=== PATIENT | female | born 1965 | race Caucasian/White ===

== ENCOUNTER 2016-10-14 16:13 | Observation (INO) | payer MEDICAID ==
--- NOTE | 2016-10-14 16:52 | ERPHSYRPT ---
- History of Present Illness Source: patient Exam Limitations: no limitations Patient Subjective Stated Complaint: PT STATES THAT SHE HAS BEEN HAVING THOUGHTS OF HARMING HERSELF-STATES "EVERYONE THINKS THAT WAY SOMETIMES"-PT STATES THAT "I WOULDN'T BECAUSE THE BIBLE SAYS NOT TO KILL ANYTHING"-STATES THAT HER BROTHER IN [place] ET SHE THINKS ABOUT HIM CONSTANTLY-DENIES ANY RECENT STRESSES-REPORTS STARTED ON [place] LAST FRIDAY-DENIES ANY ATTEMPTS OF HARMING HERSELF Triage Nursing Assessment: PT PINK WARM ET DRY-COOPERATIVE WITH STAFF-FLAT AFFECT NOTED-RESP NONLABORED-PT TALKATIVE ET ANXIOUS DURING TRIAGE-STATES THAT SHE HAS A BONE DISEASE THAT CAUSES PAIN EVERY DAY ET THAT DEPRESSES HER TOO Timing/Duration: other (patient havingdepression since feeling like harming herself this last week.) Modifying Factors: Improves With: other (recently started Cymbalta) Associated Symptoms: No nausea, No vomiting, No abdominal pain, No shortness of breath, No heartburn, No diaphoresis, No cough, No chills, No chest pain, No fever, No headaches, No loss of appetite, No malaise, No syncope, No seizure, No weakness Hx Tetanus, Diphtheria Vaccination/Date Given: Yes Hx Influenza Vaccination/Date Given: Yes Hx Pneumococcal Vaccination/Date Given: Yes Immunizations Up to Date: Yes <MAGDALENO LINK - Last Filed: 10/14/16 20:26> <ALEXANDRIA GARCIA - Last Filed: 10/15/16 00:34> - History of Present Illness Time Seen by Provider: 10/14/16 16:40 Physician History: This is a 51-year-old white female with history of seizures, strokes, adrenal insufficiency, hypothyroidism, liver disease, high blood pressure, GERD, renal disease, degenerative disc disease, anxiety, depression has had a liver transplant in the past And who was recently placed on Cymbalta by her family doctor. She arrives with complaints that she had a brother that over [place] she had another brother that within the last couple of years as well. She states she has been having suicidal thoughts. She states she has no obvious plan she states that she probably wouldn't kill herself because she is a [employer]. She does not want to hurt anybody else. She states she's been thinking about harming herself since Meet but this has been worse in the last week. Patient recently started Cymbalta. Past medical history includes seizure, strokes, adrenal insufficiency, hypothyroidism, liver disease, high blood pressure, GERD, renal disease, degenerative disc disease, anxiety, depression patient apparently has to straight catheter herself. Past surgical history includes cholecystectomy, liver transplant, hysterectomy, tubal ligation, orthopedic surgery, back kyphoplasty, bile duct surgeries, stage III kidney disease. (MAGDALENO LINK) Allergies/Adverse Reactions: levofloxacin [From Levaquin] Allergy (Severe, Verified 10/14/16 16:33) swelling of throat ampicillin Allergy (Verified 10/14/16 16:33) azithromycin [From Zithromax Z-Pawan] Allergy (Verified 10/14/16 16:33) cefixime [From Suprax] Allergy (Verified 10/14/16 16:33) cephalexin monohydrate [From Keflex] Allergy (Verified 10/14/16 16:33) ciprofloxacin [From Cipro] Allergy (Verified 10/14/16 16:33) ciprofloxacin HCl [From Cipro] Allergy (Verified 10/14/16 16:33) erythromycin base [Erythromycin Base] Allergy (Verified 10/14/16 16:33) nitrofurantoin [From Macrobid] Allergy (Verified 10/14/16 16:33) nitrofurantoin macrocrystalline [From Macrobid] Allergy (Verified 10/14/16 16:33 ) Penicillins Allergy (Verified 10/14/16 16:33) Sulfa (Sulfonamide Antibiotics) Allergy (Verified 10/14/16 16:33) tetracycline [Tetracycline] Allergy (Verified 10/14/16 16:33) Home Medications: Famotidine 20 mg PO HS 10/27/13 [History] Levothyroxine Sodium [Synthroid] 200 mcg PO DAILY 10/27/13 [History] Metoprolol Succinate 50 mg [Toprol Xl 50 MG] 50 mg PO BID 10/27/13 [ History] Omeprazole 20 MG [Prilosec 20 mg] 40 mg PO BID 10/27/13 [History] Clonazepam [Klonopin] 1 mg PO BID 12/29/13 [History] Ranitidine HCl 150 mg PO BID 06/11/14 [History] Tacrolimus [Prograf] 2 mg PO BID 11/08/14 [History] Cyclobenzaprine HCl 10 mg [Flexeril 10 MG] 10 mg PO BID PRN 10/20/15 [ History] Venlafaxine HCl [Venlafaxine HCl ER] 150 mg PO HS 10/20/15 [History] Hydrocodone Bit/Acetaminophen [[place]way 5-325 Tablet] 1 each PO Q4HPRN PRN [History] Duloxetine HCl 30 mg [Cymbalta 30 MG Capsule] 60 mg PO DAILY 10/14/16 [ History] - Review of Systems Constitutional: No Fever, No Chills Eyes: No Symptoms Ears, Nose, & Throat: No Symptoms Respiratory: No Cough, No Dyspnea Cardiac: No Chest Pain, No Edema, No Syncope Abdominal/Gastrointestinal: No Abdominal Pain, No Nausea, No Vomiting, No Diarrhea Genitourinary Symptoms: No Dysuria Musculoskeletal: No Back Pain, No Neck Pain Skin: No Rash Neurological: No Dizziness, No Focal Weakness, No Sensory Changes Psychological: Suicidal Ideations, No Alcohol Abuse, No Drug Abuse, No Homicidal Ideations Endocrine: No Symptoms All Other Systems: Reviewed and Negative <MAGDALENO LINK - Last Filed: 10/14/16 20:26> - Past Medical History Pertinent Past Medical History: Yes Neurological History: Seizures, Stroke ENT History: No Pertinent History Cardiac History: Hypertension Respiratory History: No Pertinent History Endocrine Medical History: Adrenal Insufficiency, Hypothyroidism, Liver Disease Musculoskeletal History: Degenerative Disk Disease GI Medical History: GERD History: Renal Disease, Other Psycho-Social History: Anxiety, Depression Female Reproductive Disorders: No Pertinent History Other Medical History: spoke with mother, she states she doesn't think it was a stroke, thinks it was a seizure. pt has to strait cath. - Past Surgical History Past Surgical History: Yes Neuro Surgical History: No Pertinent History Cardiac: No Pertinent History Respiratory: Other Gastrointestinal: Cholecystectomy, Liver Transplant Genitourinary: Other Musculoskeletal: Orthopedic Surgery Female Surgical History: Hysterectomy, Tubal Ligation Other Surgical History: bile duct surgery to remove stones five times, Back kyphoplasty x 5, CVL port placed, mother states she has stage III kidney failure. back procedure per dr ross - Social History Smoking Status: Current every day smoker How long have you smoked: 35 Exposure to second hand smoke: Yes Drug Use: none Patient Lives Alone: Yes - Female History Hx Now: No <MAGDALENO LINK - Last Filed: 10/14/16 20:26> - Physical Exam General Appearance: mild distress Eye Exam: PERRL/EOMI, eyes nml inspection Ears, Nose, Throat Exam: normal ENT inspection, TMs normal, pharynx normal, moist mucous membranes Neck Exam: normal inspection, non-tender, supple, full range of motion Respiratory Exam: normal breath sounds, lungs clear, No respiratory distress Cardiovascular Exam: regular rate/rhythm, normal heart sounds, normal peripheral pulses Gastrointestinal/Abdomen Exam: soft, normal bowel sounds, No tenderness, No mass Back Exam: normal inspection, normal range of motion, No CVA tenderness, No vertebral tenderness Extremity Exam: normal inspection, normal range of motion, pelvis stable Neurologic Exam: alert, oriented x 3, cooperative, normal mood/affect, nml cerebellar function, nml station & gait, sensation nml, other (suicidal thoughts ), No motor deficits Skin Exam: normal color, warm, dry, No rash Lymphatic Exam: No adenopathy SpO2 Interpretation: normal (96%) SpO2: 96 Oxygen Delivery: Room Air <MAGDALENO LINK - Last Filed: 10/14/16 20:26> - Course Nursing assessment & vital signs reviewed: Yes EKG Interpreted by Me: RATE (62 bpm), Sinus Rhythm, NORMAL AXIS, Other (EKG, normal sinus rhythm, 62 bpm, normal axis, no acute ST OR T wave changes noted. Essentially normal EKG) <MAGDALENO LINK - Last Filed: 10/14/16 20:26> - Progress Progress: improved <MAGDALENO ILNK - Last Filed: 10/14/16 20:26> - Progress Discussed with : Sharad ([id number] - OBS) <ALEXANDRIA GARCIA - Last Filed: 10/15/16 00:34> - Progress Progress Note: 10/14/16 20:24 Patient is stable at this time. Patient is undergoing telle-psyche Unfortunately it is shift change. Dr. Garcia will assume care of this patient. (MAGDALENO LINK) 10/14/16 22:[address] GARCIA [id number]: PERRL, EOMI, TM'S NOT INJECTED, PHARYNX PINK, LUNGS CLEAR, NO CARDIAC RUB, ABDOMINAL B.S. NORMAL, NO ANKLE EDEMA, ALERT & COOPERATIVE WITH NORMAL AFFECT. (ALEXANDRIA GARCIA) <MAGDALENO LINK - Last Filed: 10/14/16 20:26> - Departure Time of Disposition: 00:34 Departure Disposition: Observation Critical Care Time: No <ALEXANDRIA GARCIA - Last Filed: 10/15/16 00:34> - Departure Clinical Impression: SUICIDAL IDEATION Condition: Stable
[2016-10-14 17:07] LABS: Collection Type CATH; Ph 5.5 (5-6)
[2016-10-14 17:08] LABS: COMPLETE URINE MICROSCOPIC? NO
[2016-10-14 17:09] LABS: BASOPHIL % 0.5 % (0.0-0.4); Eosinophil % 2.7 % (0.00-5.0); Lymphocytes % 42.4 % (24.0-44.0); Mean Cell Volume 87.1 fl (78-100); Mean Corpuscular Hemoglobin 29.7 pg (26-32); Mean Platelet Volume 10.8 fl (6-9.5); Monocytes % 5.4 % (0.0-12.0); Platelet Count 216 K/mm3 (150-450); Red Blood Count 4.95 M/mm3 (4.1-5.4); Red Cell Distribution Width 12.8 % (11.5-14.0); White Blood Count 9.6 K/mm3 (4.0-10.5)
[2016-10-14 17:33] LABS: ACETAMINOPHEN < 2.0 ug/ml (10-30); ALBUMIN 4.1 g/dL (3.4-5.0); ALKALINE PHOSPHATASE 113 U/L (46-116); ANION GAP 15.7 MEQ/L (5-15); BILIRUBIN,TOTAL 0.5 mg/dL (0.2-1.0); BLOOD UREA NITROGEN 28 mg/dL (9-20); CHLORIDE 103 mEq/L (98-107); Carbon Dioxide 24.9 mEq/L (21-32); Glucose 95 MG/DL (70-110); Potassium 4.2 mEq/L (3.5-5.1); SGOT/AST 13 U/L (15-37); SGPT/ALT 7 U/L (12-78); SODIUM 139 mEq/L (136-145); Total Protein 7.9 gm/dL (6.4-8.2)
[2016-10-15] MEDS ORDERED: TYLENOL 325 MG PO PRN (01:44)
[2016-10-15 05:32] LABS: BASOPHIL % 0.5 % (0.0-0.4); Eosinophil % 3.4 % (0.00-5.0); Granulocytes % 35.4 % (36.0-66.0); Lymphocytes % 54.5 % (24.0-44.0); Mean Cell Volume 87.5 fl (78-100); Mean Corpuscular Hemoglobin 29.5 pg (26-32); Monocytes % 6.2 % (0.0-12.0); Platelet Count 182 K/mm3 (150-450); Red Cell Distribution Width 12.6 % (11.5-14.0); White Blood Count 7.5 K/mm3 (4.0-10.5)
[2016-10-15 06:10] LABS: ALBUMIN 3.5 g/dL (3.4-5.0); ANION GAP 14.2 MEQ/L (5-15); BILIRUBIN,TOTAL 0.4 mg/dL (0.2-1.0); Carbon Dioxide 26.3 mEq/L (21-32); Total Protein 6.7 gm/dL (6.4-8.2)
--- NOTE | 2016-10-15 08:06 | PCM.SSS ---
History of Present Illness - Chief Complaint Chief Complaint: Suicidal Ideations History of Present Illness: is a 51 year old female brought to the ER by her mother yesterday because "my thinking wasn't right." Pt had been started on cymbalta several days ago by Dr. Lam. She told the [facility] staff she didn't wouldn't to kill herself, but she wished God would take her. This morning she still thinks she is not "thinking right," she is oriented to place and time but she seems to be slow processing speech. C/o low back pain and hip pain through the night and would like medicine for that. - Review of Systems Musculoskeletal: Arthralgias, Back Pain Psychological: Anxiety, Depression, Suicidal Ideations Medications & Allergies Home Medications: Home Medication List Famotidine 20 mg PO HS 10/27/13 [History Confirmed 10/14/16] Levothyroxine Sodium [Synthroid] 200 mcg PO DAILY 10/27/13 [History Confirmed ] Metoprolol Succinate 50 mg [Toprol Xl 50 MG] 50 mg PO BID 10/27/13 [ History Confirmed 10/14/16] Omeprazole 20 MG [Prilosec 20 mg] 40 mg PO BID 10/27/13 [History Confirmed 10/14] Clonazepam [Klonopin] 1 mg PO BID 12/29/13 [History Confirmed 10/14/16] Ranitidine HCl 150 mg PO BID 06/11/14 [History Confirmed 10/14/16] Tacrolimus [Prograf] 2 mg PO BID 11/08/14 [History Confirmed 10/14/16] Hydrocodone Bit/Acetaminophen [Norman 10-325 Tablet] 1 each PO Q4H PRN PRN [History Confirmed 10/15/16] Allergies/Adverse Reactions: Allergies Allergy/AdvReac Type Severity Reaction Status Date / Time levofloxacin [From Levaquin] Allergy Severe swelling Verified 10/14/16 16:33 of throat ampicillin Allergy Verified 10/14/16 16:33 azithromycin Allergy Verified 10/14/16 16:33 [From Zithromax Z-Pawan] cefixime [From Suprax] Allergy Verified 10/14/16 16:33 cephalexin monohydrate Allergy Verified 10/14/16 16:33 [From Keflex] ciprofloxacin [From Cipro] Allergy Verified 10/14/16 16:33 ciprofloxacin HCl Allergy Verified 10/14/16 16:33 [From Cipro] erythromycin base Allergy Verified 10/14/16 16:33 [Erythromycin Base] nitrofurantoin Allergy Verified 10/14/16 16:33 [From Macrobid] nitrofurantoin Allergy Verified 10/14/16 16:33 macrocrystalline [From Macrobid] Penicillins Allergy Verified 10/14/16 16:33 Sulfa (Sulfonamide Allergy Verified 10/14/16 16:33 Antibiotics) tetracycline [Tetracycline] Allergy Verified 10/14/16 16:33 - Past Medical History Past Medical History: Yes Neurological History: Seizures, Stroke ENT History: No Pertinent History Cardiac History: Hypertension Respiratory History: No Pertinent History Endocrine Medical History: Adrenal Insufficiency, Hypothyroidism, Liver Disease Musculoskelatal History: Degenerative Disk Disease GI Medical History: GERD History: Renal Disease, Other Pyscho-Social History: Anxiety, Depression Reproductive Disorders: No Pertinent History Comment: spoke with mother, she states she doesn't think it was a stroke, thinks it was a seizure. pt has to strait cath. - Female History Are you now?: No - Past Surgical History Past Surgical History: Yes Neuro Surgical History: No Pertinent History Cardiac History: No Pertinent History Respiratory Surgery: Other GI Surgical History: Cholecystectomy, Liver Transplant Genitourinary Surgical Hx: Other Musculskeletal Surgical Hx: Orthopedic Surgery Female Surgical History: Hysterectomy, Tubal Ligation Other Surgical History: bile duct surgery to remove stones five times, Back kyphoplasty x 5, CVL port placed, mother states she has stage III kidney failure. back procedure per dr ross - Social History Smoking Status: Current every day smoker How long have you smoked: 25 Exposure to second hand smoke: Yes Alcohol: None Drug Use: none - Physical Exam Vital Signs: Vital Signs - 24 hr Temp Pulse Resp BP Pulse Ox 10/15/16 04:00 97.5 F 57 L 16 88/61 94 L 10/15/16 02:04 97.5 F 57 L 18 135/83 97 10/14/16 20:26 96 10/14/16 18:40 70 16 96 10/14/16 17:50 97.8 F 71 16 103/68 96 10/14/16 17:20 71 20 120/70 97 10/14/16 16:27 98.4 F 69 20 117/83 96 General Appearance: no apparent distress, alert, other (wakes to voice. somnolent initially during the interview. Appears slow to process the conversation and sometimes loses her place during her answer.) Neurologic Exam: oriented x 3, cooperative Eye Exam: PERRL/EOMI, eyes nml inspection Neck Exam: normal inspection, non-tender, No lymphadenopathy Respiratory Exam: normal breath sounds, lungs clear, No crackles/rales, No rhonchi, No wheezing Cardiovascular Exam: regular rate/rhythm, normal heart sounds Gastrointestinal/Abdomen Exam: soft, No tenderness, No distention, No guarding Back Exam: normal inspection, CVA tenderness (on R), other (low back nttp) Extremity Exam: No pedal edema, No swelling Skin Exam: normal color, warm, dry Results - Labs Lab/Micro Results: Lab Results-Last 24 Hours 10/15/16 10/15/16 Range/Units 05:08 05:08 WBC 7.5 (4.0-10.5) K/mm3 RBC 4.40 (4.1-5.4) M/mm3 Hgb 13.0 (12.0-16.0) gm/dl Hct 38.5 (35-47) % MCV 87.5 (78-100) fl MCH 29.5 (26-32) pg MCHC 33.8 (32-36) g/dl RDW 12.6 (11.5-14.0) % Plt Count 182 (150-450) K/mm3 MPV 11.0 H (6-9.5) fl Gran % 35.4 L (36.0-66.0) % Lymphocytes % 54.5 H (24.0-44.0) % Monocytes % 6.2 (0.0-12.0) % Eosinophils % 3.4 (0.00-5.0) % Basophils % 0.5 (0.0-0.4) % Basophils # 0.04 (0-0.4) Sodium 141 (136-145) mEq/L Potassium 4.0 (3.5-5.1) mEq/L Chloride 104 (98-107) mEq/L Carbon Dioxide 26.3 (21-32) mEq/L Anion Gap 14.2 (5-15) MEQ/L BUN 25 H (9-20) mg/dL Creatinine 1.34 H (0.55-1.30) mg/dl Estimated GFR 44 ML/MIN Glucose 101 (70-110) MG/DL Calcium 8.7 (8.5-10.1) mg/dL Total Bilirubin 0.4 (0.2-1.0) mg/dL AST 10 L (15-37) U/L ALT 9 L (12-78) U/L Alkaline Phosphatase 101 (46-116) U/L Serum Total Protein 6.7 (6.4-8.2) gm/dL Albumin 3.5 (3.4-5.0) g/dL Assessment/Plan (1) Suicidal ideation Current Visit: Yes Status: Acute Assessment & Plan: she will admitted to [facility] mental health unit when a bed is available. Code(s): R45.851 - SUICIDAL IDEATIONS (2) Depressed Current Visit: Yes Status: Acute Qualifiers: Depression Type: major depressive disorder Assessment & Plan: Pt is asking for med for depression, will defer to psych, recently bad reaction to cymbalta. Code(s): F32.9 - MAJOR DEPRESSIVE DISORDER, SINGLE EPISODE, UNSPECIFIED (3) Renal insufficiency Current Visit: Yes Status: Chronic Assessment & Plan: chronic issue for pt (4) Polysubstance (excluding opioids) dependence Current Visit: Yes Status: Acute Assessment & Plan: + THC in ER on UDS. Code(s): F19.20 - OTHER PSYCHOACTIVE SUBSTANCE DEPENDENCE, UNCOMPLICATED (5) Chronic back pain Current Visit: No Status: Chronic Assessment & Plan: will resume her home norco. Code(s): M54.9 - DORSALGIA, UNSPECIFIED; G89.29 - OTHER CHRONIC PAIN (6) Liver transplant disorder Current Visit: Yes Status: Chronic Code(s): T86.40 - UNSPECIFIED COMPLICATION OF LIVER TRANSPLANT Hospital Summary - Hospital Course Hospital Course: Pt admitted with acute exacerbation of depression with suicidal ideation. To be admitted to [facility] mental health unit. - Vitals & Intake/Output Vital Signs: Vital Signs Temperature 97.5 F 10/15/16 04:00 Pulse Rate 57 L 10/15/16 04:00 Respiratory Rate 16 10/15/16 04:00 Blood Pressure 88/61 10/15/16 04:00 O2 Sat by Pulse Oximetry 94 L 10/15/16 04:00 Intake & Output: Intake & Output 10/12/16 10/13/16 10/14/16 10/15/16 11:59 11:59 11:59 11:59 Intake Total 200 Balance 200 Weight 50.893 kg - Lab Result Diagrams: 10/15/16 05:08 10/15/16 05:08 Lab Results-Last 24 Hrs: Lab Results-Last 24 Hours 10/15/16 10/15/16 Range/Units 05:08 05:08 WBC 7.5 (4.0-10.5) K/mm3 RBC 4.40 (4.1-5.4) M/mm3 Hgb 13.0 (12.0-16.0) gm/dl Hct 38.5 (35-47) % MCV 87.5 (78-100) fl MCH 29.5 (26-32) pg MCHC 33.8 (32-36) g/dl RDW 12.6 (11.5-14.0) % Plt Count 182 (150-450) K/mm3 MPV 11.0 H (6-9.5) fl Gran % 35.4 L (36.0-66.0) % Lymphocytes % 54.5 H (24.0-44.0) % Monocytes % 6.2 (0.0-12.0) % Eosinophils % 3.4 (0.00-5.0) % Basophils % 0.5 (0.0-0.4) % Basophils # 0.04 (0-0.4) Sodium 141 (136-145) mEq/L Potassium 4.0 (3.5-5.1) mEq/L Chloride 104 (98-107) mEq/L Carbon Dioxide 26.3 (21-32) mEq/L Anion Gap 14.2 (5-15) MEQ/L BUN 25 H (9-20) mg/dL Creatinine 1.34 H (0.55-1.30) mg/dl Estimated GFR 44 ML/MIN Glucose 101 (70-110) MG/DL Calcium 8.7 (8.5-10.1) mg/dL Total Bilirubin 0.4 (0.2-1.0) mg/dL AST 10 L (15-37) U/L ALT 9 L (12-78) U/L Alkaline Phosphatase 101 (46-116) U/L Serum Total Protein 6.7 (6.4-8.2) gm/dL Albumin 3.5 (3.4-5.0) g/dL - Procedures and Test Procedures and Tests throughout Hospitalization: Therapy Orders & Screens 10/15/16 02:41 Smoking Cessation Education ONCE Comment: Diagnosis: Suicidal Ideations Smoking Status: Current every day smoker How long have you smoked: 25 Have you smoked in the past 12 months: Yes Approximately how many cigarettes per day: 15 Do you dip or chew tobacco: No If,Former Smoker,when did you quit: 1 MONTH - [facility]charge [facility]position[facility] Condition: Stable Prescriptions: No Action Levothyroxine Sodium [Synthroid] 200 mcg PO DAILY Omeprazole 20 MG [Prilosec 20 mg] 40 mg PO BID Metoprolol Succinate 50 mg [Toprol Xl 50 MG] 50 mg PO BID Famotidine 20 mg PO HS Clonazepam [Klonopin] 1 mg PO BID Ranitidine HCl 150 mg PO BID Tacrolimus [Prograf] 2 mg PO BID Hydrocodone Bit/Acetaminophen [Norman 10-325 Tablet] 1 each PO Q4H PRN PRN PRN Reason: Pain Follow up with: CLEMENTINA LAM MD [Primary Care Provider] -
[2016-10-15] MEDS ORDERED: NON-FORMULARY ITEM (Clonazepam [Klonopin] 1 MG) PO PRN (09:06)
[2016-10-15] MEDS ORDERED: Klonopin 0.5 MG PO PRN (09:09)
[2016-10-15] MEDS ORDERED: NON-FORMULARY ITEM (Levothyroxine Sodium [Synthroid] 200 MCG) PO SCH (10:00)
[2016-10-15] MEDS ORDERED: NON-FORMULARY ITEM (Ranitidine Hcl [Ranitidine Hcl] 150 MG) PO SCH (10:00)
[2016-10-15] MEDS ORDERED: Toprol Xl 50 MG PO SCH (10:00)
[2016-10-15] MEDS ORDERED: Protonix 40MG Tablet PO SCH (10:00)
[2016-10-15] MEDS ORDERED: MEDICATION INTERVENTION MC SCH (10:00)
[2016-10-15] MEDS ORDERED: TACROLIMUS 2 MG PO SCH (10:00)
[2016-10-15] MEDS ORDERED: SYNTHROID 100 MCG PO SCH (10:00)
[2016-10-15] MEDS ORDERED: NON-FORMULARY ITEM (Omeprazole 20 Mg [Prilosec 20 Mg] 40 MG) PO SCH (10:00)
[2016-10-15] MEDS ORDERED: PNEUMOVAX 23 IM ONE (10:00)
[2016-10-15] MEDS ORDERED: FLUZONE QUAD 2016-2017 SYRINGE 36MO-64YO IM ONE (10:00)
[2016-10-15] MEDS: Norco 10/325 MG Tablet PO PRN ×3 (10:10→19:34)
[2016-10-15 16:19] VITALS: PULSE 80; O2SAT 93
[2016-10-15 20:18] VITALS: BP 106/79
[2016-10-15] MEDS ORDERED: Pepcid 20 MG PO SCH (22:00)
== END 2016-10-15 20:30 | disposition short-term general hospital (02) ==
LOC: ED 16:13 → ICU 10-15 01:39
PROVIDERS: ADMIT Family Medicine; ATTEND Family Medicine
DX: R45.851 Suicidal ideations (principal); F32.9 Major depressive disorder, single episode, unspecified; N28.9 Disorder of kidney and ureter, unspecified; F19.20 Other psychoactive substance dependence, uncomplicated; M54.9 Dorsalgia, unspecified; G89.29 Other chronic pain; T86.40 Unspecified complication of liver transplant
CPT/HCPCS: 36415; 80053; 80307; 80320; 81002; 83986; 85025; 90686; 90732; 90791; 93005; 99284; G0378; G0479; G0481; P9612; Q3014

== ENCOUNTER 2017-02-11 07:41 | Inpatient (IN) | payer MEDICAID ==
[~2017-02-11 07:41] MED LIST: CLINDAMYCIN-D5W 600 MG/50 ML*** 600 MG/50 ML BAG IV STA; Lactated Ringers 1,000 ML IV ONE
[2017-02-11] MEDS ORDERED: Lactated Ringers 1,000 ML IV ONE (07:45)
[2017-02-11] MEDS ORDERED: CLINDAMYCIN-D5W 600 MG/50 ML*** 600 MG/50 ML BAG IV ONE (07:45)
[2017-02-11] MEDS ORDERED: Zemuron 100 MG/10 ML IV ONE (08:00)
[2017-02-11] MEDS ORDERED: ROBINUL IV ONE (08:00)
[2017-02-11] MEDS ORDERED: SUBLIMAZE 250 MCG/5 ML IV ONE (08:00)
[2017-02-11] MEDS ORDERED: Zofran 4 MG/2 ML VIAL IV ONE (08:00)
[2017-02-11] MEDS ORDERED: DILAUDID 2 MG INJECTION IV ONE (08:00)
[2017-02-11] MEDS ORDERED: BLOXIVERZ IV ONE (08:00)
[2017-02-11] MEDS ORDERED: TORAdol 30 mg Injection IV ONE (08:00)
[2017-02-11] MEDS ORDERED: DIPRIVAN 200 MG/20 ML IV ONE (08:00)
[2017-02-11] MEDS ORDERED: PHENYLEPHRINE HCL IV ONE (08:00)
[2017-02-11] MEDS ORDERED: Versed 2 MG/2 ML Injection IV ONE (08:00)
[2017-02-11] MEDS ORDERED: Lactated Ringers 1,000 ML IV SCH (08:00)
[2017-02-11] MEDS ORDERED: GENTAMICIN 80 MG/50 ML PREMIX*** 80 MG/50 ML ML IV ONE (08:30)
[2017-02-11] MEDS ORDERED: GENTAMICIN 80 MG/50 ML PREMIX*** 50 ML IV ONE (08:46)
[2017-02-11 08:54] LABS: INR 0.92 (0.8-3.0); PROTIME 10.3 SECONDS (9.95-12.35)
[2017-02-11 08:57] LABS: PTT 30.9 SECONDS (25.3-37.0)
[2017-02-11] MEDS ORDERED: Pepcid 20 MG VIAL IV SCH (09:00)
[2017-02-11] MEDS ORDERED: ON-Q PUMP 1 in Marcaine Mpf 0.5% Vial 30 Ml*** 270 ML IV SCH (10:00)
[2017-02-11 10:08] LABS: BASOPHIL % 0.5 % (0.0-0.4); Eosinophil % 2.2 % (0.00-5.0); Granulocytes % 45.1 % (36.0-66.0); Lymphocytes % 45.6 % (24.0-44.0); Mean Cell Volume 85.5 fl (78-100); Mean Corpuscular Hemoglobin 29.2 pg (26-32); Mean Platelet Volume 12.1 fl (6-9.5); Monocytes % 6.6 % (0.0-12.0); Platelet Count 193 K/mm3 (150-450); Red Blood Count 4.96 M/mm3 (4.1-5.4); Red Cell Distribution Width 13.3 % (11.5-14.0)
[2017-02-11 10:15] LABS: ALBUMIN 4.1 g/dL (3.4-5.0); ANION GAP 16.4 MEQ/L (5-15); BILIRUBIN,TOTAL 0.4 mg/dL (0.2-1.0); Carbon Dioxide 24.3 mEq/L (21-32); Potassium 4.2 mEq/L (3.5-5.1); Total Protein 7.8 gm/dL (6.4-8.2)
[2017-02-11 10:38] LABS: Direct Bilirubin 0.08 MG/DL (0.0-0.2)
[2017-02-11] MEDS ORDERED: DILAUDID 2 MG INJECTION ONE (11:37)
[2017-02-11] MEDS ORDERED: Nubain 10 MG/ML ONE (11:41)
--- NOTE | 2017-02-11 12:18 | XRAY ---
Indication: Postop right hip. Comparison: December 31, 2016. 2 views of the right hip obtained using portable technique demonstrates interval total hip arthroplasty with intact bipolar prosthesis/3 acetabular screws. Screw tips all appear to project into the pelvis. Soft tissue changes including drainage tubing and cutaneous mina attest to recent surgery.
[2017-02-11] MEDS ORDERED: MORPHINE SULFATE 4 MG INJ IV PRN (13:00)
[2017-02-11] MEDS ORDERED: Zofran 4 MG/2 ML VIAL IV PRN (13:01)
[2017-02-11] MEDS ORDERED: DILAUDID 1 MG/1ML PCA IV PRN (13:02)
[2017-02-11] MEDS: DILAUDID 1 MG/1ML PCA IV PRN (13:13)
[2017-02-11] MEDS: Lactated Ringers 1,000 ML IV SCH (13:15)
[2017-02-11] MEDS ORDERED: MEDICATION INTERVENTION MC PRN (13:22)
[2017-02-11] MEDS ORDERED: Pepcid 20 MG PO SCH (14:00)
--- NOTE | 2017-02-11 14:03 | OP ---
SURGERY DATE/TIME: 02/11/2017 0851 PREOPERATIVE DIAGNOSIS: Degenerative joint disease of the right hip. POSTOPERATIVE DIAGNOSIS: Degenerative joint disease of the right hip. PROCEDURES: 1) Right total hip arthroplasty. 2) X-ray per surgeon. 3) Long leg splint. 4) On-Q pump catheter postoperative pain. 5) Admit status. SURGEON: Luis Miguel Carrero D.O. FORMAT PROOFREADER: None. ANESTHESIA: General. ESTIMATED BLOOD LOSS: 100. DESCRIPTION OF PROCEDURE: The patient is taken to the operative suite and placed in supine position, given a general anesthetic, turned left side down and right side up on a wood bag and kidney post. Sterile prep and drape done. Sterile air filtration suits were used. Incision made across the lateral aspect of the skin, fascia, deep fascia in anterior-lateral approach to the right hip. The abductor musculature reflected and three Charnley retractors applied. 5-0 retractors applied. The capsulotomy was done and the hip was entered. Resultant Pulvinar removed and clear fluid drained from the hip joint. Femoral neck and head were then cut away and sized up to 44 mm in diameter and then reaming was begun. Abduction of 45 degrees and 5 to 10 degrees of anteversion and the cup was seated after drilling the wound from 45 to 46, 47, 48, 40 and 50. A 50 mm titanium cup was delivered into position was impacted and then secured with three separate screws and the screws were placed 20, 20 and 25 mm length and all five were positioned about the cup. A 10 mm nonlip liner was then placed in the cup and seated in its lateral hip function and then we out to do preparation of proximal femur. The patient's femur was then adducted, forward flexed and externally rotated over captured hip bag and then trochanteric reaming beginning with a box chisel, tapered reamers and broaches. Once the 8 broach was seated then the actual permanent prosthesis was chosen delivered into position and a 0 neck length head was chosen, a 22 mm head. A 7 to 8 mm outer ball and then reduced into into the joint satisfactorily. The wounds were irrigated with saline, closed with interrupted Ethibond in the abductor musculature, back in the subcutaneous layer interrupted Ethibond in the fascial area as well over a suction drain and then Xeroform, 4X4, and sterile dressings and long leg splint applied. The patient sent on to the recovery room in satisfactory condition. We chose to review the x-rays both preoperatively and postoperatively for the femoral cortical width. It was found to be midline and was able to choose the medial compartment based on this. Lastly at the end of procedure the femoral area explored the superior portion of the incision as a field block and a modified area of fascia blocks, secured with Steri-Strips. The independent catheter run postoperative morphine at 1:2 cc/hour rate. Long leg splint applied, modified abductor splint and the patient sent on to the recovery room in satisfactory condition.
[2017-02-11] MEDS: NEURONTIN 300 MG PO SCH (14:07)
[2017-02-11] MEDS: Protonix 40MG Tablet PO SCH (14:07)
[2017-02-11] MEDS: CLINDAMYCIN-D5W 600 MG/50 ML*** 600 MG/50 ML BAG IV SCH ×2 (14:07→22:12)
[2017-02-11] MEDS: SYNTHROID 100 MCG PO SCH (14:07)
[2017-02-11] MEDS: xanAX 0.5 MG PO SCH ×2 (14:07→22:13)
[2017-02-11] MEDS ORDERED: TACROLIMUS 3 MG PO SCH (22:00)
[2017-02-11] MEDS ORDERED: NON-FORMULARY ITEM (Ranitidine Hcl [Ranitidine Hcl] 150 MG) PO SCH (22:00)
[2017-02-11] MEDS ORDERED: NON-FORMULARY ITEM (Mirtazapine [Remeron] 15 MG) PO SCH (22:00)
[2017-02-11] MEDS: REMERON 30 MG PO SCH (22:12)
[2017-02-11] MEDS: Pepcid 20 MG PO SCH (22:12)
[2017-02-12] MEDS: CLINDAMYCIN-D5W 600 MG/50 ML*** 600 MG/50 ML BAG IV SCH (05:31)
[2017-02-12 06:52] LABS: Mean Cell Volume 89.1 fl (78-100); Mean Corpuscular Hemoglobin 29.3 pg (26-32); Platelet Count 136 K/mm3 (150-450); Red Blood Count 3.58 M/mm3 (4.1-5.4); Red Cell Distribution Width 13.1 % (11.5-14.0); White Blood Count 7.1 K/mm3 (4.0-10.5)
[2017-02-12] MEDS: Lactated Ringers 1,000 ML IV SCH (07:58)
[2017-02-12] MEDS: xanAX 0.5 MG PO SCH ×3 (08:17→21:16)
[2017-02-12] MEDS: SYNTHROID 100 MCG PO SCH (08:17)
[2017-02-12] MEDS: NEURONTIN 300 MG PO SCH (08:18)
[2017-02-12] MEDS: Protonix 40MG Tablet PO SCH (08:18)
[2017-02-12] MEDS: ENOXAPARIN SODIUM SQ SCH (09:34)
[2017-02-12] MEDS ORDERED: NON-FORMULARY ITEM (Omeprazole 20 Mg [Prilosec 20 Mg] 20 MG) PO SCH (10:00)
[2017-02-12] MEDS ORDERED: NON-FORMULARY ITEM (Levothyroxine Sodium [Synthroid] 200 MCG) PO SCH (10:00)
[2017-02-12] MEDS: PATIENT OWN MEDICATION PO SCH ×2 (11:56→21:16)
[2017-02-12] MEDS: DILAUDID 1 MG/1ML PCA IV PRN (12:16)
[2017-02-12] MEDS ORDERED: TYLENOL 325 MG PO PRN (18:58)
[2017-02-12] MEDS: REMERON 30 MG PO SCH (21:15)
[2017-02-12] MEDS: Pepcid 20 MG PO SCH (21:15)
[2017-02-13] MEDS: Lactated Ringers 1,000 ML IV SCH (00:36)
[2017-02-13] MEDS: Norco 10/325 MG Tablet PO PRN ×5 (04:35→20:35)
[2017-02-13] MEDS ORDERED: Sodium Chloride 0.9% 10 ML FLUSH Syringe IV PRN (07:41)
[2017-02-13] MEDS: ENOXAPARIN SODIUM SQ SCH (08:39)
[2017-02-13] MEDS: PATIENT OWN MEDICATION PO SCH ×2 (08:39→22:46)
[2017-02-13] MEDS: SYNTHROID 100 MCG PO SCH (08:39)
[2017-02-13] MEDS: xanAX 0.5 MG PO SCH ×3 (08:39→22:40)
[2017-02-13] MEDS: NEURONTIN 300 MG PO SCH (08:39)
[2017-02-13] MEDS: DILAUDID 1 MG/1ML PCA IV PRN (08:51)
[2017-02-13] MEDS: Protonix 40MG Tablet PO SCH (09:42)
[2017-02-13] MEDS: Sodium Chloride 0.9% 10 ML FLUSH Syringe IV SCH ×2 (12:58→22:55)
[2017-02-13] MEDS ORDERED: NICODERM CQ 14 MG TOP SCH (22:00)
[2017-02-13] MEDS: Pepcid 20 MG PO SCH (22:38)
[2017-02-13] MEDS: REMERON 30 MG PO SCH (22:41)
[2017-02-14] MEDS: Norco 10/325 MG Tablet PO PRN ×3 (00:39→09:55)
[2017-02-14] MEDS: Sodium Chloride 0.9% 10 ML FLUSH Syringe IV SCH (06:09)
[2017-02-14 07:49] VITALS: BP 144/75; PULSE 96; O2SAT 92
[2017-02-14] MEDS: xanAX 0.5 MG PO SCH (09:56)
[2017-02-14] MEDS: NEURONTIN 300 MG PO SCH (09:56)
[2017-02-14] MEDS: SYNTHROID 100 MCG PO SCH (09:56)
[2017-02-14] MEDS: Protonix 40MG Tablet PO SCH (09:56)
[2017-02-14] MEDS: ENOXAPARIN SODIUM SQ SCH (09:57)
[2017-02-14] MEDS: PATIENT OWN MEDICATION PO SCH (09:58)
== END 2017-02-14 11:35 | disposition home health service (06) | DRG 470 ==
LOC: MED SURG 07:41 → EDSTATUS 07:42
PROVIDERS: ADMIT Orthopaedic Surgery; ATTEND Orthopaedic Surgery
PROC: 0SR90JZ Replacement of Right Hip Joint with Synthetic Substitute, Open Approach (ICD-10-PCS; principal; 2017-02-11)
PROC: 2W3LX1Z Immobilization of Right Lower Extremity using Splint (ICD-10-PCS; 2017-02-11)
DX: M16.11 Unilateral primary osteoarthritis, right hip (principal); M25.551 Pain in right hip
CPT/HCPCS: 01214; 36415; 73502; 80053; 82248; 85025; 85027; 85610; 85730; 86850; 86900; 86901; 87040; 87086; 94760; J1170; J1580; J1642; J1650; J1885; J2250; J2300; J2370; J2405; J2704; J2710; J3010; 97110-GP; A9270-GY

== ENCOUNTER 2017-08-17 10:30 | Emergency (ER) | payer MEDICAID ==
[2017-08-17] MEDS ORDERED: DUONEB 0.5-3 MG/3 ml Neb IH ONE ×2 (10:58→11:13)
[2017-08-17] MEDS ORDERED: DELTASONE 20 MG PO ONE (10:58)
--- NOTE | 2017-08-17 11:04 | ERPHSYRPT ---
- History of Present Illness Time Seen by Provider: 08/17/17 11:01 Source: patient Exam Limitations: no limitations Patient Subjective Stated Complaint: PT STATES BEEN COUGHING SINCE 08/13/17, SEEN AT [facility] 08/15/17, DX WITH CHEST COLD AND GIVEN INHALER AND COUGH SYRUP, STATES S/S ARE WORSE AND SHE IS STILL COUGHING AND SHORT OF BREATH WITH MINIMAL EXERTION. STATES SHE IS "SORE ALL OVER" FROM COUGHING. PT ALSO REPORTS BEING SICK TO HER STOMACH STARTING TODAY WITH DRY HEAVES. Triage Nursing Assessment: PT IS AOX3, PUPILS PERRL, PT IS SHORT OF BREATH UPON ARRIVAL TO THE ROOM AFTER DISROBING, WHEEZES HEARD UPON AUSCULTATION POSTERIORLY BILAT AND THROUGHOUT ALL RAMIREZ, INSPIRATORY AND EXPIRATORY. RADIAL PULSE IS STRONG AT A RATE OF 110. ABD SOFT AND NON TENDER, BOWEL SOUNDS PRESENT THROUGHOUT ALL RAMIREZ. NON PRODUCTIVE DRY COUGH HEARD. PT REPORTS PAIN IS WORSE WHEN COUGHING. SKIN IS PALE WARM AND DRY. Physician History: mild to mod off and on cough and short of breath since Friday, pleuritic chest discomfort, no fever, no smoking Activities at Onset: none Severity of Dyspnea-Current: mild Associated Symptoms: cough, No fever Allergies/Adverse Reactions: ampicillin Allergy (Severe, Verified 02/11/17 08:11) Swelling azithromycin [From Zithromax Z-Pawan] Allergy (Severe, Verified 02/11/17 08:11) Swelling cefixime [From Suprax] Allergy (Severe, Verified 02/11/17 08:11) Swelling cephalexin monohydrate [From Keflex] Allergy (Severe, Verified 02/11/17 08:11) Swelling ciprofloxacin [From Cipro] Allergy (Severe, Verified 02/11/17 08:11) Rash ciprofloxacin HCl [From Cipro] Allergy (Severe, Verified 02/11/17 08:11) Swelling erythromycin base [Erythromycin Base] Allergy (Severe, Verified 02/11/17 08:11) Swelling levofloxacin [From Levaquin] Allergy (Severe, Verified 02/11/17 08:11) swelling of throat nitrofurantoin [From Macrobid] Allergy (Severe, Verified 02/11/17 08:11) Swelling nitrofurantoin macrocrystalline [From Macrobid] Allergy (Severe, Verified 08:11) Rash Penicillins Allergy (Severe, Verified 02/11/17 08:11) Difficulty Breathing Sulfa (Sulfonamide Antibiotics) Allergy (Verified 02/11/17 08:11) tetracycline [Tetracycline] Allergy (Verified 02/11/17 08:11) Home Medications: Famotidine 20 mg PO HS 10/27/13 [History] Levothyroxine Sodium [Synthroid] 200 mcg PO DAILY 10/27/13 [History] Ranitidine HCl 150 mg PO BID 06/11/14 [History] Tacrolimus [Prograf] 3 mg PO BID 11/08/14 [History] Hydrocodone Bit/Acetaminophen [[place] 10-325 Tablet] 1 each PO Q4H PRN PRN [History] Alprazolam [Xanax] 0.5 mg PO TID 02/10/17 [History] Gabapentin 300 mg PO DAILY 02/10/17 [History] Mirtazapine [Remeron] 15 mg PO HS 02/10/17 [History] Omeprazole 20 MG [Prilosec 20 mg] 20 mg PO DAILY 02/10/17 [History] Hx Tetanus, Diphtheria Vaccination/Date Given: Yes Hx Influenza Vaccination/Date Given: Yes Hx Pneumococcal Vaccination/Date Given: Yes - Review of Systems Constitutional: No Fever Eyes: No Symptoms Ears, Nose, & Throat: No Symptoms Respiratory: Cough, Dyspnea Cardiac: Chest Pain Abdominal/Gastrointestinal: No Symptoms Musculoskeletal: No Symptoms Skin: No Symptoms Neurological: No Symptoms Psychological: No Symptoms - Past Medical History Pertinent Past Medical History: Yes Neurological History: Seizures, Stroke ENT History: No Pertinent History Cardiac History: No Pertinent History Respiratory History: No Pertinent History Endocrine Medical History: Hypothyroidism, Liver Disease Musculoskeletal History: Degenerative Disk Disease, Other GI Medical History: GERD History: Renal Disease, Other Psycho-Social History: Anxiety, Depression Female Reproductive Disorders: No Pertinent History Other Medical History: spoke with mother, she states she doesn't think it was a stroke, thinks it was a seizure. pt has to strait cath. - Past Surgical History Past Surgical History: Yes Neuro Surgical History: No Pertinent History Cardiac: No Pertinent History Respiratory: Other Gastrointestinal: Appendectomy, Cholecystectomy, Liver Transplant Genitourinary: Other Musculoskeletal: Orthopedic Surgery Female Surgical History: Hysterectomy, Tubal Ligation Other Surgical History: bile duct surgery to remove stones five times, Back kyphoplasty x 5, CVL port placed, mother states she has stage III kidney failure. back procedure per dr kruse, TOTAL HIP 2017 - Social History Smoking Status: Current every day smoker How long have you smoked: 40 Exposure to second hand smoke: Yes Drug Use: none Patient Lives Alone: Yes - Nursing Vital Signs Nursing Vital Signs: Initial Vital Signs Temperature 98.0 F 08/17/17 10:45 Pulse Rate 110 H 08/17/17 10:45 Respiratory Rate 24 08/17/17 10:45 Blood Pressure 153/105 08/17/17 10:45 O2 Sat by Pulse Oximetry 96 08/17/17 10:45 Pain Scale Pain Intensity 7 - Physical Exam General Appearance: no apparent distress Eye Exam: PERRL/EOMI Ears, Nose, Throat Exam: normal pharynx Neck Exam: normal inspection Respiratory Exam: wheezing Cardiovascular/Chest Exam: regular rate/rhythm Abdominal/Gastrointestinal Exam: soft, No tenderness Extremity Exam: non-tender Neurologic Exam: alert, oriented x 3, cooperative Skin Exam: normal color, warm, dry SpO2 Interpretation: normal SpO2: 96 Oxygen Delivery: Room Air - Course Nursing assessment & vital signs reviewed: Yes EKG Interpreted by Me: Other (nsr 93 no stemi) - Radiology Exams Chest X-ray Interpretation: Interpreted by me, No Pneumonia Ordered Tests: Active Orders 24 hr Category Date Time Status EKG-ER Only STAT Care 08/17/17 10:58 Active CHEST 1 VIEW (PORTABLE) Stat Exams 08/17/17 10:58 Taken CBC W DIFF Stat Lab 08/17/17 11:18 Completed CMP Routine Lab 08/17/17 11:18 Completed D-DIMER QUANTITATION Stat Lab 08/17/17 11:18 Completed Lactic Acid Stat Lab 08/17/17 11:35 Completed NT PRO BNP Routine Lab 08/17/17 11:18 Completed TROPONIN Q3H Lab 08/17/17 11:18 Completed TROPONIN Q3H Lab 08/17/17 14:00 Ordered TROPONIN Q3H Lab 08/17/17 17:00 Ordered TROPONIN Q3H Lab 08/17/17 20:00 Ordered TROPONIN Q3H Lab 08/17/17 23:00 Ordered Respiratory Nebulizer STAT RT 08/17/17 11:00 Completed Medication Summary Generic Name Dose Route Start Last Admin Trade Name Freq PRN Reason Stop Dose Admin Acetaminophen 1,000 mg 08/17/17 13:05 08/17/17 13:46 Tylenol Extra Strength 500 Mg PO 09/16/17 13:04 1,000 mg Q4H PRN PRN Administration HEADACHE Discontinued Medications Generic Name Dose Route Start Last Admin Trade Name Mary PRN Reason Stop Dose Admin Albuterol/Ipratropium 3 ml 08/17/17 10:58 08/17/17 11:16 Duoneb 0.5-3 Mg/3 Ml Neb IH 08/17/17 10:59 3 ml STAT ONE Administration Albuterol/Ipratropium Confirm 08/17/17 11:13 Duoneb 0.5-3 Mg/3 Ml Neb Administered 08/17/17 11:14 Dose 3 ml IH .STK-MED ONE Ondansetron HCl 4 mg 08/17/17 11:37 08/17/17 11:41 Zofran 4 Mg/2 Ml Vial IV 08/17/17 11:38 4 mg STAT ONE Administration Ondansetron HCl Confirm 08/17/17 11:40 Zofran 4 Mg/2 Ml Vial Administered 08/17/17 11:41 Dose 4 mg .ROUTE .STK-MED ONE Prednisone 60 mg 08/17/17 10:58 08/17/17 11:15 Deltasone 20 Mg PO 08/17/17 10:59 60 mg STAT ONE Administration Prednisone Confirm 08/17/17 11:12 Deltasone 20 Mg Administered 08/17/17 11:13 Dose 60 mg .ROUTE .STK-MED ONE Lab/Rad Data: Laboratory Result Diagrams 08/17/17 11:18 08/17/17 11:18 Laboratory Results 08/17/17 08/17/17 08/17/17 Range/Units 11:35 11:18 11:18 WBC (4.0-10.5) K/mm3 RBC (4.1-5.4) M/mm3 Hgb (12.0-16.0) gm/dl Hct (35-47) % MCV (78-100) fl MCH (26-32) pg MCHC (32-36) g/dl RDW (11.5-14.0) % Plt Count (150-450) K/mm3 MPV (6-9.5) fl Gran % (36.0-66.0) % Lymphocytes % (24.0-44.0) % Monocytes % (0.0-12.0) % Eosinophils % (0.00-5.0) % Basophils % (0.0-0.4) % Basophils # (0-0.4) D-Dimer 451 (0-500) ng/mL Sodium 144 (136-145) mEq/L Potassium 4.1 (3.5-5.1) mEq/L Chloride 107 (98-107) mEq/L Carbon Dioxide 26.3 (21-32) mEq/L Anion Gap 15.1 H (5-15) MEQ/L BUN 16 (9-20) mg/dL Creatinine 1.34 H (0.55-1.30) mg/dl Estimated GFR 44 ML/MIN Glucose 106 (70-110) MG/DL Lactic Acid 0.8 (0.4-2.0) Calcium 9.0 (8.5-10.1) mg/dL Total Bilirubin 0.40 (0.2-1.0) mg/dL AST 12 L (15-37) U/L ALT 10 L (12-78) U/L Alkaline Phosphatase 103 (46-116) U/L Troponin I < 0.017 (0.000-0.056) ng/ml NT-Pro-B Natriuret Pep 55 (0-125) pg/ml Serum Total Protein 7.9 (6.4-8.2) gm/dL Albumin 4.0 (3.4-5.0) g/dL 08/17/ Range/Units 11:18 WBC 9.3 (4.0-10.5) K/mm3 RBC 4.38 (4.1-5.4) M/mm3 Hgb 12.9 (12.0-16.0) gm/dl Hct 38.7 (35-47) % MCV 88.4 (78-100) fl MCH 29.5 (26-32) pg MCHC 33.3 (32-36) g/dl RDW 14.6 H (11.5-14.0) % Plt Count 205 (150-450) K/mm3 MPV 11.0 H (6-9.5) fl Gran % 75.8 H (36.0-66.0) % Lymphocytes % 16.7 L (24.0-44.0) % Monocytes % 4.6 (0.0-12.0) % Eosinophils % 2.5 (0.00-5.0) % Basophils % 0.4 (0.0-0.4) % Basophils # 0.04 (0-0.4) D-Dimer (0-500) ng/mL Sodium (136-145) mEq/L Potassium (3.5-5.1) mEq/L Chloride (98-107) mEq/L Carbon Dioxide (21-32) mEq/L Anion Gap (5-15) MEQ/L BUN (9-20) mg/dL Creatinine (0.55-1.30) mg/dl Estimated GFR ML/MIN Glucose (70-110) MG/DL Lactic Acid (0.4-2.0) Calcium (8.5-10.1) mg/dL Total Bilirubin (0.2-1.0) mg/dL AST (15-37) U/L ALT (12-78) U/L Alkaline Phosphatase (46-116) U/L Troponin I (0.000-0.056) ng/ml NT-Pro-B Natriuret Pep (0-125) pg/ml Serum Total Protein (6.4-8.2) gm/dL Albumin (3.4-5.0) g/dL - Progress Progress: improved Air Movement: good Discussed with : Sharad Will see patient in: office Counseled pt/family regarding: lab results, diagnosis, need for follow-up, rad results - Departure Time of Disposition: 14:09 Departure Disposition: Home Clinical Impression: Bronchitis Condition: Stable Critical Care Time: No Referrals: NICOLLE KRUSE [Primary Care Provider] - Instructions: Cough -- Adult Additional Instructions: see your doctor proventil inhaler, medrol return if worse
[2017-08-17] MEDS ORDERED: DELTASONE 20 MG ONE (11:12)
[2017-08-17 11:27] LABS: BASOPHIL % 0.4 % (0.0-0.4); Eosinophil % 2.5 % (0.00-5.0); Granulocytes % 75.8 % (36.0-66.0); Lymphocytes % 16.7 % (24.0-44.0); Mean Cell Volume 88.4 fl (78-100); Mean Corpuscular Hemoglobin 29.5 pg (26-32); Monocytes % 4.6 % (0.0-12.0); Platelet Count 205 K/mm3 (150-450); Red Blood Count 4.38 M/mm3 (4.1-5.4); Red Cell Distribution Width 14.6 % (11.5-14.0); White Blood Count 9.3 K/mm3 (4.0-10.5)
[2017-08-17] MEDS ORDERED: Zofran 4 MG/2 ML VIAL IV ONE (11:37)
[2017-08-17] MEDS ORDERED: Zofran 4 MG/2 ML VIAL ONE (11:40)
[2017-08-17 11:52] LABS: ALKALINE PHOSPHATASE 103 U/L (46-116); ANION GAP 15.1 MEQ/L (5-15); BLOOD UREA NITROGEN 16 mg/dL (9-20); CHLORIDE 107 mEq/L (98-107); Carbon Dioxide 26.3 mEq/L (21-32); Glucose 106 MG/DL (70-110); Potassium 4.1 mEq/L (3.5-5.1); SGOT/AST 12 U/L (15-37); SGPT/ALT 10 U/L (12-78); SODIUM 144 mEq/L (136-145); Total Protein 7.9 gm/dL (6.4-8.2)
[2017-08-17 11:55] LABS: TROPONIN < 0.017 ng/ml (0.000-0.056)
[2017-08-17] MEDS ORDERED: TYLENOL EXTRA STRENGTH 500 MG PO PRN (13:05)
[2017-08-17] MEDS ORDERED: TYLENOL EXTRA STRENGTH 500 MG ONE (13:46)
[2017-08-17 14:24] VITALS: BP 91/63; PULSE 94; O2SAT 95
--- NOTE | 2017-08-17 22:01 | XRAY ---
Indication: Cough. Comparison: November 08, 2014. Portable chest again demonstrates normal heart and lungs with new left-sided Port-A-Cath. Bony thorax grossly intact again demonstrating T5-T10 kyphoplasty and new T11-L2 kyphoplasty.
== END 2017-08-17 14:23 | disposition home or self-care (01) ==
LOC: ED 10:30
DX: J40 Bronchitis, not specified as acute or chronic (principal); R05 Cough; R06.02 Shortness of breath; R07.89 Other chest pain; Z79.899 Other long term (current) drug therapy; R06.00 Dyspnea, unspecified; E03.9 Hypothyroidism, unspecified
CPT/HCPCS: 36415; 71010; 80053; 83605; 83880; 84484; 85025; 85379; 93005; 94640; 99284; J1642; J2405; A9270-GY; J7506

== ENCOUNTER 2017-08-21 11:09 | Emergency (ER) | payer MEDICAID ==
[2017-08-21] MEDS ORDERED: PROVENTIL 2.5 MG/3 ML NEB IH ONE ×2 (11:20→11:23)
[2017-08-21] MEDS ORDERED: solu-MEDROL 125 MG IV ONE (11:21)
[2017-08-21] MEDS ORDERED: solu-MEDROL 125 MG ONE (11:22)
[2017-08-21 11:36] LABS: Mean Cell Volume 87.6 fl (78-100); Mean Corpuscular Hemoglobin 29.1 pg (26-32); Mean Platelet Volume 11.2 fl (6-9.5); Platelet Count 253 K/mm3 (150-450); Red Blood Count 4.92 M/mm3 (4.1-5.4); Red Cell Distribution Width 14.5 % (11.5-14.0); White Blood Count 8.4 K/mm3 (4.0-10.5)
--- NOTE | 2017-08-21 11:39 | ERPHSYRPT ---
- History of Present Illness Time Seen by Provider: 08/21/17 11:34 Exam Limitations: no limitations Patient Subjective Stated Complaint: PT STATES SHE WAS SEEN IN [facility] ON 08/[facility]/17 AND DX'DWITH BRONCHITIS AND SENT HOME WITH STEROIDS AND ANTIBIOTICS. PT STATES SHE IS NOT FEELING ANY BETTER AND IS MORE SOB. Triage Nursing Assessment: PT PINK, WARM, DRY. LUNG SOUNDS CRACKLES AND WHEEZING THROUGHOUT. PT UNABLE TO SPEAK IN FULL SENTENCES. Physician History: Patient states that she's been having of congestive cough for the past 6-7 days. Patient with increasing shortness of breath, weakness despite using her nebs at home. Patient was seen by her primary care provider yesterday and was told to go to the hospital for further care. Patient states that she cannot take any antibiotics due to allergic reaction. Patient also has history of liver transplant 7 years ago. Patient also admits to using one pack per day of tobacco use. Patient does have some anterior chest discomfort, that is intermittent and worse with cough. Patient denies any diaphoresis, palpitation , nausea, vomiting, diarrhea, abdominal pain or urinary symptoms. Timing/Duration: week(s) (1) Cough Quality/Degree: moderate, dry cough Possible Cause: occasional episodes Modifying Factors: Improves With: albuterol inhaler (improves), albuterol nebulizer (improves), deep breath (worsens), exertion (worsens) Associated Symptoms: fever (questionable), chest pain/soreness, cough, nasal congestion, nasal drainage, shortness of breath, No dizziness, No headache, No lightheadedness Allergies/Adverse Reactions: ampicillin Allergy (Severe, Verified 08/21/17 11:16) Swelling azithromycin [From Zithromax Z-Pawan] Allergy (Severe, Verified 08/21/17 11:16) Swelling cefixime [From Suprax] Allergy (Severe, Verified 08/21/17 11:16) Swelling cephalexin monohydrate [From Keflex] Allergy (Severe, Verified 08/21/17 11:16) Swelling ciprofloxacin [From Cipro] Allergy (Severe, Verified 08/21/17 11:16) Rash ciprofloxacin HCl [From Cipro] Allergy (Severe, Verified 08/21/17 11:16) Swelling erythromycin base [Erythromycin Base] Allergy (Severe, Verified 08/21/17 11:16) Swelling levofloxacin [From Levaquin] Allergy (Severe, Verified 08/21/17 11:16) swelling of throat nitrofurantoin [From Macrobid] Allergy (Severe, Verified 08/21/17 11:16) Swelling nitrofurantoin macrocrystalline [From Macrobid] Allergy (Severe, Verified 11:16) Rash Penicillins Allergy (Severe, Verified 02/11/17 08:11) Difficulty Breathing doxycycline Allergy (Verified 08/21/17 11:17) Sulfa (Sulfonamide Antibiotics) Allergy (Verified 02/11/17 08:11) tetracycline [Tetracycline] Allergy (Verified 02/11/17 08:11) Home Medications: Famotidine 20 mg PO HS 10/27/13 [History] Levothyroxine Sodium [Synthroid] 200 mcg PO DAILY 10/27/13 [History] Ranitidine HCl 150 mg PO BID 06/11/14 [History] Tacrolimus [Prograf] 3 mg PO BID 11/08/14 [History] Alprazolam [Xanax] 0.5 mg PO TID 02/10/17 [History] Gabapentin 300 mg PO DAILY 02/10/17 [History] Mirtazapine [Remeron] 15 mg PO HS 02/10/17 [History] Omeprazole 20 MG [Prilosec 20 mg] 20 mg PO DAILY 02/10/17 [History] Hx Tetanus, Diphtheria Vaccination/Date Given: Yes (UP TO DATE) Hx Influenza Vaccination/Date Given: Yes Hx Pneumococcal Vaccination/Date Given: No Immunizations Up to Date: Yes - Review of Systems Constitutional: Fatigue, Malaise, No Fever, No Chills Eyes: No Symptoms Ears, Nose, & Throat: No Symptoms, Nose Congestion, Nose Discharge, No Throat Pain, No Throat Swelling Respiratory: Cough, Dyspnea, Dyspnea on Exertion (MOSES), Wheezing Cardiac: No Chest Pain, No Edema, No Syncope Abdominal/Gastrointestinal: No Abdominal Pain, No Nausea, No Vomiting, No Diarrhea Genitourinary Symptoms: No Dysuria Musculoskeletal: No Symptoms, No Back Pain, No Neck Pain Skin: No Symptoms, No Rash Neurological: No Dizziness, No Focal Weakness, No Sensory Changes Psychological: No Symptoms Endocrine: No Symptoms All Other Systems: Reviewed and Negative - Past Medical History Pertinent Past Medical History: Yes Neurological History: Seizures, Stroke ENT History: No Pertinent History Cardiac History: No Pertinent History Respiratory History: No Pertinent History, COPD Endocrine Medical History: Hypothyroidism, Liver Disease Musculoskeletal History: Degenerative Disk Disease, Other GI Medical History: GERD History: Renal Disease, Other Psycho-Social History: Anxiety, Depression Female Reproductive Disorders: No Pertinent History Other Medical History: spoke with mother, she states she doesn't think it was a stroke, thinks it was a seizure. pt has to strait cath. - Past Surgical History Past Surgical History: Yes Neuro Surgical History: No Pertinent History Cardiac: No Pertinent History Respiratory: Other Gastrointestinal: Appendectomy, Cholecystectomy, Liver Transplant Genitourinary: Other Musculoskeletal: Orthopedic Surgery Female Surgical History: Hysterectomy, Tubal Ligation Other Surgical History: bile duct surgery to remove stones five times, Back kyphoplasty x 5, CVL port placed, mother states she has stage III kidney failure. back procedure per dr ross, TOTAL HIP 2017 - Social History Smoking Status: Current every day smoker How long have you smoked: 40 Exposure to second hand smoke: No Drug Use: none Patient Lives Alone: No - Female History Hx Now: No - Nursing Vital Signs Nursing Vital Signs: Initial Vital Signs Temperature 98.9 F 08/21/17 11:10 Pulse Rate 84 08/21/17 11:10 Respiratory Rate 36 H 08/21/17 11:10 Blood Pressure 118/64 08/21/17 11:10 O2 Sat by Pulse Oximetry 98 08/21/17 11:10 Pain Scale Pain Intensity 0 - Physical Exam General Appearance: mild distress, alert, other (mildly tachypneic) Eye Exam: PERRL/EOMI, eyes nml inspection Ears, Nose, Throat Exam: normal ENT inspection, TMs normal, pharynx normal, moist mucous membranes Neck Exam: normal inspection, non-tender, supple, full range of motion Respiratory Exam: diminished breath sounds, prolonged expirations, rhonchi, No respiratory distress Cardiovascular Exam: regular rate/rhythm, normal heart sounds Gastrointestinal/Abdomen Exam: soft, No tenderness Back Exam: normal inspection, No CVA tenderness, No vertebral tenderness Extremity Exam: normal inspection, normal range of motion Neurologic Exam: alert, oriented x 3, cooperative, normal mood/affect, sensation nml, No motor deficits Skin Exam: normal color, warm, dry, No rash Lymphatic Exam: No adenopathy SpO2: 97 Oxygen Delivery: Non-rebreather - Course Nursing assessment & vital signs reviewed: Yes Ordered Tests: Active Orders 24 hr Category Date Time Status Brick Handler STAT Care 08/21/17 11:18 Active EKG-ER Only STAT Care 08/21/17 11:24 Active IV Insertion STAT Care 08/21/17 11:18 Active Pulse Oximetry (ED) STAT Care 08/21/17 11:18 Active CHEST 1 VIEW (PORTABLE) Stat Exams 08/21/17 11:19 Completed BLOOD CULTURE Stat Lab 08/21/17 11:35 Received CBC W DIFF Stat Lab 08/21/17 11:25 Completed CK-Creatinine Phosphokinase Stat Lab 08/21/17 11:40 Completed CMP Stat Lab 08/21/17 11:25 Completed Lactic Acid Stat Lab 08/21/17 11:35 Completed Manual Differential NC Stat Lab 08/21/17 11:25 Completed NT PRO BNP Stat Lab 08/21/17 11:40 Completed TROPONIN Q3H Lab 08/21/17 11:45 Completed TROPONIN Q3H Lab 08/21/17 14:45 Ordered TROPONIN Q3H Lab 08/21/17 17:45 Ordered TROPONIN Q3H Lab 08/21/17 20:45 Ordered TROPONIN Q3H Lab 08/21/17 23:45 Ordered Respiratory Nebulizer STAT RT 08/21/17 11:21 Completed Medication Summary Discontinued Medications Generic Name Dose Route Start Last Admin Trade Name Freq PRN Reason Stop Dose Admin Albuterol Sulfate 2.5 mg 08/21/17 11:20 08/21/17 11:29 Proventil 2.5 Mg/3 Ml Neb IH 08/21/17 11:21 2.5 mg STAT ONE Administration Albuterol Sulfate Confirm 08/21/17 11:23 Proventil 2.5 Mg/3 Ml Neb Administered 08/21/17 11:24 Dose 2.5 mg IH .STK-MED ONE Methylprednisolone Sodium Succinate 125 mg 08/21/17 11:21 08/21/17 11:33 Solu-Medrol 125 Mg IV 08/21/17 11:22 125 mg STAT ONE Administration Methylprednisolone Sodium Succinate Confirm 08/21/17 11:22 Solu-Medrol 125 Mg Administered 08/21/17 11:23 Dose 125 mg .ROUTE .STK-MED ONE Lab/Rad Data: Laboratory Result Diagrams 08/21/17 11:25 08/21/17 11:25 Laboratory Results 08/21/17 08/21/1717 Range/Units 11:45 11:40 11:35 WBC (4.0-10.5) K/mm3 RBC (4.1-5.4) M/mm3 Hgb (12.0-16.0) gm/dl Hct (35-47) % MCV (78-100) fl MCH (26-32) pg MCHC (32-36) g/dl RDW (11.5-14.0) % Plt Count (150-450) K/mm3 MPV (6-9.5) fl Segmented Neutrophils (36.0-66.0) % Band Neutrophils (0.0-2.0) % Lymphocytes (Manual) (24-44) % Monocytes (Manual) (0.0-12.0) % Eosinophils (Manual) (0.00-3.0) % Differential Comment Platelet Estimate (NORMAL) Sodium (136-145) mEq/L Potassium (3.5-5.1) mEq/L Chloride (98-107) mEq/L Carbon Dioxide (21-32) mEq/L Anion Gap (5-15) MEQ/L BUN (9-20) mg/dL Creatinine (0.55-1.30) mg/dl Estimated GFR ML/MIN Glucose (70-110) MG/DL Lactic Acid 1.2 (0.4-2.0) Calcium (8.5-10.1) mg/dL Total Bilirubin (0.2-1.0) mg/dL AST (15-37) U/L ALT (12-78) U/L Alkaline Phosphatase (46-116) U/L Creatine Kinase 55 (26-192) U/L Troponin I < 0.017 (0.000-0.056) ng/ml NT-Pro-B Natriuret Pep 36 (0-125) pg/ml Serum Total Protein (6.4-8.2) gm/dL Albumin (3.4-5.0) g/dL 08/21/17 08/21/17 Range/Units 11:25 11:25 WBC 8.4 (4.0-10.5) K/mm3 RBC 4.92 (4.1-5.4) M/mm3 Hgb 14.3 (12.0-16.0) gm/dl Hct 43.1 (35-47) % MCV 87.6 (78-100) fl MCH 29.1 (26-32) pg MCHC 33.2 (32-36) g/dl RDW 14.5 H (11.5-14.0) % Plt Count 253 (150-450) K/mm3 MPV 11.2 H (6-9.5) fl Segmented Neutrophils 39 (36.0-66.0) % Band Neutrophils 1 (0.0-2.0) % Lymphocytes (Manual) 54 H (24-44) % Monocytes (Manual) 3 (0.0-12.0) % Eosinophils (Manual) 3 (0.00-3.0) % Differential Comment NORMAL Platelet Estimate NORMAL (NORMAL) Sodium 144 (136-145) mEq/L Potassium 3.7 (3.5-5.1) mEq/L Chloride 106 (98-107) mEq/L Carbon Dioxide 23.4 (21-32) mEq/L Anion Gap 17.8 H (5-15) MEQ/L BUN 33 H (9-20) mg/dL Creatinine 2.02 H (0.55-1.30) mg/dl Estimated GFR 27 ML/MIN Glucose 114 H (70-110) MG/DL Lactic Acid (0.4-2.0) Calcium 9.2 (8.5-10.1) mg/dL Total Bilirubin 0.40 (0.2-1.0) mg/dL AST 14 L (15-37) U/L ALT 39 (12-78) U/L Alkaline Phosphatase 108 (46-116) U/L Creatine Kinase (26-192) U/L Troponin I (0.000-0.056) ng/ml NT-Pro-B Natriuret Pep (0-125) pg/ml Serum Total Protein 8.4 H (6.4-8.2) gm/dL Albumin 4.4 (3.4-5.0) g/dL - Progress Progress: improved Air Movement: fair Progress Note: 08/21/17 11:41 patient was given DuoNeb, Solu-Medrol along with O2 for her respiratory symptoms. 08/21/17 13:05 patient with normal labs,chest x-ray and O2 sats greater than 94-96%. Patient wants to go home. We will discharge with inhaler along with steroids. Patient adamantly states that she is allergic to antibiotic. We'll hold off on antibiotics for now Blood Culture(s) Obtained: Yes Counseled pt/family regarding: lab results, diagnosis, rad results - Departure Time of Disposition: 13:07 Departure Disposition: Home Clinical Impression: Bronchitis, COPD exacerbation Condition: Stable Critical Care Time: No Referrals: CLEMENTINA LAM MD [Primary Care Provider] - Instructions: Chronic Obstructive Pulmonary Disease, Bronchitis Additional Instructions: Rx: Prednisone tapering dose/albuterol inhaler. May use Tylenol for fever. Return for worse cough, shortness of breath, fever, dizziness, weakness or any problems. Prescriptions: Albuterol 8 gm Mdi Hfa [Ventolin Hfa MDI] 8 gm IH Q4-6HPRN PRN #1 [email or web address] PRN Reason: Shortness Of Breath/Wheezing
[2017-08-21 11:52] LABS: BAND 1 % (0.0-2.0); Eosinophil 3 % (0.00-3.0); Platelet Estimate NORMAL (NORMAL); Total Cells Counted 100
[2017-08-21 12:08] VITALS: BP 123/86; PULSE 91
[2017-08-21 12:08] LABS: ALBUMIN 4.4 g/dL (3.4-5.0); ANION GAP 17.8 MEQ/L (5-15); BILIRUBIN,TOTAL 0.4 mg/dL (0.2-1.0); Carbon Dioxide 23.4 mEq/L (21-32); Potassium 3.7 mEq/L (3.5-5.1); Total Protein 8.4 gm/dL (6.4-8.2)
--- NOTE | 2017-08-21 12:12 | XRAY ---
Indication: Short of breath. Comparison: August 17, 2017. Portable chest is unchanged again demonstrating normal heart and lungs with left-sided Port-A-Cath. No new/acute findings.
[2017-08-21 13:05] VITALS: O2SAT 97
== END 2017-08-21 14:02 | disposition home or self-care (01) ==
LOC: ED 11:09
DX: J40 Bronchitis, not specified as acute or chronic (principal); J44.1 Chronic obstructive pulmonary disease with (acute) exacerbation; R05 Cough; Z79.899 Other long term (current) drug therapy
CPT/HCPCS: 36000; 36415; 71010; 80053; 82550; 83605; 83880; 84484; 85025; 87040; 93005; 93041; 94640; 99284; J2930; A9270-GY

== ENCOUNTER 2019-01-14 15:04 | Emergency (ER) | payer MEDICAID, OTHER ==
[2019-01-14] MEDS ORDERED: Hydromorphone 1 mg/ml Ampule IM ONE (15:45)
[2019-01-14] MEDS ORDERED: Hydromorphone 1 mg/ml Ampule ONE (15:49)
--- NOTE | 2019-01-14 15:52 | ERPHSYRPT ---
- History of Present Illness Time Seen by Provider: 01/14/19 15:41 Source: patient Exam Limitations: no limitations Patient Subjective Stated Complaint: pt fell yesterday.slipped and feff mushroom hunting and fell.she states she went down [employer], and states she did the splits Triage Nursing Assessment: pt alert, arrived per wc, resp easy, skin w/d/p[, pain to right hip and thigh, she aslo states her right knee is bohtering her Physician History: 53-year-old white female with history of seizures, strokes, hypothyroidism, liver disease with transplant, COPD, GERD, degenerative disc disease, anxiety, depression, neurogenic bladder Patient arrives with complaint of pain in her right hip, right pelvis, right thigh, right knee. Symptoms since yesterday. Patient states she fell down a hill yesterday she is having pain in her right hip right side right knee also pain in her pelvis. 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 Method of Injury: fell (fell downhill mushroom hunting yesterday) Occurred: yesterday Quality: constant Severity of Pain-Max: moderate Severity of Pain-Current: moderate Lower Extremities Pain: hip: right, knee: right, thigh: right Modifying Factors: Improves With: movement Associated Symptoms: none Allergies/Adverse Reactions: ampicillin Allergy (Severe, Verified 01/14/19 15:31) Swelling azithromycin [From Zithromax Z-Pawan] Allergy (Severe, Verified 01/14/19 15:31) Swelling cefixime [From Suprax] Allergy (Severe, Verified 01/14/19 15:31) Swelling cephalexin monohydrate [From Keflex] Allergy (Severe, Verified 01/14/19 15:31) Swelling ciprofloxacin [From Cipro] Allergy (Severe, Verified 01/14/19 15:31) Rash ciprofloxacin HCl [From Cipro] Allergy (Severe, Verified 01/14/19 15:31) Swelling erythromycin base [Erythromycin Base] Allergy (Severe, Verified 01/14/19 15:31) Swelling levofloxacin [From Levaquin] Allergy (Severe, Verified 01/14/19 15:31) swelling of throat nitrofurantoin [From Macrobid] Allergy (Severe, Verified 01/14/19 15:31) Swelling nitrofurantoin macrocrystalline [From Macrobid] Allergy (Severe, Verified 15:31) Rash Penicillins Allergy (Severe, Verified 01/14/19 15:31) Difficulty Breathing doxycycline Allergy (Verified 01/14/19 15:31) Sulfa (Sulfonamide Antibiotics) Allergy (Verified 01/14/19 15:31) tetracycline [Tetracycline] Allergy (Verified 01/14/19 15:31) Home Medications: Famotidine 20 mg PO HS 10/27/13 [History] Levothyroxine Sodium [Synthroid] 200 mcg PO DAILY 10/27/13 [History] raNITIdine HCl [Ranitidine HCl] 150 mg PO BID 06/11/14 [History] Tacrolimus [Prograf] 3 mg PO BID 11/08/14 [History] Alprazolam [Xanax] 0.5 mg PO TID 02/10/17 [History] Gabapentin 300 mg PO DAILY 02/10/17 [History] Mirtazapine [Remeron] 15 mg PO HS 02/10/17 [History] Omeprazole 20 MG [Prilosec 20 mg] 20 mg PO DAILY 02/10/17 [History] Hx Tetanus, Diphtheria Vaccination/Date Given: Yes (UP TO DATE) Hx Influenza Vaccination/Date Given: Yes Hx Pneumococcal Vaccination/Date Given: Yes Immunizations Up to Date: Yes - Review of Systems Constitutional: No Fever, No Chills Eyes: No Symptoms Ears, Nose, & Throat: No Symptoms Respiratory: No Cough, No Dyspnea Cardiac: No Chest Pain, No Edema, No Syncope Abdominal/Gastrointestinal: No Abdominal Pain, No Nausea, No Vomiting, No Diarrhea Genitourinary Symptoms: No Dysuria Musculoskeletal: Other (right hip, pelvis, knee, thigh pain), No Back Pain Skin: No Rash Neurological: No Dizziness, No Focal Weakness, No Sensory Changes Psychological: No Symptoms Endocrine: No Symptoms All Other Systems: Reviewed and Negative - Past Medical History Pertinent Past Medical History: Yes Neurological History: Seizures, Stroke ENT History: No Pertinent History Cardiac History: No Pertinent History Respiratory History: No Pertinent History, COPD Endocrine Medical History: Hypothyroidism, Liver Disease Musculoskeletal History: Degenerative Disk Disease, Other GI Medical History: GERD History: Renal Disease, Other Psycho-Social History: Anxiety, Depression Female Reproductive Disorders: No Pertinent History Other Medical History: spoke with mother, she states she doesn't think it was a stroke, thinks it was a seizure. 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 back procedure per dr carrero, TOTAL HIP 2016 - Social History Smoking Status: Current every day smoker How long have you smoked: 40 Exposure to second hand smoke: Yes Drug Use: none Patient Lives Alone: No - Female History Hx Last Menstrual Period: post Hx Now: No - Nursing Vital Signs Nursing Vital Signs: Initial Vital Signs Temperature 97 F 01/14/19 15:24 Pulse Rate 101 H 01/14/19 15:24 Respiratory Rate 18 01/14/19 15:24 Blood Pressure 141/104 01/14/19 15:24 O2 Sat by Pulse Oximetry 95 01/14/19 15:24 Pain Scale Pain Intensity 7 - Physical Exam General Appearance: moderate distress, alert Eyes, Ears, Nose, Throat Exam: moist mucous membranes Neck Exam: non-tender, supple Cardiovascular/Respiratory Exam: chest non-tender, normal breath sounds, regular rate/rhythm, no respiratory distress Gastrointestinal/Abdominal Exam: non-tender, guarding Hips Exam: right: other (pain right hip with palpation decreased range of motion right hip secondary pain), left: non-tender, normal inspection, normal range of motion Legs Exam: right leg: other (pain right thigh with palpation), left leg: non- tender, normal inspection, normal range of motion Knees Exam: right knee: other (pain right knee with movement and palpation), left knee: non-tender, normal inspection, normal range of motion Ankle Exam: bilateral ankle: non-tender, normal inspection, normal range of motion, no evidence of injury Foot Exam: bilateral foot: non-tender, normal inspection, normal range of motion , no evidence of injury DTR - Lower Extremities Exam: ankle (R): 2+, ankle (L): 2+ Neuro/Tendon Exam: normal sensation Mental Status Exam: alert, oriented x 3, cooperative Skin Exam: normal color, warm, dry SpO2 Interpretation: normal (95%) SpO2: 95 - Course Nursing assessment & vital signs reviewed: Yes - Radiology Exams Right Hip X-ray Interpretation: Discussed w/ radiologist (x-ray right hip: Osteopenia, total right hip arthroplasty with intact bipolar prosthesis and lower lumbar vertebral plasty. To 3 acetabular screw tips projected into the pelvis. No new /acute findings) Right Femur X-ray Interpretation: Discussed w/ radiologist (x-ray right femur: Osteopenia and total hip arthroplasty with intact bipolar prosthesis/acetabular screws. No other bony, articular, or soft tissue abnormalities.) Right Knee X-ray Interpretation: Discussed w/ radiologist (X-ray right knee: Osteopenia and small nonspecific effusion. No other bony, articular, or soft tissue abnormality) Ordered Tests: Active Orders 24 hr Category Date Time Status FEMUR Stat Exams 01/14/19 16:12 Completed HIP UNI (2V) INCL PEL IF DONE Stat Exams 01/14/19 15:46 Completed KNEE (1 OR 2 VIEW) Stat Exams 01/14/19 15:46 Completed Medication Summary Discontinued Medications Generic Name Dose Route Start Last Admin Trade Name Freq PRN Reason Stop Dose Admin Hydromorphone HCl 1 mg 01/14/19 15:45 01/14/19 15:51 Hydromorphone 1 Mg/Ml Ampule IM 01/14/19 15:46 1 mg STAT ONE Administration Hydromorphone HCl Confirm 01/14/19 15:49 Hydromorphone 1 Mg/Ml Ampule Administered 01/14/19 15:50 Dose 1 mg .ROUTE .STK-MED ONE - Progress Progress: improved Progress Note: 01/14/19 16:44 53-year-old white female arrives with complaint of pain in her right hip femur and knee after falling hunting mushrooms. Patient was x-ray of the right knee that shows osteopenia and a small nonspecific effusion. No other bony, articular, or soft tissue abnormalities x- ray of the patient's right femur remarkable for osteopenia and total right hip arthroplasty with intact bipolar prosthesis/acetabular screws. No other bony, articular or soft tissue abnormalities. X-ray patient's right hip remarkable for osteopenia, total hip arthroplasty with intact bipolar prosthesis and lower lumbar vertebral plasty the 3 acetabular screw tip again projected into the pelvis. No new or acute findings. Patient is on hydrocodone at home chronically for pain. Will go ahead have nurses apply Rodrigo wrap to the patient's right knee. Given the patient's crutches. Have her place cold packs on her knee and hip. Patient to follow-up with her family doctor and/or Dr. Carrero her orthopedist. - Departure Departure Disposition: Home Clinical Impression: Right hip pain, Right thigh pain, Right knee pain Accidental fall Qualifiers: Encounter type: initial encounter Qualified Code(s): W19.XXXA - Unspecified fall, initial encounter Condition: Fair Critical Care Time: No Referrals: CLEMENTINA LAM MD [Primary Care Provider] - Additional Instructions: Return home. Ice to right hip and right knee 24-48 hours. Hydrocodone as prescribed by your family doctor. Crutches weightbearing as tolerated. Follow-up with your family doctor and/or Dr. Carrero. Return for acute distress or for severe symptoms.
--- NOTE | 2019-01-14 16:32 | XRAY ---
Indication: Pain following fall. Comparison: April 03, 2018. 2 views of the right hip again demonstrates osteopenia, total hip arthroplasty with intact bipolar prosthesis, and lower lumbar vertebroplasty. Tthe 3 acetabular screw tips again projects into the pelvis. No new/acute findings.
--- NOTE | 2019-01-14 16:34 | XRAY ---
Indication: Pain following fall. Comparison: None 2 views of the right femur demonstrates osteopenia and total hip arthroplasty with intact bipolar prosthesis/acetabular screws. No other bony, articular, or soft tissue abnormalities.
--- NOTE | 2019-01-14 16:36 | XRAY ---
Indication: Pain following fall. Comparison: None AP/lateral right knee demonstrates osteopenia and small nonspecific effusion. No other bony, articular, or soft tissue abnormalities. Femur reported separately.
[2019-01-14 17:06] VITALS: BP 134/89; PULSE 78; O2SAT 97
== END 2019-01-14 17:06 | disposition home or self-care (01) ==
LOC: ED 15:04
DX: M25.551 Pain in right hip (principal); M79.651 Pain in right thigh; M25.561 Pain in right knee; M85.80 Other specified disorders of bone density and structure, unspecified site; Z96.641 Presence of right artificial hip joint; W01.0XXA Fall on same level from slipping, tripping and stumbling without subsequent striking against object, initial encounter; Y93.89 Activity, other specified; Y92.821 Forest as the place of occurrence of the external cause; Y99.9 Unspecified external cause status; E03.9 Hypothyroidism, unspecified; J44.9 Chronic obstructive pulmonary disease, unspecified; K21.9 Gastro-esophageal reflux disease without esophagitis; N31.9 Neuromuscular dysfunction of bladder, unspecified; F41.9 Anxiety disorder, unspecified; F32.9 Major depressive disorder, single episode, unspecified; G40.909 Epilepsy, unspecified, not intractable, without status epilepticus; K76.9 Liver disease, unspecified
CPT/HCPCS: 73502; 73552; 73560; 96372; 99284; J1170

== ENCOUNTER 2021-06-18 08:10 | Day surgery (SDC) | payer OTHER ==
[2021-06-18] MEDS ORDERED: Lactated Ringers 1,000 ML IV SCH (08:30)
[2021-06-18] MEDS ORDERED: Lactated Ringers 1,000 ML IV ONE (08:45)
--- NOTE | 2021-06-18 11:08 | HP ---
THIS REPORT WAS AMENDED ON 06/21/2021. PROCEDURE DATE: 06/18/2021 HISTORY OF PRESENT ILLNESS: The patient is a 55 y/o with history of reflux and had some dysphagia upper esophagus in need of upper endoscopy, possible biopsy, possible dilatation. PAST MEDICAL HISTORY: She has had a liver transplant, back pain, depression, anxiety, smoker, history of seizure and cerebrovascular accidents. CURRENT MEDICATIONS: Allopurinol, alprazolam, aspirin, Boost Plus, clotrimazole, pantoprazole, Gabapentin, Hydrocodone, ipratropium, levothyroxine, metoprolol, mirtazapine, omeprazole, tacrolimus, albuterol sulfate, budesonide-formoterol, vitamin D2, polyethylene glycol, promethazine. ALLERGIES: Z-JOSSIE, SULFA, PENICILLIN, SENSITIVE TO MORPHINE. SHE DOES HAVE ALLERGY TO CIPRO, CYMBALTA, DOXYCYCLINE, LEVOFLOXACIN, MACROBID, NITROFURANTOIN, AND TETRACYCLINE. PAST SURGICAL HISTORY: Has had 14 back surgeries. Had some knee surgery. Had a total hysterectomy in the past and liver replaced. Had some endoscopies in the past. Has also had an appendectomy in addition to endoscopies as mentioned above. FAMILY HISTORY: Thyroid disease and cancer. SOCIAL HISTORY: Smoking. No alcohol abuse. REVIEW OF SYSTEMS: 14 systems reviewed pertinent for multiple medical problems as above, negative or noncontributory other the problems as above. PHYSICAL EXAMINATION: GENERAL: No acute distress. HEENT: Sclerae nonicteric. NECK: No JVD. CHEST: Equal excursion. Nonlabored breathing. CVS: Regular rate and rhythm. ABDOMEN: Soft. No peritoneal signs. EXTREMITIES: No significant edema. NEURO: Alert, moving extremities symmetrically. PSYCH: Appropriate mood and affect. IMPRESSION: DYSPHAGIA. NEEDS UPPER ENDOSCOPY, POSSIBLE BIOPSY, POSSIBLE DILATATION. Risks and benefits explained in detail, but not limited to, bleeding; infection; risk of bowel injury or perforation possibly requiring other major procedure; risk of mortality particularly given multiple medical problems. She understood and agreed to the planned procedure. Will proceed with EGD, possible biopsy, possible dilatation as an outpatient. She had a liver transplant after complication from cholecystectomy and EGD in the past.
[2021-06-18] MEDS ORDERED: DIPRIVAN 200 MG/20 ML IV ONE (11:27)
[2021-06-18] MEDS ORDERED: Versed 2 MG/2 ML Injection ONE (11:27)
[2021-06-18 12:26] VITALS: O2SAT 96
[2021-06-18 12:34] VITALS: BP 120/66; PULSE 60
--- NOTE | 2021-06-19 12:02 | OP ---
SURGERY DATE: 06/18/2021 SURGERY TIME: 1130 PREOPERATIVE DIAGNOSIS: 1. HISTORY OF DYSPHAGIA UPPER ESOPHAGUS. POSTOPERATIVE DIAGNOSIS: 1. PROXIMAL ESOPHAGEAL NARROWING AND SPASM WITHOUT MASS LESION. 2. MINIMAL/MILD GASTRITIS. PROCEDURE: 1. Esophagogastroduodenoscopy with cold biopsy of the antrum for ISRAEL-test to evaluate for H-pylori. 2. Proximal esophageal balloon dilatation size 20 balloon dilator proximal esophagus, symptomatic narrowing. SURGEON: Dr. Dakotah Laird. ANESTHESIA: MAC. ESTIMATED BLOOD LOSS: Minimal. INDICATIONS: As noted above. Risks and benefits explained in detail, but not limited to. Consent obtained. DESCRIPTION OF PROCEDURE AND FINDINGS: The patient was taken to the OR. MAC anesthesia induced after official time-out for planned procedure. Bite block positioned. Video gastroscope easily passed down the oropharynx and proximal esophagus. The upper esophagus had a narrowed area and spasm. There was no evidence of any mass or lesion to biopsy in this area, but it was definitely narrowed. This is where she was having symptoms at. Although scope could just pass through here, give her symptoms, it was felt she warranted dilatation in this area at the end of the procedure. The scope passed through to the 3rd portion of the duodenum. The 3rd and 2nd portion of the duodenum grossly unremarkable. Back in the stomach, she had some mild gastric erythema. Cold biopsy was taken to evaluate for Helicobacter pylori. Good hemostasis noted. On retroflex, she had just a slight weakness at the hiatus. There was no evidence of any large hiatal hernia, just a slight weakness at the hiatus. The scope was straightened. Gastroesophageal junction was at 35 cm. Z line was crisp. No signs of Maddox's. No signs of any significant erosions. The remainder of the esophagus no gross mucosal lesions. On withdrawal up to the proximal esophageal narrowed area, there were no lesions here, but again as this was symptomatic narrowing, it was felt she would benefit from dilatation. The scope was then passed back down in the stomach. Balloon catheter carefully inserted. 20 balloon catheter was then pulled back up to the esophagus. It was then carefully advanced first stage 45 seconds, second stage 45 seconds, final stage the balloon was left inflated 2 minutes and then released. The balloon catheter was then decompressed and withdrawn. The scope then much more easily passed through this proximal esophagus area and back into the stomach. Slowly, carefully withdrawn. There was no evidence of any full thickness issues secondary to dilatation. She forgot to stop her aspirin, but she did not seem to have any major bleeding issues at this point. Scope was withdrawn. There were no immediate complications. Will see if she has any friend or family to discuss any findings out in the waiting area.
== END 2021-06-18 12:40 | disposition home or self-care (01) ==
LOC: SDC 08:10
PROVIDERS: ATTEND Surgery
DX: K22.2 Esophageal obstruction (principal); K22.4 Dyskinesia of esophagus; K29.70 Gastritis, unspecified, without bleeding; Z79.899 Other long term (current) drug therapy
CPT/HCPCS: 87081; C1726; J2250; J2704

== ENCOUNTER 2022-01-21 08:14 | Day surgery (SDC) | payer OTHER ==
[~2022-01-21 08:14] MED LIST changes: -CLINDAMYCIN-D5W 600 MG/50 ML*** 600 MG/50 ML BAG IV STA; -Lactated Ringers 1,000 ML IV ONE; +Lactated Ringers 1,000 ML IV SCH
[2022-01-21] MEDS ORDERED: VERSED 5 MG/5 ML IV ONE (08:15)
[2022-01-21] MEDS ORDERED: SUBLIMAZE 100 MCG/2 ML IV ONE (08:15)
--- NOTE | 2022-01-21 08:18 | HP ---
DATE OF SURGERY: 01/21/2022 HISTORY OF PRESENT ILLNESS: The patient is a 56-year-old with a port she said that has been dysfunctional for two or three years. She desires removal. She has occasional drainage from small spot on her incision. If this is coming from when she had liver transplant. PAST MEDICAL HISTORY: Back pain, depression, anxiety, history of seizure and cerebrovascular accidents, hypothyroidism, chronic obstructive pulmonary disease, hypertension. PAST SURGICAL HISTORY: Liver transplant, hysterectomy, cholecystectomy. MEDICATIONS: Omeprazole, levothyroxine, morphine, tizanidine, cefdinir, morphine, Ergocalciferol, metoprolol, famotidine, triamcinolone, alprazolam, cyclobenzaprine, furosemide, tacrolimus, Budesomide-Formoterol. ALLERGIES: AMPICILLIN. AZITHROMYCIN. CEFIXIME. CIPROFLOXACIN. CYMBALTA. DOXYCYCLINE. NITROFURANTOIN. SULFA ANTIBIOTICS. LEVOFLOXACIN. TETRACYCLINE. PENICILLIN. FAMILY HISTORY: Negative in regards to this problem. SOCIAL HISTORY: One pack per day smoker. Denies alcohol abuse. REVIEW OF SYSTEMS: Fourteen systems reviewed. No chest pain or palpitations. Other systems negative or noncontributory as above and per preadmission questionnaire. PHYSICAL EXAMINATION: GENERAL: No acute distress. HEENT: Sclerae nonicteric. NECK: No JVD. CHEST: Equal excursion, nonlabored breathing. CVS: Regular rate and rhythm. ABDOMEN: Soft. No peritoneal signs. EXTREMITIES: No significant edema. NEURO: Alert, oriented, moving extremities symmetrically. PSYCH: Appropriate mood and affect. IMPRESSION: Dysfunctional port that she is not using. Sutures currently poking out skin causing drainage intermittently. I feel she would benefit from removal under IV sedation. Risks and benefits explained in detail including but not limited to bleeding or infection, risk of hematoma or seroma formation, possibility may just have to tie off the catheter and remove the port itself. Risk of wound infection. General risk of anesthesia or sedation but not limited to. General risk of pain particularly given her chronic narcotic use. She understands and agrees to the planned procedure, will proceed with tunnel Port-A-Cath removal as an outpatient.
[2022-01-21] MEDS ORDERED: Lactated Ringers 1,000 ML IV ONE (09:27)
[2022-01-21 12:14] VITALS: O2SAT 97
[2022-01-21 12:23] VITALS: BP 127/85; PULSE 68
--- NOTE | 2022-01-22 11:10 | OP ---
SURGERY DATE/TIME: 01/21/2022 1035 PREOPERATIVE DIAGNOSIS: History of undesired Port-A-Cath. Port dysfunction, no longer using and desires removal. POSTOPERATIVE DIAGNOSES: 1) History of undesired Port-A-Cath. Port dysfunction, no longer using and desires removal. 2) Distal 3 or 4 cm catheter scarred down, unable to completely to be removed so catheter tied off at about 4 cm. The remainder of the catheter another 75 to 80% of the catheter removed as well as the port removed. PROCEDURE: 1) Surgery with monitored IV conscious sedation 15 minutes of IV Fentanyl and IV Versed. 2) Removal of tunnel Port-A-Cath as well as removal of 75 to 80% of this safely removable portion of the catheter (portion was scarred in and could not be safely be removed and was tied off with silk suture). SURGEON: Dr. Dakotah Laird. ANESTHESIA: IV conscious sedation. ESTIMATED BLOOD LOSS: Minimal. INDICATIONS: As noted above. Risks and benefits explained in detail and not limited to and consent obtained. DESCRIPTION OF PROCEDURE AND FINDINGS: The patient is taken to the operating room. Continuous pulse oximetry and blood pressure monitoring. She was incrementally sedated with IV Fentanyl and Versed initially and sedated given a couple of rounds. She was conscious and comfortable. She was prepped and draped in usual sterile fashion after official time out and no disagreement with planned procedure. 0.25% Marcaine local injected along the skin incision and port area. Transverse incision made. Dissection carried down. Two Prolene sutures carefully removed. The port was pulled upward and removed. It did pop off the catheter itself so it was passed off separately. The catheter itself was carefully pulled. The first 10 or 12 cm came easily. The last 2 cm had a little traction but was able to remove up to about 3 to 4 cm. This area was too scarred in. There was concern whether this catheter was unsnapped. It was felt it was safe as it had been explained to the patient in the office in rare cases we just tie this off and remove the remainder of the catheter. Therefore it was tied off at about 3 to 4 cm at the port pocket wound area with tunnel track area with silk suture. Removal of a portion of the catheter was passed off. Good hemostasis noted. The fibrous pocket was closed with 3-0 Vicryl. Subcu closed with 3-0 Vicryl. Skin closed with 4-0 Vicryl. Steri-Strips and sterile dressing applied. The patient tolerated the procedure well. There were no immediate complications. I will see her back in the office next week.
== END 2022-01-21 12:00 | disposition home or self-care (01) ==
LOC: SDC 08:14
PROVIDERS: ATTEND Surgery
DX: Z45.2 Encounter for adjustment and management of vascular access device (principal)
CPT/HCPCS: J2250; J3010

== ENCOUNTER 2022-11-16 17:15 | Emergency (ER) | payer OTHER ==
[2022-11-16 17:29] VITALS: PULSE 83
--- NOTE | 2022-11-16 17:29 | ERPHSYRPT ---
- History of Present Illness Time Seen by Provider: 11/16/22 17:29 Source: patient Exam Limitations: no limitations Physician History: This is a 57-year-old white female patient of Dr. Orourke who has a history of migraine headaches who presents with a headache x4 days. She feels it is in the base of her skull posteriorly and behind her eyes. Patient does see a nephrol ogist Dr. Conway. She was diagnosed with COVID-19 infection 2 weeks ago. She has not suffered any head trauma. Patient is a daily smoker of cigarettes. Patient states she has only 1 kidney. Patient has a history of hypothyroidism, hypertension, gastroesophageal reflux disease and anxiety. In addition she has a history of asthma and COPD. She states that she does not have chest pain. She also states that she has not had any fevers. She denies nausea vomiting or diarrhea. Patient has an appointment to see Dr. Orourke on 11/18/2022. Timing/Duration: day(s) (4) Head Pain Location: frontal (Behind her eyes), occipital Severity of Pain-Max: moderate Severity of Pain-Current: moderate Recent Head Trauma: no recent headache/trauma, occasional headaches Modifying Factors: Worsens With: exposure to light, noise Associated Symptoms: No confusion, No dizziness, No facial pain, No fever/chills, No loss of consciousness, No nausea/vomiting, No numbness in legs/feet, No sensitive to light, No stiff neck, No trouble walking, No vision changes Previous symptoms: same symptoms as today Allergies/Adverse Reactions: ampicillin Allergy (Severe, Verified 11/16/22 17:29) Swelling azithromycin [From Zithromax Z-Pawan] Allergy (Severe, Verified 11/16/22 17:29) Swelling cefixime [From Suprax] Allergy (Severe, Verified 11/16/22 17:29) Swelling cephalexin monohydrate [From Keflex] Allergy (Severe, Verified 11/16/22 17:29) Swelling ciprofloxacin [From Cipro] Allergy (Severe, Verified 11/16/22 17:29) Rash ciprofloxacin HCl [From Cipro] Allergy (Severe, Verified 11/16/22 17:29) Swelling erythromycin base [Erythromycin Base] Allergy (Severe, Verified 11/16/22 17:29) Swelling levofloxacin [From Levaquin] Allergy (Severe, Verified 11/16/22 17:29) swelling of throat nitrofurantoin [From Macrobid] Allergy (Severe, Verified 11/16/22 17:29) Swelling nitrofurantoin macrocrystalline [From Macrobid] Allergy (Severe, Verified 11/16/22 17:29) Rash Penicillins Allergy (Severe, Verified 11/16/22 17:29) Difficulty Breathing doxycycline Allergy (Verified 11/16/22 17:29) duloxetine [From Cymbalta] Allergy (Verified 11/16/22 17:29) Sulfa (Sulfonamide Antibiotics) Allergy (Verified 11/16/22 17:29) tetracycline [Tetracycline] Allergy (Verified 11/16/22 17:29) Home Medications: Levothyroxine Sodium [Synthroid] 100 mcg PO DAILY 10/27/13 [History] Tacrolimus [Prograf] 1 mg PO UD 11/08/14 [History] ALPRAZolam [Xanax] 0.5 mg PO BID PRN 02/10/17 [History] Metoprolol Tartrate 50 mg [Lopressor 50 MG] 50 mg PO BID 06/13/21 [Histo ry] Budesonide/Formoterol Fumarate [Budesonide-Formoterol 160-4.5] 2 puff IH BID 01/14/22 [History] Ergocalciferol (Vitamin D2) [Drisdol] 1 cap PO WEEKLY 01/14/22 [History] Hydrocodone/APAP 10/325 mg [[place] 10/325 MG TableT] 1 tab PO QID 01/14/22 [History] Ipratropium [place] 0.5 mg [Atrovent 0.5MG NEBULE] 1 vial IH QID 01/14/22 [History] Omeprazole 40 mg PO BID 01/14/22 [History] Hx Tetanus, Diphtheria Vaccination/Date Given: Yes (UP TO DATE) Hx Influenza Vaccination/Date Given: Yes Hx Pneumococcal Vaccination/Date Given: Yes Travel Risk - International Travel Have you traveled outside of the country in past 3 weeks: No - Coronavirus Screening Are you exhibiting any of the following symptoms?: No Close contact with a COVID-19 positive Pt in past 14-21 Days: No - Review of Systems Constitutional: No Symptoms Eyes: No Symptoms Ears, Nose, & Throat: No Symptoms Respiratory: No Symptoms Cardiac: No Symptoms Abdominal/Gastrointestinal: No Symptoms Genitourinary Symptoms: No Symptoms Musculoskeletal: No Symptoms Skin: No Symptoms Neurological: No Symptoms Psychological: No Symptoms Endocrine: No Symptoms Hematologic/Lymphatic: No Symptoms Immunological/Allergic: No Symptoms All Other Systems: Reviewed and Negative - Past Medical History Pertinent Past Medical History: Yes Neurological History: Migraines ENT History: No Pertinent History Cardiac History: Myocardial Infarction ([place]) Respiratory History: Asthma, COPD Endocrine Medical History: Hypothyroidism, Liver Disease, Other Musculoskeletal History: Osteoarthritis, Other GI Medical History: GERD History: Other Psycho-Social History: Eating Disorders Female Reproductive Disorders: Fibroids, Menstrual Problems Other Medical History: Bone density disease. Liver transplant. Has only 1 kidney, at the age of 14 one of her kidneys " dried up" Right hip and right knee replacement.. - Past Surgical History Past Surgical History: Yes Neuro Surgical History: No Pertinent History Cardiac: No Pertinent History Respiratory: No Pertinent History Gastrointestinal: Appendectomy, Liver Transplant Genitourinary: No Pertinent History Musculoskeletal: Other Female Surgical History: Hysterectomy Other Surgical History: Back surgery. - Social History Smoking Status: Current every day smoker How long have you smoked: 40 years Exposure to second hand smoke: Yes Drug Use: none Patient Lives Alone: No - Nursing Vital Signs Nursing Vital Signs: Initial Vital Signs Temperature 98.7 F 11/16/22 17:19 Pulse Rate 83 11/16/22 17:19 Respiratory Rate 19 11/16/22 17:19 Blood Pressure 132/82 11/16/22 17:19 O2 Sat by Pulse Oximetry 98 11/16/22 17:19 Pain Scale Pain Intensity 8 - Physical Exam General Appearance: no apparent distress, alert, anxiety, thin Eye Exam: PERRL/EOMI, post op pupil defect (L), other Ears, Nose, Throat Exam: normal ENT inspection, moist mucous membranes Neck Exam: normal inspection (Patient actually has a headache more than neck pain. 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 Exam: normal hearing, normal speech, PERRL Coordination/Gait Exam: normal finger to nose, normal gait, normal cerebellar function Motor/Sensory Exam: no motor deficit, no sensory deficit, no pronator drift Skin Exam: normal color, warm, dry Lymphatic Exam: No adenopathy SpO2 Interpretation: normal O2 Delivery: Room Air Ordered Tests: Active Orders 24 hr Category Date Time Status IV Insertion STAT Care 11/16/22 17:35 Active HEAD WITHOUT CONTRAST [CT] Stat Exams 11/16/22 17:36 Taken BLOOD CULTURE Stat Lab 11/16/22 18:20 Received CBC W DIFF Stat Lab 11/16/22 18:10 Completed CMP Stat Lab 11/16/22 18:10 Completed Falls Screen Stat Lab 11/16/22 18:10 Completed UA W/RFX UR CULTURE Stat Lab 11/16/22 18:20 Completed Lab/Rad Data: Laboratory Result Diagrams 11/16/22 18:10 11/16/22 18:10 Laboratory Results 11/16/22 11/16/22 11/16/22 Range/Units 18:20 18:10 18:10 WBC (4.0-10.5) x10^3/uL RBC (4.1-5.4) x10^6/uL Hgb (12.0-16.0) g/dL Hct (35-47) % MCV (78-100) fL MCH (26-32) pg MCHC (32-36) g/dL RDW (11.5-14.0) % Plt Count (150-450) x10^3/uL MPV (7.5-11.0) fL Gran % (36.0-66.0) % Immature Gran % (Auto) (0.00-0.4) % Nucleat RBC Rel Count (0.00-0.1) % Eos # (Auto) (0-0.5) x10^3/uL Immature Gran # (Auto) (0.00-0.03) x10^3u/L Absolute Lymphs (auto) (1.0-4.6) x10^3/uL Absolute Monos (auto) (0.0-1.3) x10^3/uL Absolute Nucleated RBC (0.00-0.01) x10^3u/L Lymphocytes % (24.0-44.0) % Monocytes % (0.0-12.0) % Eosinophils % (0.00-5.0) % Basophils % (0.0-0.4) % Absolute Granulocytes (1.4-6.9) x10^3/uL Basophils # (0-0.4) x10^3/uL Sodium 148 H (137-145) mmol/L Potassium 4.8 (3.5-5.1) mmol/L Chloride 113 H (98-107) mmol/L Carbon Dioxide 21 L (22-30) mmol/L Anion Gap 19.0 H (5-15) MEQ/L BUN 36 H (7-17) mg/dL Creatinine 2.33 H (0.52-1.04) mg/dL Estimated GFR 22.9 ML/MIN Glucose 91 (74-106) mg/dL Calcium 9.4 (8.4-10.2) mg/dL Total Bilirubin 0.40 (0.2-1.3) mg/dL AST 50 H (14-36) U/L ALT 41 H (0-35) U/L Alkaline Phosphatase 83 (38-126) U/L Serum Total Protein 7.8 (6.3-8.2) g/dL Albumin 4.6 (3.5-5.0) g/dL Urine Color Yellow (Yellow) Urine Appearance Clear (Clear) Urine pH 5.0 (4.6-8.0) Ur Specific [place] 1.025 (1.005-1.030) Urine Protein 30 (Negative) Urine Glucose (UA) Negative (Negative) mg/dL Urine Ketones Negative (Negative) Urine Blood Negative (Negative) Urine Nitrite Negative (Negative) Urine Bilirubin Negative (Negative) Urine Urobilinogen 0.2 (0.2) mg/dL Ur Leukocyte Esterase Negative (Negative) U Hyaline Cast (Auto) 0-2 (0-2) /LPF Urine Microscopic RBC 0-2 (0-5) /HPF Urine Microscopic WBC 0-2 (0-5) /HPF Ur Epithelial Cells Rare (None Seen) /HPF Urine Bacteria None Seen (None Seen) /HPF Urine Culture Reflexed NO (NO) Monoscreen NEGATIVE (Negative) 02/25/23 Range/Units 18:10 WBC 8.1 (4.0-10.5) x10^3/uL RBC 4.25 (4.1-5.4) x10^6/uL Hgb 12.9 (12.0-16.0) g/dL Hct 40.4 (35-47) % MCV 95.1 (78-100) fL MCH 30.4 (26-32) pg MCHC 31.9 L (32-36) g/dL RDW 13.9 (11.5-14.0) % Plt Count 288 (150-450) x10^3/uL MPV 10.5 (7.5-11.0) fL Gran % 47.6 (36.0-66.0) % Immature Gran % (Auto) 0.2 (0.00-0.4) % Nucleat RBC Rel Count 0.0 (0.00-0.1) % Eos # (Auto) 0.27 (0-0.5) x10^3/uL Immature Gran # (Auto) 0.02 (0.00-0.03) x10^3u/L Absolute Lymphs (auto) 3.20 (1.0-4.6) x10^3/uL Absolute Monos (auto) 0.60 (0.0-1.3) x10^3/uL Absolute Nucleated RBC 0.00 (0.00-0.01) x10^3u/L Lymphocytes % 39.8 (24.0-44.0) % Monocytes % 7.5 (0.0-12.0) % Eosinophils % 3.4 (0.00-5.0) % Basophils % 1.5 (0.0-0.4) % Absolute Granulocytes 3.84 (1.4-6.9) x10^3/uL Basophils # 0.12 (0-0.4) x10^3/uL Sodium (137-145) mmol/L Potassium (3.5-5.1) mmol/L Chloride (98-107) mmol/L Carbon Dioxide (22-30) mmol/L Anion Gap (5-15) MEQ/L BUN (7-17) mg/dL Creatinine (0.52-1.04) mg/dL Estimated GFR ML/MIN Glucose (74-106) mg/dL Calcium (8.4-10.2) mg/dL Total Bilirubin (0.2-1.3) mg/dL AST (14-36) U/L ALT (0-35) U/L Alkaline Phosphatase (38-126) U/L Serum Total Protein (6.3-8.2) g/dL Albumin (3.5-5.0) g/dL Urine Color (Yellow) Urine Appearance (Clear) Urine pH (4.6-8.0) Ur Specific [place] (1.005-1.030) Urine Protein (Negative) Urine Glucose (UA) (Negative) mg/dL Urine Ketones (Negative) Urine Blood (Negative) Urine Nitrite (Negative) Urine Bilirubin (Negative) Urine Urobilinogen (0.2) mg/dL Ur Leukocyte Esterase (Negative) U Hyaline Cast (Auto) (0-2) /LPF Urine Microscopic RBC (0-5) /HPF Urine Microscopic WBC (0-5) /HPF Ur Epithelial Cells (None Seen) /HPF Urine Bacteria (None Seen) /HPF Urine Culture Reflexed (NO) Monoscreen (Negative) - Progress Progress: improved, re-examined Air Movement: good Progress Note: 11/16/22 18:50 CAT scan of the head without contrast shows no acute intracranial abnormality. This patient's medical issue is 1 of moderate complexity. Patient does not have meningeal irritation symptoms. She has a history of chronic migraine headaches. She also has a history of hypertension but her blood pressure is in an appropriate range. The work-up was based on the patient's complaint, history of present illness, review of the patient's medical history, review of the patient's medication allergy list and findings on physical examination. The patient also has a follow-up appointment already scheduled with Dr. Orourke on 11/18/2022. Patient is afebrile. The work-up consist of placement of intrave nous line, obtaining blood work and urinalysis. We also ordered a CAT scan of the head. Patient work-up does not show any acute findings. Although we did find slightly worsening renal function and this should be addressed with Dr. 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 This was discussed in detail with the patient. The discharge plan is to keep her appoint with Dr. Orourke on 11/18/2027 and to follow-up with her networking technician. She is to drink plenty of fluids and to be on a low-sodium diet. Blood Culture(s) Obtained: No Antibiotics given: No Counseled pt/family regarding: lab results, diagnosis, need for follow-up, rad results Medical Desision Making - Discussion of managment Reviewed:: Test results Agreed on:: Treatment plan, need for follow-up - Diagnostic Testing Radiological Interpretation: Reviewed by me, Teleradiologist Report - Risk of complications Low Risk: Low risk of morbidity from additional dx testing or treatment - Departure Departure Disposition: Home Clinical Impression: Headache, Chronic renal insufficiency Condition: Stable Critical Care Time: No Referrals: CLEMENTINA OROURKE MD [Primary Care Provider] - Follow up/PCP as directed Additional Instructions: Drink plenty of clear liquids including water. Avoid salt intake. Take your medications as prescribed. Keep your appointment with Dr. Orourke on 11/18/2022. Follow-up with your networking technician. Call your networking technician office on 11/18/2022 to make a follow-up appointment.
[2022-11-16 18:30] LABS: Absolute Neutrophil Ct (ANC) 3.84 x10^3/uL (1.4-6.9); BASOPHIL % 1.5 % (0.0-0.4); Basophil (Absolute #) 0.12 x10^3/uL (0-0.4); Eosinophil % 3.4 % (0.00-5.0); Eosinophil (Absolute #) 0.27 x10^3/uL (0-0.5); Hematocrit 40.4 % (35-47); Hemoglobin 12.9 g/dL (12.0-16.0); IMMATURE GRAN # 0.02 x10^3u/L (0.00-0.03); IMMATURE GRAN % 0.2 % (0.00-0.4); Lymphocytes % 39.8 % (24.0-44.0); Mean Cell Volume 95.1 fL (78-100); Mean Corpuscular Hemoglobin 30.4 pg (26-32); Mean Corpuscular Hgb Concent. 31.9 g/dL (32-36); Mean Platelet Volume 10.5 fL (7.5-11.0); Monocytes % 7.5 % (0.0-12.0); Neutrophil % 47.6 % (36.0-66.0); Platelet Count 288 x10^3/uL (150-450); Red Blood Count 4.25 x10^6/uL (4.1-5.4); Red Cell Distribution Width 13.9 % (11.5-14.0); White Blood Count 8.1 x10^3/uL (4.0-10.5)
[2022-11-16 18:42] LABS: ALBUMIN 4.6 g/dL (3.5-5.0); BILIRUBIN,TOTAL 0.4 mg/dL (0.2-1.3); Calcium 9.4 mg/dL (8.4-10.2); Creatinine 1 2.33 mg/dL (0.52-1.04); EST GLOMERULAR FILTRATION RATE 22.9 ML/MIN; Potassium 4.8 mmol/L (3.5-5.1); Total Protein 7.8 g/dL (6.3-8.2)
[2022-11-16 18:43] LABS: Appearance Clear (Clear); Bacteria None Seen /HPF (None Seen); Bilirubin Negative (Negative); Blood Negative (Negative); Epithelial Cells Rare /HPF (None Seen); Glucose, Urine Negative (Negative); Hyaline Casts 0-2 /LPF (0-2); Ketones Negative (Negative); Leukocyte Esterase Negative (Negative); Nitrite Negative (Negative); Protein,Urine Dip 30 (Negative); RBC 0-2 /HPF (0-5); Specific Gravity 1.025 (1.005-1.030); Urobilinogen 0.2 mg/dL (0.2); WBC 0-2 /HPF (0-5)
[2022-11-16 18:44] LABS: ADD URINE CULTURE? NO (NO)
[2022-11-16] MEDS ORDERED: Hydromorphone 1 mg/ml Injection IV ONE (19:11)
[2022-11-16] MEDS ORDERED: Zofran 4 MG/2 ML VIAL IV ONE (19:11)
[2022-11-16] MEDS ORDERED: BENADRYL 50 MG/ML IV ONE (19:11)
[2022-11-16] MEDS ORDERED: BENADRYL 50 MG/ML ONE (19:18)
[2022-11-16] MEDS ORDERED: Zofran 4 MG/2 ML VIAL ONE (19:18)
[2022-11-16] MEDS ORDERED: Hydromorphone 1 mg/ml Injection ONE (19:18)
[2022-11-16 19:35] VITALS: BP 125/93; O2SAT 96
--- NOTE | 2022-11-16 20:25 | XRAY ---
Indication: Frontal headache. Multiple contiguous axial images obtained through the head without contrast. Comparison: None Normal appearing brain parenchyma, ventricles, and bony calvarium for patient's age. Visualized paranasal sinuses and mastoid air cells are clear. Impression: Normal CT head without contrast exam. Comment: Preliminary interpretation made by [facility]. No critical discrepancy.
== END 2022-11-16 19:47 | disposition home or self-care (01) ==
LOC: ED 17:15
DX: R51.9 Headache, unspecified (principal); N18.9 Chronic kidney disease, unspecified; Z79.899 Other long term (current) drug therapy; Z72.0 Tobacco use
CPT/HCPCS: 36000; 36415; 70450; 80053; 81001; 85025; 86308; 87040; 96374; 99284; J1170; J1200; J2405

== ENCOUNTER 2023-02-21 08:40 | Emergency (ER) | payer OTHER ==
[2023-02-21] MEDS ORDERED: Hydromorphone 1 mg/ml Injection IV ONE ×2 (08:50→11:12)
[2023-02-21] MEDS ORDERED: Sodium Chloride 0.9% 1000 ML 1,000 ML IV STA (08:50)
[2023-02-21] MEDS ORDERED: Sodium Chloride 0.9% 1000 ML 1,000 ML ONE (09:06)
[2023-02-21] MEDS ORDERED: Hydromorphone 1 mg/ml Injection ONE ×2 (09:06→10:44)
[2023-02-21 09:15] LABS: BASOPHIL % 1.5 % (0.0-0.4); Basophil (Absolute #) 0.13 x10^3/uL (0-0.4); Eosinophil % 0.3 % (0.00-5.0); Eosinophil (Absolute #) 0.03 x10^3/uL (0-0.5); Hematocrit 41.7 % (35-47); Hemoglobin 13.8 g/dL (12.0-16.0); IMMATURE GRAN # 0.04 x10^3u/L (0.00-0.03); IMMATURE GRAN % 0.4 % (0.00-0.4); Lymphocyte (Absolute #) 1.89 x10^3/uL (1.0-4.6); Lymphocytes % 21.1 % (24.0-44.0); Mean Cell Volume 91.2 fL (78-100); Mean Corpuscular Hemoglobin 30.2 pg (26-32); Mean Corpuscular Hgb Concent. 33.1 g/dL (32-36); Mean Platelet Volume 10.4 fL (7.5-11.0); Monocyte (Absolute #) 0.57 x10^3/uL (0.0-1.3); Monocytes % 6.4 % (0.0-12.0); Neutrophil % 70.3 % (36.0-66.0); Platelet Count 240 x10^3/uL (150-450); Red Blood Count 4.57 x10^6/uL (4.1-5.4); Red Cell Distribution Width 13.9 % (11.5-14.0)
--- NOTE | 2023-02-21 09:29 | ERPHSYRPT ---
- History of Present Illness Time Seen by Provider: 02/21/23 09:00 Source: patient Exam Limitations: no limitations Patient Subjective Stated Complaint: Pt reports she was in bed all night and morning and at approx 11pm last night she realized she had a skin tear on right forearm and last digit on right hand. Her lower back had started hurting as well. This morning she was unable to walk or get out of bed, uses a motorized wheelchair around the house. Denies numbness/tingling in lower extremities. Triage Nursing Assessment: Pt alert and oriented x3. Accompanied by friend who wheeled pt to ED cot and picked pt up from the wheelchair and placed on the ED cot. Skin w/p/d. Pt anxious/started to hyperventilate when arriving to room. No obvious deformities/discoloration/swelling to back or hip. Back and hip are both tender with palpation. Physician History: Patient is a 57-year-old white female who at 11:00 last night noticed abrasions to the right forearm and hand. She then developed back pain exacerbation of her chronic back pain at 11 PM. The pain radiates into the left hip and down the left leg. She has multiple medical problems including a liver transplant 8 years ago hypertension hypothyroidism COPD migraines and chronic kidney disease. Method of Injury: unknown Occurred: yesterday Quality: sharpness, stabbing Severity of Pain-Max: moderate Severity of Pain-Current: moderate Lower Extremities Pain: hip: left, knee: left, thigh: left Modifying Factors: Improves With: movement Associated Symptoms: unable to bear weight Allergies/Adverse Reactions: ampicillin Allergy (Severe, Verified 11/16/22 17:29) Swelling azithromycin [From Zithromax Z-Pawan] Allergy (Severe, Verified 11/16/22 17:29) Swelling cefixime [From Suprax] Allergy (Severe, Verified 11/16/22 17:29) Swelling cephalexin monohydrate [From Keflex] Allergy (Severe, Verified 11/16/22 17:29) Swelling ciprofloxacin [From Cipro] Allergy (Severe, Verified 11/16/22 17:29) Rash ciprofloxacin HCl [From Cipro] Allergy (Severe, Verified 11/16/22 17:29) Swelling erythromycin base [Erythromycin Base] Allergy (Severe, Verified 11/16/22 17:29) Swelling levofloxacin [From Levaquin] Allergy (Severe, Verified 11/16/22 17:29) swelling of throat nitrofurantoin [From Macrobid] Allergy (Severe, Verified 11/16/22 17:29) Swelling nitrofurantoin macrocrystalline [From Macrobid] Allergy (Severe, Verified 11/16/22 17:29) Rash Penicillins Allergy (Severe, Verified 11/16/22 17:29) Difficulty Breathing doxycycline Allergy (Verified 11/16/22 17:29) duloxetine [From Cymbalta] Allergy (Verified 11/16/22 17:29) Sulfa (Sulfonamide Antibiotics) Allergy (Verified 11/16/22 17:29) tetracycline [Tetracycline] Allergy (Verified 11/16/22 17:29) Home Medications: Levothyroxine Sodium [Synthroid] 75 mcg PO DAILY 10/27/13 [History] Tacrolimus [Prograf] 1 mg PO UD 11/08/14 [History] ALPRAZolam [Xanax] 0.5 mg PO BID PRN 02/10/17 [History] Metoprolol Tartrate 50 mg [Lopressor 50 MG] 50 mg PO BID 06/13/21 [History] Budesonide/Formoterol Fumarate [Budesonide-Formoterol 160-4.5] 2 puff IH BID 01/14/22 [History] Ergocalciferol (Vitamin D2) [Drisdol] 1 cap PO WEEKLY 01/14/22 [History] Hydrocodone/APAP 10/325 mg [Mclean 10/325 MG TableT] 1 tab PO QID PRN 01/14/22 [History] Ipratropium Hurley 0.5 mg [Atrovent 0.5MG NEBULE] 1 vial IH QID 01/14/22 [History] Omeprazole 40 mg PO BID 01/14/22 [History] Hx Tetanus, Diphtheria Vaccination/Date Given: No Hx Influenza Vaccination/Date Given: Yes Hx Pneumococcal Vaccination/Date Given: No Travel Risk - International Travel Have you traveled outside of the country in past 3 weeks: No - Coronavirus Screening Are you exhibiting any of the following symptoms?: No Close contact with a COVID-19 positive Pt in past 14-21 Days: No - Vaccine Status Have you recieved a Covid-19 vaccination: Yes [employer]: Pfizer - Vaccination Dates Date of 2cond Vaccination (if applicable): unknown - Review of Systems Constitutional: No Fever, No Chills Eyes: No Symptoms Ears, Nose, & Throat: No Symptoms Respiratory: No Cough, No Dyspnea Cardiac: No Chest Pain, No Edema, No Syncope Abdominal/Gastrointestinal: No Abdominal Pain, No Nausea, No Vomiting, No Diarrhea Genitourinary Symptoms: Other (Left CVA tenderness), No Dysuria Musculoskeletal: No Back Pain, No Neck Pain Skin: No Symptoms, No Rash Neurological: No Dizziness, No Focal Weakness, No Sensory Changes Psychological: No Symptoms Endocrine: No Symptoms All Other Systems: Reviewed and Negative - Past Medical History Pertinent Past Medical History: Yes Neurological History: Migraines ENT History: No Pertinent History Cardiac History: Myocardial Infarction ([place]) Respiratory History: Asthma, COPD Endocrine Medical History: Hyperthyroidism Musculoskeletal History: Arthritis, Degenerative Disk Disease, Osteoarthritis, Osteoporosis GI Medical History: Cirrhosis, GERD History: Other Psycho-Social History: Eating Disorders Female Reproductive Disorders: Fibroids, Menstrual Problems Other Medical History: 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 SHE ALSO HAS DIFFICULTY WITH BENDING OVER AT WAIST D/T HAVING 15-16 KYPHOPLASTY PROCEDURES TO HER THORACIC AND LUMBAR SPINE. SHE REPORTS MUCH DIFFICULTY WITH PERFORMING ANY HOMEMAKING SHE CAN'T STAND FOR MORE THAN A FEW SECONDS AT A TIME D/T INCREASE IN BACK PAIN., unknown kind bone disease - Past Surgical History Past Surgical History: Yes Neuro Surgical History: No Pertinent History Cardiac: No Pertinent History Respiratory: No Pertinent History Gastrointestinal: Appendectomy, Cholecystectomy, Liver Transplant Genitourinary: No Pertinent History Musculoskeletal: Other Female Surgical History: Hysterectomy Other Surgical History: Back surgery. - Social History Smoking Status: Current every day smoker How long have you smoked: 40 years Exposure to second hand smoke: Yes Drug Use: marijuana Patient Lives Alone: Yes - Nursing Vital Signs Nursing Vital Signs: Initial Vital Signs Temperature 98.9 F 02/21/23 08:48 Pulse Rate 92 H 02/21/23 08:48 Respiratory Rate 15 02/21/23 08:48 Blood Pressure 130/92 02/21/23 08:48 O2 Sat by Pulse Oximetry 97 02/21/23 08:48 Pain Scale Pain Intensity 8 - Physical Exam General Appearance: moderate distress Eyes, Ears, Nose, Throat Exam: moist mucous membranes Neck Exam: non-tender, supple Cardiovascular/Respiratory Exam: chest non-tender, normal breath sounds, regular rate/rhythm, no respiratory distress Gastrointestinal/Abdominal Exam: non-tender, soft Back Exam: CVA tenderness (On the left), decreased range of motion Hips Exam: left: bone tenderness, limited range of motion, pain, soft tissue tenderness Legs Exam: left leg: bone tenderness, limited range of motion, pain, soft tissue tenderness Knees Exam: left knee: bone tenderness, pain, soft tissue tenderness Ankle Exam: left ankle: non-tender, normal inspection, normal range of motion Foot Exam: left foot: non-tender, normal inspection, normal range of motion Neuro/Tendon Exam: normal sensation, normal motor functions, normal tendon functions Mental Status Exam: alert, oriented x 3, agitated Skin Exam: normal color, warm, dry SpO2 Interpretation: normal SpO2: 97 O2 Delivery: Room Air - Course Nursing assessment & vital signs reviewed: Yes - Radiology Exams Right Hand X-ray Interpretation: Negative Right Forearm X-ray Interpretation: Negative - CT Exams Lumbar Spine CT Interpretation: Other (No acute changes identified) Left Lower Extremity CT Interpretation: Other (Narrowing of the joint space and degenerative changes.) Ordered Tests: Active Orders 24 hr Category Date Time Status IV Insertion STAT Care 02/21/23 08:50 Active FOREARM Stat Exams 02/21/23 08:56 Completed HAND (MINIMUM 3 VIEWS) Stat Exams 02/21/23 08:57 Completed LOWER EXTREMITY WO CONTRAST [CT] Stat Exams 02/21/23 08:54 Completed LUMBAR SPINE W/O [CT] Stat Exams 02/21/23 08:51 Completed CBC W DIFF Stat Lab 02/21/23 09:14 Completed CMP Stat Lab 02/21/23 09:14 Completed CULTURE,URINE Stat Lab 02/21/23 08:51 Received Lactic Acid Stat Lab 02/21/23 09:08 Completed UA W/RFX UR CULTURE Stat Lab 02/21/23 08:51 Completed Urine Triage Profile Stat Lab 02/21/23 08:51 Completed Medication Summary Discontinued Medications Generic Name Dose Route Start Last Admin Trade Name Freq PRN Reason Stop Dose Admin Hydromorphone HCl 1 mg 02/21/23 08:50 02/21/23 09:09 Hydromorphone 1 Mg/1ml Inj IV 02/21/23 08:51 1 mg STAT ONE Administration Hydromorphone HCl Confirm 02/21/23 09:06 Hydromorphone 1 Mg/1ml Inj Administered 02/21/23 09:07 Dose 1 mg .ROUTE .STK-MED ONE Hydromorphone HCl Confirm 02/21/23 10:44 Hydromorphone 1 Mg/1ml Inj Administered 02/21/23 10:45 Dose 1 mg .ROUTE .STK-MED ONE Sodium Chloride 1,000 mls @ 999 mls/hr 02/21/23 08:50 02/21/23 10:17 Sodium Chloride 0.9% 1000 Ml IV 02/21/23 09:50 Infused .Q1H1M STA Infusion Sodium Chloride Confirm 02/21/23 09:06 Sodium Chloride 0.9% 1000 Ml Administered 02/21/23 09:07 Dose 1,000 mls @ ud .ROUTE .STK-MED ONE Ondansetron HCl 4 mg 02/21/23 10:09 02/21/23 10:16 Ondansetron Hcl 4 Mg/2 Ml Vial IV 02/21/23 10:10 4 mg STAT ONE Administration Ondansetron HCl Confirm 02/21/23 10:10 Ondansetron Hcl 4 Mg/2 Ml Vial Administered 02/21/23 10:11 Dose 4 mg .ROUTE .STK-MED ONE Lab/Rad Data: Laboratory Result Diagrams 02/21/23 09:14 02/21/23 09:14 Laboratory Results 02/21/23 02/21/23 02/21/23 Range/Units 09:18 09:14 09:14 WBC 9.0 (4.0-10.5) x10^3/uL RBC 4.57 (4.1-5.4) x10^6/uL Hgb 13.8 (12.0-16.0) g/dL Hct 41.7 (35-47) % MCV 91.2 (78-100) fL MCH 30.2 (26-32) pg MCHC 33.1 (32-36) g/dL RDW 13.9 (11.5-14.0) % Plt Count 240 (150-450) x10^3/uL MPV 10.4 (7.5-11.0) fL Gran % 70.3 H (36.0-66.0) % Immature Gran % (Auto) 0.4 (0.00-0.4) % Nucleat RBC Rel Count 0.0 (0.00-0.1) % Eos # (Auto) 0.03 (0-0.5) x10^3/uL Immature Gran # (Auto) 0.04 H (0.00-0.03) x10^3u/L Absolute Lymphs (auto) 1.89 (1.0-4.6) x10^3/uL Absolute Monos (auto) 0.57 (0.0-1.3) x10^3/uL Absolute Nucleated RBC 0.00 (0.00-0.01) x10^3u/L Lymphocytes % 21.1 L (24.0-44.0) % Monocytes % 6.4 (0.0-12.0) % Eosinophils % 0.3 (0.00-5.0) % Basophils % 1.5 (0.0-0.4) % Absolute Granulocytes 6.30 (1.4-6.9) x10^3/uL Basophils # 0.13 (0-0.4) x10^3/uL Sodium 146 H (137-145) mmol/L Potassium 4.2 (3.5-5.1) mmol/L Chloride 112 H (98-107) mmol/L Carbon Dioxide 14 L* (22-30) mmol/L Anion Gap 23.9 H (5-15) MEQ/L BUN 38 H (7-17) mg/dL Creatinine 2.38 H (0.52-1.04) mg/dL Estimated GFR 22.3 ML/MIN Glucose 120 H (74-106) mg/dL Lactic Acid (0.4-2.0) Calcium 9.4 (8.4-10.2) mg/dL Total Bilirubin 0.50 (0.2-1.3) mg/dL AST 52 H (14-36) U/L ALT 27 (0-35) U/L Alkaline Phosphatase 92 (38-126) U/L Ammonia < 9 L (9-30) umol/L Serum Total Protein 7.9 (6.3-8.2) g/dL Albumin 4.6 (3.5-5.0) g/dL Urine Color (Yellow) Urine Appearance (Clear) Urine pH (4.6-8.0) Ur Specific [place] (1.005-1.030) Urine Protein (Negative) Urine Glucose (UA) (Negative) mg/dL Urine Ketones (Negative) Urine Blood (Negative) Urine Nitrite (Negative) Urine Bilirubin (Negative) Urine Urobilinogen (0.2) mg/dL Ur Leukocyte Esterase (Negative) U Hyaline Cast (Auto) (0-2) /LPF Urine Microscopic RBC (0-5) /HPF Urine Microscopic WBC (0-5) /HPF Ur Epithelial Cells (None Seen) /HPF Urine Bacteria (None Seen) /HPF Urine Culture Reflexed (NO) Urine Opiates Level (NEGATIVE) Ur Methadone (NEGATIVE) Urine Barbiturates (NEGATIVE) Ur Phencyclidine (PCP) (NEGATIVE) Urine Amphetamine (NEGATIVE) U Benzodiazepine Level (NEGATIVE) Urine Cocaine (NEGATIVE) Urine Marijuana (THC) (NEGATIVE) 02/21/23 02/21/23 02/21/23 Range/Units 09:08 08:51 08:51 WBC (4.0-10.5) x10^3/uL RBC (4.1-5.4) x10^6/uL Hgb (12.0-16.0) g/dL Hct (35-47) % MCV (78-100) fL MCH (26-32) pg MCHC (32-36) g/dL RDW (11.5-14.0) % Plt Count (150-450) x10^3/uL MPV (7.5-11.0) fL Gran % (36.0-66.0) % Immature Gran % (Auto) (0.00-0.4) % Nucleat RBC Rel Count (0.00-0.1) % Eos # (Auto) (0-0.5) x10^3/uL Immature Gran # (Auto) (0.00-0.03) x10^3u/L Absolute Lymphs (auto) (1.0-4.6) x10^3/uL Absolute Monos (auto) (0.0-1.3) x10^3/uL Absolute Nucleated RBC (0.00-0.01) x10^3u/L Lymphocytes % (24.0-44.0) % Monocytes % (0.0-12.0) % Eosinophils % (0.00-5.0) % Basophils % (0.0-0.4) % Absolute Granulocytes (1.4-6.9) x10^3/uL Basophils # (0-0.4) x10^3/uL Sodium (137-145) mmol/L Potassium (3.5-5.1) mmol/L Chloride (98-107) mmol/L Carbon Dioxide (22-30) mmol/L Anion Gap (5-15) MEQ/L BUN (7-17) mg/dL Creatinine (0.52-1.04) mg/dL Estimated GFR ML/MIN Glucose (74-106) mg/dL Lactic Acid 1.1 (0.4-2.0) Calcium (8.4-10.2) mg/dL Total Bilirubin (0.2-1.3) mg/dL AST (14-36) U/L ALT (0-35) U/L Alkaline Phosphatase (38-126) U/L Ammonia (9-30) umol/L Serum Total Protein (6.3-8.2) g/dL Albumin (3.5-5.0) g/dL Urine Color Yellow (Yellow) Urine Appearance Clear (Clear) Urine pH 5.0 (4.6-8.0) Ur Specific [place] 1.020 (1.005-1.030) Urine Protein 30 (Negative) Urine Glucose (UA) Negative (Negative) mg/dL Urine Ketones Negative (Negative) Urine Blood Trace (Negative) Urine Nitrite Negative (Negative) Urine Bilirubin Negative (Negative) Urine Urobilinogen 0.2 (0.2) mg/dL Ur Leukocyte Esterase Negative (Negative) U Hyaline Cast (Auto) 11-20 (0-2) /LPF Urine Microscopic RBC 0-2 (0-5) /HPF Urine Microscopic WBC 0-2 (0-5) /HPF Ur Epithelial Cells None Seen (None Seen) /HPF Urine Bacteria None Seen (None Seen) /HPF Urine Culture Reflexed ORDERED SEPARATELY (NO) Urine Opiates Level POSITIVE (NEGATIVE) Ur Methadone NEGATIVE (NEGATIVE) Urine Barbiturates NEGATIVE (NEGATIVE) Ur Phencyclidine (PCP) NEGATIVE (NEGATIVE) Urine Amphetamine NEGATIVE (NEGATIVE) U Benzodiazepine Level POSITIVE (NEGATIVE) Urine Cocaine NEGATIVE (NEGATIVE) Urine Marijuana (THC) POSITIVE (NEGATIVE) - Progress Progress: improved Progress Note: 02/21/23 11:03 Discussed with the patient seeing her back doctor or Dr. Lam if the pain persists. She is treated with 10 Mclean tens at home. She should have adequate supply. Counseled pt/family regarding: lab results, diagnosis, need for follow-up, rad results Medical Desision Making - External Record(s) Reviewed Records reviewed as a part of evaluation & management: Discharge Summary - Diagnostic Testing Diagnostic test were ordered, analyzed, and reviewed by me: Yes Radiological Interpretation: Reviewed by me - Departure Departure Disposition: Home Clinical Impression: Sciatica Condition: Stable Critical Care Time: No Referrals: CLEMENTINA LAM MD [Primary Care Provider] - Follow up/PCP as directed Prescriptions: Methylprednisolone Packet [Medrol Dosepack] 4 mg PO UD 5 Days #1 packet
[2023-02-21 09:30] LABS: ALBUMIN 4.6 g/dL (3.5-5.0); ANION GAP 23.9 MEQ/L (5-15); BILIRUBIN,TOTAL 0.5 mg/dL (0.2-1.3); Calcium 9.4 mg/dL (8.4-10.2); Creatinine 1 2.38 mg/dL (0.52-1.04); EST GLOMERULAR FILTRATION RATE 22.3 ML/MIN; Potassium 4.2 mmol/L (3.5-5.1); Total Protein 7.9 g/dL (6.3-8.2)
--- NOTE | 2023-02-21 10:05 | XRAY ---
Indication: Low back and left hip pain. Multiple contiguous axial images obtained through the lumbar spine. Sagittal and coronal reformatted images obtained. Comparison: CT abdomen/pelvis November 15, 2021 Axial images demonstrate stable osteopenia and multilevel thoracolumbar kyphoplasty. No acute fracture, suspicious bony lesions, or spinal canal stenosis. Facets are symmetric. Sagittal and coronal reformatted images again demonstrates normal alignment with vertebral body heights/disc spaces maintained. Visualized noncontrasted soft tissues again demonstrate mild scattered aortoiliac calcifications and mid abdomen aneurysm coils. Impression: Stable CT lumbar spine again demonstrating osteopenia, multilevel thoracolumbar kyphoplasty, arteriosclerotic calcifications, and aneurysm coils. No new/acute findings.
--- NOTE | 2023-02-21 10:07 | XRAY ---
Indication: Low back and left hip pain. Multiple contiguous axial images obtained through the left hip. Sagittal and coronal reformatted images obtained. Comparison: CT abdomen/pelvis November 15, 2021 Partial beam artifact from right total hip arthroplasty. Stable osteopenia. No acute fracture or suspicious bony lesions. Left hip articulation intact again with minimal joint space narrowing. No large effusion. Again minimal arteriosclerotic calcifications and multiple pelvic phleboliths calcifications. Remaining visualized noncontrasted soft tissues unremarkable. Impression: Stable osteopenia, degenerative joint space narrowing, and minimal arteriosclerotic calcifications. No new/acute findings.
[2023-02-21] MEDS ORDERED: Zofran 4 MG/2 ML VIAL IV ONE (10:09)
--- NOTE | 2023-02-21 10:09 | XRAY ---
Indication: Pain. Comparison: None 2 view right forearm demonstrates osteopenia. No other bony, articular, or soft tissue abnormalities.
[2023-02-21] MEDS ORDERED: Zofran 4 MG/2 ML VIAL ONE (10:10)
--- NOTE | 2023-02-21 10:11 | XRAY ---
Indication: Pain. Comparison: None 3 view right hand demonstrates osteopenia. No other bony, articular, or soft tissue abnormalities.
[2023-02-21 10:22] LABS: Amphetamine,Urine NEGATIVE (NEGATIVE); Barbiturate,Urine NEGATIVE (NEGATIVE); Benzodiazepine,Urine POSITIVE (NEGATIVE); Cocaine,Urine NEGATIVE (NEGATIVE); Methadone,Urine NEGATIVE (NEGATIVE); Opiate,Urine POSITIVE (NEGATIVE); PCP,Urine NEGATIVE (NEGATIVE); THC,Urine POSITIVE (NEGATIVE)
[2023-02-21 10:41] LABS: ADD URINE CULTURE? ORDERED SEPARATELY (NO); Appearance Clear (Clear); Bacteria None Seen /HPF (None Seen); Bilirubin Negative (Negative); Blood Trace (Negative); Epithelial Cells None Seen /HPF (None Seen); Glucose, Urine Negative (Negative); Ketones Negative (Negative); Leukocyte Esterase Negative (Negative); Nitrite Negative (Negative); Protein,Urine Dip 30 (Negative); RBC 0-2 /HPF (0-5); Urobilinogen 0.2 mg/dL (0.2); WBC 0-2 /HPF (0-5)
[2023-02-21] MEDS ORDERED: TORAdol 30 mg Injection IV ONE (11:05)
[2023-02-21 11:06] VITALS: O2SAT 97
[2023-02-21] MEDS ORDERED: TORAdol 30 mg Injection ONE (11:06)
[2023-02-21 11:27] VITALS: BP 109/55; PULSE 89
== END 2023-02-21 11:32 | disposition home or self-care (01) ==
LOC: ED 08:40
DX: M54.32 Sciatica, left side (principal); S50.811A Abrasion of right forearm, initial encounter; S60.511A Abrasion of right hand, initial encounter; I12.9 Hypertensive chronic kidney disease with stage 1 through stage 4 chronic kidney disease, or unspecified chronic kidney disease; N18.9 Chronic kidney disease, unspecified; Z94.4 Liver transplant status; Z79.891 Long term (current) use of opiate analgesic; Z79.52 Long term (current) use of systemic steroids; Z79.899 Other long term (current) drug therapy; Z72.0 Tobacco use
CPT/HCPCS: 36000; 36415; 72131; 73090; 73130; 73700; 80053; 80307; 81001; 82140; 83605; 85025; 87077; 87086; 87186; 96374; 96375; 96376; 99284; J1170; J1885; J2405

== ENCOUNTER 2023-10-08 09:08 | Emergency (ER) | payer MEDICAID ==
--- NOTE | 2023-10-08 09:26 | ERPHSYRPT ---
- History of Present Illness Time Seen by Provider: 10/08/23 09:24 Source: patient Exam Limitations: no limitations Physician History: Patient 58-year-old female presents to our ED via EMS for evaluation of lower thoracic back pain. Patient states the pain started approximately 1 week ago. The pain travels horizontally across her back. No trauma no fever. No chest p ain. No nausea vomiting or diaphoresis. Symptoms are intermittent. Symptoms are moderate in intensity. No specific worsening or improving factors. Patient advised that she is a liver transplant patient. Transplantation occurred in 2018 at [facility] in [place]. She voices no other complaints or concerns at this time. Portions of this note were created with voice recognition technology. There may be grammatical, spelling, punctuation or sound alike errors Timing/Duration: week(s) Severity: moderate Modifying Factors: Improves With: nothing Associated Symptoms: denies symptoms Allergies/Adverse Reactions: ampicillin Allergy (Severe, Verified 10/08/23 09:16) Swelling azithromycin [From Zithromax Z-Pawan] Allergy (Severe, Verified 10/08/23 09:16) Swelling cefixime [From Suprax] Allergy (Severe, Verified 10/08/23 09:16) Swelling cephalexin monohydrate [From Keflex] Allergy (Severe, Verified 10/08/23 09:16) Swelling ciprofloxacin [From Cipro] Allergy (Severe, Verified 10/08/23 09:16) Rash ciprofloxacin HCl [From Cipro] Allergy (Severe, Verified 10/08/23 09:16) Swelling erythromycin base [Erythromycin Base] Allergy (Severe, Verified 10/08/23 09:16) Swelling levofloxacin [From Levaquin] Allergy (Severe, Verified 10/08/23 09:16) swelling of throat nitrofurantoin [From Macrobid] Allergy (Severe, Verified 10/08/23 09:16) Swelling nitrofurantoin macrocrystalline [From Macrobid] Allergy (Severe, Verified 10/08/23 09:16) Rash Penicillins Allergy (Severe, Verified 10/08/23 09:16) Difficulty Breathing doxycycline Allergy (Verified 10/08/23 09:16) duloxetine [From Cymbalta] Allergy (Verified 10/08/23 09:16) Sulfa (Sulfonamide Antibiotics) Allergy (Verified 10/08/23 09:16) tetracycline [Tetracycline] Allergy (Verified 10/08/23 09:16) Home Medications: Tacrolimus [Prograf] 1 mg PO UD 11/08/14 [History] ALPRAZolam [Xanax] 0.5 mg PO BID PRN 02/10/17 [History] Metoprolol Tartrate 50 mg [Lopressor 50 MG] 50 mg PO BID 06/13/21 [History] Hydrocodone/APAP 10/325 mg [[place] 10/325 MG TableT] 1 tab PO QID PRN 01/14/22 [History] Omeprazole 40 mg PO BID 01/14/22 [History] Albuterol Sulfate [Albuterol Sulfate Hfa] 2 puff PO Q4H PRN PRN 10/08/23 [History] Aspirin EC 325 mg [Ecotrin 325 MG] 1 tab PO DAILY 10/08/23 [History] Levothyroxine Sodium 100 Mcg [Synthroid 100 Mcg] 1 tab PO DAILY 10/08/23 [History] Ondansetron [Ondansetron Odt ] 1 tab PO Q8H PRN PRN 10/08/23 [History] Sirolimus 1 tab PO DAILY 10/08/23 [History] Hx Tetanus, Diphtheria Vaccination/Date Given: No Hx Influenza Vaccination/Date Given: Yes Hx Pneumococcal Vaccination/Date Given: No Travel Risk - Vaccine Status Have you recieved a Covid-19 vaccination: Yes [employer]: [employer] - Vaccination Dates Date of 2cond Vaccination (if applicable): unknown - Review of Systems Constitutional: No Symptoms, No Fever, No Chills Eyes: No Symptoms Ears, Nose, & Throat: No Symptoms Respiratory: No Symptoms, No Cough, No Dyspnea Cardiac: No Symptoms, No Chest Pain, No Edema, No Syncope Abdominal/Gastrointestinal: No Symptoms, No Abdominal Pain, No Nausea, No Vomiting, No Diarrhea Genitourinary Symptoms: No Symptoms, No Dysuria Musculoskeletal: No Symptoms, No Back Pain, No Neck Pain Skin: No Symptoms, No Rash Neurological: No Symptoms, No Dizziness, No Focal Weakness, No Sensory Changes Psychological: No Symptoms Endocrine: No Symptoms Hematologic/Lymphatic: No Symptoms Immunological/Allergic: No Symptoms All Other Systems: Reviewed and Negative - Past Medical History Pertinent Past Medical History: Yes Neurological History: Migraines ENT History: No Pertinent History Cardiac History: Myocardial Infarction ([place]) Respiratory History: Asthma, COPD Endocrine Medical History: Hyperthyroidism Musculoskeletal History: Arthritis, Degenerative Disk Disease, Osteoarthritis, Osteoporosis GI Medical History: Cirrhosis, GERD History: Other Psycho-Social History: Eating Disorders Female Reproductive Disorders: Fibroids, Menstrual Problems Other Medical History: 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 SHE ALSO HAS DIFFICULTY WITH BENDING OVER AT WAIST D/T HAVING 15-16 KYPHOPLASTY PROCEDURES TO HER THORACIC AND LUMBAR SPINE. SHE REPORTS MUCH DIFFICULTY WITH PERFORMING ANY HOMEMAKING SHE CAN'T STAND FOR MORE THAN A FEW SECONDS AT A TIME D/T INCREASE IN BACK PAIN., unknown kind bone disease - Past Surgical History Past Surgical History: Yes Neuro Surgical History: No Pertinent History Cardiac: No Pertinent History Respiratory: No Pertinent History Gastrointestinal: Appendectomy, Cholecystectomy, Liver Transplant Genitourinary: No Pertinent History Musculoskeletal: Other Female Surgical History: Hysterectomy Other Surgical History: Back surgery. - Social History Smoking Status: Current every day smoker How long have you smoked: 40 years Exposure to second hand smoke: Yes Drug Use: marijuana Patient Lives Alone: Yes - Nursing Vital Signs Nursing Vital Signs: Initial Vital Signs Temperature 99 F 10/08/23 09:09 Pulse Rate 85 10/08/23 09:09 Respiratory Rate 18 10/08/23 09:09 Blood Pressure 167/96 10/08/23 09:09 O2 Sat by Pulse Oximetry 98 10/08/23 09:09 Pain Scale Pain Intensity 7 - Physical Exam General Appearance: no apparent distress, alert Eye Exam: PERRL/EOMI, eyes nml inspection Ears, Nose, Throat Exam: normal ENT inspection, TMs normal, pharynx normal, moist mucous membranes Neck Exam: normal inspection, non-tender, supple, full range of motion Respiratory Exam: normal breath sounds, lungs clear, airway intact, No respiratory distress Cardiovascular Exam: regular rate/rhythm, normal heart sounds, normal peripheral pulses Gastrointestinal/Abdomen Exam: soft, normal bowel sounds, No tenderness, No mass Back Exam: normal inspection, normal range of motion, No CVA tenderness, No vertebral tenderness Extremity Exam: normal inspection, normal range of motion, pelvis stable Neurologic Exam: alert, oriented x 3, cooperative, normal mood/affect, nml cerebellar function, nml station & gait, sensation nml, No motor deficits Skin Exam: normal color, warm, dry, No rash Lymphatic Exam: No adenopathy SpO2 Interpretation: normal SpO2: 98 O2 Delivery: Room Air - Course Nursing assessment & vital signs reviewed: Yes EKG Interpreted by Me: RATE (82), Sinus Rhythm, NORMAL AXIS, NORMAL INTERVALS - Radiology Exams T-Spine X-ray Interpretation: Teleradiologist Report (Osteopenia levoscoliosis remote T9 compression fracture. Otherwise no new acute findings) Ordered Tests: Active Orders 24 hr Category Date Time Status Analysis Intern STAT Care 10/08/23 09:23 Active EKG-ER Only STAT Care 10/08/23 09:22 Active IV Insertion STAT Care 10/08/23 09:22 Active Pulse Oximetry (ED) STAT Care 10/08/23 09:22 Active THORACIC SPINE (AP,LAT,SWIMM) Stat Exams 10/08/23 11:11 Completed CBC W DIFF Stat Lab 10/08/23 10:19 Completed CMP Stat Lab 10/08/23 10:19 Completed CULTURE,URINE Stat Lab 10/08/23 11:26 Received TROPONIN Q4H Lab 10/08/23 10:19 Completed TROPONIN Q4H Lab 10/08/23 12:20 Received TROPONIN Q4H Lab 10/08/23 17:30 Ordered UA W/RFX UR CULTURE Stat Lab 10/08/23 11:26 Completed Lab/Rad Data: Laboratory Result Diagrams 10/08/23 10:19 10/08/23 10:19 Laboratory Results 10/08/23 10/08/23 10/08/23 Range/Units 11:26 10:19 10:19 WBC (4.0-10.5) x10^3/uL RBC (4.1-5.4) x10^6/uL Hgb (12.0-16.0) g/dL Hct (35-47) % MCV (78-100) fL MCH (26-32) pg MCHC (32-36) g/dL RDW (11.5-14.0) % Plt Count (150-450) x10^3/uL MPV (7.5-11.0) fL Gran % (36.0-66.0) % Immature Gran % (Auto) (0.00-0.4) % Nucleat RBC Rel Count (0.00-0.1) % Eos # (Auto) (0-0.5) x10^3/uL Immature Gran # (Auto) (0.00-0.03) x10^3u/L Absolute Lymphs (auto) (1.0-4.6) x10^3/uL Absolute Monos (auto) (0.0-1.3) x10^3/uL Absolute Nucleated RBC (0.00-0.01) x10^3u/L Lymphocytes % (24.0-44.0) % Monocytes % (0.0-12.0) % Eosinophils % (0.00-5.0) % Basophils % (0.0-0.4) % Absolute Granulocytes (1.4-6.9) x10^3/uL Basophils # (0-0.4) x10^3/uL Sodium 136 L (137-145) mmol/L Potassium 4.0 (3.5-5.1) mmol/L Chloride 103 (98-107) mmol/L Carbon Dioxide 26 (22-30) mmol/L Anion Gap 11.5 (5-15) MEQ/L BUN 18 H (7-17) mg/dL Creatinine 1.02 (0.52-1.04) mg/dL Estimated GFR 63.8 ML/MIN Glucose 118 H (74-106) mg/dL Calcium 9.3 (8.4-10.2) mg/dL Total Bilirubin 0.40 (0.2-1.3) mg/dL AST 20 (14-36) U/L ALT 8 (0-35) U/L Alkaline Phosphatase 112 (38-126) U/L Troponin I < 0.012 (0.000-0.034) ng/mL Serum Total Protein 8.2 (6.3-8.2) g/dL Albumin 4.3 (3.5-5.0) g/dL Urine Color Yellow (Yellow) Urine Appearance Clear (Clear) Urine pH 5.5 (4.6-8.0) Ur Specific [place] 1.020 (1.005-1.030) Urine Protein 100 A (Negative) Urine Glucose (UA) Negative (Negative) mg/dL Urine Ketones Negative (Negative) Urine Blood Small A (Negative) Urine Nitrite Positive A (Negative) Urine Bilirubin Negative (Negative) Urine Urobilinogen 0.2 (0.2) mg/dL Ur Leukocyte Esterase Negative (Negative) U Hyaline Cast (Auto) NONE SEEN (0-2) /LPF Urine Microscopic RBC 0-2 (0-5) /HPF Urine Microscopic WBC 0-2 (0-5) /HPF Ur Epithelial Cells None Seen (None Seen) /HPF Urine Bacteria Many A (None Seen) /HPF Urine Culture Reflexed YES (NO) 10/08/23 Range/Units 10:19 WBC 6.6 (4.0-10.5) x10^3/uL RBC 3.94 L (4.1-5.4) x10^6/uL Hgb 11.6 L (12.0-16.0) g/dL Hct 37.0 (35-47) % MCV 93.9 (78-100) fL MCH 29.4 (26-32) pg MCHC 31.4 L (32-36) g/dL RDW 11.9 (11.5-14.0) % Plt Count 298 (150-450) x10^3/uL MPV 9.6 (7.5-11.0) fL Gran % 73.0 H (36.0-66.0) % Immature Gran % (Auto) 0.3 (0.00-0.4) % Nucleat RBC Rel Count 0.0 (0.00-0.1) % Eos # (Auto) 0.08 (0-0.5) x10^3/uL Immature Gran # (Auto) 0.02 (0.00-0.03) x10^3u/L Absolute Lymphs (auto) 1.29 (1.0-4.6) x10^3/uL Absolute Monos (auto) 0.36 (0.0-1.3) x10^3/uL Absolute Nucleated RBC 0.00 (0.00-0.01) x10^3u/L Lymphocytes % 19.5 L (24.0-44.0) % Monocytes % 5.4 (0.0-12.0) % Eosinophils % 1.2 (0.00-5.0) % Basophils % 0.6 (0.0-0.4) % Absolute Granulocytes 4.82 (1.4-6.9) x10^3/uL Basophils # 0.04 (0-0.4) x10^3/uL Sodium (137-145) mmol/L Potassium (3.5-5.1) mmol/L Chloride (98-107) mmol/L Carbon Dioxide (22-30) mmol/L Anion Gap (5-15) MEQ/L BUN (7-17) mg/dL Creatinine (0.52-1.04) mg/dL Estimated GFR ML/MIN Glucose (74-106) mg/dL Calcium (8.4-10.2) mg/dL Total Bilirubin (0.2-1.3) mg/dL AST (14-36) U/L ALT (0-35) U/L Alkaline Phosphatase (38-126) U/L Troponin I (0.000-0.034) ng/mL Serum Total Protein (6.3-8.2) g/dL Albumin (3.5-5.0) g/dL Urine Color (Yellow) Urine Appearance (Clear) Urine pH (4.6-8.0) Ur Specific [place] (1.005-1.030) Urine Protein (Negative) Urine Glucose (UA) (Negative) mg/dL Urine Ketones (Negative) Urine Blood (Negative) Urine Nitrite (Negative) Urine Bilirubin (Negative) Urine Urobilinogen (0.2) mg/dL Ur Leukocyte Esterase (Negative) U Hyaline Cast (Auto) (0-2) /LPF Urine Microscopic RBC (0-5) /HPF Urine Microscopic WBC (0-5) /HPF Ur Epithelial Cells (None Seen) /HPF Urine Bacteria (None Seen) /HPF Urine Culture Reflexed (NO) - Progress Progress: improved Progress Note: Case discussed with Dr. Lam approximately 10 PM. Patient has an extensive allergy profile. He advised to treat the urinary tract infection in light of her allergies with cefdinir or Vantin. A prescription for cefdinir was forwarded to patient's pharmacy. 50-year-old female presents to our ED via EMS for back pain. Physical exam reveals some pain across her lower thoracic spine. No trauma no fever. No nausea vomiting or diaphoresis. No systemic manifestations. UA reveals urinary tract infection. X-ray thoracic spine shows no acute findings. Laboratory workup essentially nonremarkable. No leukocytosis. Vitals within normal limits. Patient reassessed. Patient requested a [place] pill prior to discharge. [place] administered. Portions of this note were created with voice recognition technology. There may be grammatical, spelling, punctuation or sound alike errors Complexity problem addressed is moderate acute complicated No critical care time Complexity of data reviewed and analyzed is extensive. Test ordered test reviewed. Results analyzed and correlated clinically with history and physical examination. Management discussed with Dr. Lam, patient's primary care doctor Risk of complication and or risk morbidity/mortality of patient management is moderate. A prescription/antibiotic forwarded to patient's pharmacy to treat UTI. Vital stable. Time spent to discharge patient is approximately 30 minutes. Plan of care established for shared decision making. No social determinants of health present impede follow-up. Portions of this note were created with voice recognition technology. There may be grammatical, spelling, punctuation or sound alike errors 10/08/23 12:32 Counseled pt/family regarding: lab results, diagnosis, need for follow-up, rad results - Departure Departure Disposition: Home Clinical Impression: UTI (urinary tract infection), Back pain Condition: Stable Critical Care Time: No Referrals: CLEMENTINA LAM MD [Primary Care Provider] - Follow up/PCP as directed Instructions: Low Back Pain ED, Urinary Tract Infection, Adult ED Additional Instructions: Discharge/Care Plan MAYRA YBARRA was seen on 10/08/23 in the Emergency Room. The patient was counseled regarding Diagnosis,Lab results, Imaging studies, need for follow up and when to return to the Emergency Room. Prescriptions given: Discharge Note I have spoken with the patient and/or caregivers. I have explained the patient's condition, diagnosis and treatment plan based on the information available to me at this time. I have answered the patient's and/or caregiver's questions and addressed any concerns. The patient and/or caregivers have as good understanding of the patient's diagnosis, condition and treatment plan as can be expected at this point. The vital signs have been stable. The patient's condition is stable and appropriate for discharge from the emergency department. The patient will pursue further outpatient evaluation with the primary care physician or other designated or consulting physician as outlined in the discharge instructions. The patient and/or caregivers are agreeable to this plan of care and follow-up instructions have been explained in detail. The patient and/or caregivers have received these instruction. The patient/and or caregivers are aware that any significant change in condition or worsening of symptoms should prompt an immediate return to this or the closest emergency department or call 911. Prescriptions: Cefdinir 300 mg PO BID 7 Days #14 cap
[2023-10-08 09:35] VITALS: TEMP 99
[2023-10-08 10:20] LABS: Absolute Neutrophil Ct (ANC) 4.82 x10^3/uL (1.4-6.9); BASOPHIL % 0.6 % (0.0-0.4); Basophil (Absolute #) 0.04 x10^3/uL (0-0.4); Eosinophil % 1.2 % (0.00-5.0); Eosinophil (Absolute #) 0.08 x10^3/uL (0-0.5); Hemoglobin 11.6 g/dL (12.0-16.0); IMMATURE GRAN # 0.02 x10^3u/L (0.00-0.03); IMMATURE GRAN % 0.3 % (0.00-0.4); Lymphocyte (Absolute #) 1.29 x10^3/uL (1.0-4.6); Lymphocytes % 19.5 % (24.0-44.0); Mean Cell Volume 93.9 fL (78-100); Mean Corpuscular Hemoglobin 29.4 pg (26-32); Mean Corpuscular Hgb Concent. 31.4 g/dL (32-36); Mean Platelet Volume 9.6 fL (7.5-11.0); Monocyte (Absolute #) 0.36 x10^3/uL (0.0-1.3); Monocytes % 5.4 % (0.0-12.0); Platelet Count 298 x10^3/uL (150-450); Red Blood Count 3.94 x10^6/uL (4.1-5.4); Red Cell Distribution Width 11.9 % (11.5-14.0); White Blood Count 6.6 x10^3/uL (4.0-10.5)
[2023-10-08 10:34] LABS: ALBUMIN 4.3 g/dL (3.5-5.0); ANION GAP 11.5 MEQ/L (5-15); BILIRUBIN,TOTAL 0.4 mg/dL (0.2-1.3); Calcium 9.3 mg/dL (8.4-10.2); Creatinine 1 1.02 mg/dL (0.52-1.04); EST GLOMERULAR FILTRATION RATE 63.8 ML/MIN; Total Protein 8.2 g/dL (6.3-8.2)
[2023-10-08 11:39] LABS: Appearance Clear (Clear); Bacteria Many /HPF (None Seen); Bilirubin Negative (Negative); Blood Small (Negative); Epithelial Cells None Seen /HPF (None Seen); Glucose, Urine Negative (Negative); Hyaline Casts NONE SEEN /LPF (0-2); Ketones Negative (Negative); Leukocyte Esterase Negative (Negative); Nitrite Positive (Negative); Ph 5.5 (4.6-8.0); Protein,Urine Dip 100 (Negative); RBC 0-2 /HPF (0-5); Urobilinogen 0.2 mg/dL (0.2); WBC 0-2 /HPF (0-5)
[2023-10-08 11:52] LABS: ADD URINE CULTURE? YES (NO)
--- NOTE | 2023-10-08 11:54 | XRAY ---
Indication: Pain. Comparison: CT chest November 15, 2021 AP/lateral thoracic spine again demonstrates 12 rib bearing segments with osteopenia, mild levoscoliosis, T4-L3 kyphoplasty, remote T9 compression fracture, left Port-A-Cath, and aneurysm coils anterior to L2-L3. No new/acute abnormalities.
[2023-10-08 12:06] VITALS: RESP 17
[2023-10-08] MEDS ORDERED: NORCO 5/325 MG PO ONE (12:44)
[2023-10-08 12:46] VITALS: O2SAT 98
[2023-10-08] MEDS ORDERED: NORCO 5/325 MG ONE (12:49)
[2023-10-08 13:03] VITALS: BP 122/79; PULSE 80
== END 2023-10-08 13:17 | disposition home or self-care (01) ==
LOC: ED 09:08
DX: N39.0 Urinary tract infection, site not specified (principal); M54.6 Pain in thoracic spine; Z79.891 Long term (current) use of opiate analgesic; Z79.899 Other long term (current) drug therapy; Z72.0 Tobacco use
CPT/HCPCS: 36000; 36415; 72072; 80053; 81001; 84484; 85025; 87077; 87086; 87186; 93005; 93041; 94760; 99284; A9270-GY

== ENCOUNTER 2024-11-25 10:58 | Inpatient (IN) | payer MEDICAID ==
[2024-11-25] MEDS ORDERED: Sodium Chloride 0.9% 1000 ML 1,000 ML ONE ×3 (12:09→19:22)
[2024-11-25] MEDS: Sodium Chloride 0.9% 1000 ML 1,000 ML IV SCH ×2 (12:10→19:29)
[2024-11-25 12:36] LABS: Absolute Neutrophil Ct (ANC) 5.16 x10^3/uL (1.56-6.13); BASOPHIL % 0.4 % (0.1-1.2); Basophil (Absolute #) 0.03 x10^3/uL (0.01-0.08); Eosinophil % 2.7 % (0.7-5.8); IMMATURE GRAN # 0.03 x10^3u/L (0.001-0.031); IMMATURE GRAN % 0.4 % (0.001-0.429); Lymphocyte (Absolute #) 1.69 x10^3/uL (1.18-3.74); Lymphocytes % 22.5 % (19.3-51.7); Mean Cell Volume 86.4 fL (79.4-94.8); Mean Corpuscular Hemoglobin 27.3 pg (25.6-32.2); Mean Corpuscular Hgb Concent. 31.6 g/dL (32.2-35.5); Mean Platelet Volume 10.8 fL (9.4-12.3); Monocyte (Absolute #) 0.39 x10^3/uL (0.24-0.86); Monocytes % 5.2 % (4.7-12.5); Neutrophil % 68.8 % (34.0-71.1); Platelet Count 328 x10^3/uL (182-369); Red Cell Distribution Width 15.1 % (11.7-14.4); White Blood Count 7.5 x10^3/uL (3.98-10.04)
[2024-11-25 13:23] LABS: ALBUMIN 4.6 g/dL (3.5-5.0); ANION GAP 20.6 MEQ/L (5-15); BILIRUBIN,TOTAL 0.8 mg/dL (0.2-1.3); Calcium 9.8 mg/dL (8.4-10.2); Creatinine 1 1.94 mg/dL (0.52-1.04); EST GLOMERULAR FILTRATION RATE 29.3 ML/MIN; Potassium 4.3 mmol/L (3.5-5.1); TSH, 3RD Generation 14.188 mIU/L (0.470-4.680); Total Protein 7.8 g/dL (6.3-8.2)
--- NOTE | 2024-11-25 13:23 | ERPHSYRPT ---
- History of Present Illness Time Seen by Provider: 11/25/24 11:43 Source: patient, family Exam Limitations: clinical condition Patient Subjective Stated Complaint: C/O Multiple falls at home. None today. Indicates "many for a long time." States back hurts. Triage Nursing Assessment: Patient ambulated back to ER with stand by assist. She is alert and oriented but forgetful at times and patient's mother answers some of the triage questions for her. Patient has many/multiple bruising to BLE and BUE; various stages of healing. Areas of reported pain to back examined. This nurse noted unstageable pressure injuries to these area. Unstageable pre ssure injury noted to mid upper back (spine) meausring 2cm X 2cm. Area is covered in necrosis/eschar. No drainage. Surrounding skin is red and non- blanchable. 2cm X 3.3cm unstageable pressure injury present to sacrum. Area is covered in necrosis/eschar. Surrounding skin is red and non-blanchable. NO draiange. Physician History: 59-year-old female with history of liver transplant noncompliant with her medications and sent in ER from primary care after patient was taken over there by her mother because of her repeated falls and not acting herself. Patient is hallucinating at PCP office and in our ER. Patient has repeated falls with injuries to the back bruising all over. Per mom she is still able to ambulate without assistance. No difficulty breathing reported no vomiting or diarrhea reported. Mom reports patient having similar symptoms sometime ago and was at [facility] where she was diagnosed with encephalopathy. Questionable history of substance abuse. Allergies/Adverse Reactions: ampicillin Allergy (Severe, Verified 11/25/24 11:09) Swelling azithromycin [From Zithromax Z-Pawan] Allergy (Severe, Verified 11/25/24 11:09) Swelling cefixime [From Suprax] Allergy (Severe, Verified 11/25/24 11:09) Swelling cephalexin monohydrate [From Keflex] Allergy (Severe, Verified 11/25/24 11:09) Swelling ciprofloxacin [From Cipro] Allergy (Severe, Verified 11/25/24 11:09) Rash ciprofloxacin HCl [From Cipro] Allergy (Severe, Verified 11/25/24 11:09) Swelling erythromycin base [Erythromycin Base] Allergy (Severe, Verified 11/25/24 11:09) Swelling levofloxacin [From Levaquin] Allergy (Severe, Verified 11/25/24 11:09) swelling of throat nitrofurantoin [From Macrobid] Allergy (Severe, Verified 11/25/24 11:09) Swelling nitrofurantoin macrocrystalline [From Macrobid] Allergy (Severe, Verified 11/25/24 17:17) Rash Penicillins Allergy (Severe, Verified 11/25/24 11:09) Difficulty Breathing doxycycline Allergy (Verified 11/25/24 11:09) duloxetine [From Cymbalta] Allergy (Verified 11/25/24 11:09) Sulfa (Sulfonamide Antibiotics) Allergy (Verified 11/25/24 11:09) tetracycline [Tetracycline] Allergy (Verified 11/25/24 11:09) Home Medications: ALPRAZolam [Xanax] 0.5 mg PO BID PRN 02/10/17 [History] Metoprolol Tartrate 50 mg [Lopressor 50 MG] 50 mg PO BID 06/13/21 [History] Omeprazole 40 mg PO BID 01/14/22 [History] Levothyroxine Sodium 100 Mcg [Synthroid 100 Mcg] 1 tab PO DAILY 10/08/23 [History] Sirolimus 1 tab PO DAILY 10/08/23 [History] Amitriptyline HCl 25 mg [Amitriptyline 25 mg Tablet] 25 mg PO HS 11/25/24 [History] Sumatriptan Succinate 25 mg [Imitrex 25 MG] 50 mg PO DAILY PRN 11/25/24 [History] Hx Tetanus, Diphtheria Vaccination/Date Given: Yes Hx Influenza Vaccination/Date Given: No Hx Pneumococcal Vaccination/Date Given: No Immunizations Up to Date: Yes Travel Risk - International Travel Have you traveled outside of the country in past 3 weeks: No - Emerging Infectious Disease Are you exhibiting symptoms associated with any current EIDs: No - Review of Systems All Other Systems: Unable due to condition - Past Medical History Pertinent Past Medical History: Yes Neurological History: Migraines ENT History: No Pertinent History Cardiac History: Hypertension, Myocardial Infarction ([place]) Respiratory History: Asthma, COPD Endocrine Medical History: Hypothyroidism Musculoskeletal History: Arthritis, Degenerative Disk Disease, Osteoarthritis, Osteoporosis GI Medical History: Cirrhosis, GERD History: Other Psycho-Social History: Eating Disorders Female Reproductive Disorders: Fibroids, Menstrual Problems Other Medical History: 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 Carrero), Liver transplant 2008 - Social History Smoking Status: Current every day smoker How long have you smoked: 15 y.o. Exposure to second hand smoke: Yes Drug Use: marijuana - Social Determinants of Health Will the patient participate in the screening: Declined to provide - Nursing Vital Signs Nursing Vital Signs: Initial Vital Signs Temperature 98 F 11/25/24 11:05 Pain Scale Pain Intensity 6 - Physical Exam General Appearance: no apparent distress, alert Eye Exam: PERRL/EOMI Ears, Nose, Throat Exam: normal ENT inspection, TMs normal, pharynx normal, moist mucous membranes Neck Exam: normal inspection, supple, full range of motion Respiratory Exam: normal breath sounds, lungs clear Cardiovascular Exam: regular rate/rhythm, normal heart sounds Gastrointestinal/Abdomen Exam: soft, normal bowel sounds, No tenderness Back Exam: vertebral tenderness (Thoracic and coccyx area erythema with scabbing. No step-off deformity), point tenderness Extremity Exam: normal range of motion, tenderness (Left hip), other (Bruising both upper extremities with no tenderness) Neurologic Exam: alert, sensation nml, No normal mood/affect, No motor deficits Skin Exam: normal color SpO2 Interpretation: normal SpO2: 100 O2 Delivery: Room Air - Course EKG Interpreted by Me: RATE (91), Sinus Rhythm, NORMAL AXIS, NORMAL INTERVALS, Q-wave Ordered Tests: Active Orders 24 hr Category Date Time Status Cath for Specimen-Straight STAT Care 11/25/24 13:14 Completed EKG-ER Only STAT Care 11/25/24 11:46 Completed IV Insertion STAT Care 11/25/24 11:46 Completed NPO (ED) STAT Care 11/25/24 11:46 Completed ABDOMEN AND PELVIS W/0 CONTRAS [CT] Stat Exams 11/25/24 11:46 Completed CERVICAL SPINE WO CONTRAST [CT] Stat Exams 11/25/24 11:46 Completed CHEST WITHOUT CONTRAST [CT] Stat Exams 11/25/24 11:46 Completed HEAD WITHOUT CONTRAST [CT] Stat Exams 11/25/24 11:46 Completed BLOOD CULTURE Stat Lab 11/25/24 15:05 Received CBC W DIFF Stat Lab 11/25/24 12:25 Completed CK (IN-HOUSE) [CK-Creatinine Phosphokinase] Stat Lab 11/25/24 12:37 Completed CMP Stat Lab 11/25/24 12:25 Completed CULTURE,URINE Stat Lab 11/25/24 13:21 Received ETHYL ALCOHOL Stat Lab 11/25/24 15:05 Completed LIPASE Stat Lab 11/25/24 12:25 Completed Lactic Acid Stat Lab 11/25/24 11:46 Completed Lactic Acid Stat Lab 11/25/24 14:35 Completed PROTIME WITH INR Stat Lab 11/25/24 14:40 Completed TSH, 3RD Generation Stat Lab 11/25/24 12:25 Completed UA W/RFX UR CULTURE Stat Lab 11/25/24 13:21 Completed Urine Triage Profile Stat Lab 11/25/24 13:15 Completed Transfer Order Routine Transfer 11/25/24 Completed Medication Summary Generic Name Dose Route Start Last Admin Trade Name Freq PRN Reason Stop Dose Admin Albuterol/Ipratropium 3 ml 11/25/24 17:54 Ipratropium/Albuterol Sulfate 3 Ml Ampul.Neb IH 12/25/24 18:59 Q6HRT PRN SHORTNESS OF BREATH/WHEEZING Sodium Chloride 1,000 mls @ 100 mls/hr 11/25/24 18:00 11/25/24 19:29 Sodium Chloride 0.9% 1000 Ml IV 12/25/24 17:59 100 mls/hr .Q10H JAYNE Administration Levothyroxine Sodium mcg 11/26/24 10:00 Levothyroxine Sodium 100 Mcg Tablet PO 12/26/24 09:59 DAILY JAYNE Lorazepam 1 mg 11/25/24 20:42 11/25/24 20:53 Lorazepam 2 Mg/1 Ml 2 Mg Vial IV 11/25/24 20:43 1 mg STAT ONE Administration Metoprolol Tartrate 50 mg 11/25/24 22:00 11/25/24 22:45 Metoprolol Tartrate 50 Mg Tablet PO 12/25/24 21:59 Not Given BID JAYNE Non-Formulary Medication 40 mg 11/25/24 22:00 11/25/24 22:45 Omeprazole [Omeprazole] PO 12/25/24 21:59 Not Given BID JAYNE Non-Formulary Medication 1 tab 11/26/24 10:00 Sirolimus [Sirolimus] PO 12/26/24 09:59 DAILY JAYNE Pantoprazole Sodium 40 mg 11/26/24 10:00 Protonix (Pantoprazole) 40 Mg Tablet PO 12/26/24 09:59 DAILY JAYNE Discontinued Medications Generic Name Dose Route Start Last Admin Trade Name Adalbertoq PRN Reason Stop Dose Admin Sodium Chloride 1,000 mls @ 100 mls/hr 11/25/24 12:00 11/25/24 16:13 Sodium Chloride 0.9% 1000 Ml IV 12/25/24 11:59 Infused .Q10H JAYNE Infusion Sodium Chloride 1,000 mls @ 999 mls/hr 11/25/24 15:19 11/25/24 16:19 Sodium Chloride 0.9% 1000 Ml IV 11/25/24 16:19 500 mls/hr .Q1H1M STA Administration Sodium Chloride Confirm 11/25/24 12:09 Sodium Chloride 0.9% 1000 Ml Administered 11/25/24 12:10 Dose 1,000 mls @ ud .ROUTE .STK-MED ONE Sodium Chloride Confirm 11/25/24 16:18 Sodium Chloride 0.9% 1000 Ml Administered 11/25/24 16:19 Dose 1,000 mls @ ud .ROUTE .STK-MED ONE Lab/Rad Data: Laboratory Result Diagrams 11/25/24 12:25 11/25/24 12:25 Laboratory Results 11/25/24 11/25/24 11/25/24 Range/Units 15:05 14:40 14:35 WBC (3.98-10.04) x10^3/uL RBC (3.93-5.22) x10^6/uL Hgb (11.2-15.7) g/dL Hct (34.1-44.9) % MCV (79.4-94.8) fL MCH (25.6-32.2) pg MCHC (32.2-35.5) g/dL RDW (11.7-14.4) % Plt Count (182-369) x10^3/uL MPV (9.4-12.3) fL Gran % (34.0-71.1) % Immature Gran % (Auto) (0.001-0.429) % Nucleat RBC Rel Count (0.00-0.2) % Eos # (Auto) (0.04-0.36) x10^3/uL Immature Gran # (Auto) (0.001-0.031) x10^3u/L Absolute Lymphs (auto) (1.18-3.74) x10^3/uL Absolute Monos (auto) (0.24-0.86) x10^3/uL Absolute Nucleated RBC (0.00-0.012) x10^3u/L Lymphocytes % (19.3-51.7) % Monocytes % (4.7-12.5) % Eosinophils % (0.7-5.8) % Basophils % (0.1-1.2) % Absolute Granulocytes (1.56-6.13) x10^3/uL Basophils # (0.01-0.08) x10^3/uL PT 9.5 (9.4-12.5) SECONDS INR 0.86 (0.8-3.0) Sodium (135-145) mmol/L Potassium (3.5-5.1) mmol/L Chloride (98-107) mmol/L Carbon Dioxide (22-30) mmol/L Anion Gap (5-15) MEQ/L BUN (7-17) mg/dL Creatinine (0.52-1.04) mg/dL Estimated GFR ML/MIN Glucose (74-106) mg/dL Lactic Acid 1.1 (0.4-2.0) Calcium (8.4-10.2) mg/dL Total Bilirubin (0.2-1.3) mg/dL AST (14-36) U/L ALT (0-35) U/L Alkaline Phosphatase (38-126) U/L Ammonia (9-30) umol/L Creatine Kinase (30-135) U/L Serum Total Protein (6.3-8.2) g/dL Albumin (3.5-5.0) g/dL Lipase (23-300) U/L TSH 3rd Generation (0.470-4.680) mIU/L Urine Color (Yellow) Urine Appearance (Clear) Urine pH (4.6-8.0) Ur Specific [place] (1.005-1.030) Urine Protein (Negative) Urine Glucose (UA) (Negative) mg/dL Urine Ketones (Negative) Urine Blood (Negative) Urine Nitrite (Negative) Urine Bilirubin (Negative) Urine Urobilinogen (0.2) mg/dL Ur Leukocyte Esterase (Negative) U Hyaline Cast (Auto) (0-2) /LPF Urine Microscopic RBC (0-5) /HPF Urine Microscopic WBC (0-5) /HPF Ur Epithelial Cells (None Seen) /HPF Urine Bacteria (None Seen) /HPF Urine Culture Reflexed (NO) Urine Opiates Level (NEGATIVE) Ur Methadone (NEGATIVE) Urine Barbiturates (NEGATIVE) Ur Phencyclidine (PCP) (NEGATIVE) Urine Amphetamine (NEGATIVE) U Benzodiazepine Level (NEGATIVE) Urine Cocaine (NEGATIVE) Urine Marijuana (THC) (NEGATIVE) Ethyl Alcohol < 10 (0-10) mg/dL 11/25/24 11/25/24 11/25/24 Range/Units 13:21 13:15 12:37 WBC (3.98-10.04) x10^3/uL RBC (3.93-5.22) x10^6/uL Hgb (11.2-15.7) g/dL Hct (34.1-44.9) % MCV (79.4-94.8) fL MCH (25.6-32.2) pg MCHC (32.2-35.5) g/dL RDW (11.7-14.4) % Plt Count (182-369) x10^3/uL MPV (9.4-12.3) fL Gran % (34.0-71.1) % Immature Gran % (Auto) (0.001-0.429) % Nucleat RBC Rel Count (0.00-0.2) % Eos # (Auto) (0.04-0.36) x10^3/uL Immature Gran # (Auto) (0.001-0.031) x10^3u/L Absolute Lymphs (auto) (1.18-3.74) x10^3/uL Absolute Monos (auto) (0.24-0.86) x10^3/uL Absolute Nucleated RBC (0.00-0.012) x10^3u/L Lymphocytes % (19.3-51.7) % Monocytes % (4.7-12.5) % Eosinophils % (0.7-5.8) % Basophils % (0.1-1.2) % Absolute Granulocytes (1.56-6.13) x10^3/uL Basophils # (0.01-0.08) x10^3/uL PT (9.4-12.5) SECONDS INR (0.8-3.0) Sodium (135-145) mmol/L Potassium (3.5-5.1) mmol/L Chloride (98-107) mmol/L Carbon Dioxide (22-30) mmol/L Anion Gap (5-15) MEQ/L BUN (7-17) mg/dL Creatinine (0.52-1.04) mg/dL Estimated GFR ML/MIN Glucose (74-106) mg/dL Lactic Acid (0.4-2.0) Calcium (8.4-10.2) mg/dL Total Bilirubin (0.2-1.3) mg/dL AST (14-36) U/L ALT (0-35) U/L Alkaline Phosphatase (38-126) U/L Ammonia (9-30) umol/L Creatine Kinase > 1600 H (30-135) U/L Serum Total Protein (6.3-8.2) g/dL Albumin (3.5-5.0) g/dL Lipase (23-300) U/L TSH 3rd Generation (0.470-4.680) mIU/L Urine Color Yellow (Yellow) Urine Appearance Clear (Clear) Urine pH 5.5 (4.6-8.0) Ur Specific [place] 1.020 (1.005-1.030) Urine Protein 100 A (Negative) Urine Glucose (UA) Negative (Negative) mg/dL Urine Ketones Negative (Negative) Urine Blood Moderate A (Negative) Urine Nitrite Negative (Negative) Urine Bilirubin Negative (Negative) Urine Urobilinogen 0.2 (0.2) mg/dL Ur Leukocyte Esterase Negative (Negative) U Hyaline Cast (Auto) 6-10 A (0-2) /LPF Urine Microscopic RBC 0-2 (0-5) /HPF Urine Microscopic WBC 0-2 (0-5) /HPF Ur Epithelial Cells None Seen (None Seen) /HPF Urine Bacteria None Seen (None Seen) /HPF Urine Culture Reflexed ORDERED SEPARATELY (NO) Urine Opiates Level NEGATIVE (NEGATIVE) Ur Methadone NEGATIVE (NEGATIVE) Urine Barbiturates NEGATIVE (NEGATIVE) Ur Phencyclidine (PCP) NEGATIVE (NEGATIVE) Urine Amphetamine NEGATIVE (NEGATIVE) U Benzodiazepine Level NEGATIVE (NEGATIVE) Urine Cocaine NEGATIVE (NEGATIVE) Urine Marijuana (THC) NEGATIVE (NEGATIVE) Ethyl Alcohol (0-10) mg/dL 11/25/24 11/25/24 11/25/24 Range/Units 12:25 12:25 12:25 WBC 7.5 (3.98-10.04) x10^3/uL RBC 4.40 (3.93-5.22) x10^6/uL Hgb 12.0 (11.2-15.7) g/dL Hct 38.0 (34.1-44.9) % MCV 86.4 (79.4-94.8) fL MCH 27.3 (25.6-32.2) pg MCHC 31.6 L (32.2-35.5) g/dL RDW 15.1 H (11.7-14.4) % Plt Count 328 (182-369) x10^3/uL MPV 10.8 (9.4-12.3) fL Gran % 68.8 (34.0-71.1) % Immature Gran % (Auto) 0.4 (0.001-0.429) % Nucleat RBC Rel Count 0.0 (0.00-0.2) % Eos # (Auto) 0.20 (0.04-0.36) x10^3/uL Immature Gran # (Auto) 0.03 (0.001-0.031) x10^3u/L Absolute Lymphs (auto) 1.69 (1.18-3.74) x10^3/uL Absolute Monos (auto) 0.39 (0.24-0.86) x10^3/uL Absolute Nucleated RBC 0.00 (0.00-0.012) x10^3u/L Lymphocytes % 22.5 (19.3-51.7) % Monocytes % 5.2 (4.7-12.5) % Eosinophils % 2.7 (0.7-5.8) % Basophils % 0.4 (0.1-1.2) % Absolute Granulocytes 5.16 (1.56-6.13) x10^3/uL Basophils # 0.03 (0.01-0.08) x10^3/uL PT (9.4-12.5) SECONDS INR (0.8-3.0) Sodium 149 H (135-145) mmol/L Potassium 4.3 (3.5-5.1) mmol/L Chloride 112 H (98-107) mmol/L Carbon Dioxide 21 L (22-30) mmol/L Anion Gap 20.6 H (5-15) MEQ/L BUN 90 H (7-17) mg/dL Creatinine 1.94 H (0.52-1.04) mg/dL Estimated GFR 29.3 ML/MIN Glucose 108 H (74-106) mg/dL Lactic Acid (0.4-2.0) Calcium 9.8 (8.4-10.2) mg/dL Total Bilirubin 0.80 (0.2-1.3) mg/dL AST 576 H (14-36) U/L ALT 120 H (0-35) U/L Alkaline Phosphatase 106 (38-126) U/L Ammonia < 9 L (9-30) umol/L Creatine Kinase (30-135) U/L Serum Total Protein 7.8 (6.3-8.2) g/dL Albumin 4.6 (3.5-5.0) g/dL Lipase 518 H (23-300) U/L TSH 3rd Generation 14.188 H (0.470-4.680) mIU/L Urine Color (Yellow) Urine Appearance (Clear) Urine pH (4.6-8.0) Ur Specific [place] (1.005-1.030) Urine Protein (Negative) Urine Glucose (UA) (Negative) mg/dL Urine Ketones (Negative) Urine Blood (Negative) Urine Nitrite (Negative) Urine Bilirubin (Negative) Urine Urobilinogen (0.2) mg/dL Ur Leukocyte Esterase (Negative) U Hyaline Cast (Auto) (0-2) /LPF Urine Microscopic RBC (0-5) /HPF Urine Microscopic WBC (0-5) /HPF Ur Epithelial Cells (None Seen) /HPF Urine Bacteria (None Seen) /HPF Urine Culture Reflexed (NO) Urine Opiates Level (NEGATIVE) Ur Methadone (NEGATIVE) Urine Barbiturates (NEGATIVE) Ur Phencyclidine (PCP) (NEGATIVE) Urine Amphetamine (NEGATIVE) U Benzodiazepine Level (NEGATIVE) Urine Cocaine (NEGATIVE) Urine Marijuana (THC) (NEGATIVE) Ethyl Alcohol (0-10) mg/dL 11/25/24 Range/Units 11:46 WBC (3.98-10.04) x10^3/uL RBC (3.93-5.22) x10^6/uL Hgb (11.2-15.7) g/dL Hct (34.1-44.9) % MCV (79.4-94.8) fL MCH (25.6-32.2) pg MCHC (32.2-35.5) g/dL RDW (11.7-14.4) % Plt Count (182-369) x10^3/uL MPV (9.4-12.3) fL Gran % (34.0-71.1) % Immature Gran % (Auto) (0.001-0.429) % Nucleat RBC Rel Count (0.00-0.2) % Eos # (Auto) (0.04-0.36) x10^3/uL Immature Gran # (Auto) (0.001-0.031) x10^3u/L Absolute Lymphs (auto) (1.18-3.74) x10^3/uL Absolute Monos (auto) (0.24-0.86) x10^3/uL Absolute Nucleated RBC (0.00-0.012) x10^3u/L Lymphocytes % (19.3-51.7) % Monocytes % (4.7-12.5) % Eosinophils % (0.7-5.8) % Basophils % (0.1-1.2) % Absolute Granulocytes (1.56-6.13) x10^3/uL Basophils # (0.01-0.08) x10^3/uL PT (9.4-12.5) SECONDS INR (0.8-3.0) Sodium (135-145) mmol/L Potassium (3.5-5.1) mmol/L Chloride (98-107) mmol/L Carbon Dioxide (22-30) mmol/L Anion Gap (5-15) MEQ/L BUN (7-17) mg/dL Creatinine (0.52-1.04) mg/dL Estimated GFR ML/MIN Glucose (74-106) mg/dL Lactic Acid 2.7 H (0.4-2.0) Calcium (8.4-10.2) mg/dL Total Bilirubin (0.2-1.3) mg/dL AST (14-36) U/L ALT (0-35) U/L Alkaline Phosphatase (38-126) U/L Ammonia (9-30) umol/L Creatine Kinase (30-135) U/L Serum Total Protein (6.3-8.2) g/dL Albumin (3.5-5.0) g/dL Lipase (23-300) U/L TSH 3rd Generation (0.470-4.680) mIU/L Urine Color (Yellow) Urine Appearance (Clear) Urine pH (4.6-8.0) Ur Specific [place] (1.005-1.030) Urine Protein (Negative) Urine Glucose (UA) (Negative) mg/dL Urine Ketones (Negative) Urine Blood (Negative) Urine Nitrite (Negative) Urine Bilirubin (Negative) Urine Urobilinogen (0.2) mg/dL Ur Leukocyte Esterase (Negative) U Hyaline Cast (Auto) (0-2) /LPF Urine Microscopic RBC (0-5) /HPF Urine Microscopic WBC (0-5) /HPF Ur Epithelial Cells (None Seen) /HPF Urine Bacteria (None Seen) /HPF Urine Culture Reflexed (NO) Urine Opiates Level (NEGATIVE) Ur Methadone (NEGATIVE) Urine Barbiturates (NEGATIVE) Ur Phencyclidine (PCP) (NEGATIVE) Urine Amphetamine (NEGATIVE) U Benzodiazepine Level (NEGATIVE) Urine Cocaine (NEGATIVE) Urine Marijuana (THC) (NEGATIVE) Ethyl Alcohol (0-10) mg/dL - Progress Progress: improved, re-examined Progress Note: 11/25/24 15:04 59-year-old with history of liver transplant almost 15 years ago is evaluated in the ER for repeated falls, confusion and hallucinations. Patient is awake alert but not fully oriented. Answering few questions. She is not in any distress. She does have visual hallucinations. She is given fluid bolus, EKG is sinus rhythm with no ST elevations. I have obtained braxton scan because of her repeated falls and injuries to the back and the coccyx, thoracic spine and hip but is negative for any acute findings in the head, cervical spine, chest/abdomen/pelvis. Has normal white count, stable H&H, chemistries consistent with dehydration with a sodium of 149, chloride 112, BUN 90/creatinine of 1.96 and a baseline of 1.6. Has elevated transaminase with AST in 570s and ALT in 120s and a normal bilirubin. Normal INR Patient has a gap of 20 with normal glucose. Has ammonia level less than 9 and TSH of 14 which patient is noncompliant with h er levothyroxine. Initial lactate was 2.7 which improved to 1.1 on reevaluation after fluids. Has a CK level greater than 1600s but no myoglobin in the urine. Discussed with Dr. Vance hepatology [facility] with transplant, reviewed history workup, do not think patient needs to come to hepatology unit and can be manage anywhere with nephrology and possible neurology services. [facility] has a weight list of 4 to 5 days before bed availability. No beds are available in [facility] 11/25/24 15:37 I have discussed with Dr. Morel, reviewed history, workup, hepatology r ecommendations, agreed with admission here. Plan discussed with patient and family and they agree with that. Discussed with Dr.: Other (Dr. Morel hospitalist) Counseled pt/family regarding: lab results, diagnosis, rad results Medical Desision Making - Independent Historian Additional History obtained from: Mother, PCP - External Record(s) Reviewed Records reviewed as a part of evaluation & management: Clinic - Discussion of managment Care discussed with:: specialist (Dr. Vance meter calibrator [facility], Dr. Braun [facility], Dr. Morel hospitalist at [place]) Reviewed:: Test results Agreed on:: Treatment plan Will see patient: in hospital - Diagnostic Testing Diagnostic test were ordered, analyzed, and reviewed by me: Yes Radiological Interpretation: Reviewed by me - Risk of complications The pt has a mod risk of morbidity or mortality based on: Need for prescription drug management The pt has a high risk of morbidity or mortality based on: Drug therapy requiring intensive monitoring for toxicity, Decision regarding hospitilization or escalation of hosp level of care - Departure Departure Disposition: In-patient Admission Clinical Impression: Rhabdomyolysis, Acute renal failure (ARF), Uremic encephalopathy, Recurrent falls, Elevated transaminase level Condition: Stable Critical Care Time: Yes Critical Care Time(excluding separately billable procedures): Critical 30-74 mins
[2024-11-25 13:44] LABS: Appearance Clear (Clear); Bacteria None Seen /HPF (None Seen); Bilirubin Negative (Negative); Blood Moderate (Negative); Epithelial Cells None Seen /HPF (None Seen); Glucose, Urine Negative (Negative); Ketones Negative (Negative); Leukocyte Esterase Negative (Negative); Nitrite Negative (Negative); Ph 5.5 (4.6-8.0); Protein,Urine Dip 100 (Negative); RBC 0-2 /HPF (0-5); Urobilinogen 0.2 mg/dL (0.2); WBC 0-2 /HPF (0-5)
[2024-11-25 14:11] LABS: Amphetamine,Urine NEGATIVE (NEGATIVE); Barbiturate,Urine NEGATIVE (NEGATIVE); Benzodiazepine,Urine NEGATIVE (NEGATIVE); Cocaine,Urine NEGATIVE (NEGATIVE); Methadone,Urine NEGATIVE (NEGATIVE); Opiate,Urine NEGATIVE (NEGATIVE); PCP,Urine NEGATIVE (NEGATIVE); THC,Urine NEGATIVE (NEGATIVE)
--- NOTE | 2024-11-25 14:22 | XRAY ---
Indication: Status post fall. Altered mental status. Contiguous axial images obtained through the head without contrast. Comparison: November 16, 2022 New small focus remote infarct high right parietal lobe. Elsewhere age-appropriate global atrophy. No acute intracranial hemorrhage, hydrocephalus, or mass effect. Fourth ventricle is midline. Shepard-white matter differentiation preserved. Bony calvarium intact. Visualized paranasal sinuses and mastoid air cells are clear. Impression: Small focus remote infarct right parietal lobe. No acute intracranial abnormalities.
--- NOTE | 2024-11-25 14:26 | XRAY ---
Indication: Status post fall. Altered mental status. Multiple contiguous axial images obtained through the cervical spine. Sagittal and coronal reformatted images obtained. Comparison: None Osseous structures demineralized. Incidental congenital fusion C2-C3 segments and 4 mm inferior C6 vertebral hemangioma. Axial images negative for acute fracture, suspicious bony lesions, or spinal canal stenosis. Facets are symmetric. Sagittal and coronal reformatted images demonstrates normal alignment. Vertebral body heights/disc spaces maintained. No acute compression fracture, subluxation, or jumped facet. Normal appearing craniocervical junction. Visualized noncontrasted soft tissues demonstrates moderate bilateral carotid calcifications. Patient edentulous. CT head and CT chest reported separately. Impression: Incidental osteopenia, congenital fusion C2-C3, C6 vertebral hemangioma, and bilateral carotid calcifications. Remaining CT cervical spine normal.
--- NOTE | 2024-11-25 14:30 | XRAY ---
Indication: Status post fall. Altered mental status. Multiple contiguous axial images obtained through the chest without contrast. Comparison: November 15, 2021 Lungs again hyperinflated and clear with incidental tiny lingula calcified granuloma. Heart not enlarged again with left Port-A-Cath. Aorta is normal in course and caliber again with minimal arch calcifications. No pathologic mediastinal lymphadenopathy. Bony thorax intact again with osteopenia, T4-L3 vertebroplasty, and minimal remote T1-T3 endplate fractures. CT abdomen/pelvis reported separately. Impression: Again chronic findings including osteopenia, arteriosclerotic disease, old granulomatous disease, and chronic bony findings. No new/acute findings on this noncontrast exam.
--- NOTE | 2024-11-25 14:36 | XRAY ---
Indication: Status post fall. Altered mental status. Multiple contiguous axial images obtained through the abdomen and pelvis without contrast. Comparison: November 15, 2021 CT chest reported separately. Again beam artifact from epigastric metallic coils and right total hip arthroplasty limits exam. Noncontrasted stomach and bowel loops appear nonobstructed. Cholecystectomy, appendectomy, and hysterectomy reported. Stable 8 mm left mid renal cyst. No gross free fluid/air. Remaining liver, pancreas, spleen, adrenal glands, kidneys, ureters, and bladder are unremarkable for noncontrast exam. Again mild scattered aortoiliac calcifications without AAA. Osseous structures intact again with osteopenia and diffuse multilevel thoracolumbar vertebroplasty. New finding for healing right inferior pubic ramus fracture. Again incidental bilateral gluteal calcified injection granulomas. Impression: 1. Again beam artifact from epigastric metallic coils and right total hip arthroplasty. 2. New finding for healing right inferior pubic ramus fracture. 3. Again chronic findings including left renal cyst, arteriosclerotic disease, and chronic bony findings. 4. Remaining CT abdomen/pelvis without contrast continues to be negative.
[2024-11-25 14:58] LABS: INR 0.86 (0.8-3.0); PROTIME 9.5 SECONDS (9.4-12.5)
[2024-11-25] MEDS: Sodium Chloride 0.9% 1000 ML 1,000 ML IV STA (16:19)
--- NOTE | 2024-11-25 17:24 | PCM.HP ---
<SEVERINO CARBONE - Last Filed: 11/25/24 17:44> History of Present Illness - Chief Complaint Chief Complaint: confusion/recurrent falls Date: 11/25/24 History of Present Illness: Ms. Dwyer is a 59 year old female with a complex medical history including HTN, CA, COPD, hypothyroidism, DDD, cirrhosis, liver transplant 2009, CKD, medication non-compliance who presented to ED 11/25/24 for evaluation of repeated falls and hallucinations. Patient is A&O to self and place - very poor historian. Mother is currently not at bedside to provide history. ER documentation notes that patient was hallucinating at PCP office. Patient has repeated falls with injuries to the back bruising all over. Questionable history of substance abuse. Upon exam patient is noted with an unstageable sacral and mid back wound. Patient also reported to me that she was born with just one kidney - although CT scan did not report any abnormalities. RN reports that patient has been having hallucinations since arriving on floor and grabbing at things in the air. Vital signs stable upon arrival. CT Abdomen and Pelvis revealed a healing right inferior pubic ramus fracture. CT Cervical Spine showed incidental findings of osteopenia, congenital fusion of C2-C3, a C6 vertebral hemangioma, and bilateral carotid calcifications; otherwise unremarkable.CT Chest with no acute findings. CT Head identified a small focus of a remote infarct in the right parietal lobe without acute intracranial abnormalities. Lab findings notable for hypernatremia, acute kidney injury, elevated liver function tests, elevated thyroid-stimulating hormone,elevated cpk, elevated lipase, and metabolic acidosis. Urinalysis and urine drug screen were unremarkable. Treatment in ED consisted of a 1L fluid bolus. Admit for encephalopathy, rhabdomyolysis, SINTIA, and electrolyte imbalances. - Review of Systems Constitutional: No Symptoms Eyes: No Symptoms Ears, Nose, & Throat: No Symptoms Respiratory: No Symptoms Cardiac: No Symptoms Abdominal/Gastrointestinal: No Symptoms Genitourinary Symptoms: No Symptoms Musculoskeletal: Back Pain Skin: No Symptoms Neurological: Other (confusion) Psychological: Hallucinations, Memory Loss Endocrine: No Symptoms Hematologic/Lymphatic: No Symptoms Immunological/Allergic: No Symptoms Medications & Allergies Home Medications: Home Medication List ALPRAZolam [Xanax] 0.5 mg PO BID PRN 02/10/17 [History Confirmed 11/25/24] Metoprolol Tartrate 50 mg [Lopressor 50 MG] 50 mg PO BID 06/13/21 [History Confirmed 11/25/24] Omeprazole 40 mg PO BID 01/14/22 [History Confirmed 11/25/24] Levothyroxine Sodium 100 Mcg [Synthroid 100 Mcg] 1 tab PO DAILY 10/08/23 [History Confirmed 11/25/24] Sirolimus 1 tab PO DAILY 10/08/23 [History Confirmed 11/25/24] Amitriptyline HCl 25 mg [Amitriptyline 25 mg Tablet] 25 mg PO HS 11/25/24 [History Confirmed 11/25/24] Sumatriptan Succinate 25 mg [Imitrex 25 MG] 50 mg PO DAILY PRN 11/25/24 [History Confirmed 11/25/24] Allergies/Adverse Reactions: Allergies Allergy/AdvReac Type Severity Reaction Status Date / Time ampicillin Allergy Severe Swelling Verified 11/25/24 11:09 azithromycin Allergy Severe Swelling Verified 11/25/24 11:09 [From Zithromax Z-Pawan] cefixime [From Suprax] Allergy Severe Swelling Verified 11/25/24 11:09 cephalexin monohydrate Allergy Severe Swelling Verified 11/25/24 11:09 [From Keflex] ciprofloxacin [From Cipro] Allergy Severe Rash Verified 11/25/24 11:09 ciprofloxacin HCl Allergy Severe Swelling Verified 11/25/24 11:09 [From Cipro] erythromycin base Allergy Severe Swelling Verified 11/25/24 11:09 [Erythromycin Base] levofloxacin [From Levaquin] Allergy Severe swelling Verified 11/25/24 11:09 of throat nitrofurantoin Allergy Severe Swelling Verified 11/25/24 11:09 [From Macrobid] nitrofurantoin Allergy Severe Rash Verified 11/25/24 17:17 macrocrystalline [From Macrobid] Penicillins Allergy Severe Difficulty Verified 11/25/24 11:09 Breathing doxycycline Allergy Verified 11/25/24 11:09 duloxetine [From Cymbalta] Allergy Verified 11/25/24 11:09 Sulfa (Sulfonamide Allergy Verified 11/25/24 11:09 Antibiotics) tetracycline [Tetracycline] Allergy Verified 11/25/24 11:09 - Past Medical History Past Medical History: Yes Neurological History: Migraines ENT History: No Pertinent History Cardiac History: Hypertension, Myocardial Infarction (CA) Respiratory History: Asthma, COPD Endocrine Medical History: Hypothyroidism Musculoskelatal History: Arthritis, Degenerative Disk Disease, Osteoarthritis, Osteoporosis GI Medical History: Cirrhosis, GERD History: Other Pyscho-Social History: Eating Disorders Reproductive Disorders: Fibroids, Menstrual Problems Comment: KIDNEY FAILURE (HAS ONE KIDNEY), RIGHT OLENA, BONE SPURS TO BOTH KNEES, SCOLIOSIS, current pressure sores/injuries - Past Surgical History Past Surgical History: Yes Neuro Surgical History: No Pertinent History Cardiac History: No Pertinent History Respiratory Surgery: No Pertinent History GI Surgical History: Appendectomy, Cholecystectomy, Liver Transplant Genitourinary Surgical Hx: No Pertinent History Musculskeletal Surgical Hx: Other Female Surgical History: Hysterectomy Other Surgical History: Back surgery (15-16 KYPHOPLASTY PROCEDURES TO HER THORACIC AND LUMBAR SPINE with Dr. Carreor), Liver transplant 2008 - Social History Smoking Status: Current every day smoker How long have you smoked: 15 y.o. Exposure to second hand smoke: Yes Alcohol: None Drug Use: marijuana - Social Determinants of Health Will the patient participate in the screening: Declined to provide - Physical Exam Vital Signs: Vital Signs - 24 hr Temp Pulse Resp BP Pulse Ox 11/25/24 16:31 109/90 11/25/24 16:01 76 21 142/75 92 L 11/25/24 15:30 82 26 H 148/59 97 11/25/24 15:28 71 11 L 130/80 96 11/25/24 15:05 100 11/25/24 15:00 68 24 165/110 92 L 11/25/24 14:30 82 14 119/68 98 11/25/24 14:00 91 H 19 113/80 98 11/25/24 13:30 91 H 21 109/90 66 L 11/25/24 13:14 98 H 24 115/73 98 11/25/24 13:13 87 20 98 11/25/24 13:10 96 H 15 99 11/25/24 12:36 91 H 19 126/63 100 11/25/24 12:35 94 H 21 98 11/25/24 12:30 91 H 18 11/25/24 12:20 93 H 20 99 11/25/24 12:10 96 H 15 11/25/24 12:02 94 H 16 11/25/24 11:30 94 H 24 107/88 11/25/24 11:07 86 20 115/79 99 11/25/24 11:05 98 F General Appearance: thin Neurologic Exam: alert, cooperative, disoriented, confusion Eye Exam: PERRL/EOMI Ears, Nose, Throat Exam: normal ENT inspection Neck Exam: normal inspection Respiratory Exam: normal breath sounds, lungs clear Cardiovascular Exam: regular rate/rhythm, normal heart sounds Gastrointestinal/Abdomen Exam: soft Pelvic Exam: not done Rectal Exam: deferred Back Exam: other (see wound assessment) Extremity Exam: normal inspection Skin Exam: decubitus Results - Labs Lab/Micro Results: Lab Results-Last 24 Hours 11/25/24 11/25/24 11/25/24 Range/Units 11:46 12:25 12:25 WBC 7.5 (3.98-10.04) x10^3/uL RBC 4.40 (3.93-5.22) x10^6/uL Hgb 12.0 (11.2-15.7) g/dL Hct 38.0 (34.1-44.9) % MCV 86.4 (79.4-94.8) fL MCH 27.3 (25.6-32.2) pg MCHC 31.6 L (32.2-35.5) g/dL RDW 15.1 H (11.7-14.4) % Plt Count 328 (182-369) x10^3/uL MPV 10.8 (9.4-12.3) fL Gran % 68.8 (34.0-71.1) % Immature Gran % (Auto) 0.4 (0.001-0.429) % Nucleat RBC Rel Count 0.0 (0.00-0.2) % Eos # (Auto) 0.20 (0.04-0.36) x10^3/uL Immature Gran # (Auto) 0.03 (0.001-0.031) x10^3u/L Absolute Lymphs (auto) 1.69 (1.18-3.74) x10^3/uL Absolute Monos (auto) 0.39 (0.24-0.86) x10^3/uL Absolute Nucleated RBC 0.00 (0.00-0.012) x10^3u/L Lymphocytes % 22.5 (19.3-51.7) % Monocytes % 5.2 (4.7-12.5) % Eosinophils % 2.7 (0.7-5.8) % Basophils % 0.4 (0.1-1.2) % Absolute Granulocytes 5.16 (1.56-6.13) x10^3/uL Basophils # 0.03 (0.01-0.08) x10^3/uL PT (9.4-12.5) SECONDS INR (0.8-3.0) Sodium 149 H (135-145) mmol/L Potassium 4.3 (3.5-5.1) mmol/L Chloride 112 H (98-107) mmol/L Carbon Dioxide 21 L (22-30) mmol/L Anion Gap 20.6 H (5-15) MEQ/L BUN 90 H (7-17) mg/dL Creatinine 1.94 H (0.52-1.04) mg/dL Estimated GFR 29.3 ML/MIN Glucose 108 H (74-106) mg/dL Lactic Acid 2.7 H (0.4-2.0) Calcium 9.8 (8.4-10.2) mg/dL Total Bilirubin 0.80 (0.2-1.3) mg/dL AST 576 H (14-36) U/L ALT 120 H (0-35) U/L Alkaline Phosphatase 106 (38-126) U/L Ammonia (9-30) umol/L Creatine Kinase (30-135) U/L Serum Total Protein 7.8 (6.3-8.2) g/dL Albumin 4.6 (3.5-5.0) g/dL Lipase 518 H (23-300) U/L TSH 3rd Generation 14.188 H (0.470-4.680) mIU/L Urine Color (Yellow) Urine Appearance (Clear) Urine pH (4.6-8.0) Ur Specific Ladd (1.005-1.030) Urine Protein (Negative) Urine Glucose (UA) (Negative) mg/dL Urine Ketones (Negative) Urine Blood (Negative) Urine Nitrite (Negative) Urine Bilirubin (Negative) Urine Urobilinogen (0.2) mg/dL Ur Leukocyte Esterase (Negative) U Hyaline Cast (Auto) (0-2) /LPF Urine Microscopic RBC (0-5) /HPF Urine Microscopic WBC (0-5) /HPF Ur Epithelial Cells (None Seen) /HPF Urine Bacteria (None Seen) /HPF Urine Culture Reflexed (NO) Urine Opiates Level (NEGATIVE) Ur Methadone (NEGATIVE) Urine Barbiturates (NEGATIVE) Ur Phencyclidine (PCP) (NEGATIVE) Urine Amphetamine (NEGATIVE) U Benzodiazepine Level (NEGATIVE) Urine Cocaine (NEGATIVE) Urine Marijuana (THC) (NEGATIVE) Ethyl Alcohol (0-10) mg/dL 11/25/24 11/25/24 11/25/24 Range/Units 12:25 12:37 13:15 WBC (3.98-10.04) x10^3/uL RBC (3.93-5.22) x10^6/uL Hgb (11.2-15.7) g/dL Hct (34.1-44.9) % MCV (79.4-94.8) fL MCH (25.6-32.2) pg MCHC (32.2-35.5) g/dL RDW (11.7-14.4) % Plt Count (182-369) x10^3/uL MPV (9.4-12.3) fL Gran % (34.0-71.1) % Immature Gran % (Auto) (0.001-0.429) % Nucleat RBC Rel Count (0.00-0.2) % Eos # (Auto) (0.04-0.36) x10^3/uL Immature Gran # (Auto) (0.001-0.031) x10^3u/L Absolute Lymphs (auto) (1.18-3.74) x10^3/uL Absolute Monos (auto) (0.24-0.86) x10^3/uL Absolute Nucleated RBC (0.00-0.012) x10^3u/L Lymphocytes % (19.3-51.7) % Monocytes % (4.7-12.5) % Eosinophils % (0.7-5.8) % Basophils % (0.1-1.2) % Absolute Granulocytes (1.56-6.13) x10^3/uL Basophils # (0.01-0.08) x10^3/uL PT (9.4-12.5) SECONDS INR (0.8-3.0) Sodium (135-145) mmol/L Potassium (3.5-5.1) mmol/L Chloride (98-107) mmol/L Carbon Dioxide (22-30) mmol/L Anion Gap (5-15) MEQ/L BUN (7-17) mg/dL Creatinine (0.52-1.04) mg/dL Estimated GFR ML/MIN Glucose (74-106) mg/dL Lactic Acid (0.4-2.0) Calcium (8.4-10.2) mg/dL Total Bilirubin (0.2-1.3) mg/dL AST (14-36) U/L ALT (0-35) U/L Alkaline Phosphatase (38-126) U/L Ammonia < 9 L (9-30) umol/L Creatine Kinase > 1600 H (30-135) U/L Serum Total Protein (6.3-8.2) g/dL Albumin (3.5-5.0) g/dL Lipase (23-300) U/L TSH 3rd Generation (0.470-4.680) mIU/L Urine Color (Yellow) Urine Appearance (Clear) Urine pH (4.6-8.0) Ur Specific Ladd (1.005-1.030) Urine Protein (Negative) Urine Glucose (UA) (Negative) mg/dL Urine Ketones (Negative) Urine Blood (Negative) Urine Nitrite (Negative) Urine Bilirubin (Negative) Urine Urobilinogen (0.2) mg/dL Ur Leukocyte Esterase (Negative) U Hyaline Cast (Auto) (0-2) /LPF Urine Microscopic RBC (0-5) /HPF Urine Microscopic WBC (0-5) /HPF Ur Epithelial Cells (None Seen) /HPF Urine Bacteria (None Seen) /HPF Urine Culture Reflexed (NO) Urine Opiates Level NEGATIVE (NEGATIVE) Ur Methadone NEGATIVE (NEGATIVE) Urine Barbiturates NEGATIVE (NEGATIVE) Ur Phencyclidine (PCP) NEGATIVE (NEGATIVE) Urine Amphetamine NEGATIVE (NEGATIVE) U Benzodiazepine Level NEGATIVE (NEGATIVE) Urine Cocaine NEGATIVE (NEGATIVE) Urine Marijuana (THC) NEGATIVE (NEGATIVE) Ethyl Alcohol (0-10) mg/dL 11/25/24 11/25/24 11/25/24 Range/Units 13:21 14:35 14:40 WBC (3.98-10.04) x10^3/uL RBC (3.93-5.22) x10^6/uL Hgb (11.2-15.7) g/dL Hct (34.1-44.9) % MCV (79.4-94.8) fL MCH (25.6-32.2) pg MCHC (32.2-35.5) g/dL RDW (11.7-14.4) % Plt Count (182-369) x10^3/uL MPV (9.4-12.3) fL Gran % (34.0-71.1) % Immature Gran % (Auto) (0.001-0.429) % Nucleat RBC Rel Count (0.00-0.2) % Eos # (Auto) (0.04-0.36) x10^3/uL Immature Gran # (Auto) (0.001-0.031) x10^3u/L Absolute Lymphs (auto) (1.18-3.74) x10^3/uL Absolute Monos (auto) (0.24-0.86) x10^3/uL Absolute Nucleated RBC (0.00-0.012) x10^3u/L Lymphocytes % (19.3-51.7) % Monocytes % (4.7-12.5) % Eosinophils % (0.7-5.8) % Basophils % (0.1-1.2) % Absolute Granulocytes (1.56-6.13) x10^3/uL Basophils # (0.01-0.08) x10^3/uL PT 9.5 (9.4-12.5) SECONDS INR 0.86 (0.8-3.0) Sodium (135-145) mmol/L Potassium (3.5-5.1) mmol/L Chloride (98-107) mmol/L Carbon Dioxide (22-30) mmol/L Anion Gap (5-15) MEQ/L BUN (7-17) mg/dL Creatinine (0.52-1.04) mg/dL Estimated GFR ML/MIN Glucose (74-106) mg/dL Lactic Acid 1.1 (0.4-2.0) Calcium (8.4-10.2) mg/dL Total Bilirubin (0.2-1.3) mg/dL AST (14-36) U/L ALT (0-35) U/L Alkaline Phosphatase (38-126) U/L Ammonia (9-30) umol/L Creatine Kinase (30-135) U/L Serum Total Protein (6.3-8.2) g/dL Albumin (3.5-5.0) g/dL Lipase (23-300) U/L TSH 3rd Generation (0.470-4.680) mIU/L Urine Color Yellow (Yellow) Urine Appearance Clear (Clear) Urine pH 5.5 (4.6-8.0) Ur Specific Ladd 1.020 (1.005-1.030) Urine Protein 100 A (Negative) Urine Glucose (UA) Negative (Negative) mg/dL Urine Ketones Negative (Negative) Urine Blood Moderate A (Negative) Urine Nitrite Negative (Negative) Urine Bilirubin Negative (Negative) Urine Urobilinogen 0.2 (0.2) mg/dL Ur Leukocyte Esterase Negative (Negative) U Hyaline Cast (Auto) 6-10 A (0-2) /LPF Urine Microscopic RBC 0-2 (0-5) /HPF Urine Microscopic WBC 0-2 (0-5) /HPF Ur Epithelial Cells None Seen (None Seen) /HPF Urine Bacteria None Seen (None Seen) /HPF Urine Culture Reflexed ORDERED SEPARATELY (NO) Urine Opiates Level (NEGATIVE) Ur Methadone (NEGATIVE) Urine Barbiturates (NEGATIVE) Ur Phencyclidine (PCP) (NEGATIVE) Urine Amphetamine (NEGATIVE) U Benzodiazepine Level (NEGATIVE) Urine Cocaine (NEGATIVE) Urine Marijuana (THC) (NEGATIVE) Ethyl Alcohol (0-10) mg/dL 11/25/24 Range/Units 15:05 WBC (3.98-10.04) x10^3/uL RBC (3.93-5.22) x10^6/uL Hgb (11.2-15.7) g/dL Hct (34.1-44.9) % MCV (79.4-94.8) fL MCH (25.6-32.2) pg MCHC (32.2-35.5) g/dL RDW (11.7-14.4) % Plt Count (182-369) x10^3/uL MPV (9.4-12.3) fL Gran % (34.0-71.1) % Immature Gran % (Auto) (0.001-0.429) % Nucleat RBC Rel Count (0.00-0.2) % Eos # (Auto) (0.04-0.36) x10^3/uL Immature Gran # (Auto) (0.001-0.031) x10^3u/L Absolute Lymphs (auto) (1.18-3.74) x10^3/uL Absolute Monos (auto) (0.24-0.86) x10^3/uL Absolute Nucleated RBC (0.00-0.012) x10^3u/L Lymphocytes % (19.3-51.7) % Monocytes % (4.7-12.5) % Eosinophils % (0.7-5.8) % Basophils % (0.1-1.2) % Absolute Granulocytes (1.56-6.13) x10^3/uL Basophils # (0.01-0.08) x10^3/uL PT (9.4-12.5) SECONDS INR (0.8-3.0) Sodium (135-145) mmol/L Potassium (3.5-5.1) mmol/L Chloride (98-107) mmol/L Carbon Dioxide (22-30) mmol/L Anion Gap (5-15) MEQ/L BUN (7-17) mg/dL Creatinine (0.52-1.04) mg/dL Estimated GFR ML/MIN Glucose (74-106) mg/dL Lactic Acid (0.4-2.0) Calcium (8.4-10.2) mg/dL Total Bilirubin (0.2-1.3) mg/dL AST (14-36) U/L ALT (0-35) U/L Alkaline Phosphatase (38-126) U/L Ammonia (9-30) umol/L Creatine Kinase (30-135) U/L Serum Total Protein (6.3-8.2) g/dL Albumin (3.5-5.0) g/dL Lipase (23-300) U/L TSH 3rd Generation (0.470-4.680) mIU/L Urine Color (Yellow) Urine Appearance (Clear) Urine pH (4.6-8.0) Ur Specific Ladd (1.005-1.030) Urine Protein (Negative) Urine Glucose (UA) (Negative) mg/dL Urine Ketones (Negative) Urine Blood (Negative) Urine Nitrite (Negative) Urine Bilirubin (Negative) Urine Urobilinogen (0.2) mg/dL Ur Leukocyte Esterase (Negative) U Hyaline Cast (Auto) (0-2) /LPF Urine Microscopic RBC (0-5) /HPF Urine Microscopic WBC (0-5) /HPF Ur Epithelial Cells (None Seen) /HPF Urine Bacteria (None Seen) /HPF Urine Culture Reflexed (NO) Urine Opiates Level (NEGATIVE) Ur Methadone (NEGATIVE) Urine Barbiturates (NEGATIVE) Ur Phencyclidine (PCP) (NEGATIVE) Urine Amphetamine (NEGATIVE) U Benzodiazepine Level (NEGATIVE) Urine Cocaine (NEGATIVE) Urine Marijuana (THC) (NEGATIVE) Ethyl Alcohol < 10 (0-10) mg/dL - Radiology Impressions Radiology Exams & Impressions: Radiology Procedures Category Date Time Status ABDOMEN AND PELVIS W/0 CONTRAS [CT] Stat Exams 11/25/24 11:46 Completed CERVICAL SPINE WO CONTRAST [CT] Stat Exams 11/25/24 11:46 Completed CHEST WITHOUT CONTRAST [CT] Stat Exams 11/25/24 11:46 Completed HEAD WITHOUT CONTRAST [CT] Stat Exams 11/25/24 11:46 Completed - Other Procedures and Tests Respiratory Therapy 11/25/24 17:16 Respiratory Therapy Consult ONCE Assessment/Plan (1) Encephalopathy Current Visit: Yes Status: Acute Assessment & Plan: -multifactorial with metabolic acidosis, thyroid dysfunction, electrolyte imbalance, and uremia -CT head identified a small focus of a remote infarct in the right parietal lobe without acute intracranial abnormalities -CMP/CBC reviewed -TSH reviewed at 14.188 -CK reviewed > 71739 -CO2 reviewed at 21 -Plan MRI Brain w/o contrast and consider neurology consult -Start ASA at 81mg Code(s): G93.40 - ENCEPHALOPATHY, UNSPECIFIED (2) SINTIA (acute kidney injury) Current Visit: Yes Status: Acute Assessment & Plan: -Most likely secondary to rhabdomyolysis -Creat baseline around 1.4 -1L fluid bolus in ED - will continue NS at 100ml/hr -Monitor renal/lytes closely -Avoid nephrotoxic agents Code(s): N17.9 - ACUTE KIDNEY FAILURE, UNSPECIFIED (3) Rhabdomyolysis Current Visit: Yes Status: Acute Assessment & Plan: -CK reviewed > 26832 - trend -IVF Code(s): M62.82 - RHABDOMYOLYSIS (4) Hypernatremia Current Visit: Yes Status: Acute Assessment & Plan: -Mild with sodium at 149 -Continue IVF Code(s): E87.0 - HYPEROSMOLALITY AND HYPERNATREMIA (5) Metabolic acidosis Current Visit: Yes Status: Acute Assessment & Plan: -Co2 reviewed at 21- continue IVF Code(s): E87.20 - ACIDOSIS, UNSPECIFIED (6) Elevated LFTs Current Visit: Yes Status: Acute Assessment & Plan: - CT Abdomen and Pelvis revealed a healing right inferior pubic ramus fracture. Liver, pancreas, spleen, adrenal glands, kidneys, ureters, and bladder are unremarkable -2/2 to rhabdomyolosis -Tbili/Alk phos/ammonia levels unremarkable Code(s): R79.89 - OTHER SPECIFIED ABNORMAL FINDINGS OF BLOOD CHEMISTRY (7) Elevated lipase Current Visit: Yes Status: Acute Assessment & Plan: -CT abd/pelvis as stated above -IVF Code(s): R74.8 - ABNORMAL LEVELS OF OTHER SERUM ENZYMES (8) Recurrent falls Current Visit: Yes Status: Acute Assessment & Plan: -Multifactorial as stated above with underlying electrolyte imbalances, uremia, and metabolic and neurological factors -CT of abdomen as stated above with healing ramus fracture - patient with h/o OA will check vitamin D level -CT head as stated above - plan for MRI -PT evaluation Code(s): R29.6 - REPEATED FALLS (9) Hypothyroid Current Visit: Yes Status: Acute Assessment & Plan: -Patient non-compliant with home meds- TSH level at 14.188 - could be contributing to cognitive impairment, muscle weakness, and balance issues, contributing to falls.-resume levothyroxine Code(s): E03.9 - HYPOTHYROIDISM, UNSPECIFIED (10) HTN (hypertension) Current Visit: Yes Status: Acute Assessment & Plan: -BP stable - continue home meds Code(s): I10 - ESSENTIAL (PRIMARY) HYPERTENSION (11) History of liver transplant Current Visit: Yes Status: Acute Assessment & Plan: -2009- continue home meds -CT ab/pelvis as stated above (12) Non compliance w medication regimen Current Visit: Yes Status: Acute Assessment & Plan: -Discussed and reinforced importance of adherence to prescribed medications to control underlying health conditions Code(s): Z91.148 - PATIENT'S OTHER NONCOMPL WITH MEDS REGIMEN FOR OTHER REASON (13) Unstageable pressure ulcer of sacral region Current Visit: Yes Status: Acute Assessment & Plan: -PT for wound assessment -Surgery consult -off load- turn q2h Code(s): L89.150 - PRESSURE ULCER OF SACRAL REGION, UNSTAGEABLE (14) COPD (chronic obstructive pulmonary disease) Current Visit: Yes Status: Acute Assessment & Plan: -CT chest with no acute findings -RT eval -continue home meds VTE: SCD PPI: protonix Dispo: 1-3 days Code status: Full Telemedicine Encounter - Telemedicine Encounter Telemedicine Encounter: "The entirety of this encounter was performed via Telemedicine" This visit was performed using real-time audio and video connection between my location and thepatients locationwith the assistance of a surrogateat the patients location. Written or verbal consent was obtained from the patient/guardian to perform this visit usingHappy Kid[employer]telemedicine technology. Any patient questions regarding the telemedicine interaction were answered. <KARUNA FARRELL - Last Filed: 11/25/24 19:48> History of Present Illness - Chief Complaint History of Present Illness: is a 59 year old female. - Physical Exam Vital Signs: Vital Signs - 24 hr Temp Pulse Resp BP BP Pulse Ox 11/25/24 18:22 103 H 16 96 11/25/24 17:49 98.5 F 96 H 18 99/68 99 11/25/24 17:25 100 11/25/24 16:31 109/90 11/25/24 16:01 76 21 142/75 92 L 11/25/24 15:30 82 26 H 148/59 97 11/25/24 15:28 71 11 L 130/80 96 11/25/24 15:00 68 24 165/110 92 L 11/25/24 14:30 82 14 119/68 98 11/25/24 14:00 91 H 19 113/80 98 11/25/24 13:30 91 H 21 109/90 66 L 11/25/24 13:14 98 H 24 115/73 98 11/25/24 13:13 87 20 98 11/25/24 13:10 96 H 15 99 11/25/24 12:36 91 H 19 126/63 100 11/25/24 12:35 94 H 21 98 11/25/24 12:30 91 H 18 03/06/25 12:20 93 H 20 99 11/25/24 12:10 96 H 15 11/25/24 12:02 94 H 16 11/25/24 11:30 94 H 24 107/88 11/25/24 11:07 86 20 115/79 99 11/25/24 11:05 98 F Results - Labs Lab/Micro Results: Lab Results-Last 24 Hours 11/25/24 11/25/24 11/25/24 Range/Units 11:46 12:25 12:25 WBC 7.5 (3.98-10.04) x10^3/uL RBC 4.40 (3.93-5.22) x10^6/uL Hgb 12.0 (11.2-15.7) g/dL Hct 38.0 (34.1-44.9) % MCV 86.4 (79.4-94.8) fL MCH 27.3 (25.6-32.2) pg MCHC 31.6 L (32.2-35.5) g/dL RDW 15.1 H (11.7-14.4) % Plt Count 328 (182-369) x10^3/uL MPV 10.8 (9.4-12.3) fL Gran % 68.8 (34.0-71.1) % Immature Gran % (Auto) 0.4 (0.001-0.429) % Nucleat RBC Rel Count 0.0 (0.00-0.2) % Eos # (Auto) 0.20 (0.04-0.36) x10^3/uL Immature Gran # (Auto) 0.03 (0.001-0.031) x10^3u/L Absolute Lymphs (auto) 1.69 (1.18-3.74) x10^3/uL Absolute Monos (auto) 0.39 (0.24-0.86) x10^3/uL Absolute Nucleated RBC 0.00 (0.00-0.012) x10^3u/L Lymphocytes % 22.5 (19.3-51.7) % Monocytes % 5.2 (4.7-12.5) % Eosinophils % 2.7 (0.7-5.8) % Basophils % 0.4 (0.1-1.2) % Absolute Granulocytes 5.16 (1.56-6.13) x10^3/uL Basophils # 0.03 (0.01-0.08) x10^3/uL PT (9.4-12.5) SECONDS INR (0.8-3.0) Sodium 149 H (135-145) mmol/L Potassium 4.3 (3.5-5.1) mmol/L Chloride 112 H (98-107) mmol/L Carbon Dioxide 21 L (22-30) mmol/L Anion Gap 20.6 H (5-15) MEQ/L BUN 90 H (7-17) mg/dL Creatinine 1.94 H (0.52-1.04) mg/dL Estimated GFR 29.3 ML/MIN Glucose 108 H (74-106) mg/dL Lactic Acid 2.7 H (0.4-2.0) Calcium 9.8 (8.4-10.2) mg/dL Total Bilirubin 0.80 (0.2-1.3) mg/dL AST 576 H (14-36) U/L ALT 120 H (0-35) U/L Alkaline Phosphatase 106 (38-126) U/L Ammonia (9-30) umol/L Creatine Kinase (30-135) U/L Serum Total Protein 7.8 (6.3-8.2) g/dL Albumin 4.6 (3.5-5.0) g/dL Lipase 518 H (23-300) U/L TSH 3rd Generation 14.188 H (0.470-4.680) mIU/L Urine Color (Yellow) Urine Appearance (Clear) Urine pH (4.6-8.0) Ur Specific Ladd (1.005-1.030) Urine Protein (Negative) Urine Glucose (UA) (Negative) mg/dL Urine Ketones (Negative) Urine Blood (Negative) Urine Nitrite (Negative) Urine Bilirubin (Negative) Urine Urobilinogen (0.2) mg/dL Ur Leukocyte Esterase (Negative) U Hyaline Cast (Auto) (0-2) /LPF Urine Microscopic RBC (0-5) /HPF Urine Microscopic WBC (0-5) /HPF Ur Epithelial Cells (None Seen) /HPF Urine Bacteria (None Seen) /HPF Urine Culture Reflexed (NO) Urine Opiates Level (NEGATIVE) Ur Methadone (NEGATIVE) Urine Barbiturates (NEGATIVE) Ur Phencyclidine (PCP) (NEGATIVE) Urine Amphetamine (NEGATIVE) U Benzodiazepine Level (NEGATIVE) Urine Cocaine (NEGATIVE) Urine Marijuana (THC) (NEGATIVE) Ethyl Alcohol (0-10) mg/dL 11/25/24 11/25/24 11/25/24 Range/Units 12:25 12:37 13:15 WBC (3.98-10.04) x10^3/uL RBC (3.93-5.22) x10^6/uL Hgb (11.2-15.7) g/dL Hct (34.1-44.9) % MCV (79.4-94.8) fL MCH (25.6-32.2) pg MCHC (32.2-35.5) g/dL RDW (11.7-14.4) % Plt Count (182-369) x10^3/uL MPV (9.4-12.3) fL Gran % (34.0-71.1) % Immature Gran % (Auto) (0.001-0.429) % Nucleat RBC Rel Count (0.00-0.2) % Eos # (Auto) (0.04-0.36) x10^3/uL Immature Gran # (Auto) (0.001-0.031) x10^3u/L Absolute Lymphs (auto) (1.18-3.74) x10^3/uL Absolute Monos (auto) (0.24-0.86) x10^3/uL Absolute Nucleated RBC (0.00-0.012) x10^3u/L Lymphocytes % (19.3-51.7) % Monocytes % (4.7-12.5) % Eosinophils % (0.7-5.8) % Basophils % (0.1-1.2) % Absolute Granulocytes (1.56-6.13) x10^3/uL Basophils # (0.01-0.08) x10^3/uL PT (9.4-12.5) SECONDS INR (0.8-3.0) Sodium (135-145) mmol/L Potassium (3.5-5.1) mmol/L Chloride (98-107) mmol/L Carbon Dioxide (22-30) mmol/L Anion Gap (5-15) MEQ/L BUN (7-17) mg/dL Creatinine (0.52-1.04) mg/dL Estimated GFR ML/MIN Glucose (74-106) mg/dL Lactic Acid (0.4-2.0) Calcium (8.4-10.2) mg/dL Total Bilirubin (0.2-1.3) mg/dL AST (14-36) U/L ALT (0-35) U/L Alkaline Phosphatase (38-126) U/L Ammonia < 9 L (9-30) umol/L Creatine Kinase > 1600 H (30-135) U/L Serum Total Protein (6.3-8.2) g/dL Albumin (3.5-5.0) g/dL Lipase (23-300) U/L TSH 3rd Generation (0.470-4.680) mIU/L Urine Color (Yellow) Urine Appearance (Clear) Urine pH (4.6-8.0) Ur Specific Ladd (1.005-1.030) Urine Protein (Negative) Urine Glucose (UA) (Negative) mg/dL Urine Ketones (Negative) Urine Blood (Negative) Urine Nitrite (Negative) Urine Bilirubin (Negative) Urine Urobilinogen (0.2) mg/dL Ur Leukocyte Esterase (Negative) U Hyaline Cast (Auto) (0-2) /LPF Urine Microscopic RBC (0-5) /HPF Urine Microscopic WBC (0-5) /HPF Ur Epithelial Cells (None Seen) /HPF Urine Bacteria (None Seen) /HPF Urine Culture Reflexed (NO) Urine Opiates Level NEGATIVE (NEGATIVE) Ur Methadone NEGATIVE (NEGATIVE) Urine Barbiturates NEGATIVE (NEGATIVE) Ur Phencyclidine (PCP) NEGATIVE (NEGATIVE) Urine Amphetamine NEGATIVE (NEGATIVE) U Benzodiazepine Level NEGATIVE (NEGATIVE) Urine Cocaine NEGATIVE (NEGATIVE) Urine Marijuana (THC) NEGATIVE (NEGATIVE) Ethyl Alcohol (0-10) mg/dL 11/25/24 11/25/24 11/25/24 Range/Units 13:21 14:35 14:40 WBC (3.98-10.04) x10^3/uL RBC (3.93-5.22) x10^6/uL Hgb (11.2-15.7) g/dL Hct (34.1-44.9) % MCV (79.4-94.8) fL MCH (25.6-32.2) pg MCHC (32.2-35.5) g/dL RDW (11.7-14.4) % Plt Count (182-369) x10^3/uL MPV (9.4-12.3) fL Gran % (34.0-71.1) % Immature Gran % (Auto) (0.001-0.429) % Nucleat RBC Rel Count (0.00-0.2) % Eos # (Auto) (0.04-0.36) x10^3/uL Immature Gran # (Auto) (0.001-0.031) x10^3u/L Absolute Lymphs (auto) (1.18-3.74) x10^3/uL Absolute Monos (auto) (0.24-0.86) x10^3/uL Absolute Nucleated RBC (0.00-0.012) x10^3u/L Lymphocytes % (19.3-51.7) % Monocytes % (4.7-12.5) % Eosinophils % (0.7-5.8) % Basophils % (0.1-1.2) % Absolute Granulocytes (1.56-6.13) x10^3/uL Basophils # (0.01-0.08) x10^3/uL PT 9.5 (9.4-12.5) SECONDS INR 0.86 (0.8-3.0) Sodium (135-145) mmol/L Potassium (3.5-5.1) mmol/L Chloride (98-107) mmol/L Carbon Dioxide (22-30) mmol/L Anion Gap (5-15) MEQ/L BUN (7-17) mg/dL Creatinine (0.52-1.04) mg/dL Estimated GFR ML/MIN Glucose (74-106) mg/dL Lactic Acid 1.1 (0.4-2.0) Calcium (8.4-10.2) mg/dL Total Bilirubin (0.2-1.3) mg/dL AST (14-36) U/L ALT (0-35) U/L Alkaline Phosphatase (38-126) U/L Ammonia (9-30) umol/L Creatine Kinase (30-135) U/L Serum Total Protein (6.3-8.2) g/dL Albumin (3.5-5.0) g/dL Lipase (23-300) U/L TSH 3rd Generation (0.470-4.680) mIU/L Urine Color Yellow (Yellow) Urine Appearance Clear (Clear) Urine pH 5.5 (4.6-8.0) Ur Specific Ladd 1.020 (1.005-1.030) Urine Protein 100 A (Negative) Urine Glucose (UA) Negative (Negative) mg/dL Urine Ketones Negative (Negative) Urine Blood Moderate A (Negative) Urine Nitrite Negative (Negative) Urine Bilirubin Negative (Negative) Urine Urobilinogen 0.2 (0.2) mg/dL Ur Leukocyte Esterase Negative (Negative) U Hyaline Cast (Auto) 6-10 A (0-2) /LPF Urine Microscopic RBC 0-2 (0-5) /HPF Urine Microscopic WBC 0-2 (0-5) /HPF Ur Epithelial Cells None Seen (None Seen) /HPF Urine Bacteria None Seen (None Seen) /HPF Urine Culture Reflexed ORDERED SEPARATELY (NO) Urine Opiates Level (NEGATIVE) Ur Methadone (NEGATIVE) Urine Barbiturates (NEGATIVE) Ur Phencyclidine (PCP) (NEGATIVE) Urine Amphetamine (NEGATIVE) U Benzodiazepine Level (NEGATIVE) Urine Cocaine (NEGATIVE) Urine Marijuana (THC) (NEGATIVE) Ethyl Alcohol (0-10) mg/dL 11/25/24 11/25/24 Range/Units 15:05 18:30 WBC (3.98-10.04) x10^3/uL RBC (3.93-5.22) x10^6/uL Hgb (11.2-15.7) g/dL Hct (34.1-44.9) % MCV (79.4-94.8) fL MCH (25.6-32.2) pg MCHC (32.2-35.5) g/dL RDW (11.7-14.4) % Plt Count (182-369) x10^3/uL MPV (9.4-12.3) fL Gran % (34.0-71.1) % Immature Gran % (Auto) (0.001-0.429) % Nucleat RBC Rel Count (0.00-0.2) % Eos # (Auto) (0.04-0.36) x10^3/uL Immature Gran # (Auto) (0.001-0.031) x10^3u/L Absolute Lymphs (auto) (1.18-3.74) x10^3/uL Absolute Monos (auto) (0.24-0.86) x10^3/uL Absolute Nucleated RBC (0.00-0.012) x10^3u/L Lymphocytes % (19.3-51.7) % Monocytes % (4.7-12.5) % Eosinophils % (0.7-5.8) % Basophils % (0.1-1.2) % Absolute Granulocytes (1.56-6.13) x10^3/uL Basophils # (0.01-0.08) x10^3/uL PT (9.4-12.5) SECONDS INR (0.8-3.0) Sodium 148 H (135-145) mmol/L Potassium 3.5 (3.5-5.1) mmol/L Chloride 118 H (98-107) mmol/L Carbon Dioxide 18 L (22-30) mmol/L Anion Gap 15.4 H (5-15) MEQ/L BUN 67 H (7-17) mg/dL Creatinine 1.36 H (0.52-1.04) mg/dL Estimated GFR 44.9 ML/MIN Glucose 121 H (74-106) mg/dL Lactic Acid (0.4-2.0) Calcium 8.4 (8.4-10.2) mg/dL Total Bilirubin 0.60 (0.2-1.3) mg/dL AST 419 H (14-36) U/L ALT 94 H (0-35) U/L Alkaline Phosphatase 84 (38-126) U/L Ammonia (9-30) umol/L Creatine Kinase (30-135) U/L Serum Total Protein 6.8 (6.3-8.2) g/dL Albumin 3.8 (3.5-5.0) g/dL Lipase (23-300) U/L TSH 3rd Generation (0.470-4.680) mIU/L Urine Color (Yellow) Urine Appearance (Clear) Urine pH (4.6-8.0) Ur Specific Ladd (1.005-1.030) Urine Protein (Negative) Urine Glucose (UA) (Negative) mg/dL Urine Ketones (Negative) Urine Blood (Negative) Urine Nitrite (Negative) Urine Bilirubin (Negative) Urine Urobilinogen (0.2) mg/dL Ur Leukocyte Esterase (Negative) U Hyaline Cast (Auto) (0-2) /LPF Urine Microscopic RBC (0-5) /HPF Urine Microscopic WBC (0-5) /HPF Ur Epithelial Cells (None Seen) /HPF Urine Bacteria (None Seen) /HPF Urine Culture Reflexed (NO) Urine Opiates Level (NEGATIVE) Ur Methadone (NEGATIVE) Urine Barbiturates (NEGATIVE) Ur Phencyclidine (PCP) (NEGATIVE) Urine Amphetamine (NEGATIVE) U Benzodiazepine Level (NEGATIVE) Urine Cocaine (NEGATIVE) Urine Marijuana (THC) (NEGATIVE) Ethyl Alcohol < 10 (0-10) mg/dL - Radiology Impressions Radiology Exams & Impressions: Radiology Procedures Category Date Time Status ABDOMEN AND PELVIS W/0 CONTRAS [CT] Stat Exams 11/25/24 11:46 Completed CERVICAL SPINE WO CONTRAST [CT] Stat Exams 11/25/24 11:46 Completed CHEST WITHOUT CONTRAST [CT] Stat Exams 11/25/24 11:46 Completed HEAD WITHOUT CONTRAST [CT] Stat Exams 11/25/24 11:46 Completed MRI BRAIN W/O CONTRAST [MRI] Routine Exams 11/26/24 08:00 Ordered - Other Procedures and Tests Respiratory Therapy 11/25/24 18:06 Respiratory Therapy Assessment DAILY Telemedicine Encounter - Telemedicine Encounter Telemedicine Encounter: "The entirety of this encounter was performed via Telemedicine" This visit was performed using real-time audio and video connection between my location and thepatients locationwith the assistance of a surrogateat the patients location. Written or verbal consent was obtained from the patient/guardian to perform this visit using[employer] technology. Any patient questions regarding the telemedicine interaction were answered. DIEGO Encounter - DIEGO Encounter Attestation DIEGO Encounter Attestation: "IhavepersonallyseenandexMAYRA Wbeb andhavediscussed pertinent aspects of their care with Severino Quick agree with the history, physical exam (any modifications based on my personal exam will be noted below), assessment, and plan as outlined in original note. Please see immediately below for my summary of findings and additional assessment and plan along with any meaningful corrections/explanations to the Subjective/Objective portions of the DIEGO note will be noted." My portion of the encounter took place via telemedicine. -Patient with history of liver transplant presenting with repeated falls, encephalopathy and found to be hypernatremic with uremia, elevated creatinine and elevated CK. 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 Mother was not available at the bedside to provide history but reportedly patient has not been taking her medications other than sirolimus. 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 No evidence of liver failure (normal INR, ammonia). Will admit for IV fluids, MRI, and expect that her encephalopathy will improve as her renal function improves. If any abnormalities on MRI, will consult neuro.
[2024-11-25] MEDS ORDERED: DUONEB 0.5-3 MG/3 ml Neb IH PRN (17:54)
[2024-11-25 18:45] LABS: ALBUMIN 3.8 g/dL (3.5-5.0); ANION GAP 15.4 MEQ/L (5-15); BILIRUBIN,TOTAL 0.6 mg/dL (0.2-1.3); Calcium 8.4 mg/dL (8.4-10.2); Creatinine 1 1.36 mg/dL (0.52-1.04); EST GLOMERULAR FILTRATION RATE 44.9 ML/MIN; Potassium 3.5 mmol/L (3.5-5.1); Total Protein 6.8 g/dL (6.3-8.2)
[2024-11-25] MEDS: Ativan 2 MG/1 ML VIAL IV ONE (20:53)
[2024-11-25] MEDS: Lopressor 50 MG PO SCH (22:43)
[2024-11-25] MEDS: NON-FORMULARY ITEM (Omeprazole [Omeprazole] 40 MG Capsule.Dr) PO SCH (22:45)
[2024-11-26 05:07] LABS: Absolute Neutrophil Ct (ANC) 3.16 x10^3/uL (1.56-6.13); BASOPHIL % 0.4 % (0.1-1.2); Basophil (Absolute #) 0.02 x10^3/uL (0.01-0.08); Eosinophil % 4.2 % (0.7-5.8); Eosinophil (Absolute #) 0.21 x10^3/uL (0.04-0.36); Hemoglobin 9.5 g/dL (11.2-15.7); IMMATURE GRAN # 0.02 x10^3u/L (0.001-0.031); IMMATURE GRAN % 0.4 % (0.001-0.429); Lymphocyte (Absolute #) 1.29 x10^3/uL (1.18-3.74); Mean Cell Volume 86.2 fL (79.4-94.8); Mean Corpuscular Hemoglobin 27.3 pg (25.6-32.2); Mean Corpuscular Hgb Concent. 31.7 g/dL (32.2-35.5); Mean Platelet Volume 10.5 fL (9.4-12.3); Monocyte (Absolute #) 0.26 x10^3/uL (0.24-0.86); Monocytes % 5.2 % (4.7-12.5); Neutrophil % 63.8 % (34.0-71.1); Platelet Count 255 x10^3/uL (182-369); Red Blood Count 3.48 x10^6/uL (3.93-5.22); Red Cell Distribution Width 15.4 % (11.7-14.4)
[2024-11-26] MEDS ORDERED: Sodium Chloride 0.9% 1000 ML 1,000 ML ONE (05:19)
[2024-11-26 05:29] LABS: ALBUMIN 3.2 g/dL (3.5-5.0); ANION GAP 11.2 MEQ/L (5-15); BILIRUBIN,TOTAL 0.4 mg/dL (0.2-1.3); Calcium 8.5 mg/dL (8.4-10.2); Creatinine 1 1.18 mg/dL (0.52-1.04); EST GLOMERULAR FILTRATION RATE 53.2 ML/MIN; Potassium 3.7 mmol/L (3.5-5.1)
--- NOTE | 2024-11-26 05:31 | PCM.NOTE ---
Date and Time: 11/26/24 0530 Subjective Assessment: Ms. Dwyer is a 59 year old female with a complex medical history including HTN, HI, COPD, hypothyroidism, DDD, cirrhosis, liver transplant 2009, CKD, medication non-compliance who presented to ED 11/25/24 for evaluation of repeated falls and hallucinations. Patient is A&O to self and place - very poor historian. Mother is currently not at bedside to provide history. ER documentation notes that patient was hallucinating at PCP office. Patient has repeated falls with injuries to the back bruising all over. Questionable history of substance abuse. Upon exam patient is noted with an unstageable sacral and mid back wound. Patient also reported to me that she was born with just one kidney - although CT scan did not report any abnormalities. RN reports that patient has been having hallucinations since arriving on floor and grabbing at things in the air. Vital signs stable upon arrival. CT Abdomen and Pelvis revealed a healing right inferior pubic ramus fracture. CT Cervical Spine showed incidental findings of osteopenia, congenital fusion of C2-C3, a C6 vertebral hemangioma, and bilateral carotid calcifications; otherwise unremarkable.CT Chest with no acute findings. CT Head identified a small focus of a remote infarct in the right parietal lobe without acute intracranial abnormalities. MRI Brain with Atrophy and degenerative micro-ischemia within normal limits. 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 No acute intracranial abnormalities or evidence for evolving large vessel territorial stroke Lab findings notable for hypernatremia, acute kidney injury, elevated liver function tests, elevated thyroid-stimulating hormone,elevated cpk, elevated lipase, and metabolic acidosis. Urinalysis and urine drug screen were unremarkable. Treatment in ED consisted of a 1L fluid bolus. Admit for encephalopathy, rhabdomyolysis, SINTIA, and electrolyte imbalances. 11/26/24: Met with patient bedside. A&O to self. She is still somewhat confused but appears more alert today. MRI Brain with no new abnormalities - re-identified remote infarct of the right parietal lobe. SINTIA improved. Acidosis improved. CK levels improving. Sodium levels increased this morning. Will discontinue NS and change IVF to DS1/2NS. Surgery consulted for sacral/back wounds- patient to undergo debridement today. - Review of Systems Constitutional: No Symptoms Eyes: No Symptoms Ears, Nose, & Throat: No Symptoms Respiratory: No Symptoms Cardiac: No Symptoms Abdominal/Gastrointestinal: No Symptoms Genitourinary Symptoms: No Symptoms Musculoskeletal: Back Pain Skin: No Symptoms Neurological: Other (confusion) Psychological: No Symptoms Endocrine: No Symptoms Hematologic/Lymphatic: No Symptoms Immunological/Allergic: No Symptoms Objective Exam General Appearance: no apparent distress Neurologic Exam: alert, cooperative, confusion Skin Exam: decubitus, other (see wound assessment) Eye Exam: PERRL Ears, Nose, Throat Exam: normal ENT inspection Neck Exam: normal inspection Respiratory Exam: normal breath sounds, lungs clear Cardiovascular Exam: regular rate/rhythm, normal heart sounds Gastrointestinal/Abdomen Exam: soft, normal bowel sounds Extremity Exam: normal inspection Back Exam: other (see wound assessment) Pelvic Exam: deferred Rectal Exam: deferred Objective Data Vital Signs: Vital Signs - 24 hr Temp Pulse Resp BP BP Pulse Ox 11/26/24 04:00 18 11/26/24 00:00 98.5 F 103 H 18 99/68 11/25/24 23:53 100 11/25/24 20:00 98.5 F 103 H 16 99/68 96 11/25/24 18:22 103 H 16 96 11/25/24 17:49 98.5 F 96 H 18 99/68 99 11/25/24 16:31 109/90 11/25/24 16:01 76 21 142/75 92 L 11/25/24 15:30 82 26 H 148/59 97 11/25/24 15:28 71 11 L 130/80 96 11/25/24 15:00 68 24 165/110 92 L 11/25/24 14:30 82 14 119/68 98 11/25/24 14:00 91 H 19 113/80 98 11/25/24 13:30 91 H 21 109/90 66 L 11/25/24 13:14 98 H 24 115/73 98 11/25/24 13:13 87 20 98 11/25/24 13:10 96 H 15 99 11/25/24 12:36 91 H 19 126/63 100 11/25/24 12:35 94 H 21 98 11/25/24 12:30 91 H 18 11/25/24 12:20 93 H 20 99 11/25/24 12:10 96 H 15 11/25/24 12:02 94 H 16 11/25/24 11:30 94 H 24 107/88 11/25/24 11:07 86 20 115/79 99 11/25/24 11:05 98 F Pain Assessment - Last Documented Pain Intensity 8 Intake and Output: Intake & Output 11/23/24 11/24/24 11/25/24 11/26/24 11:59 11:59 11:59 11:59 Intake Total 360 Balance 360 Weight 37.5 kg 38.3 kg Lab Results: Lab Results-Last 24 Hours 11/25/24 11/25/24 11/25/24 Range/Units 11:46 12:25 12:25 WBC 7.5 (3.98-10.04) x10^3/uL RBC 4.40 (3.93-5.22) x10^6/uL Hgb 12.0 (11.2-15.7) g/dL Hct 38.0 (34.1-44.9) % MCV 86.4 (79.4-94.8) fL MCH 27.3 (25.6-32.2) pg MCHC 31.6 L (32.2-35.5) g/dL RDW 15.1 H (11.7-14.4) % Plt Count 328 (182-369) x10^3/uL MPV 10.8 (9.4-12.3) fL Gran % 68.8 (34.0-71.1) % Immature Gran % (Auto) 0.4 (0.001-0.429) % Nucleat RBC Rel Count 0.0 (0.00-0.2) % Eos # (Auto) 0.20 (0.04-0.36) x10^3/uL Immature Gran # (Auto) 0.03 (0.001-0.031) x10^3u/L Absolute Lymphs (auto) 1.69 (1.18-3.74) x10^3/uL Absolute Monos (auto) 0.39 (0.24-0.86) x10^3/uL Absolute Nucleated RBC 0.00 (0.00-0.012) x10^3u/L Lymphocytes % 22.5 (19.3-51.7) % Monocytes % 5.2 (4.7-12.5) % Eosinophils % 2.7 (0.7-5.8) % Basophils % 0.4 (0.1-1.2) % Absolute Granulocytes 5.16 (1.56-6.13) x10^3/uL Basophils # 0.03 (0.01-0.08) x10^3/uL PT (9.4-12.5) SECONDS INR (0.8-3.0) Sodium 149 H (135-145) mmol/L Potassium 4.3 (3.5-5.1) mmol/L Chloride 112 H (98-107) mmol/L Carbon Dioxide 21 L (22-30) mmol/L Anion Gap 20.6 H (5-15) MEQ/L BUN 90 H (7-17) mg/dL Creatinine 1.94 H (0.52-1.04) mg/dL Estimated GFR 29.3 ML/MIN Glucose 108 H (74-106) mg/dL POC Glucometer (74 to 106) mg/dL Lactic Acid 2.7 H (0.4-2.0) Calcium 9.8 (8.4-10.2) mg/dL Total Bilirubin 0.80 (0.2-1.3) mg/dL AST 576 H (14-36) U/L ALT 120 H (0-35) U/L Alkaline Phosphatase 106 (38-126) U/L Ammonia (9-30) umol/L Creatine Kinase (30-135) U/L Serum Total Protein 7.8 (6.3-8.2) g/dL Albumin 4.6 (3.5-5.0) g/dL Lipase 518 H (23-300) U/L TSH 3rd Generation 14.188 H (0.470-4.680) mIU/L Urine Color (Yellow) Urine Appearance (Clear) Urine pH (4.6-8.0) Ur Specific [place] (1.005-1.030) Urine Protein (Negative) Urine Glucose (UA) (Negative) mg/dL Urine Ketones (Negative) Urine Blood (Negative) Urine Nitrite (Negative) Urine Bilirubin (Negative) Urine Urobilinogen (0.2) mg/dL Ur Leukocyte Esterase (Negative) U Hyaline Cast (Auto) (0-2) /LPF Urine Microscopic RBC (0-5) /HPF Urine Microscopic WBC (0-5) /HPF Ur Epithelial Cells (None Seen) /HPF Urine Bacteria (None Seen) /HPF Urine Culture Reflexed (NO) Urine Opiates Level (NEGATIVE) Ur Methadone (NEGATIVE) Urine Barbiturates (NEGATIVE) Ur Phencyclidine (PCP) (NEGATIVE) Urine Amphetamine (NEGATIVE) U Benzodiazepine Level (NEGATIVE) Urine Cocaine (NEGATIVE) Urine Marijuana (THC) (NEGATIVE) Ethyl Alcohol (0-10) mg/dL 11/25/24 11/25/24 11/25/24 Range/Units 12:25 12:37 13:15 WBC (3.98-10.04) x10^3/uL RBC (3.93-5.22) x10^6/uL Hgb (11.2-15.7) g/dL Hct (34.1-44.9) % MCV (79.4-94.8) fL MCH (25.6-32.2) pg MCHC (32.2-35.5) g/dL RDW (11.7-14.4) % Plt Count (182-369) x10^3/uL MPV (9.4-12.3) fL Gran % (34.0-71.1) % Immature Gran % (Auto) (0.001-0.429) % Nucleat RBC Rel Count (0.00-0.2) % Eos # (Auto) (0.04-0.36) x10^3/uL Immature Gran # (Auto) (0.001-0.031) x10^3u/L Absolute Lymphs (auto) (1.18-3.74) x10^3/uL Absolute Monos (auto) (0.24-0.86) x10^3/uL Absolute Nucleated RBC (0.00-0.012) x10^3u/L Lymphocytes % (19.3-51.7) % Monocytes % (4.7-12.5) % Eosinophils % (0.7-5.8) % Basophils % (0.1-1.2) % Absolute Granulocytes (1.56-6.13) x10^3/uL Basophils # (0.01-0.08) x10^3/uL PT (9.4-12.5) SECONDS INR (0.8-3.0) Sodium (135-145) mmol/L Potassium (3.5-5.1) mmol/L Chloride (98-107) mmol/L Carbon Dioxide (22-30) mmol/L Anion Gap (5-15) MEQ/L BUN (7-17) mg/dL Creatinine (0.52-1.04) mg/dL Estimated GFR ML/MIN Glucose (74-106) mg/dL POC Glucometer (74 to 106) mg/dL Lactic Acid (0.4-2.0) Calcium (8.4-10.2) mg/dL Total Bilirubin (0.2-1.3) mg/dL AST (14-36) U/L ALT (0-35) U/L Alkaline Phosphatase (38-126) U/L Ammonia < 9 L (9-30) umol/L Creatine Kinase > 1600 H (30-135) U/L Serum Total Protein (6.3-8.2) g/dL Albumin (3.5-5.0) g/dL Lipase (23-300) U/L TSH 3rd Generation (0.470-4.680) mIU/L Urine Color (Yellow) Urine Appearance (Clear) Urine pH (4.6-8.0) Ur Specific [place] (1.005-1.030) Urine Protein (Negative) Urine Glucose (UA) (Negative) mg/dL Urine Ketones (Negative) Urine Blood (Negative) Urine Nitrite (Negative) Urine Bilirubin (Negative) Urine Urobilinogen (0.2) mg/dL Ur Leukocyte Esterase (Negative) U Hyaline Cast (Auto) (0-2) /LPF Urine Microscopic RBC (0-5) /HPF Urine Microscopic WBC (0-5) /HPF Ur Epithelial Cells (None Seen) /HPF Urine Bacteria (None Seen) /HPF Urine Culture Reflexed (NO) Urine Opiates Level NEGATIVE (NEGATIVE) Ur Methadone NEGATIVE (NEGATIVE) Urine Barbiturates NEGATIVE (NEGATIVE) Ur Phencyclidine (PCP) NEGATIVE (NEGATIVE) Urine Amphetamine NEGATIVE (NEGATIVE) U Benzodiazepine Level NEGATIVE (NEGATIVE) Urine Cocaine NEGATIVE (NEGATIVE) Urine Marijuana (THC) NEGATIVE (NEGATIVE) Ethyl Alcohol (0-10) mg/dL 11/25/24 11/25/24 11/25/24 Range/Units 13:21 14:35 14:40 WBC (3.98-10.04) x10^3/uL RBC (3.93-5.22) x10^6/uL Hgb (11.2-15.7) g/dL Hct (34.1-44.9) % MCV (79.4-94.8) fL MCH (25.6-32.2) pg MCHC (32.2-35.5) g/dL RDW (11.7-14.4) % Plt Count (182-369) x10^3/uL MPV (9.4-12.3) fL Gran % (34.0-71.1) % Immature Gran % (Auto) (0.001-0.429) % Nucleat RBC Rel Count (0.00-0.2) % Eos # (Auto) (0.04-0.36) x10^3/uL Immature Gran # (Auto) (0.001-0.031) x10^3u/L Absolute Lymphs (auto) (1.18-3.74) x10^3/uL Absolute Monos (auto) (0.24-0.86) x10^3/uL Absolute Nucleated RBC (0.00-0.012) x10^3u/L Lymphocytes % (19.3-51.7) % Monocytes % (4.7-12.5) % Eosinophils % (0.7-5.8) % Basophils % (0.1-1.2) % Absolute Granulocytes (1.56-6.13) x10^3/uL Basophils # (0.01-0.08) x10^3/uL PT 9.5 (9.4-12.5) SECONDS INR 0.86 (0.8-3.0) Sodium (135-145) mmol/L Potassium (3.5-5.1) mmol/L Chloride (98-107) mmol/L Carbon Dioxide (22-30) mmol/L Anion Gap (5-15) MEQ/L BUN (7-17) mg/dL Creatinine (0.52-1.04) mg/dL Estimated GFR ML/MIN Glucose (74-106) mg/dL POC Glucometer (74 to 106) mg/dL Lactic Acid 1.1 (0.4-2.0) Calcium (8.4-10.2) mg/dL Total Bilirubin (0.2-1.3) mg/dL AST (14-36) U/L ALT (0-35) U/L Alkaline Phosphatase (38-126) U/L Ammonia (9-30) umol/L Creatine Kinase (30-135) U/L Serum Total Protein (6.3-8.2) g/dL Albumin (3.5-5.0) g/dL Lipase (23-300) U/L TSH 3rd Generation (0.470-4.680) mIU/L Urine Color Yellow (Yellow) Urine Appearance Clear (Clear) Urine pH 5.5 (4.6-8.0) Ur Specific [place] 1.020 (1.005-1.030) Urine Protein 100 A (Negative) Urine Glucose (UA) Negative (Negative) mg/dL Urine Ketones Negative (Negative) Urine Blood Moderate A (Negative) Urine Nitrite Negative (Negative) Urine Bilirubin Negative (Negative) Urine Urobilinogen 0.2 (0.2) mg/dL Ur Leukocyte Esterase Negative (Negative) U Hyaline Cast (Auto) 6-10 A (0-2) /LPF Urine Microscopic RBC 0-2 (0-5) /HPF Urine Microscopic WBC 0-2 (0-5) /HPF Ur Epithelial Cells None Seen (None Seen) /HPF Urine Bacteria None Seen (None Seen) /HPF Urine Culture Reflexed ORDERED SEPARATELY (NO) Urine Opiates Level (NEGATIVE) Ur Methadone (NEGATIVE) Urine Barbiturates (NEGATIVE) Ur Phencyclidine (PCP) (NEGATIVE) Urine Amphetamine (NEGATIVE) U Benzodiazepine Level (NEGATIVE) Urine Cocaine (NEGATIVE) Urine Marijuana (THC) (NEGATIVE) Ethyl Alcohol (0-10) mg/dL 11/25/24 11/25/24 11/25/24 Range/Units 15:05 18:30 21:11 WBC (3.98-10.04) x10^3/uL RBC (3.93-5.22) x10^6/uL Hgb (11.2-15.7) g/dL Hct (34.1-44.9) % MCV (79.4-94.8) fL MCH (25.6-32.2) pg MCHC (32.2-35.5) g/dL RDW (11.7-14.4) % Plt Count (182-369) x10^3/uL MPV (9.4-12.3) fL Gran % (34.0-71.1) % Immature Gran % (Auto) (0.001-0.429) % Nucleat RBC Rel Count (0.00-0.2) % Eos # (Auto) (0.04-0.36) x10^3/uL Immature Gran # (Auto) (0.001-0.031) x10^3u/L Absolute Lymphs (auto) (1.18-3.74) x10^3/uL Absolute Monos (auto) (0.24-0.86) x10^3/uL Absolute Nucleated RBC (0.00-0.012) x10^3u/L Lymphocytes % (19.3-51.7) % Monocytes % (4.7-12.5) % Eosinophils % (0.7-5.8) % Basophils % (0.1-1.2) % Absolute Granulocytes (1.56-6.13) x10^3/uL Basophils # (0.01-0.08) x10^3/uL PT (9.4-12.5) SECONDS INR (0.8-3.0) Sodium 148 H (135-145) mmol/L Potassium 3.5 (3.5-5.1) mmol/L Chloride 118 H (98-107) mmol/L Carbon Dioxide 18 L (22-30) mmol/L Anion Gap 15.4 H (5-15) MEQ/L BUN 67 H (7-17) mg/dL Creatinine 1.36 H (0.52-1.04) mg/dL Estimated GFR 44.9 ML/MIN Glucose 121 H (74-106) mg/dL POC Glucometer 144 H (74 to 106) mg/dL Lactic Acid (0.4-2.0) Calcium 8.4 (8.4-10.2) mg/dL Total Bilirubin 0.60 (0.2-1.3) mg/dL AST 419 H (14-36) U/L ALT 94 H (0-35) U/L Alkaline Phosphatase 84 (38-126) U/L Ammonia (9-30) umol/L Creatine Kinase (30-135) U/L Serum Total Protein 6.8 (6.3-8.2) g/dL Albumin 3.8 (3.5-5.0) g/dL Lipase (23-300) U/L TSH 3rd Generation (0.470-4.680) mIU/L Urine Color (Yellow) Urine Appearance (Clear) Urine pH (4.6-8.0) Ur Specific [place] (1.005-1.030) Urine Protein (Negative) Urine Glucose (UA) (Negative) mg/dL Urine Ketones (Negative) Urine Blood (Negative) Urine Nitrite (Negative) Urine Bilirubin (Negative) Urine Urobilinogen (0.2) mg/dL Ur Leukocyte Esterase (Negative) U Hyaline Cast (Auto) (0-2) /LPF Urine Microscopic RBC (0-5) /HPF Urine Microscopic WBC (0-5) /HPF Ur Epithelial Cells (None Seen) /HPF Urine Bacteria (None Seen) /HPF Urine Culture Reflexed (NO) Urine Opiates Level (NEGATIVE) Ur Methadone (NEGATIVE) Urine Barbiturates (NEGATIVE) Ur Phencyclidine (PCP) (NEGATIVE) Urine Amphetamine (NEGATIVE) U Benzodiazepine Level (NEGATIVE) Urine Cocaine (NEGATIVE) Urine Marijuana (THC) (NEGATIVE) Ethyl Alcohol < 10 (0-10) mg/dL 11/26/24 Range/Units 05:02 WBC 5.0 (3.98-10.04) x10^3/uL RBC 3.48 L (3.93-5.22) x10^6/uL Hgb 9.5 L D (11.2-15.7) g/dL Hct 30.0 L (34.1-44.9) % MCV 86.2 (79.4-94.8) fL MCH 27.3 (25.6-32.2) pg MCHC 31.7 L (32.2-35.5) g/dL RDW 15.4 H (11.7-14.4) % Plt Count 255 (182-369) x10^3/uL MPV 10.5 (9.4-12.3) fL Gran % 63.8 (34.0-71.1) % Immature Gran % (Auto) 0.4 (0.001-0.429) % Nucleat RBC Rel Count 0.0 (0.00-0.2) % Eos # (Auto) 0.21 (0.04-0.36) x10^3/uL Immature Gran # (Auto) 0.02 (0.001-0.031) x10^3u/L Absolute Lymphs (auto) 1.29 (1.18-3.74) x10^3/uL Absolute Monos (auto) 0.26 (0.24-0.86) x10^3/uL Absolute Nucleated RBC 0.00 (0.00-0.012) x10^3u/L Lymphocytes % 26.0 (19.3-51.7) % Monocytes % 5.2 (4.7-12.5) % Eosinophils % 4.2 (0.7-5.8) % Basophils % 0.4 (0.1-1.2) % Absolute Granulocytes 3.16 (1.56-6.13) x10^3/uL Basophils # 0.02 (0.01-0.08) x10^3/uL PT (9.4-12.5) SECONDS INR (0.8-3.0) Sodium (135-145) mmol/L Potassium (3.5-5.1) mmol/L Chloride (98-107) mmol/L Carbon Dioxide (22-30) mmol/L Anion Gap (5-15) MEQ/L BUN (7-17) mg/dL Creatinine (0.52-1.04) mg/dL Estimated GFR ML/MIN Glucose (74-106) mg/dL POC Glucometer (74 to 106) mg/dL Lactic Acid (0.4-2.0) Calcium (8.4-10.2) mg/dL Total Bilirubin (0.2-1.3) mg/dL AST (14-36) U/L ALT (0-35) U/L Alkaline Phosphatase (38-126) U/L Ammonia (9-30) umol/L Creatine Kinase (30-135) U/L Serum Total Protein (6.3-8.2) g/dL Albumin (3.5-5.0) g/dL Lipase (23-300) U/L TSH 3rd Generation (0.470-4.680) mIU/L Urine Color (Yellow) Urine Appearance (Clear) Urine pH (4.6-8.0) Ur Specific [place] (1.005-1.030) Urine Protein (Negative) Urine Glucose (UA) (Negative) mg/dL Urine Ketones (Negative) Urine Blood (Negative) Urine Nitrite (Negative) Urine Bilirubin (Negative) Urine Urobilinogen (0.2) mg/dL Ur Leukocyte Esterase (Negative) U Hyaline Cast (Auto) (0-2) /LPF Urine Microscopic RBC (0-5) /HPF Urine Microscopic WBC (0-5) /HPF Ur Epithelial Cells (None Seen) /HPF Urine Bacteria (None Seen) /HPF Urine Culture Reflexed (NO) Urine Opiates Level (NEGATIVE) Ur Methadone (NEGATIVE) Urine Barbiturates (NEGATIVE) Ur Phencyclidine (PCP) (NEGATIVE) Urine Amphetamine (NEGATIVE) U Benzodiazepine Level (NEGATIVE) Urine Cocaine (NEGATIVE) Urine Marijuana (THC) (NEGATIVE) Ethyl Alcohol (0-10) mg/dL Radiology Exams: Radiology Procedures Category Date Time Status ABDOMEN AND PELVIS W/0 CONTRAS [CT] Stat Exams 11/25/24 11:46 Completed CERVICAL SPINE WO CONTRAST [CT] Stat Exams 11/25/24 11:46 Completed CHEST WITHOUT CONTRAST [CT] Stat Exams 11/25/24 11:46 Completed HEAD WITHOUT CONTRAST [CT] Stat Exams 11/25/24 11:46 Completed MRI BRAIN W/O CONTRAST [MRI] Routine Exams 11/26/24 08:00 Ordered Assessment/Plan (1) Encephalopathy Current Visit: Yes Status: Acute Assessment & Plan: -multifactorial with metabolic acidosis, thyroid dysfunction, electrolyte imbalance, and uremia -CT head identified a small focus of a remote infarct in the right parietal lobe without acute intracranial abnormalities -CMP/CBC reviewed -TSH reviewed at 14.188 -CK reviewed > 28419 -CO2 reviewed at 21 -Plan MRI Brain w/o contrast and consider neurology consult -Start ASA at 81mg 11/26: -MRI brain demonstrates atrophy and degenerative micro-ischemia within normal limits. 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 No acute intracranial abnormalities or evidence for evolving large vessel territorial stroke -CMP/CBC reviewed -Discontinue IVF NS - continue with D51/2NS -continue ASA Code(s): G93.40 - ENCEPHALOPATHY, UNSPECIFIED (2) SINTIA (acute kidney injury) Current Visit: Yes Status: Acute Assessment & Plan: -Most likely secondary to rhabdomyolysis -Creat baseline around 1.4 -1L fluid bolus in ED - will continue NS at 100ml/hr -Monitor renal/lytes closely -Avoid nephrotoxic agents 11/26/24: -Creast level now at baseline - reviewed at 1.18 -Continue to monitor renal/lytes daily -Will continue IVF- D51/2NS due to hypernatremia/rhabdo Code(s): N17.9 - ACUTE KIDNEY FAILURE, UNSPECIFIED (3) Rhabdomyolysis Current Visit: Yes Status: Acute Assessment & Plan: -CK reviewed 7957 < 12928 - trend- improving -IVF -continue with d51/2NS Code(s): M62.82 - RHABDOMYOLYSIS (4) Hypernatremia Current Visit: Yes Status: Acute Assessment & Plan: -Mild with sodium at 149 -Continue IVF 11/26/24: -Sodium level reviewed at 151- will change IVF to D51/2NS Code(s): E87.0 - HYPEROSMOLALITY AND HYPERNATREMIA (5) Metabolic acidosis Current Visit: Yes Status: Acute Assessment & Plan: -Co2 reviewed at 21- continue IVF Code(s): E87.20 - ACIDOSIS, UNSPECIFIED (6) Elevated LFTs Current Visit: Yes Status: Acute Assessment & Plan: - CT Abdomen and Pelvis revealed a healing right inferior pubic ramus fracture. Liver, pancreas, spleen, adrenal glands, kidneys, ureters, and bladder are unremarkable -2/2 to rhabdomyolosis -Tbili/Alk phos/ammonia levels unremarkable 11/26/24: -LFTs reviewed and improving - continue IVF for rhabdo Code(s): R79.89 - OTHER SPECIFIED ABNORMAL FINDINGS OF BLOOD CHEMISTRY (7) Elevated lipase Current Visit: Yes Status: Acute Assessment & Plan: -CT abd/pelvis as stated above -IVF Code(s): R74.8 - ABNORMAL LEVELS OF OTHER SERUM ENZYMES (8) Recurrent falls Current Visit: Yes Status: Acute Assessment & Plan: -Multifactorial as stated above with underlying electrolyte imbalances, uremia, and metabolic and neurological factors -CT of abdomen as stated above with healing ramus fracture - patient with h/o OA will check vitamin D level -CT head as stated above - plan for MRI -PT evaluation 11/26: -MRI brain as stated above -PT eval Code(s): R29.6 - REPEATED FALLS (9) Hypothyroid Current Visit: Yes Status: Acute Assessment & Plan: -Patient non-compliant with home meds- TSH level at 14.188 - could be contributing to cognitive impairment, muscle weakness, and balance issues, contributing to falls.-resume levothyroxine Code(s): E03.9 - HYPOTHYROIDISM, UNSPECIFIED (10) HTN (hypertension) Current Visit: Yes Status: Acute Assessment & Plan: -BP stable - continue home meds Code(s): I10 - ESSENTIAL (PRIMARY) HYPERTENSION (11) History of liver transplant Current Visit: Yes Status: Acute Assessment & Plan: -2009- continue home meds -CT ab/pelvis as stated above (12) Non compliance w medication regimen Current Visit: Yes Status: Acute Assessment & Plan: -Discussed and reinforced importance of adherence to prescribed medications to control underlying health conditions Code(s): Z91.148 - PATIENT'S OTHER NONCOMPL WITH MEDS REGIMEN FOR OTHER REASON (13) Unstageable pressure ulcer of sacral region Current Visit: Yes Status: Acute Assessment & Plan: -PT for wound assessment -Surgery consult -off load- turn q2h 11/26/24: -Surgery consulted - plan for I&D today Code(s): L89.150 - PRESSURE ULCER OF SACRAL REGION, UNSTAGEABLE (14) COPD (chronic obstructive pulmonary disease) Current Visit: Yes Status: Acute Assessment & Plan: -CT chest with no acute findings -RT eval -continue home meds VTE: SCD PPI: protonix Dispo: 1-3 days Code status: Full Code(s): G93.40 - ENCEPHALOPATHY, UNSPECIFIED (2) SINTIA (acute kidney injury) Current Visit: Yes Status: Acute Code(s): N17.9 - ACUTE KIDNEY FAILURE, UNSPECIFIED (3) Rhabdomyolysis Current Visit: Yes Status: Acute Code(s): M62.82 - RHABDOMYOLYSIS (4) Hypernatremia Current Visit: Yes Status: Acute Code(s): E87.0 - HYPEROSMOLALITY AND HYPERNATREMIA (5) Metabolic acidosis Current Visit: Yes Status: Acute Code(s): E87.20 - ACIDOSIS, UNSPECIFIED (6) Elevated LFTs Current Visit: Yes Status: Acute Code(s): R79.89 - OTHER SPECIFIED ABNORMAL FINDINGS OF BLOOD CHEMISTRY (7) Elevated lipase Current Visit: Yes Status: Acute Code(s): R74.8 - ABNORMAL LEVELS OF OTHER SERUM ENZYMES (8) Recurrent falls Current Visit: Yes Status: Acute Code(s): R29.6 - REPEATED FALLS (9) Hypothyroid Current Visit: Yes Status: Acute Code(s): E03.9 - HYPOTHYROIDISM, UNSPECIFIED (10) HTN (hypertension) Current Visit: Yes Status: Acute Code(s): I10 - ESSENTIAL (PRIMARY) HYPERTENSION (11) History of liver transplant Current Visit: Yes Status: Acute (12) Non compliance w medication regimen Current Visit: Yes Status: Acute Code(s): Z91.148 - PATIENT'S OTHER NONCOMPL WITH MEDS REGIMEN FOR OTHER REASON (13) Unstageable pressure ulcer of sacral region Current Visit: Yes Status: Acute Code(s): L89.150 - PRESSURE ULCER OF SACRAL REGION, UNSTAGEABLE (14) COPD (chronic obstructive pulmonary disease) Current Visit: Yes Status: Acute
[2024-11-26] MEDS: Dextrose 5% -0.45 NaCl 1000 ML 1,000 ML IV SCH (08:11)
[2024-11-26] MEDS ORDERED: TYLENOL 325 MG ONE (09:44)
[2024-11-26] MEDS: Protonix 40MG Tablet PO SCH (09:56)
[2024-11-26] MEDS: SYNTHROID 100 MCG PO SCH (09:56)
[2024-11-26] MEDS: TYLENOL 325 MG PO PRN (09:57)
[2024-11-26] MEDS ORDERED: MEDICATION INTERVENTION MC SCH (10:00)
[2024-11-26] MEDS ORDERED: SIROLIMUS 1 MG PO SCH (10:00)
--- NOTE | 2024-11-26 11:11 | XRAY ---
Indication: Confusion. Hallucinations. Sagittal, coronal, and axial MRI brain performed without contrast using T1, T2, FLAIR, diffusion, and ADC sequences. Comparison: None Age-appropriate global atrophy with very minimal periventricular degenerative micro-ischemia signal. High right occipital lobe demonstrates small 1.2 cm focus of encephalomalacia with surrounding gliosis favoring old infarct. No acute intracranial hemorrhage, hydrocephalus, or mass effect. Diffusion images negative for restricted signal. 7/8 cranial nerve complex bilaterally symmetric. Normal flow-void signal within major intracerebral circulation. Normal appearing craniocervical junction and sella turcica. Paranasal sinuses are clear. Impression: Atrophy and degenerative micro-ischemia within normal limits. 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 No acute intracranial abnormalities or evidence for evolving large vessel territorial stroke.
[2024-11-26] MEDS ORDERED: Quelicin Fliptop 200 MG/10 ML ONE (13:40)
[2024-11-26] MEDS ORDERED: Versed 2 MG/2 ML Injection ONE (13:41)
[2024-11-26] MEDS ORDERED: SUBLIMAZE 100 MCG/2 ML ONE (13:41)
[2024-11-26] MEDS ORDERED: propofoL IV ONE (13:41)
[2024-11-26] MEDS ORDERED: Sensorcaine 0.25% 10 ML ONE (13:46)
[2024-11-26] MEDS ORDERED: PHENYLEPHRINE HCL ONE (14:03)
[2024-11-26] MEDS: CLINDAMYCIN-D5W 600 MG/50 ML*** 600 MG/50 ML BAG IV STA (15:17)
[2024-11-26] MEDS: ULTRAM 50 MG PO PRN (23:50)
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
[2024-11-27 06:16] LABS: Absolute Neutrophil Ct (ANC) 3.14 x10^3/uL (1.56-6.13); BASOPHIL % 0.5 % (0.1-1.2); Basophil (Absolute #) 0.03 x10^3/uL (0.01-0.08); Eosinophil % 3.6 % (0.7-5.8); Hematocrit 29.2 % (34.1-44.9); Hemoglobin 9.3 g/dL (11.2-15.7); IMMATURE GRAN # 0.03 x10^3u/L (0.001-0.031); IMMATURE GRAN % 0.5 % (0.001-0.429); Lymphocyte (Absolute #) 1.81 x10^3/uL (1.18-3.74); Lymphocytes % 32.5 % (19.3-51.7); Mean Cell Volume 87.4 fL (79.4-94.8); Mean Corpuscular Hemoglobin 27.8 pg (25.6-32.2); Mean Corpuscular Hgb Concent. 31.8 g/dL (32.2-35.5); Mean Platelet Volume 10.2 fL (9.4-12.3); Monocyte (Absolute #) 0.36 x10^3/uL (0.24-0.86); Monocytes % 6.5 % (4.7-12.5); Neutrophil % 56.4 % (34.0-71.1); Platelet Count 242 x10^3/uL (182-369); Red Blood Count 3.34 x10^6/uL (3.93-5.22); Red Cell Distribution Width 15.5 % (11.7-14.4); White Blood Count 5.6 x10^3/uL (3.98-10.04)
[2024-11-27 06:31] LABS: ALBUMIN 3.3 g/dL (3.5-5.0); ANION GAP 11.7 MEQ/L (5-15); BILIRUBIN,TOTAL 0.4 mg/dL (0.2-1.3); Calcium 8.4 mg/dL (8.4-10.2); EST GLOMERULAR FILTRATION RATE 64.9 ML/MIN; Potassium 3.7 mmol/L (3.5-5.1)
[2024-11-27] MEDS: PATIENT OWN MEDICATION PO SCH (14:11)
[2024-11-27] MEDS: ULTRAM 50 MG PO PRN (15:46)
[2024-11-27] MEDS: Nicoderm CQ 21 MG TOP SCH (17:06)
[2024-11-28 05:48] LABS: Absolute Neutrophil Ct (ANC) 3.11 x10^3/uL (1.56-6.13); BASOPHIL % 0.5 % (0.1-1.2); Basophil (Absolute #) 0.03 x10^3/uL (0.01-0.08); Eosinophil % 5.1 % (0.7-5.8); Eosinophil (Absolute #) 0.33 x10^3/uL (0.04-0.36); Hemoglobin 9.4 g/dL (11.2-15.7); IMMATURE GRAN # 0.06 x10^3u/L (0.001-0.031); IMMATURE GRAN % 0.9 % (0.001-0.429); Lymphocyte (Absolute #) 2.34 x10^3/uL (1.18-3.74); Lymphocytes % 36.4 % (19.3-51.7); Mean Cell Volume 86.2 fL (79.4-94.8); Mean Corpuscular Hgb Concent. 31.3 g/dL (32.2-35.5); Mean Platelet Volume 9.9 fL (9.4-12.3); Monocyte (Absolute #) 0.55 x10^3/uL (0.24-0.86); Monocytes % 8.6 % (4.7-12.5); Neutrophil % 48.5 % (34.0-71.1); Platelet Count 248 x10^3/uL (182-369); Red Blood Count 3.48 x10^6/uL (3.93-5.22); Red Cell Distribution Width 15.4 % (11.7-14.4); White Blood Count 6.4 x10^3/uL (3.98-10.04)
[2024-11-28 06:08] LABS: ALBUMIN 3.2 g/dL (3.5-5.0); ANION GAP 12.2 MEQ/L (5-15); BILIRUBIN,TOTAL 0.3 mg/dL (0.2-1.3); Calcium 8.6 mg/dL (8.4-10.2); Creatinine 1 1.03 mg/dL (0.52-1.04); EST GLOMERULAR FILTRATION RATE 62.6 ML/MIN; Potassium 3.8 mmol/L (3.5-5.1)
--- NOTE | 2024-11-28 06:20 | PCM.NOTE ---
Date and Time: 11/28/24 0619 Subjective Assessment: Ms. Dwyer is a 59 year old female with a complex medical history including HTN, OH, COPD, hypothyroidism, DDD, cirrhosis, liver transplant 2009, CKD, medication non-compliance who presented to ED 11/25/24 for evaluation of repeated falls and hallucinations. Patient is A&O to self and place - very poor historian. Mother is currently not at bedside to provide history. ER documentation notes that patient was hallucinating at PCP office. Patient has repeated falls with injuries to the back bruising all over. Questionable history of substance abuse. Upon exam patient is noted with an unstageable sacral and mid back wound. Patient also reported to me that she was born with just one kidney - although CT scan did not report any abnormalities. RN reports that patient has been having hallucinations since arriving on floor and grabbing at things in the air. Vital signs stable upon arrival. CT Abdomen and Pelvis revealed a healing right inferior pubic ramus fracture. CT Cervical Spine showed incidental findings of osteopenia, congenital fusion of C2-C3, a C6 vertebral hemangioma, and bilateral carotid calcifications; otherwise unremarkable.CT Chest with no acute findings. CT Head identified a small focus of a remote infarct in the right parietal lobe without acute intracranial abnormalities. MRI Brain with Atrophy and degenerative micro-ischemia within normal limits. 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 No acute intracranial abnormalities or evidence for evolving large vessel territorial stroke Lab findings notable for hypernatremia, acute kidney injury, elevated liver function tests, elevated thyroid-stimulating hormone,elevated cpk, elevated lipase, and metabolic acidosis. Urinalysis and urine drug screen were unremarkable. Treatment in ED consisted of a 1L fluid bolus. Admit for encephalopathy, rhabdomyolysis, SINTIA, and electrolyte imbalances. 11/26/24: Met with patient bedside. A&O to self. She is still somewhat confused but appears more alert today. MRI Brain with no new abnormalities - re-identified remote infarct of the right parietal lobe. SINTIA improved. Acidosis improved. CK levels improving. Sodium levels increased this morning. Will discontinue NS and change IVF to DS1/2NS. Surgery consulted for sacral/back wounds- patient to undergo debridement today. 11/27/24: No overnight events noted. Labs improved. Will discontinue fluids. I&D of sacrum and spine wounds performed 11/26/24- patient tolerated well. Recommended placement to the patient for continued wound care and strengthening due to recurrent falls. Patient states she will consider it. Mother to bring in Sirolimus today as pharmacy does not carry this medication. 11/28/24: Met with patient bedside. Endorses chronic back pain. Remains confused but at baseline per mother. Labs continue to improve. Sirolimus has been continued. Patient considering placement on discharge. PT eval tomorrow. CM to discuss with patient. Denies fever,cough, sob, cp, abdominal pain, TURK, dizziness, N/V/D. - Review of Systems Constitutional: Weakness Eyes: No Symptoms Ears, Nose, & Throat: No Symptoms Respiratory: No Symptoms Cardiac: No Symptoms Abdominal/Gastrointestinal: No Symptoms Genitourinary Symptoms: No Symptoms Musculoskeletal: Back Pain Skin: Decubiti, Skin Lesions Neurological: No Symptoms Psychological: Memory Loss Endocrine: No Symptoms Hematologic/Lymphatic: No Symptoms Immunological/Allergic: No Symptoms Objective Exam General Appearance: no apparent distress Neurologic Exam: alert, cooperative, disoriented, confusion Skin Exam: decubitus Eye Exam: PERRL Ears, Nose, Throat Exam: normal ENT inspection Neck Exam: normal inspection Respiratory Exam: normal breath sounds, lungs clear Cardiovascular Exam: regular rate/rhythm, normal heart sounds Gastrointestinal/Abdomen Exam: soft, normal bowel sounds Extremity Exam: normal inspection Objective Data Vital Signs: Vital Signs - 24 hr Temp Pulse Resp BP Pulse Ox 11/28/24 05:00 97.7 F 80 20 153/86 97 11/28/24 00:00 18 11/27/24 23:51 97.0 F 89 18 120/83 96 11/27/24 20:00 20 11/27/24 19:51 97.9 F 87 16 134/77 96 11/27/24 16:00 98.1 F 87 18 127/75 97 11/27/24 12:00 97.5 F 83 18 108/69 98 11/27/24 11:47 85 16 96 11/27/24 08:00 97.8 F 87 19 130/77 95 Pain Assessment - Last Documented Pain Intensity 4 Pain Scale Used 0-10 Pain Scale Intake and Output: Intake & Output 11/25/24 11/26/24 11/27/24 11/28/24 11:59 11:59 11:59 12:59 Intake Total 2262 3767 1040 Output Total 500 1500 1400 Balance 1762 2267 -360 Weight 37.5 kg 38.3 kg 42.6 kg 42.8 kg Lab Results: Lab Results-Last 24 Hours 11/27/24 11/27/24 11/27/24 Range/Units 04:00 06:14 06:14 WBC 5.6 (3.98-10.04) x10^3/uL RBC 3.34 L (3.93-5.22) x10^6/uL Hgb 9.3 L (11.2-15.7) g/dL Hct 29.2 L (34.1-44.9) % MCV 87.4 (79.4-94.8) fL MCH 27.8 (25.6-32.2) pg MCHC 31.8 L (32.2-35.5) g/dL RDW 15.5 H (11.7-14.4) % Plt Count 242 (182-369) x10^3/uL MPV 10.2 (9.4-12.3) fL Gran % 56.4 (34.0-71.1) % Immature Gran % (Auto) 0.5 H (0.001-0.429) % Nucleat RBC Rel Count 0.0 (0.00-0.2) % Eos # (Auto) 0.20 (0.04-0.36) x10^3/uL Immature Gran # (Auto) 0.03 (0.001-0.031) x10^3u/L Absolute Lymphs (auto) 1.81 (1.18-3.74) x10^3/uL Absolute Monos (auto) 0.36 (0.24-0.86) x10^3/uL Absolute Nucleated RBC 0.00 (0.00-0.012) x10^3u/L Lymphocytes % 32.5 (19.3-51.7) % Monocytes % 6.5 (4.7-12.5) % Eosinophils % 3.6 (0.7-5.8) % Basophils % 0.5 (0.1-1.2) % Absolute Granulocytes 3.14 (1.56-6.13) x10^3/uL Basophils # 0.03 (0.01-0.08) x10^3/uL Sodium 144 (135-145) mmol/L Potassium 3.7 (3.5-5.1) mmol/L Chloride 116 H (98-107) mmol/L Carbon Dioxide 20 L (22-30) mmol/L Anion Gap 11.7 (5-15) MEQ/L BUN 27 H (7-17) mg/dL Creatinine 1.00 (0.52-1.04) mg/dL Estimated GFR 64.9 ML/MIN Glucose 92 (74-106) mg/dL POC Glucometer (74 to 106) mg/dL Hemoglobin A1c 5.25 (4.5-6.0) % Calcium 8.4 (8.4-10.2) mg/dL Total Bilirubin 0.40 (0.2-1.3) mg/dL AST 151 H (14-36) U/L ALT 62 H (0-35) U/L Alkaline Phosphatase 65 (38-126) U/L Creatine Kinase 3170 H (30-135) U/L Serum Total Protein 6.0 L (6.3-8.2) g/dL Albumin 3.3 L (3.5-5.0) g/dL 11/27/24 11/27/24 11/27/24 Range/Units 08:22 11:50 16:45 WBC (3.98-10.04) x10^3/uL RBC (3.93-5.22) x10^6/uL Hgb (11.2-15.7) g/dL Hct (34.1-44.9) % MCV (79.4-94.8) fL MCH (25.6-32.2) pg MCHC (32.2-35.5) g/dL RDW (11.7-14.4) % Plt Count (182-369) x10^3/uL MPV (9.4-12.3) fL Gran % (34.0-71.1) % Immature Gran % (Auto) (0.001-0.429) % Nucleat RBC Rel Count (0.00-0.2) % Eos # (Auto) (0.04-0.36) x10^3/uL Immature Gran # (Auto) (0.001-0.031) x10^3u/L Absolute Lymphs (auto) (1.18-3.74) x10^3/uL Absolute Monos (auto) (0.24-0.86) x10^3/uL Absolute Nucleated RBC (0.00-0.012) x10^3u/L Lymphocytes % (19.3-51.7) % Monocytes % (4.7-12.5) % Eosinophils % (0.7-5.8) % Basophils % (0.1-1.2) % Absolute Granulocytes (1.56-6.13) x10^3/uL Basophils # (0.01-0.08) x10^3/uL Sodium (135-145) mmol/L Potassium (3.5-5.1) mmol/L Chloride (98-107) mmol/L Carbon Dioxide (22-30) mmol/L Anion Gap (5-15) MEQ/L BUN (7-17) mg/dL Creatinine (0.52-1.04) mg/dL Estimated GFR ML/MIN Glucose (74-106) mg/dL POC Glucometer 97 116 H 131 H (74 to 106) mg/dL Hemoglobin A1c (4.5-6.0) % Calcium (8.4-10.2) mg/dL Total Bilirubin (0.2-1.3) mg/dL AST (14-36) U/L ALT (0-35) U/L Alkaline Phosphatase (38-126) U/L Creatine Kinase (30-135) U/L Serum Total Protein (6.3-8.2) g/dL Albumin (3.5-5.0) g/dL 11/27/24 11/28/24 11/28/24 Range/Units 21:36 05:40 05:40 WBC 6.4 (3.98-10.04) x10^3/uL RBC 3.48 L (3.93-5.22) x10^6/uL Hgb 9.4 L (11.2-15.7) g/dL Hct 30.0 L (34.1-44.9) % MCV 86.2 (79.4-94.8) fL MCH 27.0 (25.6-32.2) pg MCHC 31.3 L (32.2-35.5) g/dL RDW 15.4 H (11.7-14.4) % Plt Count 248 (182-369) x10^3/uL MPV 9.9 (9.4-12.3) fL Gran % 48.5 (34.0-71.1) % Immature Gran % (Auto) 0.9 H (0.001-0.429) % Nucleat RBC Rel Count 0.0 (0.00-0.2) % Eos # (Auto) 0.33 (0.04-0.36) x10^3/uL Immature Gran # (Auto) 0.06 H (0.001-0.031) x10^3u/L Absolute Lymphs (auto) 2.34 (1.18-3.74) x10^3/uL Absolute Monos (auto) 0.55 (0.24-0.86) x10^3/uL Absolute Nucleated RBC 0.00 (0.00-0.012) x10^3u/L Lymphocytes % 36.4 (19.3-51.7) % Monocytes % 8.6 (4.7-12.5) % Eosinophils % 5.1 (0.7-5.8) % Basophils % 0.5 (0.1-1.2) % Absolute Granulocytes 3.11 (1.56-6.13) x10^3/uL Basophils # 0.03 (0.01-0.08) x10^3/uL Sodium 143 (135-145) mmol/L Potassium 3.8 (3.5-5.1) mmol/L Chloride 113 H (98-107) mmol/L Carbon Dioxide 22 (22-30) mmol/L Anion Gap 12.2 (5-15) MEQ/L BUN 23 H (7-17) mg/dL Creatinine 1.03 (0.52-1.04) mg/dL Estimated GFR 62.6 ML/MIN Glucose 84 (74-106) mg/dL POC Glucometer 94 (74 to 106) mg/dL Hemoglobin A1c (4.5-6.0) % Calcium 8.6 (8.4-10.2) mg/dL Total Bilirubin 0.30 (0.2-1.3) mg/dL AST 103 H (14-36) U/L ALT 52 H (0-35) U/L Alkaline Phosphatase 65 (38-126) U/L Creatine Kinase 1309 H (30-135) U/L Serum Total Protein 6.0 L (6.3-8.2) g/dL Albumin 3.2 L (3.5-5.0) g/dL Radiology Exams: Radiology Procedures Category Date Time Status MRI BRAIN W/O CONTRAST [MRI] Routine Exams 11/26/24 08:00 Completed Assessment/Plan (1) Encephalopathy Current Visit: Yes Status: Acute Assessment & Plan: -multifactorial with metabolic acidosis, thyroid dysfunction, electrolyte imbalance, and uremia -CT head identified a small focus of a remote infarct in the right parietal lobe without acute intracranial abnormalities -CMP/CBC reviewed -TSH reviewed at 14.188 -CK reviewed > 86931 -CO2 reviewed at 21 -Plan MRI Brain w/o contrast and consider neurology consult -Start ASA at 81mg 11/26: -MRI brain demonstrates atrophy and degenerative micro-ischemia within normal limits. 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 No acute intracranial abnormalities or evidence for evolving large vessel territorial stroke -CMP/CBC reviewed -Discontinue IVF NS - continue with D51/2NS -continue ASA 11/27/24: -Improving some- will discuss with mother what baseline mentation is -CMP/CBC -reviewed -continue ASA 11/28: -Patient now at baseline mentation per mother -CMP/CBC reviewed Code(s): G93.40 - ENCEPHALOPATHY, UNSPECIFIED (2) SINTIA (acute kidney injury) Current Visit: Yes Status: Acute Assessment & Plan: -Most likely secondary to rhabdomyolysis -Creat baseline around 1.4 -1L fluid bolus in ED - will continue NS at 100ml/hr -Monitor renal/lytes closely -Avoid nephrotoxic agents 11/26/24: -Creast level now at baseline - reviewed at 1.18 -Continue to monitor renal/lytes daily -Will continue IVF- D51/2NS due to hypernatremia/rhabdo 11/27/24: -Creat reviewed at 1.00- SINTIA resolved - d/c fluids Code(s): N17.9 - ACUTE KIDNEY FAILURE, UNSPECIFIED (3) Rhabdomyolysis Current Visit: Yes Status: Acute Assessment & Plan: -CK reviewed 7957 < 74093 - trend- improving -IVF -continue with d51/2NS 11/27/24: -CK level reviewed at 3170<7957<>1600 - trend -discontinue fluids 11/28/24: -CK reviewed and continues to improve 1309<3170<7957< ->1600 -trend Code(s): M62.82 - RHABDOMYOLYSIS (4) Hypernatremia Current Visit: Yes Status: Acute Assessment & Plan: -Mild with sodium at 149 -Continue IVF 11/26/24: -Sodium level reviewed at 151- will change IVF to D51/2NS 11/27/24: -Sodium level reviewed and WNL at 144 -discontinue IVF 11/28: -Resolved -Sodium reviewed and remain WNL at 143 Code(s): E87.0 - HYPEROSMOLALITY AND HYPERNATREMIA (5) Metabolic acidosis Current Visit: Yes Status: Acute Assessment & Plan: -Co2 reviewed at 21- continue IVF 11/27: -Co2 reviewed at 20 11/28: Co2 reviewed at 22 -Resolved Code(s): E87.20 - ACIDOSIS, UNSPECIFIED (6) Elevated LFTs Current Visit: Yes Status: Acute Assessment & Plan: - CT Abdomen and Pelvis revealed a healing right inferior pubic ramus fracture. Liver, pancreas, spleen, adrenal glands, kidneys, ureters, and bladder are unremarkable -2/2 to rhabdomyolosis -Tbili/Alk phos/ammonia levels unremarkable 11/26/24: -LFTs reviewed and improving - continue IVF for rhabdo 11/27/24: -LFTs reviewed and continue to improve AST 151 <260 <419/ ALT 62 < 79<94 11/28: -LFTs continue to down-trend AST at 103/ ALT at 52 Code(s): R79.89 - OTHER SPECIFIED ABNORMAL FINDINGS OF BLOOD CHEMISTRY (7) Elevated lipase Current Visit: Yes Status: Acute Assessment & Plan: -CT abd/pelvis as stated above -IVF Code(s): R74.8 - ABNORMAL LEVELS OF OTHER SERUM ENZYMES (8) Recurrent falls Current Visit: Yes Status: Acute Assessment & Plan: -Multifactorial as stated above with underlying electrolyte imbalances, uremia, and metabolic and neurological factors -CT of abdomen as stated above with healing ramus fracture - patient with h/o OA will check vitamin D level -CT head as stated above - plan for MRI -PT evaluation 11/26: -MRI brain as stated above -PT eval 11/28: -Patient considering rehab stay -PT eval Friday Code(s): R29.6 - REPEATED FALLS (9) Hypothyroid Current Visit: Yes Status: Acute Assessment & Plan: -Patient non-compliant with home meds- TSH level at 14.188 - could be contributing to cognitive impairment, muscle weakness, and balance issues, contributing to falls.-resume levothyroxine - will need rechecked as OP Code(s): E03.9 - HYPOTHYROIDISM, UNSPECIFIED (10) HTN (hypertension) Current Visit: Yes Status: Acute Assessment & Plan: -BP stable - continue home meds Code(s): I10 - ESSENTIAL (PRIMARY) HYPERTENSION (11) History of liver transplant Current Visit: Yes Status: Acute Assessment & Plan: -2008- continue home meds -CT ab/pelvis as stated above 11/27: -Mother is bringing in sirolimus today 11/28: -Sirolimus continued (12) Non compliance w medication regimen Current Visit: Yes Status: Acute Assessment & Plan: -Discussed and reinforced importance of adherence to prescribed medications to control underlying health conditions Code(s): Z91.148 - PATIENT'S OTHER NONCOMPL WITH MEDS REGIMEN FOR OTHER REASON (13) Unstageable pressure ulcer of sacral region Current Visit: Yes Status: Acute Assessment & Plan: -PT for wound assessment -Surgery consult -off load- turn q2h 11/26/24: -Surgery consulted - plan for I&D today 11/27/24: -Wound care as instructed by surgery Code(s): L89.150 - PRESSURE ULCER OF SACRAL REGION, UNSTAGEABLE (14) COPD (chronic obstructive pulmonary disease) Current Visit: Yes Status: Acute Assessment & Plan: -CT chest with no acute findings -RT eval -continue home meds VTE: SCD PPI: protonix Dispo: 1-3 days Code status: Full Code(s): G93.40 - ENCEPHALOPATHY, UNSPECIFIED (2) SINTIA (acute kidney injury) Current Visit: Yes Status: Acute Code(s): N17.9 - ACUTE KIDNEY FAILURE, UNSPECIFIED (3) Rhabdomyolysis Current Visit: Yes Status: Acute Code(s): M62.82 - RHABDOMYOLYSIS (4) Hypernatremia Current Visit: Yes Status: Acute Code(s): E87.0 - HYPEROSMOLALITY AND HYPERNATREMIA (5) Metabolic acidosis Current Visit: Yes Status: Acute Code(s): E87.20 - ACIDOSIS, UNSPECIFIED (6) Elevated LFTs Current Visit: Yes Status: Acute Code(s): R79.89 - OTHER SPECIFIED ABNORMAL FINDINGS OF BLOOD CHEMISTRY (7) Elevated lipase Current Visit: Yes Status: Acute Code(s): R74.8 - ABNORMAL LEVELS OF OTHER SERUM ENZYMES (8) Recurrent falls Current Visit: Yes Status: Acute Code(s): R29.6 - REPEATED FALLS (9) Hypothyroid Current Visit: Yes Status: Acute Code(s): E03.9 - HYPOTHYROIDISM, UNSPECIFIED (10) HTN (hypertension) Current Visit: Yes Status: Acute Code(s): I10 - ESSENTIAL (PRIMARY) HYPERTENSION (11) History of liver transplant Current Visit: Yes Status: Acute (12) Non compliance w medication regimen Current Visit: Yes Status: Acute Code(s): Z91.148 - PATIENT'S OTHER NONCOMPL WITH MEDS REGIMEN FOR OTHER REASON (13) Unstageable pressure ulcer of sacral region Current Visit: Yes Status: Acute Code(s): L89.150 - PRESSURE ULCER OF SACRAL REGION, UNSTAGEABLE (14) COPD (chronic obstructive pulmonary disease) Current Visit: Yes Status: Acute
[2024-11-28] MEDS: ULTRAM 50 MG PO PRN (15:33)
[2024-11-29 05:24] LABS: BASOPHIL % 0.9 % (0.1-1.2); Basophil (Absolute #) 0.06 x10^3/uL (0.01-0.08); Eosinophil % 4.5 % (0.7-5.8); Hematocrit 30.8 % (34.1-44.9); Hemoglobin 9.7 g/dL (11.2-15.7); IMMATURE GRAN # 0.12 x10^3u/L (0.001-0.031); IMMATURE GRAN % 1.8 % (0.001-0.429); Lymphocyte (Absolute #) 2.21 x10^3/uL (1.18-3.74); Lymphocytes % 33.2 % (19.3-51.7); Mean Cell Volume 86.8 fL (79.4-94.8); Mean Corpuscular Hemoglobin 27.3 pg (25.6-32.2); Mean Corpuscular Hgb Concent. 31.5 g/dL (32.2-35.5); Mean Platelet Volume 9.8 fL (9.4-12.3); Monocyte (Absolute #) 0.66 x10^3/uL (0.24-0.86); Monocytes % 9.9 % (4.7-12.5); Neutrophil % 49.7 % (34.0-71.1); Platelet Count 287 x10^3/uL (182-369); Red Blood Count 3.55 x10^6/uL (3.93-5.22); Red Cell Distribution Width 15.4 % (11.7-14.4); White Blood Count 6.7 x10^3/uL (3.98-10.04)
[2024-11-29 05:47] LABS: ALBUMIN 3.2 g/dL (3.5-5.0); ANION GAP 11.1 MEQ/L (5-15); BILIRUBIN,TOTAL 0.3 mg/dL (0.2-1.3); Calcium 8.3 mg/dL (8.4-10.2); Creatinine 1 0.91 mg/dL (0.52-1.04); EST GLOMERULAR FILTRATION RATE 72.7 ML/MIN; Potassium 3.6 mmol/L (3.5-5.1); Total Protein 5.9 g/dL (6.3-8.2)
--- NOTE | 2024-11-29 11:18 | CONS ---
HISTORY: She is markedly debilitated. She is markedly malnutritioned. She has had a liver transplant. She has developed 2 areas on back, 1 on the higher back at the base of the neck and 1 down at the base of the lumbar sacral area. The upper one is about 2 cm. It has a eschar that is 2.5 to 3 cm circular. The lower back area has a more oval-shaped area that is 5 cm x 4 cm. They are both eschars. They are both going to need to be debrided. Her family is aware of this. She is aware of this. Her medical doctor is aware of this and we are preparing her for surgical debridement.
--- NOTE | 2024-11-29 11:20 | OP ---
SURGERY DATE/TIME: 11/26/2024 [id number] PREOPERATIVE DIAGNOSIS: Two decubiti of the back, 3 cm and 5 cm. POSTOPERATIVE DIAGNOSIS: Two decubiti of the back, 3 cm and 5 cm. PROCEDURE: Full-thickness skin, subcutaneous tissue down to but not including fascia was removed off the upper lesion and the same was removed off the lower lesion. The upper lesion measured 2.5 cm circular, the lower 5 x 3 cm. SURGEON: Cheikh Deras MD DESCRIPTION OF PROCEDURE AND FINDINGS: This took the necrotic eschar off both of these 2 areas. Hemostasis obtained with electrocautery. Dissection was performed with cautery. Two sterile dressings applied. Patient tolerated the procedure satisfactorily.
--- NOTE | 2024-11-29 13:24 | PCM.NOTE ---
Date and Time: 11/29/24 1317 Subjective Assessment: 11/29/24 Ms. Dwyer is a 59-year-old female with a complex medical history including hypertension, myocardial infarction, COPD, hypothyroidism, degenerative disc disease, cirrhosis, liver transplant (2008), chronic kidney disease, and medication non-compliance, who presented to the ED on 11/25/24 for evaluation of repeated falls and hallucinations. She was alert and oriented to self and place but had difficulty providing a clear history. She had been hallucinating at her PCPs office and had multiple falls with significant bruising. On examination, she was found to have an unstageable sacral and mid-back wound. 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 Throughout her hospital stay, the patient was noted to be having hallucinations and was grabbing at things in the air. Her labs showed hypernatremia, acute kidney injury, elevated liver function tests, elevated thyroid-stimulating hormone, and other abnormalities. 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 Treatment in the ED included a 1L fluid bolus, and she was admitted for encephalopathy, rhabdomyolysis, acute kidney injury, and electrolyte imbalances. By 11/26/24, her condition showed improvement, with better alertness and improved lab values. She underwent debridement of the sacral and back wounds. On 11/27/24, her labs continued to improve, and she was considering placement for continued care. On 11/28/24, her chronic back pain persisted, and she remained confused but was considered to be at her baseline. PT was scheduled, and case management was involved to discuss placement options. By 11/29/24, Ms. Dwyer remained confused and was only oriented to person. Her mother requested a rehab facility for placement, as Ms. Dwyer continued to experience weakness and memory issues. IV fluids were restarted due to an elevated CK level of 856. MRI and CT scans showed no acute concerns. Plans for placement were discussed with case management. Pt is psychologically stable and not a danger to herself or others. - Review of Systems Constitutional: No Fever, No Chills Eyes: No Symptoms Ears, Nose, & Throat: No Symptoms Respiratory: No Cough, No Short Of Breath Cardiac: No Chest Pain, No Edema, No Syncope Abdominal/Gastrointestinal: No Abdominal Pain, No Nausea, No Vomiting, No Diarrhea Genitourinary Symptoms: No Dysuria Musculoskeletal: No Back Pain, No Neck Pain Skin: Skin Lesions (on back covered), No Rash Neurological: Other (confusion), No Dizziness, No Focal Weakness, No Sensory Changes Psychological: No Symptoms Endocrine: No Symptoms Hematologic/Lymphatic: No Symptoms Immunological/Allergic: No Symptoms Objective Exam General Appearance: no apparent distress, alert Neurologic Exam: alert (to person only), cooperative, normal mood/affect, nml cerebellar function, sensation nml, motor weakness, No motor deficits Skin Exam: normal color, warm, dry, other (back wounds covered) Eye Exam: PERRL, EOMI, eyes nml inspection Ears, Nose, Throat Exam: normal ENT inspection, pharynx normal, moist mucous membranes Neck Exam: normal inspection, non-tender, supple, full range of motion Respiratory Exam: normal breath sounds, lungs clear, No respiratory distress Cardiovascular Exam: regular rate/rhythm, normal heart sounds Gastrointestinal/Abdomen Exam: soft, No tenderness, No mass Extremity Exam: normal inspection, normal range of motion Back Exam: normal inspection, normal range of motion, No CVA tenderness, No vertebral tenderness Pelvic Exam: deferred Rectal Exam: deferred Objective Data Vital Signs: Vital Signs - 24 hr Temp Pulse Resp BP Pulse Ox 11/29/24 12:00 97.7 F 79 16 99/72 98 11/29/24 10:17 86 16 93 L 11/29/24 07:41 97.6 F 86 16 149/79 95 11/29/24 05:00 18 11/29/24 04:00 97.6 F 83 16 114/64 96 11/29/24 01:00 16 11/28/24 23:41 97.8 F 81 16 127/56 98 11/28/24 21:00 18 11/28/24 20:00 97.8 F 85 18 123/64 97 11/28/24 17:00 97.6 F 82 18 117/73 97 Pain Assessment - Last Documented Pain Intensity 0 Pain Scale Used 0-10 Pain Scale Intake and Output: Intake & Output 11/27/24 11/28/24 11/29/24 11/30/24 10:59 11:59 11:59 11:59 Intake Total 2070 Output Total 1100 Balance 970 Weight 42.1 kg Lab Results: Lab Results-Last 24 Hours 11/28/24 11/28/24 11/29/24 Range/Units 16:40 22:12 05:19 WBC 6.7 (3.98-10.04) x10^3/uL RBC 3.55 L (3.93-5.22) x10^6/uL Hgb 9.7 L (11.2-15.7) g/dL Hct 30.8 L (34.1-44.9) % MCV 86.8 (79.4-94.8) fL MCH 27.3 (25.6-32.2) pg MCHC 31.5 L (32.2-35.5) g/dL RDW 15.4 H (11.7-14.4) % Plt Count 287 (182-369) x10^3/uL MPV 9.8 (9.4-12.3) fL Gran % 49.7 (34.0-71.1) % Immature Gran % (Auto) 1.8 H (0.001-0.429) % Nucleat RBC Rel Count 0.0 (0.00-0.2) % Eos # (Auto) 0.30 (0.04-0.36) x10^3/uL Immature Gran # (Auto) 0.12 H (0.001-0.031) x10^3u/L Absolute Lymphs (auto) 2.21 (1.18-3.74) x10^3/uL Absolute Monos (auto) 0.66 (0.24-0.86) x10^3/uL Absolute Nucleated RBC 0.00 (0.00-0.012) x10^3u/L Lymphocytes % 33.2 (19.3-51.7) % Monocytes % 9.9 (4.7-12.5) % Eosinophils % 4.5 (0.7-5.8) % Basophils % 0.9 (0.1-1.2) % Absolute Granulocytes 3.30 (1.56-6.13) x10^3/uL Basophils # 0.06 (0.01-0.08) x10^3/uL Sodium (135-145) mmol/L Potassium (3.5-5.1) mmol/L Chloride (98-107) mmol/L Carbon Dioxide (22-30) mmol/L Anion Gap (5-15) MEQ/L BUN (7-17) mg/dL Creatinine (0.52-1.04) mg/dL Estimated GFR ML/MIN Glucose (74-106) mg/dL POC Glucometer 132 H 102 (74 to 106) mg/dL Calcium (8.4-10.2) mg/dL Total Bilirubin (0.2-1.3) mg/dL AST (14-36) U/L ALT (0-35) U/L Alkaline Phosphatase (38-126) U/L Creatine Kinase (30-135) U/L Serum Total Protein (6.3-8.2) g/dL Albumin (3.5-5.0) g/dL 11/29/24 11/29/24 11/29/24 Range/Units 05:19 07:23 11:50 WBC (3.98-10.04) x10^3/uL RBC (3.93-5.22) x10^6/uL Hgb (11.2-15.7) g/dL Hct (34.1-44.9) % MCV (79.4-94.8) fL MCH (25.6-32.2) pg MCHC (32.2-35.5) g/dL RDW (11.7-14.4) % Plt Count (182-369) x10^3/uL MPV (9.4-12.3) fL Gran % (34.0-71.1) % Immature Gran % (Auto) (0.001-0.429) % Nucleat RBC Rel Count (0.00-0.2) % Eos # (Auto) (0.04-0.36) x10^3/uL Immature Gran # (Auto) (0.001-0.031) x10^3u/L Absolute Lymphs (auto) (1.18-3.74) x10^3/uL Absolute Monos (auto) (0.24-0.86) x10^3/uL Absolute Nucleated RBC (0.00-0.012) x10^3u/L Lymphocytes % (19.3-51.7) % Monocytes % (4.7-12.5) % Eosinophils % (0.7-5.8) % Basophils % (0.1-1.2) % Absolute Granulocytes (1.56-6.13) x10^3/uL Basophils # (0.01-0.08) x10^3/uL Sodium 141 (135-145) mmol/L Potassium 3.6 (3.5-5.1) mmol/L Chloride 107 (98-107) mmol/L Carbon Dioxide 27 (22-30) mmol/L Anion Gap 11.1 (5-15) MEQ/L BUN 15 (7-17) mg/dL Creatinine 0.91 (0.52-1.04) mg/dL Estimated GFR 72.7 ML/MIN Glucose 93 (74-106) mg/dL POC Glucometer 93 106 (74 to 106) mg/dL Calcium 8.3 L (8.4-10.2) mg/dL Total Bilirubin 0.30 (0.2-1.3) mg/dL AST 76 H (14-36) U/L ALT 43 H (0-35) U/L Alkaline Phosphatase 65 (38-126) U/L Creatine Kinase 856 H (30-135) U/L Serum Total Protein 5.9 L (6.3-8.2) g/dL Albumin 3.2 L (3.5-5.0) g/dL Assessment/Plan (1) Encephalopathy Current Visit: Yes Status: Acute Assessment & Plan: - CT head: identified a small focus of a remote infarct in the right parietal lobe without acute intracranial abnormalities - MRI brain: demonstrates atrophy and degenerative micro-ischemia within normal limits. 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 No acute intracranial abnormalities or evidence for evolving large vessel territorial stroke -TSH reviewed at 14.188- not taking home meds as prescribed- restarted meds - CK elevated - CBC, CMP reviewed Code(s): G93.40 - ENCEPHALOPATHY, UNSPECIFIED (2) Recurrent falls Current Visit: Yes Status: Acute Assessment & Plan: - Multifactorial as stated above with underlying electrolyte imbalances, uremia, and metabolic and neurological factors - CT of abdomen as stated above with healing ramus fracture - patient with h/o OA will check vitamin D level - CT head reviewed - MRI negative - PT/OT evaluation - Need for placement- rehab Code(s): R29.6 - REPEATED FALLS (3) Rhabdomyolysis Current Visit: Yes Status: Acute Assessment & Plan: - IVF - CK 856- improving Code(s): M62.82 - RHABDOMYOLYSIS (4) Unstageable pressure ulcer of sacral region Current Visit: Yes Status: Acute Assessment & Plan: - PT for wound assessment - Surgery consult - off load- turn q2h - I&D on 11/26 by GS - Wound care as instructed by surgery Code(s): L89.150 - PRESSURE ULCER OF SACRAL REGION, UNSTAGEABLE (5) Elevated LFTs Current Visit: Yes Status: Acute Assessment & Plan: - Improving AST 76, ALT 43- trend Code(s): R79.89 - OTHER SPECIFIED ABNORMAL FINDINGS OF BLOOD CHEMISTRY (6) Elevated lipase Current Visit: Yes Status: Acute Assessment & Plan: - 518 on admission - recheck in AM -CT abd/pelvis: revealed a healing right inferior pubic ramus fracture. Liver, pancreas, spleen, adrenal glands, kidneys, ureters, and bladder are unremarkable -IVF Code(s): R74.8 - ABNORMAL LEVELS OF OTHER SERUM ENZYMES (7) Hypothyroid Current Visit: Yes Status: Chronic Assessment & Plan: - TSH 14.188 on admission - Continue home meds as she has not been taking as prescribed - F/U with PCP OP for monitoring Code(s): E03.9 - HYPOTHYROIDISM, UNSPECIFIED (8) Non compliance w medication regimen Current Visit: Yes Status: Acute Assessment & Plan: - not taking meds at home as prescribed Code(s): Z91.148 - PATIENT'S OTHER NONCOMPL WITH MEDS REGIMEN FOR OTHER REASON (9) SINTIA (acute kidney injury) Current Visit: Yes Status: Resolved Assessment & Plan: - resolved Code(s): N17.9 - ACUTE KIDNEY FAILURE, UNSPECIFIED (10) COPD (chronic obstructive pulmonary disease) Current Visit: Yes Status: Chronic Assessment & Plan: -CT chest with no acute findings -RT eval -continue home meds (11) HTN (hypertension) Current Visit: Yes Status: Chronic Assessment & Plan: -BP stable - continue home meds Code(s): I10 - ESSENTIAL (PRIMARY) HYPERTENSION (12) History of liver transplant Current Visit: Yes Status: Chronic Assessment & Plan: - continue home meds (13) Hypernatremia Current Visit: Yes Status: Resolved Assessment & Plan: - resolved Code(s): E87.0 - HYPEROSMOLALITY AND HYPERNATREMIA (14) Metabolic acidosis Current Visit: Yes Status: Resolved Assessment & Plan: - resolved VTE: Heparin PPI: Protonix Next of KIN: Mother Code status: Full D/C plan: 1-2 days- pending placement Code(s): E87.20 - ACIDOSIS, UNSPECIFIED
[2024-11-29] MEDS: Sodium Chloride 0.9% 1000 ML 1,000 ML IV SCH (14:17)
[2024-11-29] MEDS: HEPARIN 5000 UNITS/0.5 ML (HIGH RISK MED) SQ SCH (20:57)
[2024-11-30 05:37] LABS: Absolute Neutrophil Ct (ANC) 3.43 x10^3/uL (1.56-6.13); BASOPHIL % 0.8 % (0.1-1.2); Basophil (Absolute #) 0.05 x10^3/uL (0.01-0.08); Eosinophil % 4.3 % (0.7-5.8); Eosinophil (Absolute #) 0.28 x10^3/uL (0.04-0.36); Hematocrit 30.4 % (34.1-44.9); Hemoglobin 9.5 g/dL (11.2-15.7); IMMATURE GRAN # 0.09 x10^3u/L (0.001-0.031); IMMATURE GRAN % 1.4 % (0.001-0.429); Lymphocyte (Absolute #) 1.86 x10^3/uL (1.18-3.74); Lymphocytes % 28.6 % (19.3-51.7); Mean Cell Volume 86.4 fL (79.4-94.8); Mean Corpuscular Hgb Concent. 31.3 g/dL (32.2-35.5); Monocytes % 12.3 % (4.7-12.5); Neutrophil % 52.6 % (34.0-71.1); Platelet Count 309 x10^3/uL (182-369); Red Blood Count 3.52 x10^6/uL (3.93-5.22); Red Cell Distribution Width 15.6 % (11.7-14.4); White Blood Count 6.5 x10^3/uL (3.98-10.04)
[2024-11-30 05:55] LABS: ALBUMIN 3.2 g/dL (3.5-5.0); ANION GAP 9.6 MEQ/L (5-15); BILIRUBIN,TOTAL 0.4 mg/dL (0.2-1.3); Calcium 8.4 mg/dL (8.4-10.2); Creatinine 1 0.87 mg/dL (0.52-1.04); EST GLOMERULAR FILTRATION RATE 76.7 ML/MIN; Potassium 3.5 mmol/L (3.5-5.1); Total Protein 6.1 g/dL (6.3-8.2)
[2024-11-30] MEDS: VITAMIN D PO SCH (10:42)
--- NOTE | 2024-11-30 12:44 | PCM.NOTE ---
Date and Time: 11/30/24 1237 Subjective Assessment: 11/29/24 Ms. Dwyer is a 59-year-old female with a complex medical history including hypertension, myocardial infarction, COPD, hypothyroidism, degenerative disc disease, cirrhosis, liver transplant (2008), chronic kidney disease, and medication non-compliance, who presented to the ED on 11/25/24 for evaluation of repeated falls and hallucinations. She was alert and oriented to self and place but had difficulty providing a clear history. She had been hallucinating at her PCPs office and had multiple falls with significant bruising. On examination, she was found to have an unstageable sacral and mid-back wound. 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 Throughout her hospital stay, the patient was noted to be having hallucinations and was grabbing at things in the air. Her labs showed hypernatremia, acute kidney injury, elevated liver function tests, elevated thyroid-stimulating hormone, and other abnormalities. 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 Treatment in the ED included a 1L fluid bolus, and she was admitted for encephalopathy, rhabdomyolysis, acute kidney injury, and electrolyte imbalances. By 11/26/24, her condition showed improvement, with better alertness and improved lab values. She underwent debridement of the sacral and back wounds. On 11/27/24, her labs continued to improve, and she was considering placement for continued care. On 11/28/24, her chronic back pain persisted, and she remained confused but was considered to be at her baseline. PT was scheduled, and case management was involved to discuss placement options. By 11/29/24, Ms. Dwyer remained confused and was only oriented to person. Her mother requested a rehab facility for placement, as Ms. Dwyer continued to experience weakness and memory issues. IV fluids were restarted due to an elevated CK level of 856. MRI and CT scans showed no acute concerns. Plans for placement were discussed with case management. Pt is psychologically stable and not a danger to herself or others. 11/30/24 Pt resting in bed. She is feeling better todat and more alert. She is able to tell me who she is, and the season. CK and LFT's improving with IVF. Lipase 310- this is improved since admission. She denies any abd. pain and CT abd/pelvis negative. Vitamin D 12,8 and daily replacement started. She is awaiting placement and she triggered a level II eval due to her past medical hx. She denies CP, SOB, abd. pain, N/V/D. - Review of Systems Constitutional: No Fever, No Chills Eyes: No Symptoms Ears, Nose, & Throat: No Symptoms Respiratory: No Cough, No Short Of Breath Cardiac: No Chest Pain, No Edema, No Syncope Abdominal/Gastrointestinal: No Abdominal Pain, No Nausea, No Vomiting, No Diarrhea Genitourinary Symptoms: No Dysuria Musculoskeletal: No Back Pain, No Neck Pain Skin: No Rash Neurological: Other (confusion), No Dizziness, No Focal Weakness, No Sensory Changes Psychological: No Symptoms Endocrine: No Symptoms Hematologic/Lymphatic: No Symptoms Immunological/Allergic: No Symptoms Objective Exam General Appearance: no apparent distress, alert Neurologic Exam: alert (x2), cooperative, normal mood/affect, nml cerebellar function, sensation nml, No motor deficits Skin Exam: normal color, warm, dry Eye Exam: PERRL, EOMI, eyes nml inspection Ears, Nose, Throat Exam: normal ENT inspection, pharynx normal, moist mucous membranes Neck Exam: normal inspection, non-tender, supple, full range of motion Respiratory Exam: normal breath sounds, lungs clear, No respiratory distress Cardiovascular Exam: regular rate/rhythm, normal heart sounds Gastrointestinal/Abdomen Exam: soft, No tenderness, No mass Extremity Exam: normal inspection, normal range of motion Back Exam: normal inspection, normal range of motion, No CVA tenderness, No vertebral tenderness Pelvic Exam: deferred Rectal Exam: deferred Objective Data Vital Signs: Vital Signs - 24 hr Temp Pulse Resp BP Pulse Ox 11/30/24 11:30 97.6 F 81 16 184/84 95 11/30/24 08:00 16 11/30/24 07:17 98.5 F 89 16 144/79 94 L 11/30/24 07:12 96 H 16 94 L 11/30/24 04:00 97.0 F 89 16 144/86 95 11/30/24 00:00 98.4 F 91 H 18 119/71 11/29/24 20:00 98.4 F 91 H 18 119/71 94 L 11/29/24 17:24 90 16 95 11/29/24 16:00 98.3 F 85 16 118/64 98 Pain Assessment - Last Documented Pain Intensity 0 Pain Scale Used 0-10 Pain Scale Intake and Output: Intake & Output 11/28/24 11/29/24 11/30/24 12/01/24 11:59 11:59 11:59 11:59 Intake Total 2070 2225 Output Total 1100 2150 Balance 970 75 Weight 42.1 kg 42.4 kg Lab Results: Lab Results-Last 24 Hours 11/29/24 11/30/24 11/30/24 Range/Units 16:43 05:32 05:32 WBC 6.5 (3.98-10.04) x10^3/uL RBC 3.52 L (3.93-5.22) x10^6/uL Hgb 9.5 L (11.2-15.7) g/dL Hct 30.4 L (34.1-44.9) % MCV 86.4 (79.4-94.8) fL MCH 27.0 (25.6-32.2) pg MCHC 31.3 L (32.2-35.5) g/dL RDW 15.6 H (11.7-14.4) % Plt Count 309 (182-369) x10^3/uL MPV 10.0 (9.4-12.3) fL Gran % 52.6 (34.0-71.1) % Immature Gran % (Auto) 1.4 H (0.001-0.429) % Nucleat RBC Rel Count 0.0 (0.00-0.2) % Eos # (Auto) 0.28 (0.04-0.36) x10^3/uL Immature Gran # (Auto) 0.09 H (0.001-0.031) x10^3u/L Absolute Lymphs (auto) 1.86 (1.18-3.74) x10^3/uL Absolute Monos (auto) 0.80 (0.24-0.86) x10^3/uL Absolute Nucleated RBC 0.00 (0.00-0.012) x10^3u/L Lymphocytes % 28.6 (19.3-51.7) % Monocytes % 12.3 (4.7-12.5) % Eosinophils % 4.3 (0.7-5.8) % Basophils % 0.8 (0.1-1.2) % Absolute Granulocytes 3.43 (1.56-6.13) x10^3/uL Basophils # 0.05 (0.01-0.08) x10^3/uL Sodium 142 (135-145) mmol/L Potassium 3.5 (3.5-5.1) mmol/L Chloride 108 H (98-107) mmol/L Carbon Dioxide 28 (22-30) mmol/L Anion Gap 9.6 (5-15) MEQ/L BUN 12 (7-17) mg/dL Creatinine 0.87 (0.52-1.04) mg/dL Estimated GFR 76.7 ML/MIN Glucose 97 (74-106) mg/dL POC Glucometer 105 (74 to 106) mg/dL Calcium 8.4 (8.4-10.2) mg/dL Total Bilirubin 0.40 (0.2-1.3) mg/dL AST 54 H (14-36) U/L ALT 37 H (0-35) U/L Alkaline Phosphatase 72 (38-126) U/L Creatine Kinase 448 H (30-135) U/L Serum Total Protein 6.1 L (6.3-8.2) g/dL Albumin 3.2 L (3.5-5.0) g/dL Triglycerides (30-150) mg/dL Cholesterol (50-200) mg/dL LDL Cholesterol (30-100) mg/dL HDL Cholesterol (40-60) mg/dL Heart Disease Risk Ratio Lipase 310 H (23-300) U/L 25-OH Vitamin D Total (30-100) ng/mL 11/30/24 11/30/24 11/30/24 Range/Units 05:32 05:32 07:33 WBC (3.98-10.04) x10^3/uL RBC (3.93-5.22) x10^6/uL Hgb (11.2-15.7) g/dL Hct (34.1-44.9) % MCV (79.4-94.8) fL MCH (25.6-32.2) pg MCHC (32.2-35.5) g/dL RDW (11.7-14.4) % Plt Count (182-369) x10^3/uL MPV (9.4-12.3) fL Gran % (34.0-71.1) % Immature Gran % (Auto) (0.001-0.429) % Nucleat RBC Rel Count (0.00-0.2) % Eos # (Auto) (0.04-0.36) x10^3/uL Immature Gran # (Auto) (0.001-0.031) x10^3u/L Absolute Lymphs (auto) (1.18-3.74) x10^3/uL Absolute Monos (auto) (0.24-0.86) x10^3/uL Absolute Nucleated RBC (0.00-0.012) x10^3u/L Lymphocytes % (19.3-51.7) % Monocytes % (4.7-12.5) % Eosinophils % (0.7-5.8) % Basophils % (0.1-1.2) % Absolute Granulocytes (1.56-6.13) x10^3/uL Basophils # (0.01-0.08) x10^3/uL Sodium (135-145) mmol/L Potassium (3.5-5.1) mmol/L Chloride (98-107) mmol/L Carbon Dioxide (22-30) mmol/L Anion Gap (5-15) MEQ/L BUN (7-17) mg/dL Creatinine (0.52-1.04) mg/dL Estimated GFR ML/MIN Glucose (74-106) mg/dL POC Glucometer 93 (74 to 106) mg/dL Calcium (8.4-10.2) mg/dL Total Bilirubin (0.2-1.3) mg/dL AST (14-36) U/L ALT (0-35) U/L Alkaline Phosphatase (38-126) U/L Creatine Kinase (30-135) U/L Serum Total Protein (6.3-8.2) g/dL Albumin (3.5-5.0) g/dL Triglycerides 233 H (30-150) mg/dL Cholesterol 181 (50-200) mg/dL LDL Cholesterol 97 (30-100) mg/dL HDL Cholesterol 41 (40-60) mg/dL Heart Disease Risk Ratio 4.0 Lipase (23-300) U/L 25-OH Vitamin D Total < 12.8 L (30-100) ng/mL 11/30/24 Range/Units 12:05 WBC (3.98-10.04) x10^3/uL RBC (3.93-5.22) x10^6/uL Hgb (11.2-15.7) g/dL Hct (34.1-44.9) % MCV (79.4-94.8) fL MCH (25.6-32.2) pg MCHC (32.2-35.5) g/dL RDW (11.7-14.4) % Plt Count (182-369) x10^3/uL MPV (9.4-12.3) fL Gran % (34.0-71.1) % Immature Gran % (Auto) (0.001-0.429) % Nucleat RBC Rel Count (0.00-0.2) % Eos # (Auto) (0.04-0.36) x10^3/uL Immature Gran # (Auto) (0.001-0.031) x10^3u/L Absolute Lymphs (auto) (1.18-3.74) x10^3/uL Absolute Monos (auto) (0.24-0.86) x10^3/uL Absolute Nucleated RBC (0.00-0.012) x10^3u/L Lymphocytes % (19.3-51.7) % Monocytes % (4.7-12.5) % Eosinophils % (0.7-5.8) % Basophils % (0.1-1.2) % Absolute Granulocytes (1.56-6.13) x10^3/uL Basophils # (0.01-0.08) x10^3/uL Sodium (135-145) mmol/L Potassium (3.5-5.1) mmol/L Chloride (98-107) mmol/L Carbon Dioxide (22-30) mmol/L Anion Gap (5-15) MEQ/L BUN (7-17) mg/dL Creatinine (0.52-1.04) mg/dL Estimated GFR ML/MIN Glucose (74-106) mg/dL POC Glucometer 110 H (74 to 106) mg/dL Calcium (8.4-10.2) mg/dL Total Bilirubin (0.2-1.3) mg/dL AST (14-36) U/L ALT (0-35) U/L Alkaline Phosphatase (38-126) U/L Creatine Kinase (30-135) U/L Serum Total Protein (6.3-8.2) g/dL Albumin (3.5-5.0) g/dL Triglycerides (30-150) mg/dL Cholesterol (50-200) mg/dL LDL Cholesterol (30-100) mg/dL HDL Cholesterol (40-60) mg/dL Heart Disease Risk Ratio Lipase (23-300) U/L 25-OH Vitamin D Total (30-100) ng/mL Multi-Disciplinary Progress Notes: Multi-Disciplinary Progress Notes 11/29/24 16:51 OT Plan of Care Note by Alexa (L#[id number])Jacqueline OT Eval OT Inpatient Eval and POC Start: 11/25/24 17:54 Freq: ONCE Status: Complete Protocol: Created 11/25/24 18:00 ED (Rec: 11/25/24 18:00 ED -[id number]) Document 11/29/24 16:41 KA (Rec: 11/29/24 16:50 KA [id number]) OT Evaluation Subjective MAYRA WAS AGREEABLE TO OT EVALUATION. Pertinent Past Medical History SEE PMH BELOW Prior Level of Function PATIENT IS POOR HISTORIAN WITH PLOF GATHERED FROM OCCUPATIONAL PROFILE AND CHART REVIEW. PATIENT LIVES ALONE IN APARTMENT WHICH IS ON GROUND LEVEL. SHE DEPENDS ON HER MOTHER FOR ASSIST WITH TRANSPORTATION, MEDICATION MANAGEMENT, AND PAYING BILLS. SHE IS INDEPENDENT WITH DRESSING, BATHING, TOILETING, LIGHT MEAL PREP, AND LAUNDRY. SHE DOES GO TO A DIFFERENT AREA IN APARTMENT COMPLEX FOR LAUNDRY AND REPORTS THAT SHE PAYS IN QUARTERS. Equipment at Home Prior to Admission Walker,Shower Chair Home Setup Tub/Shower Combination Date 11/29/24 Feeding WFL Comment SET UP ASSIST Grooming Impaired Comment MIN ASSIST (50% VERBAL CUES TO COMPLETE TASK DUE TO POOR COGNITIVE PROCESSING). Bathing Impaired Comment MIN ASSIST Dressing Impaired Comment MIN ASSIST Toileting Impaired Comment SBA IADLS (If indicated) Homemaking,etc Impaired Bed Mobility WFL Comment MOD INDEP Toilet Transfers Impaired Comment CGA Functional Transfers Impaired Comment MIN ASSIST WITH HAND HELD ASSIST. NO A/E USED DURING THE EVALUATION; SEE PHYSICAL THERAPY EVALUATION FOR FURTHER RECOMMENDATIONS. Range of Motion WFL Coordination IMPAIRED UE ANTON, DELAYED FINGER TO THUMB OPPOSITION WITH RIGHT HAND RIGHT FINGER TO THUMB OPPOSITION INTACT Functional Strength POOR STRENGTH BUE STRENGTH MMT: 4-/5; POOR INFORMATION SYSTEMS SPECIALIST STRENGTH NOTED (NO DIFFERENCE IN R VS. L STRENGTH ). Functional Endurance FAIR (-): PATIENT TOLERATED LIGHT ADLS AND FUNCTIONAL MOBILITY IN ROOM. Cognition ALERT AND ORIENTED TO NAME AND LOCATION ONLY. SHE IS UNABLE TO GUESS THE APPROPRIATE MONTH WHEN CUES GIVEN. SHE ANSWERED APPROPRIATE YEAR AFTER 1 CUE GIVEN. POOR COGNITIVE PROCESSING NOTED SHE IS UNABLE TO SEQUENC WASHING HANDS AND WASHING FACE. SHE DEMONSTRATES DIFFICULTY WITH ANSWERING QUESTIONS WITH LONG PAUSES AND NOT ANSWERING THE SPECIFIC QUESTION. Pain NO REPORTED PAIN DURING SESSION Objective Data/Standardized Assessment(s LUNDY: 2/6 INDICATING HIGH ) LEVEL OF DEPENDENCE FOR ADLS. OT Plan Of Care Date of Evaluation 11/29/24 Treatment Diagnosis CONFUSION/RECURRENT FALLS Teaching Recipient Patient Patient is Aware of Diagnosis and No: CONFUSION Prognosis Patient is receptive to Plan of Care and No: CONFUSION contributory towards OT goals Comment PATIENT IS AGREEABLE TO OT EVALUATION AND TREATMENT; POOR COGNITIVE PROCESSING TO UNDERSTAND D/C RECOMMENDATION. Functional Problem List MELLY PRESENTS WITH SIGNIFICANT IMPAIRMENTS IN SAFETY INSIGHT, COGNITIVE PROCESSING, SHORT TERM MEMORY, AND GENERALIZED WEAKNESS LIMITING INDEPENDENCE WITH I/ADLS AND QUALITY OF LIFE. Therapuetic Interventions SELF-CARE, THERAPEUTIC ACTIVITY, THERAPEUTIC EXERCISES, EDUCATION Functional Goals of Treatment 1) MELLY WILL COMPLETE BASIC ADLS WITH SBA WITHIN 1 WEEK IN ORDER TO FACILTIATE SAFE D/C. 2) MELLY WILL ENGAGE IN HEP INDEP IN ORDER TO FACILTIATE SAFE D/C AND IMPROVE INDEPENDENCE WITH I/ADLS ( WITHIN 1 WEEK). Frequency/Duration 5X/WEEK Rehabilitation Potential for Goals/ Fair Barriers to Progress Discharge Recommendations/Plan OT RECOMMENDS SNF AT D/C DUE TO POOR SAFETY INSIGHT AND INCREASED RISK FOR FALLS; TO FACILITATE FUNCTIONAL STRENGTH AND COGNITIVE PROCESSING REQUIRED FOR ADLS AND HOME MANAGEMENT TASKS. Medical & Surgical History Past Medical History Yes Neurological History Migraines ENT History No Pertinent History Endocrine History Hypothyroidism Respiratory History Asthma,COPD Cardiac History Hypertension,Myocardial Infarction ([place]) GI History Cirrhosis,GERD History Other Female Reproductive Disorders Fibroids,Menstrual Problems Musculoskeletal History Arthritis,Degenerative Disk Disease,Osteoarthritis, Osteoporosis Psycho-Social History Eating Disorders Other Medical History KIDNEY FAILURE (HAS ONE KIDNEY ), RIGHT OLENA, BONE SPURS TO BOTH KNEES, SCOLIOSIS, current pressure sores/injuries Past Surgical History Yes Hx Anesthesia Reactions No Hx Malignant Hyperthermia No Neurological Surgical History No Pertinent History ENT Surgical History No Pertinent History Respiratory Surgical History No Pertinent History Cardiac Surgical History No Pertinent History Gastrointestinal Surgical History Appendectomy,Cholecystectomy, Liver Transplant Genitourinary Surgical History No Pertinent History Female Surgical History Hysterectomy Musculoskeletal Surgical History Other Other Surgical History Back surgery (15-16 KYPHOPLASTY PROCEDURES TO HER THORACIC AND LUMBAR SPINE with Dr. Carrero), Liver transplant 2008 Alcohol None Comment UNABLE TO DETERMINE DUE TO BEING MIXED WITH STOOL Drug Use marijuana Hx Substance Use Treatment No OT Notes 11/26/24 18:40 Occupational Therapy Note by Sisi(L#[id number])Jo-Ann OTR PERFORMED CHART REVIEW AND SPOKE WITH NURSE THIS AM PRIOR TO ADDRESSING THE PATIENT. SHE WAS PREPARING FOR SURGERY THIS DATE. WILL HOLD EVALUATION UNTIL NEXT BUSINESS DAY PATIENT NOT APPROPRIATE FOR INTERVENTION AT THIS TIME. Initialized on 11/26/24 18:40 - END OF NOTE Initialized on 11/29/24 16:51 - END OF NOTE 11/29/24 15:00 (created 11/29/24 17:48) Case Management Note by Oriana López AND LOC STARTED- PENDING REVIEW REFERRAL FAXED TO [facility] Initialized on 11/29/24 17:48 - END OF NOTE 11/29/24 14:04 Nutrition Note by Caity Moy F/u Note: Pt diet resumed to HR on 11/26 with 50-100% po intake. adm weight 38.3kg; current weight 42.1kg. Labs 11/29= alb 3.2, glu wnl, Na wnl, bUN wnl, Cr wnl. goal #1) maintain po intake >=75% #2) no weight loss. Will con't to monitor and f/u prn. TROSE Neville Initialized on 11/29/24 14:04 - END OF NOTE 11/29/24 13:00 (created 11/29/24 17:52) Case Management Note by Oriana López WHILE DISCUSSING DC PLANS WITH PATIENT THIS AM- PATIENT COULD NOT ACCURATELY TELL ME THE YEAR- SHE STATED 2022 THEN 2019. SHE DID KNOW IT WAS WINTER BUT COULD NOT TELL ME WHAT MONTH IT WAS OR DAY OF THE WEEK CORRECTLY. WHEN PROMPTED FOR THE MONTH SHE WAS STILL UNABLE TO ACCURATELY SAY THE MONTH. PATIENT DID NOT KNOW HER ADDRESS OR APARTMENT NUMBER EITHER. Initialized on 11/29/24 17:52 - END OF NOTE Assessment/Plan (1) Encephalopathy Current Visit: Yes Status: Acute Code(s): G93.40 - ENCEPHALOPATHY, UNSPECIFIED (2) Recurrent falls Current Visit: Yes Status: Acute Code(s): R29.6 - REPEATED FALLS (3) Rhabdomyolysis Current Visit: Yes Status: Acute Code(s): M62.82 - RHABDOMYOLYSIS (4) Unstageable pressure ulcer of sacral region Current Visit: Yes Status: Acute Code(s): L89.150 - PRESSURE ULCER OF SACRAL REGION, UNSTAGEABLE (5) Elevated LFTs Current Visit: Yes Status: Acute Code(s): R79.89 - OTHER SPECIFIED ABNORMAL FINDINGS OF BLOOD CHEMISTRY (6) Elevated lipase Current Visit: Yes Status: Acute Code(s): R74.8 - ABNORMAL LEVELS OF OTHER SERUM ENZYMES (7) Hypothyroid Current Visit: Yes Status: Chronic Code(s): E03.9 - HYPOTHYROIDISM, UNSPECIFIED (8) Non compliance w medication regimen Current Visit: Yes Status: Acute Code(s): Z91.148 - PATIENT'S OTHER NONCOMPL WITH MEDS REGIMEN FOR OTHER REASON (9) SINTIA (acute kidney injury) Current Visit: Yes Status: Resolved Code(s): N17.9 - ACUTE KIDNEY FAILURE, UNSPECIFIED (10) COPD (chronic obstructive pulmonary disease) Current Visit: Yes Status: Chronic (11) HTN (hypertension) Current Visit: Yes Status: Chronic Code(s): I10 - ESSENTIAL (PRIMARY) HYPERTENSION (12) History of liver transplant Current Visit: Yes Status: Chronic (13) Hypernatremia Current Visit: Yes Status: Resolved Code(s): E87.0 - HYPEROSMOLALITY AND HYPERNATREMIA (14) Metabolic acidosis Current Visit: Yes Status: Resolved Assessment & Plan: (1) Encephalopathy Current Visit: Yes Status: Acute Assessment & Plan: - CT head: identified a small focus of a remote infarct in the right parietal lobe without acute intracranial abnormalities - MRI brain: demonstrates atrophy and degenerative micro-ischemia within normal limits. 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 No acute intracranial abnormalities or evidence for evolving large vessel territorial stroke -TSH reviewed at 14.188- not taking home meds as prescribed- restarted meds - CK elevated - CBC, CMP reviewed 11/30 - CK 448, AST 54, ALT 37, Lipase 310 - A& O x2 - CBC, CMP reviewed Code(s): G93.40 - ENCEPHALOPATHY, UNSPECIFIED (2) Recurrent falls Current Visit: Yes Status: Acute Assessment & Plan: - Multifactorial as stated above with underlying electrolyte imbalances, uremia, and metabolic and neurological factors - CT of abdomen reviewed with healing ramus fracture - patient with h/o OA will check vitamin D level - CT head reviewed - MRI negative - PT/OT evaluation - Need for placement- rehab- awaiting level II eval Code(s): R29.6 - REPEATED FALLS (3) Rhabdomyolysis Current Visit: Yes Status: Acute Assessment & Plan: - IVF - CK 856- improving 11/30 - CK 448- improving - Cont IVF Code(s): M62.82 - RHABDOMYOLYSIS (4) Unstageable pressure ulcer of sacral region Current Visit: Yes Status: Acute Assessment & Plan: - PT for wound assessment - Surgery consult - off load- turn q2h - I&D on 11/26 by - Wound care as instructed by surgery 11/30 - wound cultures x2 ordered Code(s): L89.150 - PRESSURE ULCER OF SACRAL REGION, UNSTAGEABLE (5) Elevated LFTs Current Visit: Yes Status: Acute Assessment & Plan: - Improving AST 76, ALT 43- trend 11/30 - AST 54, ALT 37 Code(s): R79.89 - OTHER SPECIFIED ABNORMAL FINDINGS OF BLOOD CHEMISTRY (6) Elevated lipase Current Visit: Yes Status: Acute Assessment & Plan: - 518 on admission - recheck in AM -CT abd/pelvis: revealed a healing right inferior pubic ramus fracture. Liver, pancreas, spleen, adrenal glands, kidneys, ureters, and bladder are unremarkable -IVF 11/30 - Liapse 310 - denies abd pain - Lipid profile reviewed - will need OP f/u with GI Code(s): R74.8 - ABNORMAL LEVELS OF OTHER SERUM ENZYMES (7) Hypothyroid Current Visit: Yes Status: Chronic Assessment & Plan: - TSH 14.188 on admission - Continue home meds as she has not been taking as prescribed - F/U with PCP OP for monitoring Code(s): E03.9 - HYPOTHYROIDISM, UNSPECIFIED (8) Non compliance w medication regimen Current Visit: Yes Status: Acute Assessment & Plan: - not taking meds at home as prescribed Code(s): Z91.148 - PATIENT'S OTHER NONCOMPL WITH MEDS REGIMEN FOR OTHER REASON (9) SINTIA (acute kidney injury) Current Visit: Yes Status: Resolved Assessment & Plan: - resolved Code(s): N17.9 - ACUTE KIDNEY FAILURE, UNSPECIFIED (10) COPD (chronic obstructive pulmonary disease) Current Visit: Yes Status: Chronic Assessment & Plan: -CT chest with no acute findings -RT eval -continue home meds (11) HTN (hypertension) Current Visit: Yes Status: Chronic Assessment & Plan: -BP stable - continue home meds Code(s): I10 - ESSENTIAL (PRIMARY) HYPERTENSION (12) History of liver transplant Current Visit: Yes Status: Chronic Assessment & Plan: - continue home meds (13) Hypernatremia Current Visit: Yes Status: Resolved Assessment & Plan: - resolved Code(s): E87.0 - HYPEROSMOLALITY AND HYPERNATREMIA (14) Metabolic acidosis Current Visit: Yes Status: Resolved Assessment & Plan: - resolved Code(s): E87.20 - ACIDOSIS, UNSPECIFIED Code(s): E87.20 - ACIDOSIS, UNSPECIFIED (15) Vitamin D deficiency Current Visit: Yes Status: Chronic Assessment & Plan: - VItamin D 12.8 - Started replacement daily VTE: Heparin PPI: Protonix Next of KIN: Mother Code status: Full D/C plan: pending placement and level II eval Code(s): E55.9 - VITAMIN D DEFICIENCY, UNSPECIFIED
[2024-12-01 06:01] LABS: Absolute Neutrophil Ct (ANC) 3.84 x10^3/uL (1.56-6.13); BASOPHIL % 0.9 % (0.1-1.2); Basophil (Absolute #) 0.06 x10^3/uL (0.01-0.08); Eosinophil % 3.1 % (0.7-5.8); Eosinophil (Absolute #) 0.21 x10^3/uL (0.04-0.36); Hematocrit 31.1 % (34.1-44.9); Hemoglobin 9.9 g/dL (11.2-15.7); IMMATURE GRAN # 0.08 x10^3u/L (0.001-0.031); IMMATURE GRAN % 1.2 % (0.001-0.429); Lymphocyte (Absolute #) 1.82 x10^3/uL (1.18-3.74); Lymphocytes % 26.5 % (19.3-51.7); Mean Cell Volume 85.9 fL (79.4-94.8); Mean Corpuscular Hemoglobin 27.3 pg (25.6-32.2); Mean Corpuscular Hgb Concent. 31.8 g/dL (32.2-35.5); Mean Platelet Volume 10.4 fL (9.4-12.3); Monocyte (Absolute #) 0.86 x10^3/uL (0.24-0.86); Monocytes % 12.5 % (4.7-12.5); Neutrophil % 55.8 % (34.0-71.1); Platelet Count 317 x10^3/uL (182-369); Red Blood Count 3.62 x10^6/uL (3.93-5.22); Red Cell Distribution Width 15.3 % (11.7-14.4); White Blood Count 6.9 x10^3/uL (3.98-10.04)
[2024-12-01 06:28] LABS: ALBUMIN 3.5 g/dL (3.5-5.0); ANION GAP 12.4 MEQ/L (5-15); BILIRUBIN,TOTAL 0.4 mg/dL (0.2-1.3); Calcium 8.5 mg/dL (8.4-10.2); Creatinine 1 0.94 mg/dL (0.52-1.04); EST GLOMERULAR FILTRATION RATE 69.9 ML/MIN; Potassium 3.8 mmol/L (3.5-5.1); Total Protein 6.3 g/dL (6.3-8.2)
--- NOTE | 2024-12-01 13:28 | PCM.NOTE ---
Date and Time: 12/01/24 1323 Subjective Assessment: 11/29/24 Ms. Dwyer is a 59-year-old female with a complex medical history including hypertension, myocardial infarction, COPD, hypothyroidism, degenerative disc disease, cirrhosis, liver transplant (2008), chronic kidney disease, and medication non-compliance, who presented to the ED on 11/25/24 for evaluation of repeated falls and hallucinations. She was alert and oriented to self and place but had difficulty providing a clear history. She had been hallucinating at her PCPs office and had multiple falls with significant bruising. On examination, she was found to have an unstageable sacral and mid-back wound. 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 Throughout her hospital stay, the patient was noted to be having hallucinations and was grabbing at things in the air. Her labs showed hypernatremia, acute kidney injury, elevated liver function tests, elevated thyroid-stimulating hormone, and other abnormalities. 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 Treatment in the ED included a 1L fluid bolus, and she was admitted for encephalopathy, rhabdomyolysis, acute kidney injury, and electrolyte imbalances. By 11/26/24, her condition showed improvement, with better alertness and improved lab values. She underwent debridement of the sacral and back wounds. On 11/27/24, her labs continued to improve, and she was considering placement for continued care. On 11/28/24, her chronic back pain persisted, and she remained confused but was considered to be at her baseline. PT was scheduled, and case management was involved to discuss placement options. By 11/29/24, Ms. Dwyer remained confused and was only oriented to person. Her mother requested a rehab facility for placement, as Ms. Dwyer continued to experience weakness and memory issues. IV fluids were restarted due to an elevated CK level of 856. MRI and CT scans showed no acute concerns. Plans for placement were discussed with case management. Pt is psychologically stable and not a danger to herself or others. 11/30/24 Pt resting in bed. She is feeling better today and more alert. She is able to tell me who she is, and the season. CK and LFT's improving with IVF. Lipase 310- this is improved since admission. She denies any abd. pain and CT abd/pelvis negative. Vitamin D 12,8 and daily replacement started. She is awaiting placement and she triggered a level II eval due to her past medical hx. She denies CP, SOB, abd. pain, N/V/D. 12/01/24 Pt resting in bed. Level II evaluation to completed this evening. She is more alert and oriented today than previous days but has periods of intermittent confusion. CK improving. Labs overall improved. IVF stopped. Coccyx wound culture gram negative and sensitivity pending. Started Aztrenonam. After level II eval is back hopefully she will be d/c to rehab. She denies any further concerns a this time and feels well. - Review of Systems Constitutional: No Fever, No Chills Eyes: No Symptoms Ears, Nose, & Throat: No Symptoms Respiratory: No Cough, No Short Of Breath Cardiac: No Chest Pain, No Edema, No Syncope Abdominal/Gastrointestinal: No Abdominal Pain, No Nausea, No Vomiting, No Diarrhea Genitourinary Symptoms: No Dysuria Musculoskeletal: No Back Pain, No Neck Pain Skin: No Rash Neurological: No Dizziness, No Focal Weakness, No Sensory Changes Psychological: No Symptoms Endocrine: No Symptoms Hematologic/Lymphatic: No Symptoms Immunological/Allergic: No Symptoms Objective Exam General Appearance: no apparent distress, alert Neurologic Exam: alert, oriented x 3, cooperative, normal mood/affect, nml cerebellar function, sensation nml, other (intermittent confusion), No motor deficits Skin Exam: normal color, warm, dry Eye Exam: PERRL, EOMI, eyes nml inspection Ears, Nose, Throat Exam: normal ENT inspection, pharynx normal, moist mucous membranes Neck Exam: normal inspection, non-tender, supple, full range of motion Respiratory Exam: normal breath sounds, lungs clear, No respiratory distress Cardiovascular Exam: regular rate/rhythm, normal heart sounds Gastrointestinal/Abdomen Exam: soft, No tenderness, No mass Extremity Exam: normal inspection, normal range of motion Back Exam: normal inspection, normal range of motion, No CVA tenderness, No vertebral tenderness Pelvic Exam: deferred Rectal Exam: deferred Objective Data Vital Signs: Vital Signs - 24 hr Temp Pulse Resp BP Pulse Ox 12/01/24 11:55 98.0 F 96 H 16 116/72 95 12/01/24 10:40 87 18 95 12/01/24 07:32 97.8 F 85 16 143/87 92 L 12/01/24 04:00 97.5 F 78 18 138/73 97 12/01/24 00:00 97.8 F 77 18 127/65 98 11/30/24 20:41 96 11/30/24 20:00 97.6 F 78 18 138/64 97 11/30/24 16:00 97.7 F 83 16 127/63 95 Pain Assessment - Last Documented Pain Intensity 3 Pain Scale Used 0-10 Pain Scale Intake and Output: Intake & Output 11/29/24 11/30/24 12/01/24 12/02/24 11:59 11:59 11:59 11:59 Intake Total 2070 2225 1640 Output Total 1100 2150 Balance 895 51 7558 Weight 42.1 kg 42.4 kg 42.6 kg Lab Results: Lab Results-Last 24 Hours 12/01/24 12/01/24 Range/Units 05:52 05:52 WBC 6.9 (3.98-10.04) x10^3/uL RBC 3.62 L (3.93-5.22) x10^6/uL Hgb 9.9 L (11.2-15.7) g/dL Hct 31.1 L (34.1-44.9) % MCV 85.9 (79.4-94.8) fL MCH 27.3 (25.6-32.2) pg MCHC 31.8 L (32.2-35.5) g/dL RDW 15.3 H (11.7-14.4) % Plt Count 317 (182-369) x10^3/uL MPV 10.4 (9.4-12.3) fL Gran % 55.8 (34.0-71.1) % Immature Gran % (Auto) 1.2 H (0.001-0.429) % Nucleat RBC Rel Count 0.0 (0.00-0.2) % Eos # (Auto) 0.21 (0.04-0.36) x10^3/uL Immature Gran # (Auto) 0.08 H (0.001-0.031) x10^3u/L Absolute Lymphs (auto) 1.82 (1.18-3.74) x10^3/uL Absolute Monos (auto) 0.86 (0.24-0.86) x10^3/uL Absolute Nucleated RBC 0.00 (0.00-0.012) x10^3u/L Lymphocytes % 26.5 (19.3-51.7) % Monocytes % 12.5 (4.7-12.5) % Eosinophils % 3.1 (0.7-5.8) % Basophils % 0.9 (0.1-1.2) % Absolute Granulocytes 3.84 (1.56-6.13) x10^3/uL Basophils # 0.06 (0.01-0.08) x10^3/uL Sodium 141 (135-145) mmol/L Potassium 3.8 (3.5-5.1) mmol/L Chloride 106 (98-107) mmol/L Carbon Dioxide 27 (22-30) mmol/L Anion Gap 12.4 (5-15) MEQ/L BUN 15 (7-17) mg/dL Creatinine 0.94 (0.52-1.04) mg/dL Estimated GFR 69.9 ML/MIN Glucose 93 (74-106) mg/dL Calcium 8.5 (8.4-10.2) mg/dL Total Bilirubin 0.40 (0.2-1.3) mg/dL AST 51 H (14-36) U/L ALT 34 (0-35) U/L Alkaline Phosphatase 83 (38-126) U/L Creatine Kinase 356 H (30-135) U/L Serum Total Protein 6.3 (6.3-8.2) g/dL Albumin 3.5 (3.5-5.0) g/dL Multi-Disciplinary Progress Notes: Multi-Disciplinary Progress Notes 12/01/24 13:00 Case Management Note by Oriana López PATIENT STILL CONFUSED IN CONVERSATION, SHE DOES NOT KNOW YEAR OR MONTH. PATIENT VERY SLOW TO RESPOND TO QUESTIONS. S/W [facility] THIS AM- THEY WILL BE HERE TO ASSESS PATIENT FOR LEVEL II LATER THIS EVENING. UPDATED MOTHER WITH PLANS AND THAT [facility] HAS ACCEPTED PATIENT. SHE VERIFIED UNDERSTANDING S/W JERRY AT [facility]- UPDATED ON STATUS OF LEVEL II Initialized on 12/01/24 13:00 - END OF NOTE 12/01/24 09:58 Occupational Therapy Note by Alexa (L#[id number])Jacqueline Occupational Therapy treatment (09:25-09:40): Aylin completes bed mobility, functional mobility and transfers (use of rollator), and toileting tasks with SBA. She requires verbal cues for sequencing and thoroughness for hand hygiene at end of session. She then completes standing UB exercises with 1# DB (5 exercises, 10 reps x 2 sets) to facilitate functional strength required for ADLS. At end of session, patient sitting in recliner with new drink provided. Melly continues with poor cognitive processing throughout session and her water glass was leaking water on bedside table and onto her sheets, but she reports "not realizing it".OT recommends further rehab at SNF due to generalized weakness, poor self-care tasks, and significant limitations in cognitive processing/short term memory. Initialized on 12/01/24 09:58 - END OF NOTE 11/30/24 15:39 Occupational Therapy Note by Alexa (L#[id number])Jacqueline OCCUPATIONAL THERAPY TREATMENT (15:15-15:35) PATIENT COMPLETES BED MOBILITY WITH SBA AND DONS BILATERAL SOCKS MOD INDEP. MELLY COMPLETED FUNCTIONAL MOBILITY IN ROOM WITH VARIOUS OBSTACLES PLACED TO FACILITATE HER SAFETY INSIGHT AND AWARENESS IN WHICH SHE REQUIRED SBA WITH ROLLATOR AND MODERATE VERBAL CUES FOR SAFETY. SHE THEN ENGAGED IN ADLS INCLUDING TOILETING T/F, TOILETING TASKS, WASHING HANDS AT SINK, AND WASHING HER FACE. SHE REQUIRES SBA FOR SAFETY INSIGHT AND MAX VERBAL CUES FOR SEQUENCING AND PROCESSING. MELLY WAS ALERT AND ORIENTED TO NAME AND LOCATION, BUT UNABLE TO NAME THE CORRECT MONTH OR YEAR. SHE THEN ENGAGED IN LIGHT UE STRENGTHENING WITH 2 SET X 10 REPS OF CHAIR PUSH UPS FOLLOWED BY 1 SET X 10 REPS WITH WALL PUSH UPS. AT END OF SESSION, PATIENT RETURNED TO BED WHERE CALL LIGHT WAS PLACED AND BED ALARM TURNED ON. Initialized on 11/30/24 15:39 - END OF NOTE 11/30/24 13:51 Case Management Note by Oriana López PATIENT HAS TRIGGERED A LEVEL II ASSESSMENT ON PASRR PAPERWORK- THIS WILL NEED COMPLETED PRIOR TO PATIENT BEING ABLE TO TRANSITION TO SNF. [facility] HAS DECLINED REFERRAL WILL FAX REFERRAL TO [facility] IN [place] Initialized on 11/30/24 13:51 - END OF NOTE Assessment/Plan (1) Encephalopathy Current Visit: Yes Status: Acute Code(s): G93.40 - ENCEPHALOPATHY, UNSPECIFIED (2) Recurrent falls Current Visit: Yes Status: Acute Code(s): R29.6 - REPEATED FALLS (3) Rhabdomyolysis Current Visit: Yes Status: Acute Code(s): M62.82 - RHABDOMYOLYSIS (4) Unstageable pressure ulcer of sacral region Current Visit: Yes Status: Acute Code(s): L89.150 - PRESSURE ULCER OF SACRAL REGION, UNSTAGEABLE (5) Elevated LFTs Current Visit: Yes Status: Acute Code(s): R79.89 - OTHER SPECIFIED ABNORMAL FINDINGS OF BLOOD CHEMISTRY (6) Elevated lipase Current Visit: Yes Status: Acute Code(s): R74.8 - ABNORMAL LEVELS OF OTHER SERUM ENZYMES (7) Hypothyroid Current Visit: Yes Status: Chronic Code(s): E03.9 - HYPOTHYROIDISM, UNSPECIFIED (8) Non compliance w medication regimen Current Visit: Yes Status: Acute Code(s): Z91.148 - PATIENT'S OTHER NONCOMPL WITH MEDS REGIMEN FOR OTHER REASON (9) SINTIA (acute kidney injury) Current Visit: Yes Status: Resolved Code(s): N17.9 - ACUTE KIDNEY FAILURE, UNSPECIFIED (10) COPD (chronic obstructive pulmonary disease) Current Visit: Yes Status: Chronic (11) HTN (hypertension) Current Visit: Yes Status: Chronic Code(s): I10 - ESSENTIAL (PRIMARY) HYPERTENSION (12) History of liver transplant Current Visit: Yes Status: Chronic (13) Hypernatremia Current Visit: Yes Status: Resolved Code(s): E87.0 - HYPEROSMOLALITY AND HYPERNATREMIA (14) Metabolic acidosis Current Visit: Yes Status: Resolved Code(s): E87.20 - ACIDOSIS, UNSPECIFIED (15) Vitamin D deficiency Current Visit: Yes Status: Chronic Assessment & Plan: (1) Encephalopathy Current Visit: Yes Status: Acute Assessment & Plan: - CT head: identified a small focus of a remote infarct in the right parietal lobe without acute intracranial abnormalities - MRI brain: demonstrates atrophy and degenerative micro-ischemia within normal limits. 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 No acute intracranial abnormalities or evidence for evolving large vessel territorial stroke -TSH reviewed at 14.188- not taking home meds as prescribed- restarted meds - CK elevated - CBC, CMP reviewed 11/30 - CK 448, AST 54, ALT 37, Lipase 310 - A& O x2 - CBC, CMP reviewed 12/01 - CK 356 - Mental status improving with intermittent confusion Code(s): G93.40 - ENCEPHALOPATHY, UNSPECIFIED (2) Recurrent falls Current Visit: Yes Status: Acute Assessment & Plan: - Multifactorial as stated above with underlying electrolyte imbalances, uremia, and metabolic and neurological factors - CT of abdomen reviewed with healing ramus fracture - patient with h/o OA will check vitamin D level - CT head reviewed - MRI negative - PT/OT evaluation - Need for placement- rehab- awaiting level II eval Code(s): R29.6 - REPEATED FALLS (3) Rhabdomyolysis Current Visit: Yes Status: Acute Assessment & Plan: - IVF - CK 856- improving 11/30 - CK 448- improving - Cont IVF 12/01 - CK 356 Code(s): M62.82 - RHABDOMYOLYSIS (4) Unstageable pressure ulcer of sacral region Current Visit: Yes Status: Acute Assessment & Plan: - PT for wound assessment - Surgery consult - off load- turn q2h - I&D on 11/26 by - Wound care as instructed by surgery 11/30 - wound cultures x2 ordered 12/01 - Coccyx wound culture gram negative and sensitivity pending - Started Aztrenonam - Back abcess wound culture pending - CBC, CMP reviewed Code(s): L89.150 - PRESSURE ULCER OF SACRAL REGION, UNSTAGEABLE (5) Elevated LFTs Current Visit: Yes Status: Acute Assessment & Plan: - Improving AST 76, ALT 43- trend 11/30 - AST 54, ALT 37 12/01 Code(s): R79.89 - OTHER SPECIFIED ABNORMAL FINDINGS OF BLOOD CHEMISTRY (6) Elevated lipase Current Visit: Yes Status: Acute Assessment & Plan: - 518 on admission - recheck in AM -CT abd/pelvis: revealed a healing right inferior pubic ramus fracture. Liver, pancreas, spleen, adrenal glands, kidneys, ureters, and bladder are unremarkable -IVF 11/30 - Liapse 310 - denies abd pain - Lipid profile reviewed - will need OP f/u with GI Code(s): R74.8 - ABNORMAL LEVELS OF OTHER SERUM ENZYMES (7) Hypothyroid Current Visit: Yes Status: Chronic Assessment & Plan: - TSH 14.188 on admission - Continue home meds as she has not been taking as prescribed - F/U with PCP OP for monitoring Code(s): E03.9 - HYPOTHYROIDISM, UNSPECIFIED (8) Non compliance w medication regimen Current Visit: Yes Status: Acute Assessment & Plan: - not taking meds at home as prescribed Code(s): Z91.148 - PATIENT'S OTHER NONCOMPL WITH MEDS REGIMEN FOR OTHER REASON (9) SINTIA (acute kidney injury) Current Visit: Yes Status: Resolved Assessment & Plan: - resolved Code(s): N17.9 - ACUTE KIDNEY FAILURE, UNSPECIFIED (10) COPD (chronic obstructive pulmonary disease) Current Visit: Yes Status: Chronic Assessment & Plan: -CT chest with no acute findings -RT eval -continue home meds (11) HTN (hypertension) Current Visit: Yes Status: Chronic Assessment & Plan: -BP stable - continue home meds Code(s): I10 - ESSENTIAL (PRIMARY) HYPERTENSION (12) History of liver transplant Current Visit: Yes Status: Chronic Assessment & Plan: - continue home meds (13) Hypernatremia Current Visit: Yes Status: Resolved Assessment & Plan: - resolved Code(s): E87.0 - HYPEROSMOLALITY AND HYPERNATREMIA (14) Metabolic acidosis Current Visit: Yes Status: Resolved Assessment & Plan: - resolved Code(s): E87.20 - ACIDOSIS, UNSPECIFIED (15) Vitamin D deficiency Current Visit: Yes Status: Chronic Assessment & Plan: - Vitamin D 12.8 - Started replacement daily VTE: Heparin PPI: Protonix Next of KIN: Mother Code status: Full D/C plan: pending placement and level II eval Code(s): E55.9 - VITAMIN D DEFICIENCY, UNSPECIFIED Code(s): E55.9 - VITAMIN D DEFICIENCY, UNSPECIFIED
[2024-12-01] MEDS ORDERED: Xylocaine-Mpf 2% 5 Ml Vial ONE (15:28)
[2024-12-01] MEDS: AZACTAM 1 GM*** 1 GM in Sodium Chloride 100ML MINI-BAG PLUS 100 ML IV SCH (15:52)
[2024-12-02 05:44] LABS: Absolute Neutrophil Ct (ANC) 4.32 x10^3/uL (1.56-6.13); BASOPHIL % 0.9 % (0.1-1.2); Basophil (Absolute #) 0.07 x10^3/uL (0.01-0.08); Eosinophil % 2.1 % (0.7-5.8); Eosinophil (Absolute #) 0.16 x10^3/uL (0.04-0.36); Hematocrit 30.9 % (34.1-44.9); Hemoglobin 9.6 g/dL (11.2-15.7); IMMATURE GRAN # 0.06 x10^3u/L (0.001-0.031); IMMATURE GRAN % 0.8 % (0.001-0.429); Lymphocyte (Absolute #) 2.08 x10^3/uL (1.18-3.74); Lymphocytes % 27.8 % (19.3-51.7); Mean Cell Volume 86.6 fL (79.4-94.8); Mean Corpuscular Hemoglobin 26.9 pg (25.6-32.2); Mean Corpuscular Hgb Concent. 31.1 g/dL (32.2-35.5); Monocyte (Absolute #) 0.78 x10^3/uL (0.24-0.86); Monocytes % 10.4 % (4.7-12.5); Platelet Count 294 x10^3/uL (182-369); Red Blood Count 3.57 x10^6/uL (3.93-5.22); Red Cell Distribution Width 15.4 % (11.7-14.4); White Blood Count 7.5 x10^3/uL (3.98-10.04)
[2024-12-02 06:03] LABS: ALBUMIN 3.2 g/dL (3.5-5.0); ANION GAP 11.8 MEQ/L (5-15); BILIRUBIN,TOTAL 0.4 mg/dL (0.2-1.3); Calcium 8.5 mg/dL (8.4-10.2); Creatinine 1 0.91 mg/dL (0.52-1.04); EST GLOMERULAR FILTRATION RATE 72.7 ML/MIN; Potassium 4.4 mmol/L (3.5-5.1)
--- NOTE | 2024-12-02 12:00 | PCM.NOTE ---
Date and Time: 12/02/24 1155 Subjective Assessment: 11/29/24 Ms. Dwyer is a 59-year-old female with a complex medical history including hypertension, myocardial infarction, COPD, hypothyroidism, degenerative disc disease, cirrhosis, liver transplant (2008), chronic kidney disease, and medication non-compliance, who presented to the ED on 11/25/24 for evaluation of repeated falls and hallucinations. She was alert and oriented to self and place but had difficulty providing a clear history. She had been hallucinating at her PCPs office and had multiple falls with significant bruising. On examination, she was found to have an unstageable sacral and mid-back wound. 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 Throughout her hospital stay, the patient was noted to be having hallucinations and was grabbing at things in the air. Her labs showed hypernatremia, acute kidney injury, elevated liver function tests, elevated thyroid-stimulating hormone, and other abnormalities. 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 Treatment in the ED included a 1L fluid bolus, and she was admitted for encephalopathy, rhabdomyolysis, acute kidney injury, and electrolyte imbalances. By 11/26/24, her condition showed improvement, with better alertness and improved lab values. She underwent debridement of the sacral and back wounds. On 11/27/24, her labs continued to improve, and she was considering placement for continued care. On 11/28/24, her chronic back pain persisted, and she remained confused but was considered to be at her baseline. PT was scheduled, and case management was involved to discuss placement options. By 11/29/24, Ms. Dwyer remained confused and was only oriented to person. Her mother requested a rehab facility for placement, as Ms. Dwyer continued to experience weakness and memory issues. IV fluids were restarted due to an elevated CK level of 856. MRI and CT scans showed no acute concerns. Plans for placement were discussed with case management. Pt is psychologically stable and not a danger to herself or others. 11/30/24 Pt resting in bed. She is feeling better today and more alert. She is able to tell me who she is, and the season. CK and LFT's improving with IVF. Lipase 310- this is improved since admission. She denies any abd. pain and CT abd/pelvis negative. Vitamin D 12,8 and daily replacement started. She is awaiting placement and she triggered a level II eval due to her past medical hx. She denies CP, SOB, abd. pain, N/V/D. 12/01/24 Pt resting in bed. Level II evaluation to completed this evening. She is more alert and oriented today than previous days but has periods of intermittent confusion. CK improving. Labs overall improved. IVF stopped. Coccyx wound culture gram negative and sensitivity pending. Started Aztrenonam. After level II eval is back hopefully she will be d/c to rehab. She denies any further concerns a this time and feels well. 12/02/24 Pt sitting up in bed. She states she feels ok but her back hurts where the abscess is located. Pain medication provided by nursing. Wond culture + for proteus mirabilis. Discussed with pharmacy and aztrenam will work but if she d/c's to ECF will need to change to PO and Augmentin suggested d/t multiple allergies. Will start IP prior to d/c to make sure she does not have an allergic reaction. CK improved to 240. Awaiting level II results and then she can go to ECF as she has been accepted. She is not mentally competent to make decisions. She is again confused today and only alert to self. She denies any further concerns at this time. - Review of Systems Constitutional: No Fever, No Chills Eyes: No Symptoms Ears, Nose, & Throat: No Symptoms Respiratory: No Cough, No Short Of Breath Cardiac: No Chest Pain, No Edema, No Syncope Abdominal/Gastrointestinal: No Abdominal Pain, No Nausea, No Vomiting, No Diarrhea Genitourinary Symptoms: No Dysuria Musculoskeletal: Back Pain, No Neck Pain Skin: Skin Lesions, No Rash Neurological: No Dizziness, No Focal Weakness, No Sensory Changes Psychological: No Symptoms, Other (confusion) Endocrine: No Symptoms Hematologic/Lymphatic: No Symptoms Immunological/Allergic: No Symptoms Objective Exam General Appearance: no apparent distress, alert, thin Neurologic Exam: alert (to self), cooperative, normal mood/affect, nml cerebellar function, sensation nml, disoriented, confusion, No motor deficits Skin Exam: normal color, warm, dry, other (skin lesions on back and coccyx- covered) Eye Exam: PERRL, EOMI, eyes nml inspection Ears, Nose, Throat Exam: normal ENT inspection, pharynx normal, moist mucous membranes Neck Exam: normal inspection, non-tender, supple, full range of motion Respiratory Exam: normal breath sounds, lungs clear, No respiratory distress Cardiovascular Exam: regular rate/rhythm, normal heart sounds Gastrointestinal/Abdomen Exam: soft, No tenderness, No mass Extremity Exam: normal inspection, normal range of motion Back Exam: normal inspection, normal range of motion, No CVA tenderness, No vertebral tenderness Pelvic Exam: deferred Rectal Exam: deferred Objective Data Vital Signs: Vital Signs - 24 hr Temp Pulse Resp BP Pulse Ox 12/02/24 07:44 80 18 95 12/02/24 07:39 97.8 F 84 20 142/82 95 12/02/24 04:00 97.8 F 77 18 134/76 97 12/02/24 00:00 97.8 F 83 18 127/70 97 12/01/24 20:00 98.2 F 78 18 142/75 97 12/01/24 18:55 78 16 97 12/01/24 16:00 97.8 F 77 16 132/67 95 Pain Assessment - Last Documented Pain Intensity 3 Pain Scale Used 0-10 Pain Scale Intake and Output: Intake & Output 11/29/24 11/30/24 12/01/24 12/02/24 11:59 11:59 11:59 11:59 Intake Total 2070 2225 1640 1470 Output Total 1100 2150 800 Balance 044 98 7160 670 Weight 42.1 kg 42.4 kg 42.6 kg 40.3 kg Lab Results: Lab Results-Last 24 Hours 12/02/24 12/02/24 Range/Units 05:34 05:34 WBC 7.5 (3.98-10.04) x10^3/uL RBC 3.57 L (3.93-5.22) x10^6/uL Hgb 9.6 L (11.2-15.7) g/dL Hct 30.9 L (34.1-44.9) % MCV 86.6 (79.4-94.8) fL MCH 26.9 (25.6-32.2) pg MCHC 31.1 L (32.2-35.5) g/dL RDW 15.4 H (11.7-14.4) % Plt Count 294 (182-369) x10^3/uL MPV 10.0 (9.4-12.3) fL Gran % 58.0 (34.0-71.1) % Immature Gran % (Auto) 0.8 H (0.001-0.429) % Nucleat RBC Rel Count 0.0 (0.00-0.2) % Eos # (Auto) 0.16 (0.04-0.36) x10^3/uL Immature Gran # (Auto) 0.06 H (0.001-0.031) x10^3u/L Absolute Lymphs (auto) 2.08 (1.18-3.74) x10^3/uL Absolute Monos (auto) 0.78 (0.24-0.86) x10^3/uL Absolute Nucleated RBC 0.00 (0.00-0.012) x10^3u/L Lymphocytes % 27.8 (19.3-51.7) % Monocytes % 10.4 (4.7-12.5) % Eosinophils % 2.1 (0.7-5.8) % Basophils % 0.9 (0.1-1.2) % Absolute Granulocytes 4.32 (1.56-6.13) x10^3/uL Basophils # 0.07 (0.01-0.08) x10^3/uL Sodium 140 (135-145) mmol/L Potassium 4.4 (3.5-5.1) mmol/L Chloride 106 (98-107) mmol/L Carbon Dioxide 26 (22-30) mmol/L Anion Gap 11.8 (5-15) MEQ/L BUN 13 (7-17) mg/dL Creatinine 0.91 (0.52-1.04) mg/dL Estimated GFR 72.7 ML/MIN Glucose 88 (74-106) mg/dL Calcium 8.5 (8.4-10.2) mg/dL Total Bilirubin 0.40 (0.2-1.3) mg/dL AST 40 H (14-36) U/L ALT 29 (0-35) U/L Alkaline Phosphatase 83 (38-126) U/L Creatine Kinase 240 H (30-135) U/L Serum Total Protein 6.0 L (6.3-8.2) g/dL Albumin 3.2 L (3.5-5.0) g/dL Multi-Disciplinary Progress Notes: Multi-Disciplinary Progress Notes 12/02/24 11:16 Occupational Therapy Note by Sisi(L#[id number])Jo-Ann REQ SBA FOR TRANSFER FROM SUPINE IN BED TO SITTING ON EDGE OF BED. SHE ALS REQ SBA FOR SAFETY TO AMBULATE WITH ROLLATOR WALKER TO BATHROOM. SHE REQ VERBAL CUES FOR SAFE TRANSFER TECHNIQUE AND PLACEMENT OF ROLLATOR IN TIGHT SPACE IN BATHROOM. DEMO INDPENDENCE WITH TOILETING INCLUDING HYGEINE AND CLOTHING MANAGEMENT. SHE REQ SBA TO STAND AT SINK TO PERFORM BRUSHING TEETH AND HAIR. SHE REQUESTED TO SIT UP IN CHAIR AT END OF SESSION AND OTR ASSURED SHE WAS COMFORTABLE AND WITH PERSONAL ALARM ACTIVATED. Initialized on 12/02/24 11:16 - END OF NOTE 12/01/24 13:00 Case Management Note by Oriana López PATIENT STILL CONFUSED IN CONVERSATION, SHE DOES NOT KNOW YEAR OR MONTH. PATIENT VERY SLOW TO RESPOND TO QUESTIONS. S/W [facility] THIS AM- THEY WILL BE HERE TO ASSESS PATIENT FOR LEVEL II LATER THIS EVENING. UPDATED MOTHER WITH PLANS AND THAT [facility] HAS ACCEPTED PATIENT. SHE VERIFIED UNDERSTANDING S/W JERRY AT [facility]- UPDATED ON STATUS OF LEVEL II Initialized on 12/01/24 13:00 - END OF NOTE Assessment/Plan (1) Encephalopathy Current Visit: Yes Status: Acute Code(s): G93.40 - ENCEPHALOPATHY, UNSPECIFIED (2) Recurrent falls Current Visit: Yes Status: Acute Code(s): R29.6 - REPEATED FALLS (3) Rhabdomyolysis Current Visit: Yes Status: Acute Code(s): M62.82 - RHABDOMYOLYSIS (4) Unstageable pressure ulcer of sacral region Current Visit: Yes Status: Acute Code(s): L89.150 - PRESSURE ULCER OF SACRAL REGION, UNSTAGEABLE (5) Elevated LFTs Current Visit: Yes Status: Acute Code(s): R79.89 - OTHER SPECIFIED ABNORMAL FINDINGS OF BLOOD CHEMISTRY (6) Elevated lipase Current Visit: Yes Status: Acute Code(s): R74.8 - ABNORMAL LEVELS OF OTHER SERUM ENZYMES (7) Hypothyroid Current Visit: Yes Status: Chronic Code(s): E03.9 - HYPOTHYROIDISM, UNSPECIFIED (8) Non compliance w medication regimen Current Visit: Yes Status: Acute Code(s): Z91.148 - PATIENT'S OTHER NONCOMPL WITH MEDS REGIMEN FOR OTHER REASON (9) SINTIA (acute kidney injury) Current Visit: Yes Status: Resolved Code(s): N17.9 - ACUTE KIDNEY FAILURE, UNSPECIFIED (10) COPD (chronic obstructive pulmonary disease) Current Visit: Yes Status: Chronic (11) HTN (hypertension) Current Visit: Yes Status: Chronic Code(s): I10 - ESSENTIAL (PRIMARY) HYPERTENSION (12) History of liver transplant Current Visit: Yes Status: Chronic (13) Hypernatremia Current Visit: Yes Status: Resolved Code(s): E87.0 - HYPEROSMOLALITY AND HYPERNATREMIA (14) Metabolic acidosis Current Visit: Yes Status: Resolved Code(s): E87.20 - ACIDOSIS, UNSPECIFIED (15) Vitamin D deficiency Current Visit: Yes Status: Chronic Assessment & Plan: 1) Encephalopathy Current Visit: Yes Status: Acute Assessment & Plan: - CT head: identified a small focus of a remote infarct in the right parietal lobe without acute intracranial abnormalities - MRI brain: demonstrates atrophy and degenerative micro-ischemia within normal limits. 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 No acute intracranial abnormalities or evidence for evolving large vessel territorial stroke -TSH reviewed at 14.188- not taking home meds as prescribed- restarted meds - CK elevated - CBC, CMP reviewed 11/30 - CK 448, AST 54, ALT 37, Lipase 310 - A& O x2 - CBC, CMP reviewed 12/01 - CK 356 - Mental status improving with intermittent confusion 12/02 - alert to person only today - mentally incompetent to make her own decisions. - CBC, CMP reviewed - CK improving daily Code(s): G93.40 - ENCEPHALOPATHY, UNSPECIFIED (2) Recurrent falls Current Visit: Yes Status: Acute Assessment & Plan: - Multifactorial as stated above with underlying electrolyte imbalances, uremia, and metabolic and neurological factors - CT of abdomen reviewed with healing ramus fracture - patient with h/o OA will check vitamin D level - CT head reviewed - MRI negative - PT/OT evaluation - Need for placement- rehab- awaiting level II eval - level II eval 12/01 Code(s): R29.6 - REPEATED FALLS (3) Rhabdomyolysis Current Visit: Yes Status: Acute Assessment & Plan: - IVF - CK 856- improving 11/30 - CK 448- improving - Cont IVF 12/01 - CK 356 - IVF stopped as no IV - IV later placed in the evening but fluids not restarted since CK improving 12/02 - CK 240 Code(s): M62.82 - RHABDOMYOLYSIS (4) Unstageable pressure ulcer of sacral region Current Visit: Yes Status: Acute Assessment & Plan: - PT for wound assessment - Surgery consult - off load- turn q2h - I&D on 11/26 by - Wound care as instructed by surgery 11/30 - wound cultures x2 ordered 12/01 - Coccyx wound culture gram negative and sensitivity pending - Started Aztrenonam - Back abcess wound culture pending - CBC, CMP reviewed 12/02 - Wound culture coccyx + proteus mirabilis- Continue aztrenonam, will change to PO Augmentin prior to d/c. Code(s): L89.150 - PRESSURE ULCER OF SACRAL REGION, UNSTAGEABLE (5) Elevated LFTs Current Visit: Yes Status: Acute Assessment & Plan: - Improving AST 76, ALT 43- trend 11/30 - AST 54, ALT 37 12/01 - AST 51, ALT 34- improved 12/02 - AST 40, ALT 29 Code(s): R79.89 - OTHER SPECIFIED ABNORMAL FINDINGS OF BLOOD CHEMISTRY (6) Elevated lipase Current Visit: Yes Status: Acute Assessment & Plan: - 518 on admission - recheck in AM -CT abd/pelvis: revealed a healing right inferior pubic ramus fracture. Liver, pancreas, spleen, adrenal glands, kidneys, ureters, and bladder are unremarkable -IVF 11/30 - Liapse 310 - denies abd pain - Lipid profile reviewed - will need OP f/u with GI Code(s): R74.8 - ABNORMAL LEVELS OF OTHER SERUM ENZYMES (7) Hypothyroid Current Visit: Yes Status: Chronic Assessment & Plan: - TSH 14.188 on admission - Continue home meds as she has not been taking as prescribed - F/U with PCP OP for monitoring Code(s): E03.9 - HYPOTHYROIDISM, UNSPECIFIED (8) Non compliance w medication regimen Current Visit: Yes Status: Acute Assessment & Plan: - not taking meds at home as prescribed Code(s): Z91.148 - PATIENT'S OTHER NONCOMPL WITH MEDS REGIMEN FOR OTHER REASON (9) SINTIA (acute kidney injury) Current Visit: Yes Status: Resolved Assessment & Plan: - resolved Code(s): N17.9 - ACUTE KIDNEY FAILURE, UNSPECIFIED (10) COPD (chronic obstructive pulmonary disease) Current Visit: Yes Status: Chronic Assessment & Plan: -CT chest with no acute findings -RT eval -continue home meds (11) HTN (hypertension) Current Visit: Yes Status: Chronic Assessment & Plan: -BP stable - continue home meds Code(s): I10 - ESSENTIAL (PRIMARY) HYPERTENSION (12) History of liver transplant Current Visit: Yes Status: Chronic Assessment & Plan: - continue home meds (13) Hypernatremia Current Visit: Yes Status: Resolved Assessment & Plan: - resolved Code(s): E87.0 - HYPEROSMOLALITY AND HYPERNATREMIA (14) Metabolic acidosis Current Visit: Yes Status: Resolved Assessment & Plan: - resolved Code(s): E87.20 - ACIDOSIS, UNSPECIFIED (15) Vitamin D deficiency Current Visit: Yes Status: Chronic Assessment & Plan: - Vitamin D 12.8 - Started replacement daily VTE: Heparin PPI: Protonix Next of KIN: Mother Code status: Full D/C plan: pending level II eval results Code(s): E55.9 - VITAMIN D DEFICIENCY, UNSPECIFIED Code(s): E55.9 - VITAMIN D DEFICIENCY, UNSPECIFIED
[2024-12-03 04:40] LABS: Hematocrit 30.6 % (34.1-44.9); Hemoglobin 9.6 g/dL (11.2-15.7); Mean Cell Volume 87.2 fL (79.4-94.8); Mean Corpuscular Hemoglobin 27.4 pg (25.6-32.2); Mean Corpuscular Hgb Concent. 31.4 g/dL (32.2-35.5); Mean Platelet Volume 10.3 fL (9.4-12.3); Platelet Count 319 x10^3/uL (182-369); Red Blood Count 3.51 x10^6/uL (3.93-5.22); Red Cell Distribution Width 15.5 % (11.7-14.4); White Blood Count 7.4 x10^3/uL (3.98-10.04)
[2024-12-03 05:05] LABS: ANION GAP 11.4 MEQ/L (5-15); Calcium 8.5 mg/dL (8.4-10.2); Creatinine 1 1.05 mg/dL (0.52-1.04); EST GLOMERULAR FILTRATION RATE 61.2 ML/MIN; Potassium 4.3 mmol/L (3.5-5.1)
[2024-12-03] MEDS: Augmentin 875-125 Tablet PO SCH (09:55)
--- NOTE | 2024-12-03 11:14 | PCM.NOTE ---
Date and Time: 12/03/24 1106 Subjective Assessment: 11/29/24 Ms. Dwyer is a 59-year-old female with a complex medical history including hypertension, myocardial infarction, COPD, hypothyroidism, degenerative disc disease, cirrhosis, liver transplant (2008), chronic kidney disease, and medication non-compliance, who presented to the ED on 11/25/24 for evaluation of repeated falls and hallucinations. She was alert and oriented to self and place but had difficulty providing a clear history. She had been hallucinating at her PCPs office and had multiple falls with significant bruising. On examination, she was found to have an unstageable sacral and mid-back wound. 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 Throughout her hospital stay, the patient was noted to be having hallucinations and was grabbing at things in the air. Her labs showed hypernatremia, acute kidney injury, elevated liver function tests, elevated thyroid-stimulating hormone, and other abnormalities. 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 Treatment in the ED included a 1L fluid bolus, and she was admitted for encephalopathy, rhabdomyolysis, acute kidney injury, and electrolyte imbalances. By 11/26/24, her condition showed improvement, with better alertness and improved lab values. She underwent debridement of the sacral and back wounds. On 11/27/24, her labs continued to improve, and she was considering placement for continued care. On 11/28/24, her chronic back pain persisted, and she remained confused but was considered to be at her baseline. PT was scheduled, and case management was involved to discuss placement options. By 11/29/24, Ms. Dwyer remained confused and was only oriented to person. Her mother requested a rehab facility for placement, as Ms. Dwyer continued to experience weakness and memory issues. IV fluids were restarted due to an elevated CK level of 856. MRI and CT scans showed no acute concerns. Plans for placement were discussed with case management. Pt is psychologically stable and not a danger to herself or others. 11/30/24 Pt resting in bed. She is feeling better today and more alert. She is able to tell me who she is, and the season. CK and LFT's improving with IVF. Lipase 310- this is improved since admission. She denies any abd. pain and CT abd/pelvis negative. Vitamin D 12,8 and daily replacement started. She is awaiting placement and she triggered a level II eval due to her past medical hx. She denies CP, SOB, abd. pain, N/V/D. 12/01/24 Pt resting in bed. Level II evaluation to completed this evening. She is more alert and oriented today than previous days but has periods of intermittent confusion. CK improving. Labs overall improved. IVF stopped. Coccyx wound culture gram negative and sensitivity pending. Started Aztrenonam. After level II eval is back hopefully she will be d/c to rehab. She denies any further concerns a this time and feels well. 12/02/24 Pt sitting up in bed. She states she feels ok but her back hurts where the abscess is located. Pain medication provided by nursing. Wond culture + for proteus mirabilis. Discussed with pharmacy and aztrenam will work but if she d/c's to ECF will need to change to PO and Augmentin suggested d/t multiple allergies. Will start IP prior to d/c to make sure she does not have an allergic reaction. CK improved to 240. Awaiting level II results and then she can go to ECF as she has been accepted. She is not mentally competent to make decisions. She is again confused today and only alert to self. She denies any further concerns at this time. 12/03/24 Pt resting in bed. She continues to be intermittently confused. She was only able to tell me her name today. However, she was able to answer all the nurses questions properly. She continues to await level II eval information from assessment so that [facility] can tx to ECF. CK 211. Wound cultures x2 now both showing proteus mirabilis. Changing to Augmentin today per pharmacy suggestion. Nursing advised to keep a close watch on pt d/t to her hx of multiple med allergies. She denies any further concerns at this time. - Review of Systems Constitutional: No Fever, No Chills Eyes: No Symptoms Ears, Nose, & Throat: No Symptoms Respiratory: No Cough, No Short Of Breath Cardiac: No Chest Pain, No Edema, No Syncope Abdominal/Gastrointestinal: No Abdominal Pain, No Nausea, No Vomiting, No Diarrhea Genitourinary Symptoms: No Dysuria Musculoskeletal: No Back Pain, No Neck Pain Skin: Skin Lesions (coccyx and upper back), No Rash Neurological: Other (confusion), No Dizziness, No Focal Weakness, No Sensory Changes Psychological: No Symptoms Endocrine: No Symptoms Hematologic/Lymphatic: No Symptoms Immunological/Allergic: No Symptoms Objective Exam General Appearance: no apparent distress, alert Neurologic Exam: alert, oriented x 3, cooperative, normal mood/affect, nml cerebellar function, sensation nml, disoriented, confusion, No motor deficits Skin Exam: normal color, warm, dry, other (coccyx and upper back wound covered) Eye Exam: PERRL, EOMI, eyes nml inspection Ears, Nose, Throat Exam: normal ENT inspection, pharynx normal, moist mucous membranes Neck Exam: normal inspection, non-tender, supple, full range of motion Respiratory Exam: normal breath sounds, lungs clear, No respiratory distress Cardiovascular Exam: regular rate/rhythm, normal heart sounds Gastrointestinal/Abdomen Exam: soft, No tenderness, No mass Extremity Exam: normal inspection, normal range of motion Back Exam: normal inspection, normal range of motion, point tenderness (wounds), No CVA tenderness, No vertebral tenderness Pelvic Exam: deferred Rectal Exam: deferred Objective Data Vital Signs: Vital Signs - 24 hr Temp Pulse Resp BP Pulse Ox 12/03/24 08:00 97.5 F 77 16 123/77 95 12/03/24 07:00 74 16 94 L 12/03/24 04:00 97.9 F 72 16 120/73 94 L 12/02/24 20:00 98.6 F 76 16 106/57 96 12/02/24 16:00 97.8 F 71 19 128/83 95 12/02/24 11:55 98.2 F 73 18 110/62 93 L Pain Assessment - Last Documented Pain Intensity 0 Pain Scale Used 0-10 Pain Scale Intake and Output: Intake & Output 11/30/24 12/01/24 12/02/24 12/03/24 11:59 11:59 11:59 11:59 Intake Total 2225 1640 1470 910 Output Total 2150 800 Balance 75 1640 670 910 Weight 42.4 kg 42.6 kg 40.3 kg 41.6 kg Lab Results: Lab Results-Last 24 Hours 03/14/25 03/14/25 Range/Units 04:20 04:20 WBC 7.4 (3.98-10.04) x10^3/uL RBC 3.51 L (3.93-5.22) x10^6/uL Hgb 9.6 L (11.2-15.7) g/dL Hct 30.6 L (34.1-44.9) % MCV 87.2 (79.4-94.8) fL MCH 27.4 (25.6-32.2) pg MCHC 31.4 L (32.2-35.5) g/dL RDW 15.5 H (11.7-14.4) % Plt Count 319 (182-369) x10^3/uL MPV 10.3 (9.4-12.3) fL Sodium 139 (135-145) mmol/L Potassium 4.3 (3.5-5.1) mmol/L Chloride 104 (98-107) mmol/L Carbon Dioxide 28 (22-30) mmol/L Anion Gap 11.4 (5-15) MEQ/L BUN 14 (7-17) mg/dL Creatinine 1.05 H (0.52-1.04) mg/dL Estimated GFR 61.2 ML/MIN Glucose 82 (74-106) mg/dL Calcium 8.5 (8.4-10.2) mg/dL Creatine Kinase 211 H (30-135) U/L Multi-Disciplinary Progress Notes: Multi-Disciplinary Progress Notes 12/02/24 13:27 Case Management Note by Oriana López PATIENT CONFUSED STILL TODAY- LEVEL II STILL PENDING AT THIS TIME- ANTICIPATE TO DC TO [facility] WHEN LEVEL II APPROVED Initialized on 12/02/24 13:27 - END OF NOTE 12/02/24 11:16 Occupational Therapy Note by Sisi(L#[id number]),Jo-Ann NUNEZ REQ SBA FOR TRANSFER FROM SUPINE IN BED TO SITTING ON EDGE OF BED. SHE ALS REQ SBA FOR SAFETY TO AMBULATE WITH ROLLATOR WALKER TO BATHROOM. SHE REQ VERBAL CUES FOR SAFE TRANSFER TECHNIQUE AND PLACEMENT OF ROLLATOR IN TIGHT SPACE IN BATHROOM. DEMO INDPENDENCE WITH TOILETING INCLUDING HYGEINE AND CLOTHING MANAGEMENT. SHE REQ SBA TO STAND AT SINK TO PERFORM BRUSHING TEETH AND HAIR. SHE REQUESTED TO SIT UP IN CHAIR AT END OF SESSION AND OTR ASSURED SHE WAS COMFORTABLE AND WITH PERSONAL ALARM ACTIVATED. Initialized on 12/02/24 11:16 - END OF NOTE Assessment/Plan (1) Encephalopathy Current Visit: Yes Status: Acute Code(s): G93.40 - ENCEPHALOPATHY, UNSPECIFIED (2) Recurrent falls Current Visit: Yes Status: Acute Code(s): R29.6 - REPEATED FALLS (3) Rhabdomyolysis Current Visit: Yes Status: Acute Code(s): M62.82 - RHABDOMYOLYSIS (4) Unstageable pressure ulcer of sacral region Current Visit: Yes Status: Acute Code(s): L89.150 - PRESSURE ULCER OF SACRAL REGION, UNSTAGEABLE (5) Elevated LFTs Current Visit: Yes Status: Acute Code(s): R79.89 - OTHER SPECIFIED ABNORMAL FINDINGS OF BLOOD CHEMISTRY (6) Elevated lipase Current Visit: Yes Status: Acute Code(s): R74.8 - ABNORMAL LEVELS OF OTHER SERUM ENZYMES (7) Hypothyroid Current Visit: Yes Status: Chronic Code(s): E03.9 - HYPOTHYROIDISM, UNSPECIFIED (8) Non compliance w medication regimen Current Visit: Yes Status: Acute Code(s): Z91.148 - PATIENT'S OTHER NONCOMPL WITH MEDS REGIMEN FOR OTHER REASON (9) SINTIA (acute kidney injury) Current Visit: Yes Status: Resolved Code(s): N17.9 - ACUTE KIDNEY FAILURE, UNSPECIFIED (10) COPD (chronic obstructive pulmonary disease) Current Visit: Yes Status: Chronic (11) HTN (hypertension) Current Visit: Yes Status: Chronic Code(s): I10 - ESSENTIAL (PRIMARY) HYPERTENSION (12) History of liver transplant Current Visit: Yes Status: Chronic (13) Hypernatremia Current Visit: Yes Status: Resolved Code(s): E87.0 - HYPEROSMOLALITY AND HYPERNATREMIA (14) Metabolic acidosis Current Visit: Yes Status: Resolved Code(s): E87.20 - ACIDOSIS, UNSPECIFIED (15) Vitamin D deficiency Current Visit: Yes Status: Chronic Assessment & Plan: 1) Encephalopathy Current Visit: Yes Status: Acute Assessment & Plan: - CT head: identified a small focus of a remote infarct in the right parietal lobe without acute intracranial abnormalities - MRI brain: demonstrates atrophy and degenerative micro-ischemia within normal limits. 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 No acute intracranial abnormalities or evidence for evolving large vessel territorial stroke -TSH reviewed at 14.188- not taking home meds as prescribed- restarted meds - CK elevated - CBC, CMP reviewed 11/30 - CK 448, AST 54, ALT 37, Lipase 310 - A& O x2 - CBC, CMP reviewed 12/01 - CK 356 - Mental status improving with intermittent confusion 12/02 - alert to person only today - mentally incompetent to make her own decisions. - CBC, CMP reviewed - CK improving daily 12/03 - Intermittent confusion - CBC, CMP reviewed - CK improving daily Code(s): G93.40 - ENCEPHALOPATHY, UNSPECIFIED (2) Recurrent falls Current Visit: Yes Status: Acute Assessment & Plan: - Multifactorial as stated above with underlying electrolyte imbalances, uremia, and metabolic and neurological factors - CT of abdomen reviewed with healing ramus fracture - patient with h/o OA will check vitamin D level - CT head reviewed - MRI negative - PT/OT evaluation - Need for placement- rehab- awaiting level II eval - level II eval 12/01 Code(s): R29.6 - REPEATED FALLS (3) Rhabdomyolysis Current Visit: Yes Status: Acute Assessment & Plan: - IVF - CK 856- improving 11/30 - CK 448- improving - Cont IVF 12/01 - CK 356 - IVF stopped as no IV - IV later placed in the evening but fluids not restarted since CK improving 12/02 - CK 240 12/03 -CK 211 Code(s): M62.82 - RHABDOMYOLYSIS (4) Unstageable pressure ulcer of sacral region Current Visit: Yes Status: Acute Assessment & Plan: - PT for wound assessment - Surgery consult - off load- turn q2h - I&D on 11/26 by - Wound care as instructed by surgery 11/30 - wound cultures x2 ordered 12/01 - Coccyx wound culture gram negative and sensitivity pending - Started Aztrenonam - Back abcess wound culture pending - CBC, CMP reviewed 12/02 - Wound culture coccyx + proteus mirabilis- Continue aztrenonam, will change to PO Augmentin prior to d/c. 12/03 - Started Augmentin - BC x2 + proteus mirabilis Code(s): L89.150 - PRESSURE ULCER OF SACRAL REGION, UNSTAGEABLE (5) Elevated LFTs Current Visit: Yes Status: Acute Assessment & Plan: - Improving AST 76, ALT 43- trend 11/30 - AST 54, ALT 37 12/01 - AST 51, ALT 34- improved 12/02 - AST 40, ALT 29 Code(s): R79.89 - OTHER SPECIFIED ABNORMAL FINDINGS OF BLOOD CHEMISTRY (6) Elevated lipase Current Visit: Yes Status: Acute Assessment & Plan: - 518 on admission - recheck in AM -CT abd/pelvis: revealed a healing right inferior pubic ramus fracture. Liver, pancreas, spleen, adrenal glands, kidneys, ureters, and bladder are unremarkable -IVF 11/30 - Liapse 310 - denies abd pain - Lipid profile reviewed - will need OP f/u with GI Code(s): R74.8 - ABNORMAL LEVELS OF OTHER SERUM ENZYMES (7) Hypothyroid Current Visit: Yes Status: Chronic Assessment & Plan: - TSH 14.188 on admission - Continue home meds as she has not been taking as prescribed - F/U with PCP OP for monitoring Code(s): E03.9 - HYPOTHYROIDISM, UNSPECIFIED (8) Non compliance w medication regimen Current Visit: Yes Status: Acute Assessment & Plan: - not taking meds at home as prescribed Code(s): Z91.148 - PATIENT'S OTHER NONCOMPL WITH MEDS REGIMEN FOR OTHER REASON (9) SINTIA (acute kidney injury) Current Visit: Yes Status: Resolved Assessment & Plan: - resolved Code(s): N17.9 - ACUTE KIDNEY FAILURE, UNSPECIFIED (10) COPD (chronic obstructive pulmonary disease) Current Visit: Yes Status: Chronic Assessment & Plan: -CT chest with no acute findings -RT eval -continue home meds (11) HTN (hypertension) Current Visit: Yes Status: Chronic Assessment & Plan: -BP stable - continue home meds Code(s): I10 - ESSENTIAL (PRIMARY) HYPERTENSION (12) History of liver transplant Current Visit: Yes Status: Chronic Assessment & Plan: - continue home meds (13) Hypernatremia Current Visit: Yes Status: Resolved Assessment & Plan: - resolved Code(s): E87.0 - HYPEROSMOLALITY AND HYPERNATREMIA (14) Metabolic acidosis Current Visit: Yes Status: Resolved Assessment & Plan: - resolved Code(s): E87.20 - ACIDOSIS, UNSPECIFIED (15) Vitamin D deficiency Current Visit: Yes Status: Chronic Assessment & Plan: - Vitamin D 12.8 - Started replacement daily VTE: Heparin PPI: Protonix Next of KIN: Mother Code status: Full D/C plan: pending level II eval results Code(s): E55.9 - VITAMIN D DEFICIENCY, UNSPECIFIED Code(s): E55.9 - VITAMIN D DEFICIENCY, UNSPECIFIED
[2024-12-04 05:30] LABS: Hematocrit 33.8 % (34.1-44.9); Hemoglobin 10.7 g/dL (11.2-15.7); Mean Cell Volume 87.1 fL (79.4-94.8); Mean Corpuscular Hemoglobin 27.6 pg (25.6-32.2); Mean Corpuscular Hgb Concent. 31.7 g/dL (32.2-35.5); Platelet Count 341 x10^3/uL (182-369); Red Blood Count 3.88 x10^6/uL (3.93-5.22); Red Cell Distribution Width 15.4 % (11.7-14.4)
[2024-12-04 05:50] LABS: ANION GAP 16.6 MEQ/L (5-15); Calcium 8.7 mg/dL (8.4-10.2); Creatinine 1 1.05 mg/dL (0.52-1.04); EST GLOMERULAR FILTRATION RATE 61.2 ML/MIN; Potassium 4.5 mmol/L (3.5-5.1)
--- NOTE | 2024-12-04 11:03 | PCM.NOTE ---
Date and Time: 12/04/24 1054 Subjective Assessment: 11/29/24 Ms. Dwyer is a 59-year-old female with a complex medical history including hypertension, myocardial infarction, COPD, hypothyroidism, degenerative disc disease, cirrhosis, liver transplant (2008), chronic kidney disease, and medication non-compliance, who presented to the ED on 11/25/24 for evaluation of repeated falls and hallucinations. She was alert and oriented to self and place but had difficulty providing a clear history. She had been hallucinating at her PCPs office and had multiple falls with significant bruising. On examination, she was found to have an unstageable sacral and mid-back wound. 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 Throughout her hospital stay, the patient was noted to be having hallucinations and was grabbing at things in the air. Her labs showed hypernatremia, acute kidney injury, elevated liver function tests, elevated thyroid-stimulating hormone, and other abnormalities. 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 Treatment in the ED included a 1L fluid bolus, and she was admitted for encephalopathy, rhabdomyolysis, acute kidney injury, and electrolyte imbalances. By 11/26/24, her condition showed improvement, with better alertness and improved lab values. She underwent debridement of the sacral and back wounds. On 11/27/24, her labs continued to improve, and she was considering placement for continued care. On 11/28/24, her chronic back pain persisted, and she remained confused but was considered to be at her baseline. PT was scheduled, and case management was involved to discuss placement options. By 11/29/24, Ms. Dwyer remained confused and was only oriented to person. Her mother requested a rehab facility for placement, as Ms. Dwyer continued to experience weakness and memory issues. IV fluids were restarted due to an elevated CK level of 856. MRI and CT scans showed no acute concerns. Plans for placement were discussed with case management. Pt is psychologically stable and not a danger to herself or others. 11/30/24 Pt resting in bed. She is feeling better today and more alert. She is able to tell me who she is, and the season. CK and LFT's improving with IVF. Lipase 310- this is improved since admission. She denies any abd. pain and CT abd/pelvis negative. Vitamin D 12,8 and daily replacement started. She is awaiting placement and she triggered a level II eval due to her past medical hx. She denies CP, SOB, abd. pain, N/V/D. 12/01/24 Pt resting in bed. Level II evaluation to completed this evening. She is more alert and oriented today than previous days but has periods of intermittent confusion. CK improving. Labs overall improved. IVF stopped. Coccyx wound culture gram negative and sensitivity pending. Started Aztrenonam. After level II eval is back hopefully she will be d/c to rehab. She denies any further concerns a this time and feels well. 12/02/24 Pt sitting up in bed. She states she feels ok but her back hurts where the abscess is located. Pain medication provided by nursing. Wond culture + for proteus mirabilis. Discussed with pharmacy and aztrenam will work but if she d/c's to ECF will need to change to PO and Augmentin suggested d/t multiple allergies. Will start IP prior to d/c to make sure she does not have an allergic reaction. CK improved to 240. Awaiting level II results and then she can go to ECF as she has been accepted. She is not mentally competent to make decisions. She is again confused today and only alert to self. She denies any further concerns at this time. 12/03/24 Pt resting in bed. She continues to be intermittently confused. She was only able to tell me her name today. However, she was able to answer all the nurses questions properly. She continues to await level II eval information from assessment so that [facility] can tx to ECF. CK 211. Wound cultures x2 now both showing proteus mirabilis. Changing to Augmentin today per pharmacy suggestion. Nursing advised to keep a close watch on pt d/t to her hx of multiple med allergies. She denies any further concerns at this time. 12/04 Pt resting in bed. She states she doesn't feel well and her stomach is upset. Medication provided. She has been using a heating pad for her back pain. Per PT dressings to be changed Q2 days as directed. She continues to have confusion and is alert to person and place only. She continues to await level II eval information to be transferred to rehab. She denies CP, SOB, N/V/D. - Review of Systems Constitutional: No Fever, No Chills Eyes: No Symptoms Ears, Nose, & Throat: No Symptoms Respiratory: No Cough, No Short Of Breath Cardiac: No Chest Pain, No Edema, No Syncope Abdominal/Gastrointestinal: No Abdominal Pain, No Nausea, No Vomiting, No Diarrhea Genitourinary Symptoms: No Dysuria Musculoskeletal: No Back Pain, No Neck Pain Skin: Skin Lesions (coccyx and upper back), No Rash Neurological: Other (confusion), No Dizziness, No Focal Weakness, No Sensory Changes Psychological: No Symptoms Endocrine: No Symptoms Hematologic/Lymphatic: No Symptoms Immunological/Allergic: No Symptoms Objective Exam General Appearance: no apparent distress, alert, thin Neurologic Exam: alert, oriented x 3, cooperative, normal mood/affect, nml cerebellar function, sensation nml, disoriented, confusion, No motor deficits Skin Exam: normal color, warm, dry, other (coccyx and upper back wound covered) Eye Exam: PERRL, EOMI, eyes nml inspection Ears, Nose, Throat Exam: normal ENT inspection, pharynx normal, moist mucous membranes Neck Exam: normal inspection, non-tender, supple, full range of motion Respiratory Exam: normal breath sounds, lungs clear, No respiratory distress Cardiovascular Exam: regular rate/rhythm, normal heart sounds Gastrointestinal/Abdomen Exam: soft, No tenderness, No mass Extremity Exam: normal inspection, normal range of motion Back Exam: normal inspection, normal range of motion, other (wounds), No CVA tenderness, No vertebral tenderness Pelvic Exam: deferred Rectal Exam: deferred Objective Data Vital Signs: Vital Signs - 24 hr Temp Pulse Resp BP Pulse Ox 12/04/24 08:00 18 12/04/24 07:44 97.7 F 62 18 105/56 93 L 12/04/24 04:00 97.7 F 63 16 139/70 94 L 12/04/24 00:00 97.1 F 66 16 117/58 95 12/03/24 23:50 16 12/03/24 20:00 16 12/03/24 19:49 97.5 F 71 16 111/58 96 12/03/24 18:41 74 16 97 12/03/24 16:00 97.6 F 67 17 116/73 95 12/03/24 12:00 97.7 F 88 16 95 Pain Assessment - Last Documented Pain Intensity 7 Pain Scale Used 0-10 Pain Scale Intake and Output: Intake & Output 12/01/24 12/02/24 12/03/24 12/04/24 11:59 11:59 11:59 11:59 Intake Total 1640 1470 910 940 Output Total 800 Balance 1640 670 910 940 Weight 42.6 kg 40.3 kg 41.6 kg 41.6 kg Lab Results: Lab Results-Last 24 Hours 12/04/24 12/04/24 Range/Units 05:16 05:16 WBC 8.0 (3.98-10.04) x10^3/uL RBC 3.88 L (3.93-5.22) x10^6/uL Hgb 10.7 L (11.2-15.7) g/dL Hct 33.8 L (34.1-44.9) % MCV 87.1 (79.4-94.8) fL MCH 27.6 (25.6-32.2) pg MCHC 31.7 L (32.2-35.5) g/dL RDW 15.4 H (11.7-14.4) % Plt Count 341 (182-369) x10^3/uL MPV 10.0 (9.4-12.3) fL Sodium 138 (135-145) mmol/L Potassium 4.5 (3.5-5.1) mmol/L Chloride 101 (98-107) mmol/L Carbon Dioxide 25 (22-30) mmol/L Anion Gap 16.6 H (5-15) MEQ/L BUN 14 (7-17) mg/dL Creatinine 1.05 H (0.52-1.04) mg/dL Estimated GFR 61.2 ML/MIN Glucose 79 (74-106) mg/dL Calcium 8.7 (8.4-10.2) mg/dL Multi-Disciplinary Progress Notes: Multi-Disciplinary Progress Notes 12/03/24 16:25 Occupational Therapy Note by Sisi(Gary#[id number]),Jo-Ann PATIENT SEEN BEDSIDE FOR THERAPUETIC EXERCISES ADDRESSING BUE STRENGTH AND OVERALL ENDURANCE. SHE PERFORMED 5 SETS OF 15 REPS X 2 UE EXERCISES WITH 1 1/2# RESISTANCE. FOLLOWED WITH ADL TASKS IN WHICH SHE DEMO GOOD INDEPENDENCE WITH OVERALL. OTR FEELS PATIENT IS CLOSE TO HER PLOF IN TERMS OF PHYSICAL TOLERANCE HOWEVER HER COGNITIVE IMPAIRMENT AND LACK OF SAFETY AWARENESS INCLUDING DECREASED OVERALL BALANCE AND INCREASED IMPULSIVITY HINDER HER FROM RETURNING HOME ALONE WAS HER PLOF. Initialized on 12/03/24 16:25 - END OF NOTE 12/03/24 15:12 Nutrition Note by Caity Moy F/u Note: Diet resumed to HR with 50-75% po intake. Labs 12/02= alb 3.2; 12/03= Cr 1.05, hgb 9.6, hct 30.6. adm weight 42.1kg; current wt 41.6kg. goal #1)maintain po intake >=75% Will con't to monitor and f/u prn. T.ROSE Moy Initialized on 12/03/24 15:12 - END OF NOTE 12/03/24 13:50 Case Management Note by Oriana López S/W PATIENT- SHE IS STILL CONFUSED, [facility] REMEMBER CONVERSATIONS THIS ELECTRICIAN THIRD HAS HAD WITH HER REGARDING DC PLANS. S/W MOTHER- SHE CONTINUES TO PLAN FOR PATIENT TO TRANSITION TO [facility] WHEN LEVEL II COMPLETE LEVEL II STILL PENDING AT THIS TIME- PATIENT CANNOT TRANSITION TO [facility] UNTIL THIS PAPERWORK IS DONE S/W JERRY AT [facility]- THEY ARE STILL READY FOR PATIENT BUT IF PATIENT CANNOT COME TODAY, SHE WILL HAVE TO WAIT UNTIL FRIDAY. (CAN'T ADMIT OVER THE WEEKEND). Initialized on 12/03/24 13:50 - END OF NOTE Assessment/Plan (1) Encephalopathy Current Visit: Yes Status: Acute Code(s): G93.40 - ENCEPHALOPATHY, UNSPECIFIED (2) Recurrent falls Current Visit: Yes Status: Acute Code(s): R29.6 - REPEATED FALLS (3) Rhabdomyolysis Current Visit: Yes Status: Acute Code(s): M62.82 - RHABDOMYOLYSIS (4) Unstageable pressure ulcer of sacral region Current Visit: Yes Status: Acute Code(s): L89.150 - PRESSURE ULCER OF SACRAL REGION, UNSTAGEABLE (5) Elevated LFTs Current Visit: Yes Status: Acute Code(s): R79.89 - OTHER SPECIFIED ABNORMAL FINDINGS OF BLOOD CHEMISTRY (6) Elevated lipase Current Visit: Yes Status: Acute Code(s): R74.8 - ABNORMAL LEVELS OF OTHER SERUM ENZYMES (7) Hypothyroid Current Visit: Yes Status: Chronic Code(s): E03.9 - HYPOTHYROIDISM, UNSPECIFIED (8) Non compliance w medication regimen Current Visit: Yes Status: Acute Code(s): Z91.148 - PATIENT'S OTHER NONCOMPL WITH MEDS REGIMEN FOR OTHER REASON (9) SINTIA (acute kidney injury) Current Visit: Yes Status: Resolved Code(s): N17.9 - ACUTE KIDNEY FAILURE, UNSPECIFIED (10) COPD (chronic obstructive pulmonary disease) Current Visit: Yes Status: Chronic (11) HTN (hypertension) Current Visit: Yes Status: Chronic Code(s): I10 - ESSENTIAL (PRIMARY) HYPERTENSION (12) History of liver transplant Current Visit: Yes Status: Chronic (13) Hypernatremia Current Visit: Yes Status: Resolved Code(s): E87.0 - HYPEROSMOLALITY AND HYPERNATREMIA (14) Metabolic acidosis Current Visit: Yes Status: Resolved Code(s): E87.20 - ACIDOSIS, UNSPECIFIED (15) Vitamin D deficiency Current Visit: Yes Status: Chronic Assessment & Plan: 1) Encephalopathy Current Visit: Yes Status: Acute Assessment & Plan: - CT head: identified a small focus of a remote infarct in the right parietal lobe without acute intracranial abnormalities - MRI brain: demonstrates atrophy and degenerative micro-ischemia within normal limits. 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 No acute intracranial abnormalities or evidence for evolving large vessel territorial stroke -TSH reviewed at 14.188- not taking home meds as prescribed- restarted meds - CK elevated - CBC, CMP reviewed 11/30 - CK 448, AST 54, ALT 37, Lipase 310 - A& O x2 - CBC, CMP reviewed 12/01 - CK 356 - Mental status improving with intermittent confusion 12/02 - alert to person only today - mentally incompetent to make her own decisions. - CBC, CMP reviewed - CK improving daily 12/03 - Intermittent confusion - CBC, CMP reviewed - CK improving daily 12/04 - Intermittent confusion - CBC, CMP reviewed Code(s): G93.40 - ENCEPHALOPATHY, UNSPECIFIED (2) Recurrent falls Current Visit: Yes Status: Acute Assessment & Plan: - Multifactorial as stated above with underlying electrolyte imbalances, uremia, and metabolic and neurological factors - CT of abdomen reviewed with healing ramus fracture - patient with h/o OA will check vitamin D level - CT head reviewed - MRI negative - PT/OT evaluation - Need for placement- rehab- awaiting level II eval - level II eval 12/01 Code(s): R29.6 - REPEATED FALLS (3) Rhabdomyolysis Current Visit: Yes Status: Acute Assessment & Plan: - IVF - CK 856- improving 11/30 - CK 448- improving - Cont IVF 12/01 - CK 356 - IVF stopped as no IV - IV later placed in the evening but fluids not restarted since CK improving 12/02 - CK 240 12/03 -CK 211 Code(s): M62.82 - RHABDOMYOLYSIS (4) Unstageable pressure ulcer of sacral region Current Visit: Yes Status: Acute Assessment & Plan: - PT for wound assessment - Surgery consult - off load- turn q2h - I&D on 11/26 by GS - Wound care as instructed by surgery 11/30 - wound cultures x2 ordered 12/01 - Coccyx wound culture gram negative and sensitivity pending - Started Aztrenonam - Back abcess wound culture pending - CBC, CMP reviewed 12/02 - Wound culture coccyx + proteus mirabilis- Continue aztrenonam, will change to PO Augmentin prior to d/c. 12/03 - Started Augmentin - BC x2 + proteus mirabilis - Nursing to chart dressing recs per PT- change dressings every other day Code(s): L89.150 - PRESSURE ULCER OF SACRAL REGION, UNSTAGEABLE (5) Elevated LFTs Current Visit: Yes Status: Acute Assessment & Plan: - Improving AST 76, ALT 43- trend 11/30 - AST 54, ALT 37 12/01 - AST 51, ALT 34- improved 12/02 - AST 40, ALT 29 Code(s): R79.89 - OTHER SPECIFIED ABNORMAL FINDINGS OF BLOOD CHEMISTRY (6) Elevated lipase Current Visit: Yes Status: Acute Assessment & Plan: - 518 on admission - recheck in AM -CT abd/pelvis: revealed a healing right inferior pubic ramus fracture. Liver, pancreas, spleen, adrenal glands, kidneys, ureters, and bladder are unremarkable -IVF 11/30 - Liapse 310 - denies abd pain - Lipid profile reviewed - will need OP f/u with GI Code(s): R74.8 - ABNORMAL LEVELS OF OTHER SERUM ENZYMES (7) Hypothyroid Current Visit: Yes Status: Chronic Assessment & Plan: - TSH 14.188 on admission - Continue home meds as she has not been taking as prescribed - F/U with PCP OP for monitoring Code(s): E03.9 - HYPOTHYROIDISM, UNSPECIFIED (8) Non compliance w medication regimen Current Visit: Yes Status: Acute Assessment & Plan: - not taking meds at home as prescribed Code(s): Z91.148 - PATIENT'S OTHER NONCOMPL WITH MEDS REGIMEN FOR OTHER REASON (9) SINTIA (acute kidney injury) Current Visit: Yes Status: Resolved Assessment & Plan: - resolved Code(s): N17.9 - ACUTE KIDNEY FAILURE, UNSPECIFIED (10) COPD (chronic obstructive pulmonary disease) Current Visit: Yes Status: Chronic Assessment & Plan: -CT chest with no acute findings -RT eval -continue home meds (11) HTN (hypertension) Current Visit: Yes Status: Chronic Assessment & Plan: -BP stable - continue home meds Code(s): I10 - ESSENTIAL (PRIMARY) HYPERTENSION (12) History of liver transplant Current Visit: Yes Status: Chronic Assessment & Plan: - continue home meds (13) Hypernatremia Current Visit: Yes Status: Resolved Assessment & Plan: - resolved Code(s): E87.0 - HYPEROSMOLALITY AND HYPERNATREMIA (14) Metabolic acidosis Current Visit: Yes Status: Resolved Assessment & Plan: - resolved Code(s): E87.20 - ACIDOSIS, UNSPECIFIED (15) Vitamin D deficiency Current Visit: Yes Status: Chronic Assessment & Plan: - Vitamin D 12.8 - Started replacement daily VTE: Heparin PPI: Protonix Next of KIN: Mother Code status: Full D/C plan: pending level II eval results Code(s): E55.9 - VITAMIN D DEFICIENCY, UNSPECIFIED Code(s): E55.9 - VITAMIN D DEFICIENCY, UNSPECIFIED
[2024-12-04] MEDS: NORCO 5/325 MG PO PRN (21:11)
[2024-12-05 06:21] LABS: Hematocrit 35.2 % (34.1-44.9); Hemoglobin 10.6 g/dL (11.2-15.7); Mean Cell Volume 89.6 fL (79.4-94.8); Mean Corpuscular Hgb Concent. 30.1 g/dL (32.2-35.5); Mean Platelet Volume 9.9 fL (9.4-12.3); Platelet Count 352 x10^3/uL (182-369); Red Blood Count 3.93 x10^6/uL (3.93-5.22); Red Cell Distribution Width 15.6 % (11.7-14.4); White Blood Count 6.5 x10^3/uL (3.98-10.04)
[2024-12-05 06:28] LABS: ANION GAP 15.1 MEQ/L (5-15); Calcium 8.7 mg/dL (8.4-10.2); Creatinine 1 1.08 mg/dL (0.52-1.04); EST GLOMERULAR FILTRATION RATE 59.2 ML/MIN; Potassium 4.6 mmol/L (3.5-5.1)
[2024-12-05] MEDS: Sodium Chloride 0.9% 1000 ML 1,000 ML IV SCH (08:05)
--- NOTE | 2024-12-05 09:16 | PCM.NOTE ---
Date and Time: 12/05/24911 Subjective Assessment: 11/29/24 Ms. Dwyer is a 59-year-old female with a complex medical history including hypertension, myocardial infarction, COPD, hypothyroidism, degenerative disc disease, cirrhosis, liver transplant (2008), chronic kidney disease, and medication non-compliance, who presented to the ED on 11/25/24 for evaluation of repeated falls and hallucinations. She was alert and oriented to self and place but had difficulty providing a clear history. She had been hallucinating at her PCPs office and had multiple falls with significant bruising. On examination, she was found to have an unstageable sacral and mid-back wound. 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 Throughout her hospital stay, the patient was noted to be having hallucinations and was grabbing at things in the air. Her labs showed hypernatremia, acute kidney injury, elevated liver function tests, elevated thyroid-stimulating hormone, and other abnormalities. 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 Treatment in the ED included a 1L fluid bolus, and she was admitted for encephalopathy, rhabdomyolysis, acute kidney injury, and electrolyte imbalances. By 11/26/24, her condition showed improvement, with better alertness and improved lab values. She underwent debridement of the sacral and back wounds. On 11/27/24, her labs continued to improve, and she was considering placement for continued care. On 11/28/24, her chronic back pain persisted, and she remained confused but was considered to be at her baseline. PT was scheduled, and case management was involved to discuss placement options. By 11/29/24, Ms. Dwyer remained confused and was only oriented to person. Her mother requested a rehab facility for placement, as Ms. Dwyer continued to experience weakness and memory issues. IV fluids were restarted due to an elevated CK level of 856. MRI and CT scans showed no acute concerns. Plans for placement were discussed with case management. Pt is psychologically stable and not a danger to herself or others. 11/30/24 Pt resting in bed. She is feeling better today and more alert. She is able to tell me who she is, and the season. CK and LFT's improving with IVF. Lipase 310- this is improved since admission. She denies any abd. pain and CT abd/pelvis negative. Vitamin D 12,8 and daily replacement started. She is awaiting placement and she triggered a level II eval due to her past medical hx. She denies CP, SOB, abd. pain, N/V/D. 12/01/24 Pt resting in bed. Level II evaluation to completed this evening. She is more alert and oriented today than previous days but has periods of intermittent confusion. CK improving. Labs overall improved. IVF stopped. Coccyx wound culture gram negative and sensitivity pending. Started Aztrenonam. After level II eval is back hopefully she will be d/c to rehab. She denies any further concerns a this time and feels well. 12/02/24 Pt sitting up in bed. She states she feels ok but her back hurts where the abscess is located. Pain medication provided by nursing. Wond culture + for proteus mirabilis. Discussed with pharmacy and aztrenam will work but if she d/c's to ECF will need to change to PO and Augmentin suggested d/t multiple allergies. Will start IP prior to d/c to make sure she does not have an allergic reaction. CK improved to 240. Awaiting level II results and then she can go to ECF as she has been accepted. She is not mentally competent to make decisions. She is again confused today and only alert to self. She denies any further concerns at this time. 12/03/24 Pt resting in bed. She continues to be intermittently confused. She was only able to tell me her name today. However, she was able to answer all the nurses questions properly. She continues to await level II eval information from assessment so that [facility] can tx to ECF. CK 211. Wound cultures x2 now both showing proteus mirabilis. Changing to Augmentin today per pharmacy suggestion. Nursing advised to keep a close watch on pt d/t to her hx of multiple med allergies. She denies any further concerns at this time. 12/04/24 Pt resting in bed. She states she doesn't feel well and her stomach is upset. Medication provided. She has been using a heating pad for her back pain. Per PT dressings to be changed Q2 days as directed. She continues to have confusion and is alert to person and place only. She continues to await level II eval information to be transferred to rehab. She denies CP, SOB, N/V/D. 12/05/24 Pt resting in bed. She c/o H/A this AM and tylenol provided. per nurse this AM she had increased back pain and norco provided. She states that her pain pain has resolved this AM. Creat 1.08 and NS @ 50ml/hr started. She continues to have confusion and is alert to person and place only. She continues to await level II eval information to be transferred to rehab. She denies CP, SOB, N/V/D. - Review of Systems Constitutional: No Fever, No Chills Eyes: No Symptoms Ears, Nose, & Throat: No Symptoms Respiratory: No Cough, No Short Of Breath Cardiac: No Chest Pain, No Edema, No Syncope Abdominal/Gastrointestinal: No Abdominal Pain, No Nausea, No Vomiting, No Diarrhea Genitourinary Symptoms: No Dysuria Musculoskeletal: No Back Pain, No Neck Pain Skin: Skin Lesions (coccyx and upper back), Other, No Rash Neurological: No Dizziness, No Focal Weakness, No Sensory Changes Psychological: No Symptoms Endocrine: No Symptoms Hematologic/Lymphatic: No Symptoms Immunological/Allergic: No Symptoms Objective Exam General Appearance: no apparent distress, alert Neurologic Exam: alert, oriented x 3, cooperative, normal mood/affect, nml cerebellar function, sensation nml, No motor deficits Skin Exam: normal color, warm, dry, other (coccyx and upper back) Eye Exam: PERRL, EOMI, eyes nml inspection Ears, Nose, Throat Exam: normal ENT inspection, pharynx normal, moist mucous membranes Neck Exam: normal inspection, non-tender, supple, full range of motion Respiratory Exam: normal breath sounds, lungs clear, No respiratory distress Cardiovascular Exam: regular rate/rhythm, normal heart sounds Gastrointestinal/Abdomen Exam: soft, No tenderness, No mass Extremity Exam: normal inspection, normal range of motion Back Exam: normal inspection, normal range of motion, No CVA tenderness, No vertebral tenderness Pelvic Exam: deferred Rectal Exam: deferred Objective Data Vital Signs: Vital Signs - 24 hr Temp Pulse Resp BP Pulse Ox 12/05/24 08:00 16 12/05/24 06:27 63 16 95 12/05/24 04:00 97.4 F 61 16 97/50 95 12/05/24 00:00 16 12/04/24 23:52 96.9 F 69 16 91/55 95 12/04/24 20:00 97.1 F 69 16 110/66 95 12/04/24 16:00 97.3 F 75 19 156/86 94 L 12/04/24 12:00 18 12/04/24 11:43 97.3 F 70 18 109/59 94 L Pain Assessment - Last Documented Pain Intensity 8 Pain Scale Used 0-10 Pain Scale Intake and Output: Intake & Output 12/02/24 12/03/24 12/04/24 12/05/24 11:59 11:59 11:59 11:59 Intake Total 1470 940 761 3393 Output Total 800 Balance 670 096 122 4533 Weight 40.3 kg 41.6 kg 41.6 kg Lab Results: Lab Results-Last 24 Hours 12/05/24 12/05/24 Range/Units 05:50 05:50 WBC 6.5 (3.98-10.04) x10^3/uL RBC 3.93 (3.93-5.22) x10^6/uL Hgb 10.6 L (11.2-15.7) g/dL Hct 35.2 (34.1-44.9) % MCV 89.6 (79.4-94.8) fL MCH 27.0 (25.6-32.2) pg MCHC 30.1 L (32.2-35.5) g/dL RDW 15.6 H (11.7-14.4) % Plt Count 352 (182-369) x10^3/uL MPV 9.9 (9.4-12.3) fL Sodium 139 (135-145) mmol/L Potassium 4.6 (3.5-5.1) mmol/L Chloride 104 (98-107) mmol/L Carbon Dioxide 24 (22-30) mmol/L Anion Gap 15.1 H (5-15) MEQ/L BUN 15 (7-17) mg/dL Creatinine 1.08 H (0.52-1.04) mg/dL Estimated GFR 59.2 ML/MIN Glucose 80 (74-106) mg/dL Calcium 8.7 (8.4-10.2) mg/dL Assessment/Plan (1) Encephalopathy Current Visit: Yes Status: Acute Code(s): G93.40 - ENCEPHALOPATHY, UNSPECIFIED (2) Recurrent falls Current Visit: Yes Status: Acute Code(s): R29.6 - REPEATED FALLS (3) Rhabdomyolysis Current Visit: Yes Status: Acute Code(s): M62.82 - RHABDOMYOLYSIS (4) Unstageable pressure ulcer of sacral region Current Visit: Yes Status: Acute Code(s): L89.150 - PRESSURE ULCER OF SACRAL REGION, UNSTAGEABLE (5) Elevated LFTs Current Visit: Yes Status: Acute Code(s): R79.89 - OTHER SPECIFIED ABNORMAL FINDINGS OF BLOOD CHEMISTRY (6) Elevated lipase Current Visit: Yes Status: Acute Code(s): R74.8 - ABNORMAL LEVELS OF OTHER SERUM ENZYMES (7) Hypothyroid Current Visit: Yes Status: Chronic Code(s): E03.9 - HYPOTHYROIDISM, UNSPECIFIED (8) Non compliance w medication regimen Current Visit: Yes Status: Acute Code(s): Z91.148 - PATIENT'S OTHER NONCOMPL WITH MEDS REGIMEN FOR OTHER REASON (9) SINTIA (acute kidney injury) Current Visit: Yes Status: Resolved Code(s): N17.9 - ACUTE KIDNEY FAILURE, UNSPECIFIED (10) COPD (chronic obstructive pulmonary disease) Current Visit: Yes Status: Chronic (11) HTN (hypertension) Current Visit: Yes Status: Chronic Code(s): I10 - ESSENTIAL (PRIMARY) HYPERTENSION (12) History of liver transplant Current Visit: Yes Status: Chronic (13) Hypernatremia Current Visit: Yes Status: Resolved Code(s): E87.0 - HYPEROSMOLALITY AND HYPERNATREMIA (14) Metabolic acidosis Current Visit: Yes Status: Resolved Code(s): E87.20 - ACIDOSIS, UNSPECIFIED (15) Vitamin D deficiency Current Visit: Yes Status: Chronic Assessment & Plan: 1) Encephalopathy Current Visit: Yes Status: Acute Assessment & Plan: - CT head: identified a small focus of a remote infarct in the right parietal lobe without acute intracranial abnormalities - MRI brain: demonstrates atrophy and degenerative micro-ischemia within normal limits. 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 No acute intracranial abnormalities or evidence for evolving large vessel territorial stroke -TSH reviewed at 14.188- not taking home meds as prescribed- restarted meds - CK elevated - CBC, CMP reviewed 11/30 - CK 448, AST 54, ALT 37, Lipase 310 - A& O x2 - CBC, CMP reviewed 12/01 - CK 356 - Mental status improving with intermittent confusion 12/02 - alert to person only today - mentally incompetent to make her own decisions. - CBC, CMP reviewed - CK improving daily 12/03 - Intermittent confusion - CBC, CMP reviewed - CK improving daily 12/04 - Intermittent confusion - CBC, CMP reviewed 12/05 - Intermittent confusion - CBC, CMP reviewed Code(s): G93.40 - ENCEPHALOPATHY, UNSPECIFIED (2) Recurrent falls Current Visit: Yes Status: Acute Assessment & Plan: - Multifactorial as stated above with underlying electrolyte imbalances, uremia, and metabolic and neurological factors - CT of abdomen reviewed with healing ramus fracture - patient with h/o OA will check vitamin D level - CT head reviewed - MRI negative - PT/OT evaluation - Need for placement- rehab- awaiting level II eval - level II eval 12/01 Code(s): R29.6 - REPEATED FALLS (3) Rhabdomyolysis Current Visit: Yes Status: Acute Assessment & Plan: - IVF - CK 856- improving 11/30 - CK 448- improving - Cont IVF 12/01 - CK 356 - IVF stopped as no IV - IV later placed in the evening but fluids not restarted since CK improving 12/02 - CK 240 12/03 -CK 211 Code(s): M62.82 - RHABDOMYOLYSIS (4) Unstageable pressure ulcer of sacral region Current Visit: Yes Status: Acute Assessment & Plan: - PT for wound assessment - Surgery consult - off load- turn q2h - I&D on 11/26 by - Wound care as instructed by surgery 11/30 - wound cultures x2 ordered 12/01 - Coccyx wound culture gram negative and sensitivity pending - Started Aztrenonam - Back abcess wound culture pending - CBC, CMP reviewed 12/02 - Wound culture coccyx + proteus mirabilis- Continue aztrenonam, will change to PO Augmentin prior to d/c. 12/03 - Started Augmentin - BC x2 + proteus mirabilis - Nursing to chart dressing recs per PT- change dressings every other day Code(s): L89.150 - PRESSURE ULCER OF SACRAL REGION, UNSTAGEABLE (5) Elevated LFTs Current Visit: Yes Status: Acute Assessment & Plan: - Improving AST 76, ALT 43- trend 11/30 - AST 54, ALT 37 12/01 - AST 51, ALT 34- improved 12/02 - AST 40, ALT 29 Code(s): R79.89 - OTHER SPECIFIED ABNORMAL FINDINGS OF BLOOD CHEMISTRY (6) Elevated lipase Current Visit: Yes Status: Acute Assessment & Plan: - 518 on admission - recheck in AM -CT abd/pelvis: revealed a healing right inferior pubic ramus fracture. Liver, pancreas, spleen, adrenal glands, kidneys, ureters, and bladder are unremarkable -IVF 11/30 - Liapse 310 - denies abd pain - Lipid profile reviewed - will need OP f/u with GI Code(s): R74.8 - ABNORMAL LEVELS OF OTHER SERUM ENZYMES (7) Hypothyroid Current Visit: Yes Status: Chronic Assessment & Plan: - TSH 14.188 on admission - Continue home meds as she has not been taking as prescribed - F/U with PCP OP for monitoring Code(s): E03.9 - HYPOTHYROIDISM, UNSPECIFIED (8) Non compliance w medication regimen Current Visit: Yes Status: Acute Assessment & Plan: - not taking meds at home as prescribed Code(s): Z91.148 - PATIENT'S OTHER NONCOMPL WITH MEDS REGIMEN FOR OTHER REASON (9) SINTIA (acute kidney injury) Current Visit: Yes Status: Resolved Assessment & Plan: - Creat 1.08- started NS @ 50 ml/hr Code(s): N17.9 - ACUTE KIDNEY FAILURE, UNSPECIFIED (10) COPD (chronic obstructive pulmonary disease) Current Visit: Yes Status: Chronic Assessment & Plan: -CT chest with no acute findings -RT eval -continue home meds (11) HTN (hypertension) Current Visit: Yes Status: Chronic Assessment & Plan: -BP stable - continue home meds Code(s): I10 - ESSENTIAL (PRIMARY) HYPERTENSION (12) History of liver transplant Current Visit: Yes Status: Chronic Assessment & Plan: - continue home meds (13) Hypernatremia Current Visit: Yes Status: Resolved Assessment & Plan: - resolved Code(s): E87.0 - HYPEROSMOLALITY AND HYPERNATREMIA (14) Metabolic acidosis Current Visit: Yes Status: Resolved Assessment & Plan: - resolved Code(s): E87.20 - ACIDOSIS, UNSPECIFIED (15) Vitamin D deficiency Current Visit: Yes Status: Chronic Assessment & Plan: - Vitamin D 12.8 - Started replacement daily VTE: Heparin PPI: Protonix Next of KIN: Mother Code status: Full D/C plan: pending level II eval results Code(s): E55.9 - VITAMIN D DEFICIENCY, UNSPECIFIED
[2024-12-05] MEDS: NORCO 5/325 MG PO PRN (19:53)
[2024-12-06 04:49] LABS: Hematocrit 34.4 % (34.1-44.9); Hemoglobin 10.6 g/dL (11.2-15.7); Mean Cell Volume 87.8 fL (79.4-94.8); Mean Corpuscular Hgb Concent. 30.8 g/dL (32.2-35.5); Platelet Count 347 x10^3/uL (182-369); Red Blood Count 3.92 x10^6/uL (3.93-5.22); Red Cell Distribution Width 15.8 % (11.7-14.4); White Blood Count 7.2 x10^3/uL (3.98-10.04)
[2024-12-06 05:04] LABS: ALBUMIN 3.8 g/dL (3.5-5.0); ANION GAP 13.6 MEQ/L (5-15); BILIRUBIN,TOTAL 0.3 mg/dL (0.2-1.3); Calcium 8.7 mg/dL (8.4-10.2); Creatinine 1 1.19 mg/dL (0.52-1.04); EST GLOMERULAR FILTRATION RATE 52.7 ML/MIN; Potassium 4.3 mmol/L (3.5-5.1); Total Protein 6.9 g/dL (6.3-8.2)
--- NOTE | 2024-12-06 05:14 | PCM.NOTE ---
Date and Time: 12/06/24 0508 Subjective Assessment: Ms. Dwyer, a 59-year-old female with multiple chronic conditions, was admitted on 11/25/24 for repeated falls, hallucinations, and encephalopathy. She had electrolyte imbalances, acute kidney injury, and an unstageable sacral wound. Imaging showed a healing pelvic fracture and chronic neurological changes. She was treated with IV fluids, wound debridement, and antibiotics for a Proteus mirabilis infection. Her condition improved, though she remained intermittently confused. Antibiotics were adjusted to Augmentin in preparation for discharge. As of 12/06/24, she continued to experience confusion and back pain while awaiting Level II evaluation for transfer to rehab. Patient is psychologically stable. 12/06/24: Met with patient bedside. Alert to self but continues to have confusion as to the date, place, president. She continues to endorse chronic back pain which she rates 6/10 on numerical pain scale. She is awaiting transfer to rehab pending level II evaluation. She is psychologically stable and is no threat to self or others. - Review of Systems Constitutional: No Symptoms Eyes: No Symptoms Ears, Nose, & Throat: No Symptoms Respiratory: No Symptoms Cardiac: No Symptoms Abdominal/Gastrointestinal: No Symptoms Genitourinary Symptoms: No Symptoms Musculoskeletal: Back Pain Skin: No Symptoms Neurological: No Symptoms Psychological: No Symptoms Endocrine: No Symptoms Hematologic/Lymphatic: No Symptoms Immunological/Allergic: No Symptoms Objective Exam General Appearance: no apparent distress Neurologic Exam: alert, cooperative, confusion Skin Exam: normal color Wound Assessment: Skin/Wound Assessment Wound/Incision Assessment Start: 12/05/24 14:46 Text: Status: Active Freq: Protocol: Document 12/05/24 14:46 RB (Rec: 12/05/24 15:02 RB [id number]) Wound/Incision Assessment Upper Posterior Coccyx Wound Assessment Shift Assessment Drainage Amount Moderate Drainage Description Purulent General Appearance Well Approximated Surrounding Tissue Bright Red Primary Dressing MEPILEX Upper Posterior Medial Back Wound Assessment Shift Assessment Dressing Status Dry & Intact Drainage Amount Moderate Drainage Description Purulent Drainage Odor None/Absent General Appearance Well Approximated Wound Bed Greatest Portion Yellow (Slough) Surrounding Tissue Bright Red Topical Solution/Irrigant Saline Irrigant Primary Dressing TEGADERM Secondary Dressing MEPILEX Wound Photo Comment: PREVIOUS PHOTO IN CHART Eye Exam: PERRL Ears, Nose, Throat Exam: normal ENT inspection Neck Exam: normal inspection Respiratory Exam: normal breath sounds, lungs clear Cardiovascular Exam: regular rate/rhythm, normal heart sounds Gastrointestinal/Abdomen Exam: soft, normal bowel sounds Extremity Exam: normal inspection Back Exam: normal inspection Pelvic Exam: deferred Rectal Exam: deferred Objective Data Vital Signs: Vital Signs - 24 hr Temp Pulse Resp BP Pulse Ox 12/06/24 04:00 16 12/06/24 00:00 16 12/05/24 23:43 97.7 F 77 16 137/78 95 12/05/24 20:00 97.5 F 74 16 118/56 95 12/05/24 19:04 86 16 96 12/05/24 16:00 98.0 F 68 18 134/59 95 12/05/24 12:00 97.9 F 68 18 119/60 97 12/05/24 08:00 97.8 F 62 16 115/54 95 12/05/24 06:27 63 16 95 Pain Assessment - Last Documented Pain Intensity 7 Pain Scale Used 0-10 Pain Scale Intake and Output: Intake & Output 12/03/24 12/04/24 12/05/24 12/06/24 11:59 11:59 11:59 11:59 Intake Total 058 262 9126 712 Balance 777 266 3274 712 Weight 41.6 kg 41.6 kg 42.2 kg Lab Results: Lab Results-Last 24 Hours 12/05/24 12/05/24 12/06/24 Range/Units 05:50 05:50 04:21 WBC 6.5 7.2 (3.98-10.04) x10^3/uL RBC 3.93 3.92 L (3.93-5.22) x10^6/uL Hgb 10.6 L 10.6 L (11.2-15.7) g/dL Hct 35.2 34.4 (34.1-44.9) % MCV 89.6 87.8 (79.4-94.8) fL MCH 27.0 27.0 (25.6-32.2) pg MCHC 30.1 L 30.8 L (32.2-35.5) g/dL RDW 15.6 H 15.8 H (11.7-14.4) % Plt Count 352 347 (182-369) x10^3/uL MPV 9.9 10.0 (9.4-12.3) fL Sodium 139 (135-145) mmol/L Potassium 4.6 (3.5-5.1) mmol/L Chloride 104 (98-107) mmol/L Carbon Dioxide 24 (22-30) mmol/L Anion Gap 15.1 H (5-15) MEQ/L BUN 15 (7-17) mg/dL Creatinine 1.08 H (0.52-1.04) mg/dL Estimated GFR 59.2 ML/MIN Glucose 80 (74-106) mg/dL Calcium 8.7 (8.4-10.2) mg/dL Total Bilirubin (0.2-1.3) mg/dL AST (14-36) U/L ALT (0-35) U/L Alkaline Phosphatase (38-126) U/L Serum Total Protein (6.3-8.2) g/dL Albumin (3.5-5.0) g/dL 12/06/24 Range/Units 04:21 WBC (3.98-10.04) x10^3/uL RBC (3.93-5.22) x10^6/uL Hgb (11.2-15.7) g/dL Hct (34.1-44.9) % MCV (79.4-94.8) fL MCH (25.6-32.2) pg MCHC (32.2-35.5) g/dL RDW (11.7-14.4) % Plt Count (182-369) x10^3/uL MPV (9.4-12.3) fL Sodium 142 (135-145) mmol/L Potassium 4.3 (3.5-5.1) mmol/L Chloride 105 (98-107) mmol/L Carbon Dioxide 28 (22-30) mmol/L Anion Gap 13.6 (5-15) MEQ/L BUN 16 (7-17) mg/dL Creatinine 1.19 H (0.52-1.04) mg/dL Estimated GFR 52.7 ML/MIN Glucose 98 (74-106) mg/dL Calcium 8.7 (8.4-10.2) mg/dL Total Bilirubin 0.30 (0.2-1.3) mg/dL AST 46 H (14-36) U/L ALT 30 (0-35) U/L Alkaline Phosphatase 103 (38-126) U/L Serum Total Protein 6.9 (6.3-8.2) g/dL Albumin 3.8 (3.5-5.0) g/dL Assessment/Plan (1) Encephalopathy Current Visit: Yes Status: Acute Assessment & Plan: - CT head: identified a small focus of a remote infarct in the right parietal lobe without acute intracranial abnormalities - MRI brain: demonstrates atrophy and degenerative micro-ischemia within normal limits. 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 No acute intracranial abnormalities or evidence for evolving large vessel territorial stroke -TSH reviewed at 14.188- not taking home meds as prescribed- restarted meds - CK elevated - CBC, CMP reviewed - Intermittent confusion - CBC, CMP reviewed Code(s): G93.40 - ENCEPHALOPATHY, UNSPECIFIED (2) SINTIA (acute kidney injury) Current Visit: Yes Status: Resolved Assessment & Plan: - resolved Code(s): N17.9 - ACUTE KIDNEY FAILURE, UNSPECIFIED (3) Rhabdomyolysis Current Visit: Yes Status: Acute Assessment & Plan: -CK level improving Code(s): M62.82 - RHABDOMYOLYSIS (4) Hypernatremia Current Visit: Yes Status: Resolved Assessment & Plan: - resolved Code(s): E87.0 - HYPEROSMOLALITY AND HYPERNATREMIA (5) Metabolic acidosis Current Visit: Yes Status: Resolved Assessment & Plan: - resolved Code(s): E87.20 - ACIDOSIS, UNSPECIFIED (6) Elevated LFTs Current Visit: Yes Status: Acute Assessment & Plan: -Improved - reviewed LFTs from 12/02/24 Code(s): R79.89 - OTHER SPECIFIED ABNORMAL FINDINGS OF BLOOD CHEMISTRY (7) Elevated lipase Current Visit: Yes Status: Acute Assessment & Plan: - 518 on admission with down-trend noted -CT abd/pelvis: revealed a healing right inferior pubic ramus fracture. Liver, pancreas, spleen, adrenal glands, kidneys, ureters, and bladder are unremarkable - Lipid profile reviewed - will need OP f/u with GI Code(s): R74.8 - ABNORMAL LEVELS OF OTHER SERUM ENZYMES (8) Recurrent falls Current Visit: Yes Status: Acute Assessment & Plan: - Multifactorial as stated above with underlying electrolyte imbalances, uremia, and metabolic and neurological factors - CT of abdomen reviewed with healing ramus fracture - patient with h/o OA will check vitamin D level - CT head reviewed - MRI negative - PT/OT evaluation - Need for placement- rehab- awaiting level II eval - level II eval 12/01 Code(s): R29.6 - REPEATED FALLS (9) Hypothyroid Current Visit: Yes Status: Chronic Assessment & Plan: - TSH 14.188 on admission - Continue home meds as she has not been taking as prescribed - F/U with PCP OP for monitoring Code(s): E03.9 - HYPOTHYROIDISM, UNSPECIFIED (10) HTN (hypertension) Current Visit: Yes Status: Chronic Assessment & Plan: -BP stable - continue home meds Code(s): I10 - ESSENTIAL (PRIMARY) HYPERTENSION (11) History of liver transplant Current Visit: Yes Status: Chronic Assessment & Plan: - continue home meds (12) Non compliance w medication regimen Current Visit: Yes Status: Acute Assessment & Plan: - not taking meds at home as prescribed Code(s): Z91.148 - PATIENT'S OTHER NONCOMPL WITH MEDS REGIMEN FOR OTHER REASON (13) Unstageable pressure ulcer of sacral region Current Visit: Yes Status: Acute Assessment & Plan: - PT for wound assessment -I&D performed by surgery 11/26/24 - off load- turn q2h - Wound care as instructed by surgery - Wound culture coccyx + proteus mirabilis- Continue aztrenonam, will change to PO Augmentin prior to d/c. - Augmentin initiated 12/03/24 - BC x2 negative - Nursing to chart dressing recs per PT- change dressings every other day Code(s): L89.150 - PRESSURE ULCER OF SACRAL REGION, UNSTAGEABLE (14) COPD (chronic obstructive pulmonary disease) Current Visit: Yes Status: Chronic Assessment & Plan: -CT chest with no acute findings -RT eval -continue home meds (15) Vitamin D deficiency Current Visit: Yes Status: Acute Assessment & Plan: - Vitamin D 12.8 - Started replacement daily VTE: Heparin PPI: Protonix Next of KIN: Mother Code status: Full D/C plan: pending level II eval results Code(s): E55.9 - VITAMIN D DEFICIENCY, UNSPECIFIED
[2024-12-07 05:40] LABS: Absolute Neutrophil Ct (ANC) 3.33 x10^3/uL (1.56-6.13); BASOPHIL % 1.4 % (0.1-1.2); Basophil (Absolute #) 0.09 x10^3/uL (0.01-0.08); Eosinophil (Absolute #) 0.13 x10^3/uL (0.04-0.36); Hematocrit 33.1 % (34.1-44.9); Hemoglobin 10.2 g/dL (11.2-15.7); IMMATURE GRAN # 0.03 x10^3u/L (0.001-0.031); IMMATURE GRAN % 0.5 % (0.001-0.429); Lymphocytes % 36.2 % (19.3-51.7); Mean Cell Volume 88.5 fL (79.4-94.8); Mean Corpuscular Hemoglobin 27.3 pg (25.6-32.2); Mean Corpuscular Hgb Concent. 30.8 g/dL (32.2-35.5); Mean Platelet Volume 9.6 fL (9.4-12.3); Monocyte (Absolute #) 0.48 x10^3/uL (0.24-0.86); Monocytes % 7.5 % (4.7-12.5); Neutrophil % 52.4 % (34.0-71.1); Platelet Count 312 x10^3/uL (182-369); Red Blood Count 3.74 x10^6/uL (3.93-5.22); Red Cell Distribution Width 15.7 % (11.7-14.4); White Blood Count 6.4 x10^3/uL (3.98-10.04)
--- NOTE | 2024-12-07 05:42 | PCM.NOTE ---
Date and Time: 12/07/24 0541 Subjective Assessment: Ms. Dwyer, a 59-year-old female with multiple chronic conditions, was admitted on 11/25/24 for repeated falls, hallucinations, and encephalopathy. She had electrolyte imbalances, acute kidney injury, and an unstageable sacral wound. Imaging showed a healing pelvic fracture and chronic neurological changes. She was treated with IV fluids, wound debridement, and antibiotics for a Proteus mirabilis infection. Her condition improved, though she remained intermittently confused. Antibiotics were adjusted to Augmentin in preparation for discharge. As of 12/06/24, she continued to experience confusion and back pain while awaiting Level II evaluation for transfer to rehab. Patient is psychologically stable. 12/06/24: Met with patient bedside. Alert to self but continues to have confusion as to the date, place, president. She continues to endorse chronic back pain which she rates 6/10 on numerical pain scale. She is awaiting transfer to rehab pending level II evaluation. She is psychologically stable and is no threat to self or others. Objective Exam Wound Assessment: Skin/Wound Assessment Wound/Incision Assessment Start: 12/05/24 14:46 Text: Status: Active Freq: Protocol: Document 12/05/24 14:46 RB (Rec: 12/05/24 15:02 RB [id number]) Wound/Incision Assessment Upper Posterior Coccyx Wound Assessment Shift Assessment Drainage Amount Moderate Drainage Description Purulent General Appearance Well Approximated Surrounding Tissue Bright Red Primary Dressing MEPILEX Upper Posterior Medial Back Wound Assessment Shift Assessment Dressing Status Dry & Intact Drainage Amount Moderate Drainage Description Purulent Drainage Odor None/Absent General Appearance Well Approximated Wound Bed Greatest Portion Yellow (Slough) Surrounding Tissue Bright Red Topical Solution/Irrigant Saline Irrigant Primary Dressing TEGADERM Secondary Dressing MEPILEX Wound Photo Comment: PREVIOUS PHOTO IN CHART Objective Data Vital Signs: Vital Signs - 24 hr Temp Pulse Resp BP Pulse Ox 12/07/24 04:00 66 16 115/71 95 12/07/24 00:00 16 12/06/24 23:58 97.6 F 62 16 126/62 95 12/06/24 20:12 97.6 F 73 18 109/62 94 L 12/06/24 20:00 18 12/06/24 16:00 97.7 F 68 16 126/65 95 12/06/24 12:00 97.6 F 80 17 126/76 96 12/06/24 11:29 75 16 97 12/06/24 08:00 97.5 F 61 15 135/66 96 Pain Assessment - Last Documented Pain Intensity 5 Pain Scale Used 0-10 Pain Scale Intake and Output: Intake & Output 12/04/24 12/05/24 12/06/24 12/07/24 11:59 11:59 11:59 11:59 Intake Total 940 1190 832 480 Balance 940 1190 832 480 Weight 41.6 kg 42.2 kg 40.6 kg Multi-Disciplinary Progress Notes: Multi-Disciplinary Progress Notes 12/06/24 12:37 Case Management Note by Oriana López PATIENT STILL CONFUSED AT THIS TIME, LEVEL II STILL PENDING AT THIS TIME. [place] UPDATED Initialized on 12/06/24 12:37 - END OF NOTE Assessment/Plan (1) Encephalopathy Current Visit: Yes Status: Acute Assessment & Plan: - CT head: identified a small focus of a remote infarct in the right parietal lobe without acute intracranial abnormalities - MRI brain: demonstrates atrophy and degenerative micro-ischemia within normal limits. 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 No acute intracranial abnormalities or evidence for evolving large vessel territorial stroke -TSH reviewed at 14.188- not taking home meds as prescribed- restarted meds - CK elevated - CBC, CMP reviewed - Intermittent confusion - CBC, CMP reviewed Code(s): G93.40 - ENCEPHALOPATHY, UNSPECIFIED (2) SINTIA (acute kidney injury) Current Visit: Yes Status: Resolved Assessment & Plan: - resolved Code(s): N17.9 - ACUTE KIDNEY FAILURE, UNSPECIFIED (3) Rhabdomyolysis Current Visit: Yes Status: Acute Assessment & Plan: -CK level improving Code(s): M62.82 - RHABDOMYOLYSIS (4) Hypernatremia Current Visit: Yes Status: Resolved Assessment & Plan: - resolved Code(s): E87.0 - HYPEROSMOLALITY AND HYPERNATREMIA (5) Metabolic acidosis Current Visit: Yes Status: Resolved Assessment & Plan: - resolved Code(s): E87.20 - ACIDOSIS, UNSPECIFIED (6) Elevated LFTs Current Visit: Yes Status: Acute Assessment & Plan: -Improved - reviewed LFTs from 12/02/24 Code(s): R79.89 - OTHER SPECIFIED ABNORMAL FINDINGS OF BLOOD CHEMISTRY (7) Elevated lipase Current Visit: Yes Status: Acute Assessment & Plan: - 518 on admission with down-trend noted -CT abd/pelvis: revealed a healing right inferior pubic ramus fracture. Liver, pancreas, spleen, adrenal glands, kidneys, ureters, and bladder are unremarkable - Lipid profile reviewed - will need OP f/u with GI Code(s): R74.8 - ABNORMAL LEVELS OF OTHER SERUM ENZYMES (8) Recurrent falls Current Visit: Yes Status: Acute Assessment & Plan: - Multifactorial as stated above with underlying electrolyte imbalances, uremia, and metabolic and neurological factors - CT of abdomen reviewed with healing ramus fracture - patient with h/o OA will check vitamin D level - CT head reviewed - MRI negative - PT/OT evaluation - Need for placement- rehab- awaiting level II eval - level II eval 12/01 Code(s): R29.6 - REPEATED FALLS (9) Hypothyroid Current Visit: Yes Status: Chronic Assessment & Plan: - TSH 14.188 on admission - Continue home meds as she has not been taking as prescribed - F/U with PCP OP for monitoring Code(s): E03.9 - HYPOTHYROIDISM, UNSPECIFIED (10) HTN (hypertension) Current Visit: Yes Status: Chronic Assessment & Plan: -BP stable - continue home meds Code(s): I10 - ESSENTIAL (PRIMARY) HYPERTENSION (11) History of liver transplant Current Visit: Yes Status: Chronic Assessment & Plan: - continue home meds (12) Non compliance w medication regimen Current Visit: Yes Status: Acute Assessment & Plan: - not taking meds at home as prescribed Code(s): Z91.148 - PATIENT'S OTHER NONCOMPL WITH MEDS REGIMEN FOR OTHER REASON (13) Unstageable pressure ulcer of sacral region Current Visit: Yes Status: Acute Assessment & Plan: - PT for wound assessment -I&D performed by surgery 11/26/24 - off load- turn q2h - Wound care as instructed by surgery - Wound culture coccyx + proteus mirabilis- Continue aztrenonam, will change to PO Augmentin prior to d/c. - Augmentin initiated 12/03/24 - BC x2 negative - Nursing to chart dressing recs per PT- change dressings every other day Code(s): L89.150 - PRESSURE ULCER OF SACRAL REGION, UNSTAGEABLE (14) COPD (chronic obstructive pulmonary disease) Current Visit: Yes Status: Chronic Assessment & Plan: -CT chest with no acute findings -RT eval -continue home meds (15) Vitamin D deficiency Current Visit: Yes Status: Acute Assessment & Plan: - Vitamin D 12.8 - Started replacement daily VTE: Heparin PPI: Protonix Next of KIN: Mother Code status: Full D/C plan: pending level II eval results Code(s): G93.40 - ENCEPHALOPATHY, UNSPECIFIED (2) SINTIA (acute kidney injury) Current Visit: Yes Status: Resolved Code(s): N17.9 - ACUTE KIDNEY FAILURE, UNSPECIFIED (3) Rhabdomyolysis Current Visit: Yes Status: Acute Code(s): M62.82 - RHABDOMYOLYSIS (4) Hypernatremia Current Visit: Yes Status: Resolved Code(s): E87.0 - HYPEROSMOLALITY AND HYPERNATREMIA (5) Metabolic acidosis Current Visit: Yes Status: Resolved Code(s): E87.20 - ACIDOSIS, UNSPECIFIED (6) Elevated LFTs Current Visit: Yes Status: Acute Code(s): R79.89 - OTHER SPECIFIED ABNORMAL FINDINGS OF BLOOD CHEMISTRY (7) Elevated lipase Current Visit: Yes Status: Acute Code(s): R74.8 - ABNORMAL LEVELS OF OTHER SERUM ENZYMES (8) Recurrent falls Current Visit: Yes Status: Acute Code(s): R29.6 - REPEATED FALLS (9) Hypothyroid Current Visit: Yes Status: Chronic Code(s): E03.9 - HYPOTHYROIDISM, UNSPECIFIED (10) HTN (hypertension) Current Visit: Yes Status: Chronic Code(s): I10 - ESSENTIAL (PRIMARY) HYPERTENSION (11) History of liver transplant Current Visit: Yes Status: Chronic (12) Non compliance w medication regimen Current Visit: Yes Status: Acute Code(s): Z91.148 - PATIENT'S OTHER NONCOMPL WITH MEDS REGIMEN FOR OTHER REASON (13) Unstageable pressure ulcer of sacral region Current Visit: Yes Status: Acute Code(s): L89.150 - PRESSURE ULCER OF SACRAL REGION, UNSTAGEABLE (14) COPD (chronic obstructive pulmonary disease) Current Visit: Yes Status: Chronic (15) Vitamin D deficiency Current Visit: Yes Status: Acute Code(s): E55.9 - VITAMIN D DEFICIENCY, UNSPECIFIED
[2024-12-07 05:58] LABS: ALBUMIN 3.9 g/dL (3.5-5.0); ANION GAP 14.8 MEQ/L (5-15); BILIRUBIN,TOTAL 0.5 mg/dL (0.2-1.3); Calcium 8.8 mg/dL (8.4-10.2); Creatinine 1 1.12 mg/dL (0.52-1.04); EST GLOMERULAR FILTRATION RATE 56.7 ML/MIN; Potassium 4.4 mmol/L (3.5-5.1); Total Protein 7.1 g/dL (6.3-8.2)
--- NOTE | 2024-12-07 09:38 | PCM.DS ---
Discharge Summary Date of Admission: 11/25/24 17:03 Date of Discharge: 12/07/24 Admitting Physician: KARUNA FARRELL MD Consults: Consults on Case 11/25/24 17:54 Consult Surgery ROUTINE Primary Care Provider: CLEMENTINA LAM Allergies Allergies ampicillin Allergy (Severe, Verified 11/25/24 11:09) Swelling azithromycin [From Zithromax Z-Pawan] Allergy (Severe, Verified 11/25/24 11:09) Swelling cefixime [From Suprax] Allergy (Severe, Verified 11/25/24 11:09) Swelling cephalexin monohydrate [From Keflex] Allergy (Severe, Verified 11/25/24 11:09) Swelling ciprofloxacin [From Cipro] Allergy (Severe, Verified 11/25/24 11:09) Rash ciprofloxacin HCl [From Cipro] Allergy (Severe, Verified 11/25/24 11:09) Swelling erythromycin base [Erythromycin Base] Allergy (Severe, Verified 11/25/24 11:09) Swelling levofloxacin [From Levaquin] Allergy (Severe, Verified 11/25/24 11:09) swelling of throat nitrofurantoin [From Macrobid] Allergy (Severe, Verified 11/25/24 11:09) Swelling nitrofurantoin macrocrystalline [From Macrobid] Allergy (Severe, Verified 11/25/24 17:17) Rash Penicillins Allergy (Severe, Verified 11/25/24 11:09) Difficulty Breathing doxycycline Allergy (Verified 11/25/24 11:09) duloxetine [From Cymbalta] Allergy (Verified 11/25/24 11:09) Sulfa (Sulfonamide Antibiotics) Allergy (Verified 11/25/24 11:09) tetracycline [Tetracycline] Allergy (Verified 11/25/24 11:09) Hospital Summary - Hospital Course Hospital Course: Ms. Dwyer, a 59-year-old female with multiple chronic conditions, was admitted on 11/25/24 for repeated falls, hallucinations, and encephalopathy. She had electrolyte imbalances, acute kidney injury, and an unstageable sacral wound. Imaging showed a healing pelvic fracture and chronic neurological changes. She was treated with IV fluids, wound debridement, and antibiotics for a Proteus mirabilis infection. Her condition improved, though she remained intermittently confused. Antibiotics were adjusted to Augmentin in preparation for discharge. As of 12/06/24, she continued to experience confusion and back pain while awaiting Level II evaluation for transfer to rehab. Patient is psychologically stable. Discharge Note New Medications: Augmentin Follow Up: PCP/ID I spent 35 minutes [id number] with the patient on the day of discharge performing discharge exam, discussing hospital stay and discharge instructions with patient and caregivers, preparation of discharge records, prescriptions & referral forms and addressing any questions/concerns the patient had as documented above. - Vitals & Intake/Output Vital Signs: Vital Signs Temperature 97.6 F 12/07/24 08:00 Pulse Rate 56 L 12/07/24 08:00 Respiratory Rate 16 12/07/24 08:00 Blood Pressure 115/57 12/07/24 08:00 O2 Sat by Pulse Oximetry 97 12/07/24 08:00 Intake & Output: Intake & Output 12/04/24 12/05/24 12/06/24 12/07/24 11:59 11:59 11:59 11:59 Intake Total 940 1190 832 480 Balance 940 1190 832 480 Weight 41.6 kg 42.2 kg 40.6 kg - Lab Result Diagrams: 12/07/24 05:37 12/07/24 05:37 Lab Results-Last 24 Hrs: Lab Results-Last 24 Hours 12/07/24 12/07/24 Range/Units 05:37 05:37 WBC 6.4 (3.98-10.04) x10^3/uL RBC 3.74 L (3.93-5.22) x10^6/uL Hgb 10.2 L (11.2-15.7) g/dL Hct 33.1 L (34.1-44.9) % MCV 88.5 (79.4-94.8) fL MCH 27.3 (25.6-32.2) pg MCHC 30.8 L (32.2-35.5) g/dL RDW 15.7 H (11.7-14.4) % Plt Count 312 (182-369) x10^3/uL MPV 9.6 (9.4-12.3) fL Gran % 52.4 (34.0-71.1) % Immature Gran % (Auto) 0.5 H (0.001-0.429) % Nucleat RBC Rel Count 0.0 (0.00-0.2) % Eos # (Auto) 0.13 (0.04-0.36) x10^3/uL Immature Gran # (Auto) 0.03 (0.001-0.031) x10^3u/L Absolute Lymphs (auto) 2.30 (1.18-3.74) x10^3/uL Absolute Monos (auto) 0.48 (0.24-0.86) x10^3/uL Absolute Nucleated RBC 0.00 (0.00-0.012) x10^3u/L Lymphocytes % 36.2 (19.3-51.7) % Monocytes % 7.5 (4.7-12.5) % Eosinophils % 2.0 (0.7-5.8) % Basophils % 1.4 H (0.1-1.2) % Absolute Granulocytes 3.33 (1.56-6.13) x10^3/uL Basophils # 0.09 H (0.01-0.08) x10^3/uL Sodium 139 (135-145) mmol/L Potassium 4.4 (3.5-5.1) mmol/L Chloride 103 (98-107) mmol/L Carbon Dioxide 25 (22-30) mmol/L Anion Gap 14.8 (5-15) MEQ/L BUN 14 (7-17) mg/dL Creatinine 1.12 H (0.52-1.04) mg/dL Estimated GFR 56.7 ML/MIN Glucose 83 (74-106) mg/dL Calcium 8.8 (8.4-10.2) mg/dL Total Bilirubin 0.50 (0.2-1.3) mg/dL AST 48 H (14-36) U/L ALT 30 (0-35) U/L Alkaline Phosphatase 99 (38-126) U/L Serum Total Protein 7.1 (6.3-8.2) g/dL Albumin 3.9 (3.5-5.0) g/dL Micro Results-Entire Visit: Microbiology 11/30/24 12:15 Wound Culture - Final Back - Not Known Proteus Mirabilis 11/30/24 12:15 Wound Culture - Final Coccyx Proteus Mirabilis 11/25/24 15:05 Blood Culture - Final Blood 11/25/24 14:40 Blood Culture - Final Blood 11/25/24 13:21 Urine Culture - Final Catherized NO GROWTH - Procedures and Test Procedures and Tests throughout Hospitalization: Therapy Orders & Screens 11/25/24 17:54 PT Eval & Treat ( Order) ONCE Reason for Eval:: recurrent falls wound assessment Diagnosis: confusion/recurrent falls Respiratory Therapy Consult ONCE Comment: Reason For Exam: Diagnosis: confusion/recurrent falls OT Eval and Treat (MD Order) ONCE Comment: Physician Instructions: Reason For Exam: Diagnosis: confusion/recurrent falls 11/25/24 18:06 Respiratory Therapy Assessment DAILY Comment: Diagnosis: confusion/recurrent falls 11/26/24 18:12 EKG ONCE Comment: Diagnosis: ENCEPHALOPATHY, RHABDOMYOLISIS, SINTIA, FALLS Discharge Exam General Appearance: no apparent distress Neurologic Exam: alert, oriented x 3, cooperative Eye Exam: PERRL Ears, Nose, Throat Exam: normal ENT inspection Neck Exam: normal inspection Respiratory Exam: normal breath sounds, lungs clear Cardiovascular Exam: regular rate/rhythm, normal heart sounds Gastrointestinal/Abdomen Exam: soft, normal bowel sounds Pelvic Exam: deferred Rectal Exam: deferred Back Exam: normal inspection Extremity Exam: normal inspection Skin Exam: other (see wound assessment) Wound Assessment: Skin/Wound Assessment Wound/Incision Assessment Start: 12/05/24 14:46 Text: Status: Active Freq: Protocol: Document 12/05/24 14:46 RB (Rec: 12/05/24 15:02 RB [id number]) Wound/Incision Assessment Upper Posterior Coccyx Wound Assessment Shift Assessment Drainage Amount Moderate Drainage Description Purulent General Appearance Well Approximated Surrounding Tissue Bright Red Primary Dressing MEPILEX Upper Posterior Medial Back Wound Assessment Shift Assessment Dressing Status Dry & Intact Drainage Amount Moderate Drainage Description Purulent Drainage Odor None/Absent General Appearance Well Approximated Wound Bed Greatest Portion Yellow (Slough) Surrounding Tissue Bright Red Topical Solution/Irrigant Saline Irrigant Primary Dressing TEGADERM Secondary Dressing MEPILEX Wound Photo Comment: PREVIOUS PHOTO IN CHART Final Diagnosis/Problem List - Final Discharge Diagnosis/Problem (1) Encephalopathy Current Visit: Yes Status: Chronic Assessment & Plan: - CT head: identified a small focus of a remote infarct in the right parietal lobe without acute intracranial abnormalities - MRI brain: demonstrates atrophy and degenerative micro-ischemia within normal limits. 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 No acute intracranial abnormalities or evidence for evolving large vessel territorial stroke -TSH reviewed at 14.188- not taking home meds as prescribed- restarted meds - CK elevated - CBC, CMP reviewed - Intermittent confusion - CBC, CMP reviewed Code(s): G93.40 - ENCEPHALOPATHY, UNSPECIFIED (2) SINTIA (acute kidney injury) Current Visit: Yes Status: Resolved Assessment & Plan: - resolved Code(s): N17.9 - ACUTE KIDNEY FAILURE, UNSPECIFIED (3) Rhabdomyolysis Current Visit: Yes Status: Acute Assessment & Plan: -CK level improving Code(s): M62.82 - RHABDOMYOLYSIS (4) Hypernatremia Current Visit: Yes Status: Resolved Assessment & Plan: - resolved Code(s): E87.0 - HYPEROSMOLALITY AND HYPERNATREMIA (5) Metabolic acidosis Current Visit: Yes Status: Resolved Assessment & Plan: - resolved Code(s): E87.20 - ACIDOSIS, UNSPECIFIED (6) Elevated LFTs Current Visit: Yes Status: Acute Assessment & Plan: -Improved - reviewed LFTs from 12/02/24 Code(s): R79.89 - OTHER SPECIFIED ABNORMAL FINDINGS OF BLOOD CHEMISTRY (7) Elevated lipase Current Visit: Yes Status: Acute Assessment & Plan: - 518 on admission with down-trend noted -CT abd/pelvis: revealed a healing right inferior pubic ramus fracture. Liver, pancreas, spleen, adrenal glands, kidneys, ureters, and bladder are unremarkable - Lipid profile reviewed - will need OP f/u with GI Code(s): R74.8 - ABNORMAL LEVELS OF OTHER SERUM ENZYMES (8) Recurrent falls Current Visit: Yes Status: Acute Assessment & Plan: - Multifactorial as stated above with underlying electrolyte imbalances, uremia, and metabolic and neurological factors - CT of abdomen reviewed with healing ramus fracture - patient with h/o OA will check vitamin D level - CT head reviewed - MRI negative - PT/OT evaluation - Need for placement- rehab- awaiting level II eval - level II eval 12/01 Code(s): R29.6 - REPEATED FALLS (9) Hypothyroid Current Visit: Yes Status: Chronic Assessment & Plan: - TSH 14.188 on admission - Continue home meds as she has not been taking as prescribed - F/U with PCP OP for monitoring Code(s): E03.9 - HYPOTHYROIDISM, UNSPECIFIED (10) HTN (hypertension) Current Visit: Yes Status: Chronic Assessment & Plan: -BP stable - continue home meds Code(s): I10 - ESSENTIAL (PRIMARY) HYPERTENSION (11) History of liver transplant Current Visit: Yes Status: Chronic Assessment & Plan: - continue home meds (12) Non compliance w medication regimen Current Visit: Yes Status: Acute Assessment & Plan: - not taking meds at home as prescribed Code(s): Z91.148 - PATIENT'S OTHER NONCOMPL WITH MEDS REGIMEN FOR OTHER REASON (13) Unstageable pressure ulcer of sacral region Current Visit: Yes Status: Acute Assessment & Plan: - PT for wound assessment -I&D performed by surgery 11/26/24 - off load- turn q2h - Wound care as instructed by surgery - Wound culture coccyx + proteus mirabilis- Continue aztrenonam, will change to PO Augmentin prior to d/c. - Augmentin initiated 12/03/24 - BC x2 negative - Nursing to chart dressing recs per PT- change dressings every other day (14) COPD (chronic obstructive pulmonary disease) Current Visit: Yes Status: Chronic Assessment & Plan: -CT chest with no acute findings -RT eval -continue home meds (15) Vitamin D deficiency Current Visit: Yes Status: Acute Assessment & Plan: - Vitamin D 12.8 - Started replacement daily Code(s): G93.40 - ENCEPHALOPATHY, UNSPECIFIED (2) SINTIA (acute kidney injury) Current Visit: Yes Status: Resolved Code(s): N17.9 - ACUTE KIDNEY FAILURE, UNSPECIFIED (3) Rhabdomyolysis Current Visit: Yes Status: Resolved Code(s): M62.82 - RHABDOMYOLYSIS (4) Hypernatremia Current Visit: Yes Status: Resolved Code(s): E87.0 - HYPEROSMOLALITY AND HYPERNATREMIA (5) Metabolic acidosis Current Visit: Yes Status: Resolved Code(s): E87.20 - ACIDOSIS, UNSPECIFIED (6) Elevated LFTs Current Visit: Yes Status: Resolved Code(s): R79.89 - OTHER SPECIFIED ABNORMAL FINDINGS OF BLOOD CHEMISTRY (7) Elevated lipase Current Visit: Yes Status: Acute Code(s): R74.8 - ABNORMAL LEVELS OF OTHER SERUM ENZYMES (8) Recurrent falls Current Visit: Yes Status: Chronic Code(s): R29.6 - REPEATED FALLS (9) Hypothyroid Current Visit: Yes Status: Chronic Code(s): E03.9 - HYPOTHYROIDISM, UNSPECIFIED (10) HTN (hypertension) Current Visit: Yes Status: Chronic Code(s): I10 - ESSENTIAL (PRIMARY) HYPERTENSION (11) History of liver transplant Current Visit: Yes Status: Chronic (12) Non compliance w medication regimen Current Visit: Yes Status: Chronic Code(s): Z91.148 - PATIENT'S OTHER NONCOMPL WITH MEDS REGIMEN FOR OTHER REASON (13) Unstageable pressure ulcer of sacral region Current Visit: Yes Status: Chronic Code(s): L89.150 - PRESSURE ULCER OF SACRAL REGION, UNSTAGEABLE (14) COPD (chronic obstructive pulmonary disease) Current Visit: Yes Status: Chronic (15) Vitamin D deficiency Current Visit: Yes Status: Acute Code(s): E55.9 - VITAMIN D DEFICIENCY, UNSPECIFIED - Discharge Discharge Date: 12/07/24 Disposition: DC TO ANY "OTHER" JAIL Condition: Stable Prescriptions: New Amox Tr/Potass Clav. 875 mg [Augmentin 875-125 Tablet] 875 mg PO Q12H tablet Nicotine 21 mg [Nicoderm CQ 21 MG] 21 mg TOP Q24H patch PANTOPRAZOLE 40 mg Tablet [Protonix 40MG Tablet] 40 mg PO DAILY tablet Cholecalciferol (Vitamin D3) [Vitamin D] 1,000 unit PO DAILY tablet Continue ALPRAZolam [Xanax] 0.5 mg PO BID PRN PRN Reason: Anxiety Metoprolol Tartrate 50 mg [Lopressor 50 MG] 50 mg PO BID Omeprazole 40 mg PO BID Levothyroxine Sodium 100 Mcg [Synthroid 100 Mcg] 1 tab PO DAILY Sirolimus 1 tab PO DAILY Amitriptyline HCl 25 mg [Amitriptyline 25 mg Tablet] 25 mg PO HS Sumatriptan Succinate 25 mg [Imitrex 25 MG] 50 mg PO DAILY PRN PRN Reason: Headache Additional Instructions: ADMIT TO CARE HOME FACILITY: REGULAR DIET DRESSING CHANGES TO BACK EVERY OTHER DAY FOLLOWS: CLEANSE BOTH UPPER BACK AND COCCYX WITH HIBACLEANSE AND SALINE, DRESS UPPER BACK WITH CALCIUM ALGENATE, MEPILEX LITE AND TEGADERM, DRESS COCCYX WITH LARGE MEPILEX SEE ATTACHED MED LIST Follow up with: CLEMENTINA LAM MD [Primary Care Provider] - 12/09/24 2:15 pm LOS LAURA [ACTIVE STAFF] - 01/06/25 10:00 am ([place] Office)
[2024-12-07 12:45] VITALS: BP 98/56; PULSE 63; RESP 18; TEMP 97.7; O2SAT 95
== END 2024-12-07 14:26 | DRG 41 ==
LOC: ED 10:58 → MED SURG 17:03
PROVIDERS: ADMIT Internal Medicine; ATTEND Internal Medicine
PROC: 0JB70ZZ Excision of Back Subcutaneous Tissue and Fascia, Open Approach (ICD-10-PCS; principal; 2024-11-26)
PROC: 05HC33Z Insertion of Infusion Device into Left Basilic Vein, Percutaneous Approach (ICD-10-PCS; 2024-12-01)
DX: G93.40 Encephalopathy, unspecified (principal); E87.0 Hyperosmolality and hypernatremia; M62.82 Rhabdomyolysis; N17.9 Acute kidney failure, unspecified; E87.20 Acidosis, unspecified; Z94.4 Liver transplant status; R79.89 Other specified abnormal findings of blood chemistry; R74.8 Abnormal levels of other serum enzymes; R29.6 Repeated falls; E03.9 Hypothyroidism, unspecified; I11.0 Hypertensive heart disease with heart failure; L89.100 Pressure ulcer of unspecified part of back, unstageable; L89.150 Pressure ulcer of sacral region, unstageable; I25.2 Old myocardial infarction; J44.9 Chronic obstructive pulmonary disease, unspecified; E55.9 Vitamin D deficiency, unspecified; R41.82 Altered mental status, unspecified; F17.200 Nicotine dependence, unspecified, uncomplicated; Z91.148 Patient's other noncompliance with medication regimen for other reason; Z79.899 Other long term (current) drug therapy
CPT/HCPCS: 36415; 70450; 70551; 71250; 72125; 74176; 80048; 80053; 80061; 80307; 81001; 82077; 82140; 82306; 82550; 82947; 83036; 83605; 83690; 83721; 84443; 85025; 85027; 85610; 87040; 87070; 87077; 87086; 87186; 93005; 94760; 97110; 97161; 97165; 97530; 99284; P9612; Q3014; J0330; J1644; J2060; J2250; J2371; J2704; J3010; A9270-GY